=== PATIENT | male | born 1995 | race African-American/Black ===

== ENCOUNTER 2025-08-10 05:33 | Emergency (ER) | payer SELFPAY ==
[2025-08-10 05:37] VITALS: BP 122/68; PULSE 68; RESP 20; TEMP 36.7; O2SAT 100
--- OUTSIDE RECORDS SUMMARY | 2025-08-10 05:37 | XMS_ITS | Encounter Summary ---
Author Organization [facility] Address [address] [place] [address] Phone Care Team Providers Care Client Services Account Manager Name Role Phone Kwan Hennessy MD Primary Care Provider [phone] Bessie Butt MD Unavailable [phone] Reason for Visit * Reason Onset Date Comments Med Refill 08/09/2025 Encounter Details Date Type Department Care Team (Late st Contact Info) Description 08/09/2025 Telephone [facility] Medicine Hematology [address] [place] [id number] Miley Ward Med Refill Social History Tobacco Use Types Packs/Day Years Used Date Smoking Tobacco: Never Passive Smoke Exposure: Never Smokeless Tobacco: Never Alcohol Use Standard Drinks/Week Comments Never 0 (1 standard drink = 0.6 oz pur e alcohol) [facility] Utilities Answer Date Recorded In the past 12 months has [employer], gas, oil, or water company threatened to shut off services in your home? No 02/04/2025 Social Connection and Isolation Panel Answer Date Recorded In a typical week, how many times do you talk on the phone with family, friends, or neighbors? Three times a week 02/04/2025 How often do you get togethe r with friends or relatives? More than three times a week 02/04/2025 How often do you attend chur ch or restoration services? Never 02/04/2025 Do you belong to any clubs o r organizations such as evangelical groups, unions, fraternal or athletic groups, or school groups? No 02/04/2025 How often do you attend meet ings of the clubs or organizations you belong to? Never 02/04/2025 Are you , , di vorced, , never , or living with a partner? Living with partner 02/04/2025 AUDIT-C Answer Date Recorded Q1: How often do you have a drink containing alcohol? Never 02/02/2025 Q2: How many drinks containi ng alcohol do you have on a typical day when you are drinking? Patient does not drink Q3: How often do you have si x or more drinks on one occasion? Never 02/02/2025 Overall Financial Resource Strain (CARDIA) Answe r Date Recorded How hard is it for you to pa y for the very basics like food, housing, medical care, and heating? Not very hard 02/04/2025 PHQ-2 Answer Date Recorded PHQ-2 Total Score (If total score is 3 or more points, staff should administer the PHQ-9) 1 12/24/2024 PRAPARE - Transportation Answer Date Re corded In the past 12 months, has l ack of transportation kept you from medical appointments or from getting medications? No 04/2025 In the past 12 months, has l ack of transportation kept you from meetings, work, or from getting things needed for daily living? No 02/04/2025 Housing Stability Vital Sign Answer Darrin e Recorded In the last 12 months, was t here a time when you were not able to pay the mortgage or rent on time? No 05/23/2023 In the last 12 months, how many places have you lived? 1 05/23/2023 In the last 12 months, was t here a time when you did not have a steady place to sleep or slept in a correction (including now)? No 05/23/2023 Housing Stability Vital Sign Answer Darrin e Recorded In the last 12 months, was t here a time when you were not able to pay the mortgage or rent on time? No 02/04/2025 In the past 12 months, how m any times have you moved where you were living? 0 02/04/2025 At any time in the past 12 m [facility], were you homeless or living in a correction (including now)? No 02/04/2025 Hunger Vital Sign Answer Date Recorded Within the past 12 months, y ou worried that your food would run out before you got the money to buy more. Never true 08/06/20 25 Within the past 12 months, t he food you bought just didn't last and you didn't have money to get more. Never true 08/06/2025 Personal Safety Answer Date Recorded Have you ever been in or are you currently in a harmful physical or emotional relationship or is someone making you feel afraid or unsafe? Denies 08/06/2025 Sex and Gender Information Value Date Recorded Sex Assigned at Not on file Legal Sex Male 7:27 AM [employer] Gender Identity Not on file Sexual Orientation Not on file Occupation Industry Job Start Date Job End Date Unemployed Not on file Not on file Not on file documented as of this encounter Miscellaneous Notes * Telephone Encounter - Miley Ward - 08/09/2025 2:37 PM CDT Pt left vm for Ernie requesting a medication refill for Ibuprofen. Pt would like rx sent to [facility] pharmacy located at [address] in [place], [place]. Call back number is [phone] documented in this encounter Plan of Treatment Not on file documented as of this encounter Visit Diagnoses Not on filedocumented in this encounter Care Teams Client Services Account Manager Relationship Specialty Start Date End Date Kwan Hennessy MD [address] [address] PCP - General 04/14/20 Bessie Butt MD [address] [place] [address] Medical Oncologist/Distribution System Operator Hematology 07/15/21 documented as of this encounter
--- OUTSIDE RECORDS SUMMARY | 2025-08-10 05:37 | XMS_ITS | Data Portability ---
Author Organization [facility] PATCristóbalchris Motley Address [address] [place] [address] Care Team Providers Care Moisture Meter Reader Name Role Phone BRIELLE OCASIO Primary Care Provider ONEIL MEADOWS Neurological Surgeon Assessment No assessment recorded. Plan of Treatment Reminders Order Date Submit Date Provider Last Modified By Organization Details Last Modified Time Details Appointments None recorded. Lab RPR (rapid plasma reagin), serum 2023 024 [facility], [address] [place], [place] [address], [address], [place], [address], 4 21:07:51 HIV 1 + 2, meaningful use set 2023 024 [facility], [address], [place], [address], 4 21:07:51 chlamydia trachomatis + neisseria gonorrhoeae + trichomonas vaginalis DNA panel, ENRICO+probe, unspecified specimen 2023 024 [facility] [address], [address], [place], [address], 4 21:07:50 HSV 2 IgG Ab, QN, IA, serum 2023 024 [facility] [address], [place], [address], 21:07:49 Referral None recorded. Procedures None recorded. Surgeries None recorded. Imaging None recorded. Medication Orders promethazin e 6.25 mg/5 mL oral syrup 2024 025 [facility][id number], [address] [place], [address], 5 12:53:46 promethazin e 6.25 mg/5 mL oral syrup 2023 024 [facility][id number], [address] [place], [address], 4 11:11:35 promethazin e 6.25 mg/5 mL oral syrup 2023 024 [id number] [address] [place], [address], 4 14:40:12 escitalopra m 5 mg tablet 2023 024 [id number], [address] [place], [address], 4 17:19:38 Patient TargetsNo targets recorded. Patient Instructions Encounter Date Encounter Id Patient Instructions Last Modified By Organization Details Last Modified Time 04/17/2024 [id number] sickle cell disease: care instructions [email or web address] Not available 04/17/2024 14:40:10 learning about mood disorders [email or web address] Not available 04/17/2024 17:19:36 05/22/2024 [id number] You have an active order for physical therapy at [facility], call [phone] to schedule [email or web address] Not available 05/22/2024 11:21:09 11/22/2024 [id number] sickle cell disease: care instructions [email or web address] Not available 11/22/2024 12:51:33 Reason for Referral None Reported. Results Created Date Observation Date Name Description Value Unit Range Abnormal Flag Note LastModifiedBy Organization Detail LastModifiedTime 04/17/20 24 04/18/2024 HSV-2 AB, IGG hsv 2 IgG, type spec <0.91 index 0.00-0 .90 Negat isabell <0.91 Equiv ocal 0.91 - 1.09 Posit isabell >1.09 HSV-2 Antib cammie Inter preta tion: Curre nt guide lines and recom menda tions do not recom mend routi ne scree baldemar for HSV-2 in asymp tomat ic indiv idual s, inclu ding those that are pregn ant. A negat isabell antib cammie resul t indic ates no detec table antib odies to HSV-2 were found . If recen t expos ure is suspe cted, retes t in 4 to 6 weeks . Equiv ocal sampl es shoul d be retes antonette in 4 to 6 weeks . A posit isabell resul t indic ates the prese nce of detec table IgG antib cammie to HSV-2 . FALSE POSIT ISABELL RESUL TS MAY OCCUR . Repea t testi ng, or testi ng by a rachid mccann, may be indic ated in some setti ngs (e.g. patie nts with low likel ihood of HSV infec tion) . If clini tiffany appro priat e, retes t 4 to 6 weeks later . HSV-2 IgG antib cammie testi ng resul ts shoul d be clini tiffany wanda song . Not Available [facility] ([facility]) [address] [place], [address], 04/18/2024 21:07:49 04/17/20 24 04/18/2024 CT, NG, TRICH VAG BY ENRICO chlamydia by ENRICO NEGATI VE negati ve Not Available [facility] ([facility]) [address] [place], [address], 04/18/2024 21:07:50 04/17/20 24 04/18/2024 CT, NG, TRICH VAG BY ENRICO gonococcus by ENRICO NEGATI VE negati ve Not Available [facility] ([facility]) [address] [place], [address], 04/18/2024 21:07:50 04/17/20 24 04/18/2024 CT, NG, TRICH VAG BY ENRICO trich vag by ENRICO NEGATI VE negati ve Not Available [facility] ([facility]) [address] [facility], [place], [address], 04/18/2024 21:07:50 04/17/20 24 04/18/2024 RPR, RFX QN RPR/C ONFIR M TP RPR NON REACTI VE nonrea ctive Not Available [facility] ([facility]) [address] [facility], [place], [address], 04/18/2024 21:07:51 04/17/20 24 04/18/2024 HIV AB/P2 4 AG WITH REFLE X HIV Ab/P24 Ag screen NON REACTI VE nonrea ctive HIV Negat isabell HIV-1 /HIV- 2 antib odies and HIV-1 p24 antig en were NOT detec antonette. There is no labor atory evide nce of HIV infec tion. Not Available [facility] ([facility]) [address] [facility], [place], [address], 04/18/2024 21:07:51 05/16/20 24 05/16/2024 Basic metab olic 2000 panel - Serum or Plasm a glucose [mass/volume ] in serum or plasma 91 mg/dL low: 70mg/d Lhigh: 105mg/ dL Not Available Not Available 05/07/2025 09:07:33 05/16/20 24 05/16/2024 Basic metab olic 1999 panel - Serum or Plasm a sodium [moles/volum e] in serum or plasma 139 mmol/ L low: 136mmo l/Lhig h: 145mmo l/L Not Available Not Available 05/07/2025 09:07:33 05/16/20 24 05/16/2024 Basic metab olic 1999 panel - Serum or Plasm a potassium [moles/volum e] in serum or plasma 4.3 mmol/ L low: 3.5mmo l/Lhig h: 5.1mmo l/L Not Available Not Available 05/07/2025 09:07:33 05/16/20 24 05/16/2024 Basic metab olic 1999 panel - Serum or Plasm a chloride [moles/volum e] in serum or plasma 105 mmol/ L low: 98mmol /Lhigh : 107mmo l/L Not Available Not Available 05/07/2025 09:07:33 05/16/20 24 05/16/2024 Basic metab olic 1999 panel - Serum or Plasm a carbon dioxide, total [moles/volum e] in serum or plasma 24 mmol/ L low: 22mmol /Lhigh : 29mmol /L Not Available Not Available 05/07/2025 09:07:33 05/16/20 24 05/16/2024 Basic [employer] ic 1999 panel - Serum or Plasm a calcium [mass/volume ] in serum or plasma 10.2 mg/dL low: 8.4mg/ dLhigh : 10.4mg /dL Not Available Not Available 05/07/2025 09:07:33 05/16/20 24 05/16/2024 [facility] - [facility] or Plasm a anion gap in blood by calculation 10 mmol/ L low: 6mmol/ Lhigh: 16mmol /L Not Available Not Available 05/07/2025 09:07:33 05/16/20 24 05/16/2024 [facility] - Serum or Plasm a urea nitrogen [mass/volume ] in serum or plasma 5 mg/dL low: 5.3mg/ dLhigh : 18.7mg /dL low Not Available Not Available 05/07/2025 09:07:33 05/16/20 24 05/16/2024 [facility] - Serum or Plasm a creatinine [mass/volume ] in serum or plasma 0.71 mg/dL low: 0.72mg /dLhig h: 1.25mg /dL low Not Available Not Available 05/07/2025 09:07:33 05/16/20 24 05/16/2024 Basic [facility] olic 2000 panel - Serum or Plasm a glomerular filtration rate [volume rate/area] in serum, plasma or blood by creatinine-b ased formula (CKD-epi)/1. 73 sq M text: >=90 mL/min /1.73 m2 Not Available Not Available 05/07/2025 09:07:33 05/16/20 24 05/16/2024 Basic metab olic 2000 panel - Serum or Plasm a interpretati on and review of laboratory results Abnorm al Not Available Not Available 09:07:33 05/16/20 24 05/16/2024 CBC W Auto Diffe renti al panel - Blood leukocytes [#/volume] in blood by automated count 7.2 text: 4.0 - 10.7 x10e9/ L Not Available Not Available 05/07/2025 09:07:33 05/16/20 24 05/16/2024 CBC W Auto Diffe renti al panel - Blood erythrocytes [#/volume] in blood by automated count 2.43 text: 4.30 - 5.80 x10e12 /L low Not Available Not Available 05/07/2025 09:07:33 05/16/20 24 05/16/2024 CBC W Auto Diffe renti al panel - Blood hemoglobin [mass/volume ] in blood 9.5 g/dL low: 13.3g/ dLhigh : 17.5g/ dL low Not Available Not Available 05/07/2025 09:07:33 05/16/20 24 05/16/2024 CBC W Auto Diffe renti al panel - Blood hematocrit [volume fraction] of blood by automated count 26.2 % low: 38.7%h igh: 51.1% low Not Available Not Available 05/07/2025 09:07:33 05/16/20 24 05/16/2024 CBC W Auto Diffe renti al panel - Blood MCV [entitic mean volume] in red blood cells by automated count 107.8 fL low: 80fLhi gh: 98fL high Not Available Not Available 05/07/2025 09:07:33 05/16/20 24 05/16/2024 CBC W Auto Diffe renti al panel - Blood MCH [entitic mass] by automated count 39.1 pg low: 26.7pg high: 33.6pg high Not Available Not Available 05/07/2025 09:07:33 05/16/20 24 05/16/2024 CBC W Auto Diffe renti al panel - Blood MCHC [entitic mass/volume] in red blood cells by automated count 36.3 g/dL low: 31.7g/ dLhigh : 36.3g/ dL Not Available Not Available 05/07/2025 09:07:33 05/16/20 24 05/16/2024 CBC W Auto Diffe renti al panel - Blood erythrocyte [distwidth] in red blood cells by automated count 18.8 % low: 11.3%h igh: 14.8% high Not Available Not Available 05/07/2025 09:07:33 05/16/20 24 05/16/2024 CBC W Auto Diffe renti al panel - Blood platelets [#/volume] in blood by automated count 284 text: 150 - 420 x10e9/ L Not Available Not Available 05/07/2025 09:07:33 05/16/20 24 05/16/2024 CBC W Auto Diffe renti al panel - Blood platelet [entitic mean volume] in blood by automated count 9.6 fL low: 7.8fLh igh: 11.4fL Not Available Not Available 05/07/2025 09:07:33 05/16/20 24 05/16/2024 CBC W Auto Diffe renti al panel - Blood neutrophils/ leukocytes in blood by automated count 53.6 % low: 41%hig h: 74% Not Available Not Available 05/07/2025 09:07:33 05/16/20 24 05/16/2024 CBC W Auto Diffe renti al panel - Blood lymphocytes/ leukocytes in blood by automated count 39.6 % low: 17%hig h: 47% Not Available Not Available 05/07/2025 09:07:33 05/16/20 24 05/16/2024 CBC W Auto Diffe renti al panel - Blood monocytes/le ukocytes in blood by automated count 4.8 % low: 3%high : 11% Not Available Not Available 05/07/2025 09:07:33 05/16/20 24 05/16/2024 CBC W Auto Diffe renti al panel - Blood eosinophils/ leukocytes in blood by automated count 1.1 % low: 0%high : 7% Not Available Not Available 05/07/2025 09:07:33 05/16/20 24 05/16/2024 CBC W Auto Diffe renti al panel - Blood basophils/le ukocytes in blood by automated count 0.6 % low: 0%high : 1.6% Not Available Not Available 05/07/2025 09:07:33 05/16/20 24 05/16/2024 CBC W Auto Diffe renti al panel - Blood immature granulocytes /leukocytes in blood by automated count 0.3 % low: 0%high : 1% Not Available Not Available 05/07/2025 09:07:33 05/16/20 24 05/16/2024 CBC W Auto Diffe renti al panel - Blood neutrophils [#/volume] in blood by automated count 3.84 text: 1.60 - 7.50 x10e9/ L Not Available Not Available 05/07/2025 09:07:33 05/16/20 24 05/16/2024 CBC W Auto Diffe renti al panel - Blood lymphocytes [#/volume] in blood by automated count 2.83 text: 1.00 - 4.40 x10e9/ L Not Available Not Available 05/07/2025 09:07:33 05/16/20 24 05/16/2024 CBC W Auto Diffe renti al panel - Blood monocytes [#/volume] in blood by automated count 0.34 text: 0.15 - 1.00 x10e9/ L Not Available Not Available 05/07/2025 09:07:33 05/16/20 24 05/16/2024 CBC W Auto Diffe renti al panel - Blood eosinophils [#/volume] in blood 0.08 text: 0.00 - 0.60 x10e9/ L Not Available Not Available 05/07/2025 09:07:33 05/16/20 24 05/16/2024 CBC W Auto Diffe renti al panel - Blood basophils [#/volume] in blood by automated count 0.04 text: 0.00 - 0.13 x10e9/ L Not Available Not Available 05/07/2025 09:07:33 05/16/20 24 05/16/2024 CBC W Auto Diffe renti al panel - Blood nucleated erythrocytes /leukocytes [ratio] in blood by automated count 0.7 text: <=0.0 /100 WBC high Not Available Not Available 05/07/2025 09:07:33 05/16/20 24 05/16/2024 CBC W Auto Diffe renti al panel - Blood interpretati on and review of laboratory results Abnorm al Not Available Not Available 09:07:33 05/17/20 24 05/17/2024 Hapto globi n [Mass /volu me] in Serum or Plasm a by Nephe lomet ry haptoglobin [mass/volume ] in serum or plasma by nephelometry low: 14mg/d Lhigh: 258mg/ dL low Not Available Not Available 05/07/2025 09:07:33 05/17/20 24 05/17/2024 Hapto globi n [Mass /volu me] in Serum or Plasm a by Nephe lomet ry interpretati on and review of laboratory results Abnorm al Not Available Not Available 09:07:33 05/17/20 24 05/17/2024 Lacta te dehyd rogen ase [Enzy matic activ ity/v olume ] in Serum or Plasm a by Lacta te to pyruv ate react ion lactate dehydrogenas e [enzymatic activity/vol ume] in serum or plasma by lactate to pyruvate reaction 389 U/L low: 125U/L high: 220U/L high Not Available Not Available 05/07/2025 09:07:33 05/17/20 24 05/17/2024 Lacta te dehyd rogen ase [Enzy matic activ ity/v olume ] in Serum or Plasm a by Lacta te to pyruv ate react ion interpretati on and review of laboratory results Abnorm al Not Available Not Available 09:07:33 05/17/20 24 05/17/2024 Basic metab olic 1999 panel - Serum or Plasm a glucose [mass/volume ] in serum or plasma 95 mg/dL low: 70mg/d Lhigh: 105mg/ dL Not Available Not Available 05/07/2025 09:07:33 05/17/20 24 05/17/2024 Basic metab olic 1999 panel - Serum or Plasm a sodium [moles/volum e] in serum or plasma 138 mmol/ L low: 136mmo l/Lhig h: 145mmo l/L Not Available Not Available 05/07/2025 09:07:33 05/17/20 24 05/17/2024 Basic metab olic 1999 panel - Serum or Plasm a potassium [moles/volum e] in serum or plasma 4.1 mmol/ L low: 3.5mmo l/Lhig h: 5.1mmo l/L Not Available Not Available 05/07/2025 09:07:33 05/17/20 24 05/17/2024 [facility] olic 1999 panel - Serum or Plasm a chloride [moles/volum e] in serum or plasma 108 mmol/ L low: 98mmol /Lhigh : 107mmo l/L high Not Available Not Available 05/07/2025 09:07:33 05/17/20 24 05/17/2024 Basic [facility] olic 1999 panel - Serum or Plasm a carbon dioxide, total [moles/volum e] in serum or plasma 23 mmol/ L low: 22mmol /Lhigh : 29mmol /L Not Available Not Available 05/07/2025 09:07:33 05/17/20 24 05[facility] or Plasm a calcium [mass/volume ] in serum or plasma 9.4 mg/dL low: 8.4mg/ dLhigh : 10.4mg /dL Not Available Not Available 05/07/2025 09:07:33 05/17/20 24 05/17/2024 [facility] - Serum or Plasm a anion gap in blood by calculation 7 mmol/ L low: 6mmol/ Lhigh: 16mmol /L Not Available Not Available 05/07/2025 09:07:33 05/17/20 24 05/17/2024 [facility] - Serum or Plasm a urea nitrogen [mass/volume ] in serum or plasma 8 mg/dL low: 5.3mg/ dLhigh : 18.7mg /dL Not Available Not Available 05/07/2025 09:07:33 05/17/20 24 05/17/2024 Basic [facility] olic 1999 panel - Serum or Plasm a creatinine [mass/volume ] in serum or plasma 0.66 mg/dL low: 0.72mg /dLhig h: 1.25mg /dL low Not Available Not Available 05/07/2025 09:07:33 05/17/20 24 05/17/2024 [facility] - Serum or Plasm a glomerular filtration rate [volume rate/area] in serum, plasma or blood by creatinine-b ased formula (CKD-epi)/1. 73 sq M text: >=90 mL/min /1.73 m2 Not Available Not Available 05/07/2025 09:07:33 05/17/20 24 05/17/2024 Basic metab olic 2000 panel - Serum or Plasm a interpretati on and review of laboratory results Abnorm al Not Available Not Available 09:07:33 05/17/20 24 05/17/2024 CBC W Auto Diffe renti al panel - Blood leukocytes [#/volume] in blood by automated count 6.8 text: 4.0 - 10.7 x10e9/ L Not Available Not Available 05/07/2025 09:07:33 05/17/20 24 05/17/2024 CBC W Auto Diffe renti al panel - Blood erythrocytes [#/volume] in blood by automated count 2.19 text: 4.30 - 5.80 x10e12 /L low Not Available Not Available 05/07/2025 09:07:33 05/17/20 24 05/17/2024 CBC W Auto Diffe renti al panel - Blood hemoglobin [mass/volume ] in blood 8.4 g/dL low: 13.3g/ dLhigh : 17.5g/ dL low Not Available Not Available 05/07/2025 09:07:33 05/17/20 24 05/17/2024 CBC W Auto Diffe renti al panel - Blood hematocrit [volume fraction] of blood by automated count 23.5 % low: 38.7%h igh: 51.1% low Not Available Not Available 05/07/2025 09:07:33 05/17/20 24 05/17/2024 CBC W Auto Diffe renti al panel - Blood MCV [entitic mean volume] in red blood cells by automated count 107.3 fL low: 80fLhi gh: 98fL high Not Available Not Available 05/07/2025 09:07:33 05/17/20 24 05/17/2024 CBC W Auto Diffe renti al panel - Blood MCH [entitic mass] by automated count 38.4 pg low: 26.7pg high: 33.6pg high Not Available Not Available 05/07/2025 09:07:33 05/17/20 24 05/17/2024 CBC W Auto Diffe renti al panel - Blood MCHC [entitic mass/volume] in red blood cells by automated count 35.7 g/dL low: 31.7g/ dLhigh : 36.3g/ dL Not Available Not Available 05/07/2025 09:07:33 05/17/20 24 05/17/2024 CBC W Auto Diffe renti al panel - Blood erythrocyte [distwidth] in red blood cells by automated count 18.1 % low: 11.3%h igh: 14.8% high Not Available Not Available 05/07/2025 09:07:33 05/17/20 24 05/17/2024 CBC W Auto Diffe renti al panel - Blood platelets [#/volume] in blood by automated count 243 text: 150 - 420 x10e9/ L Not Available Not Available 05/07/2025 09:07:33 05/17/20 24 05/17/2024 CBC W Auto Diffe renti al panel - Blood platelet [entitic mean volume] in blood by automated count 9.5 fL low: 7.8fLh igh: 11.4fL Not Available Not Available 05/07/2025 09:07:33 05/17/20 24 05/17/2024 CBC W Auto Diffe renti al panel - Blood neutrophils/ leukocytes in blood by automated count 39.8 % low: 41%hig h: 74% low Not Available Not Available 05/07/2025 09:07:33 05/17/20 24 05/17/2024 CBC W Auto Diffe renti al panel - Blood lymphocytes/ leukocytes in blood by automated count 50.4 % low: 17%hig h: 47% high Not Available Not Available 05/07/2025 09:07:33 05/17/20 24 05/17/2024 CBC W Auto Diffe renti al panel - Blood monocytes/le ukocytes in blood by automated count 7.6 % low: 3%high : 11% Not Available Not Available 05/07/2025 09:07:33 05/17/20 24 05/17/2024 CBC W Auto Diffe renti al panel - Blood eosinophils/ leukocytes in blood by automated count 1.5 % low: 0%high : 7% Not Available Not Available 05/07/2025 09:07:33 05/17/20 24 05/17/2024 CBC W Auto Diffe renti al panel - Blood basophils/le ukocytes in blood by automated count 0.6 % low: 0%high : 1.6% Not Available Not Available 05/07/2025 09:07:33 05/17/20 24 05/17/2024 CBC W Auto Diffe renti al panel - Blood immature granulocytes /leukocytes in blood by automated count 0.1 % low: 0%high : 1% Not Available Not Available 05/07/2025 09:07:33 05/17/20 24 05/17/2024 CBC W Auto Diffe renti al panel - Blood neutrophils [#/volume] in blood by automated count 2.7 text: 1.60 - 7.50 x10e9/ L Not Available Not Available 05/07/2025 09:07:33 05/17/20 24 05/17/2024 CBC W Auto Diffe renti al panel - Blood lymphocytes [#/volume] in blood by automated count 3.43 text: 1.00 - 4.40 x10e9/ L Not Available Not Available 05/07/2025 09:07:33 05/17/20 24 05/17/2024 CBC W Auto Diffe renti al panel - Blood monocytes [#/volume] in blood by automated count 0.52 text: 0.15 - 1.00 x10e9/ L Not Available Not Available 05/07/2025 09:07:33 05/17/20 24 05/17/2024 CBC W Auto Diffe renti al panel - Blood eosinophils [#/volume] in blood 0.1 text: 0.00 - 0.60 x10e9/ L Not Available Not Available 05/07/2025 09:07:33 05/17/20 24 05/17/2024 CBC W Auto Diffe renti al panel - Blood basophils [#/volume] in blood by automated count 0.04 text: 0.00 - 0.13 x10e9/ L Not Available Not Available 05/07/2025 09:07:33 05/17/20 24 05/17/2024 CBC W Auto Diffe renti al panel - Blood nucleated erythrocytes /leukocytes [ratio] in blood by automated count 3.7 text: <=0.0 /100 WBC high Not Available Not Available 05/07/2025 09:07:33 05/17/20 24 05/17/2024 CBC W Auto Diffe renti al panel - Blood interpretati on and review of laboratory results Abnorm al Not Available Not Available 09:07:33 05/17/20 24 05/17/2024 Retic ulocy jesse [#/vo lume] in Blood reticulocyte s/erythrocyt es in blood by automated count 9.74 % low: 0.5%hi gh: 2.4% high Not Available Not Available 05/07/2025 09:07:01 05/17/20 24 05/17/2024 Retic ulocy jesse [#/vo lume] in Blood reticulocyte s [#/volume] in blood by automated count 0.2133 text: 0.0200 - 0.1100 x10e6/ uL high Not Available Not Available 05/07/2025 09:07:01 05/17/20 24 05/17/2024 Retic ulocy jesse [#/vo lume] in Blood hemoglobin [entitic mass] in reticulocyte s by automated count 36.6 pg low: 29pghi gh: 37.9pg Not Available Not Available 05/07/2025 09:07:01 05/17/20 24 05/17/2024 Retic ulocy jesse [#/vo lume] in Blood immature reticulocyte s/reticulocy jesse.total in blood 24.4 % low: 1.8%hi gh: 15.2% high Not Available Not Available 05/07/2025 09:07:01 05/17/20 24 05/17/2024 Retic ulocy jesse [#/vo lume] in Blood interpretati on and review of laboratory results Abnorm al Not Available Not Available 09:07:01 05/18/20 24 05/18/2024 Lacta te dehyd rogen ase [Enzy matic activ ity/v olume ] in Serum or Plasm a by Lacta te to pyruv ate react ion lactate dehydrogenas e [enzymatic activity/vol ume] in serum or plasma by lactate to pyruvate reaction 377 U/L low: 125U/L high: 220U/L high Not Available Not Available 05/07/2025 09:07:33 05/18/20 24 05/18/2024 Lacta te dehyd rogen ase [Enzy matic activ ity/v olume ] in Serum or Plasm a by Lacta te to pyruv ate react ion interpretati on and review of laboratory results Abnorm al Not Available Not Available 09:07:33 05/18/20 24 05/18/2024 Basic metab olic 1999 panel - Serum or Plasm a glucose [mass/volume ] in serum or plasma 93 mg/dL low: 70mg/d Lhigh: 105mg/ dL Not Available Not Available 05/07/2025 09:07:33 05/18/20 24 05/18/2024 Basic metab olic 1999 panel - Serum or Plasm a sodium [moles/volum e] in serum or plasma 139 mmol/ L low: 136mmo l/Lhig h: 145mmo l/L Not Available Not Available 05/07/2025 09:07:33 05/18/20 24 05/18/2024 Basic metab olic 1999 panel - Serum or Plasm a potassium [moles/volum e] in serum or plasma 4.1 mmol/ L low: 3.5mmo l/Lhig h: 5.1mmo l/L Not Available Not Available 05/07/2025 09:07:33 05/18/20 24 05/18/2024 Basic metab olic 1999 panel - Serum or Plasm a chloride [moles/volum e] in serum or plasma 108 mmol/ L low: 98mmol /Lhigh : 107mmo l/L high Not Available Not Available 05/07/2025 09:07:33 05/18/20 24 05/18/2024 Basic metab olic 1999 panel - Serum or Plasm a carbon dioxide, total [moles/volum e] in serum or plasma 23 mmol/ L low: 22mmol /Lhigh : 29mmol /L Not Available Not Available 05/07/2025 09:07:33 05/18/20 24 05/18/2024 Basic metab olic 1999 panel - Serum or Plasm a calcium [mass/volume ] in serum or plasma 9.5 mg/dL low: 8.4mg/ dLhigh : 10.4mg /dL Not Available Not Available 05/07/2025 09:07:33 05/18/20 24 05/18/2024 [facility] olic 2000 panel - Serum or Plasm a anion gap in blood by calculation 8 mmol/ L low: 6mmol/ Lhigh: 16mmol /L Not Available Not Available 05/07/2025 09:07:33 05/18/20 24 05/18/2024 Basic metab olic 2000 panel - Serum or Plasm a urea nitrogen [mass/volume ] in serum or plasma 9 mg/dL low: 5.3mg/ dLhigh : 18.7mg /dL Not Available Not Available 05/07/2025 09:07:33 05/18/20 24 05/18/2024 Basic metab olic 2000 panel - Serum or Plasm a creatinine [mass/volume ] in serum or plasma 0.64 mg/dL low: 0.72mg /dLhig h: 1.25mg /dL low Not Available Not Available 05/07/2025 09:07:33 05/18/20 24 05/18/2024 Basic metab olic 2000 panel - Serum or Plasm a glomerular filtration rate [volume rate/area] in serum, plasma or blood by creatinine-b ased formula (CKD-epi)/1. 73 sq M text: >=90 mL/min /1.73 m2 Not Available Not Available 05/07/2025 09:07:33 05/18/20 24 05/18/2024 Basic metab olic 2000 panel - Serum or Plasm a interpretati on and review of laboratory results Abnorm al Not Available Not Available 09:07:33 05/18/20 24 05/18/2024 CBC W Auto Diffe renti al panel - Blood leukocytes [#/volume] in blood by automated count 7.3 text: 4.0 - 10.7 x10e9/ L Not Available Not Available 05/07/2025 09:07:01 05/18/20 24 05/18/2024 CBC W Auto Diffe renti al panel - Blood erythrocytes [#/volume] in blood by automated count 2.25 text: 4.30 - 5.80 x10e12 /L low Not Available Not Available 05/07/2025 09:07:01 05/18/20 24 05/18/2024 CBC W Auto Diffe renti al panel - Blood hemoglobin [mass/volume ] in blood 8.7 g/dL low: 13.3g/ dLhigh : 17.5g/ dL low Not Available Not Available 05/07/2025 09:07:01 05/18/20 24 05/18/2024 CBC W Auto Diffe renti al panel - Blood hematocrit [volume fraction] of blood by automated count 24.3 % low: 38.7%h igh: 51.1% low Not Available Not Available 05/07/2025 09:07:01 05/18/20 24 05/18/2024 CBC W Auto Diffe renti al panel - Blood MCV [entitic mean volume] in red blood cells by automated count 108 fL low: 80fLhi gh: 98fL high Not Available Not Available 05/07/2025 09:07:01 05/18/20 24 05/18/2024 CBC W Auto Diffe renti al panel - Blood MCH [entitic mass] by automated count 38.7 pg low: 26.7pg high: 33.6pg high Not Available Not Available 05/07/2025 09:07:01 05/18/20 24 05/18/2024 CBC W Auto Diffe renti al panel - Blood MCHC [entitic mass/volume] in red blood cells by automated count 35.8 g/dL low: 31.7g/ dLhigh : 36.3g/ dL Not Available Not Available 05/07/2025 09:07:01 05/18/20 24 05/18/2024 CBC W Auto Diffe renti al panel - Blood erythrocyte [distwidth] in red blood cells by automated count 17.5 % low: 11.3%h igh: 14.8% high Not Available Not Available 05/07/2025 09:07:01 05/18/20 24 05/18/2024 CBC W Auto Diffe renti al panel - Blood platelets [#/volume] in blood by automated count 219 text: 150 - 420 x10e9/ L Not Available Not Available 05/07/2025 09:07:01 05/18/20 24 05/18/2024 CBC W Auto Diffe renti al panel - Blood platelet [entitic mean volume] in blood by automated count 9.8 fL low: 7.8fLh igh: 11.4fL Not Available Not Available 05/07/2025 09:07:01 05/18/20 24 05/18/2024 CBC W Auto Diffe renti al panel - Blood neutrophils/ leukocytes in blood by automated count 37.7 % low: 41%hig h: 74% low Not Available Not Available 05/07/2025 09:07:01 05/18/20 24 05/18/2024 CBC W Auto Diffe renti al panel - Blood lymphocytes/ leukocytes in blood by automated count 52.3 % low: 17%hig h: 47% high Not Available Not Available 05/07/2025 09:07:01 05/18/20 24 05/18/2024 CBC W Auto Diffe renti al panel - Blood monocytes/le ukocytes in blood by automated count 6.2 % low: 3%high : 11% Not Available Not Available 05/07/2025 09:07:01 05/18/20 24 05/18/2024 CBC W Auto Diffe renti al panel - Blood eosinophils/ leukocytes in blood by automated count 3 % low: 0%high : 7% Not Available Not Available 05/07/2025 09:07:01 05/18/20 24 05/18/2024 CBC W Auto Diffe renti al panel - Blood basophils/le ukocytes in blood by automated count 0.7 % low: 0%high : 1.6% Not Available Not Available 05/07/2025 09:07:01 05/18/20 24 05/18/2024 CBC W Auto Diffe renti al panel - Blood immature granulocytes /leukocytes in blood by automated count 0.1 % low: 0%high : 1% Not Available Not Available 05/07/2025 09:07:01 05/18/20 24 05/18/2024 CBC W Auto Diffe renti al panel - Blood neutrophils [#/volume] in blood by automated count 2.75 text: 1.60 - 7.50 x10e9/ L Not Available Not Available 05/07/2025 09:07:01 05/18/20 24 05/18/2024 CBC W Auto Diffe renti al panel - Blood lymphocytes [#/volume] in blood by automated count 3.82 text: 1.00 - 4.40 x10e9/ L Not Available Not Available 05/07/2025 09:07:01 05/18/20 24 05/18/2024 CBC W Auto Diffe renti al panel - Blood monocytes [#/volume] in blood by automated count 0.45 text: 0.15 - 1.00 x10e9/ L Not Available Not Available 05/07/2025 09:07:01 05/18/20 24 05/18/2024 CBC W Auto Diffe renti al panel - Blood eosinophils [#/volume] in blood 0.22 text: 0.00 - 0.60 x10e9/ L Not Available Not Available 05/07/2025 09:07:01 05/18/20 24 05/18/2024 CBC W Auto Diffe renti al panel - Blood basophils [#/volume] in blood by automated count 0.05 text: 0.00 - 0.13 x10e9/ L Not Available Not Available 05/07/2025 09:07:01 05/18/20 24 05/18/2024 CBC W Auto Diffe renti al panel - Blood nucleated erythrocytes /leukocytes [ratio] in blood by automated count 2.1 text: <=0.0 /100 WBC high Not Available Not Available 05/07/2025 09:07:01 05/18/20 24 05/18/2024 CBC W Auto Diffe renti al panel - Blood interpretati on and review of laboratory results Abnorm al Not Available Not Available 09:07:01 06/15/20 24 06/18/2024 Bacte marshall ident ified in Speci men by Respi rator y cultu re specimen source identified SPUTUM , EXPECT ORATED Not Available Not Available 11:20:31 06/15/20 24 06/18/2024 Bacte marshall ident ified in Speci men by Respi rator y cultu re service comment NO SPECIA L REQUES T Not Available Not Available 11:20:31 06/15/20 24 06/18/2024 Bacte marshall ident ified in Speci men by Respi rator y cultu re microscopic observation [identifier] in specimen by gram stain FEW WHITE BLOOD CELLS SEEN Not Available Not Available 11:20:31 06/15/20 24 06/18/2024 Bacte marshall ident ified in Speci men by Respi rator y cultu re microscopic observation [identifier] in specimen by gram stain FEW EPITHE LIAL CELLS SEEN Not Available Not Available 11:20:31 06/15/20 24 06/18/2024 Bacte marshall ident ified in Speci men by Respi rator y cultu re microscopic observation [identifier] in specimen by gram stain MODERA TE MIXED BACTER IAL SELENA Not Available Not Available 11:20:31 06/15/20 24 06/18/2024 Bacte marshall ident ified in Speci men by Respi rator y cultu re bacteria identified in specimen by culture SPARSE GROWTH OF ENTERO BACTER CLOACA E COMPLE X abnormal Not Available Not Available 11:20:31 06/15/20 24 06/18/2024 Bacte marshall ident ified in Speci men by Respi rator y cultu re bacteria identified in specimen by culture HEAVY GROWTH OF NORMAL SELENA PRESEN T Not Available Not Available 11:20:31 06/15/20 24 06/18/2024 Bacte marshall ident ified in Speci men by Respi rator y cultu re interpretati on and review of laboratory results Abnorm al Not Available Not Available 11:20:31 08/29/20 24 08/29/2024 Retic ulocy jesse [#/vo lume] in Blood by Autom ated count reticulocyte s/erythrocyt es in blood 13.1 % low: 0.8%hi gh: 2.1% high Not Available Not Available 05/07/2025 12:24:42 08/29/20 24 08/29/2024 Retic ulocy jesse [#/vo lume] in Blood by Autom ated count reticulocyte s [#/volume] in blood by automated count 0.31 text: 0.03 - 0.11 x10'6/ uL high Not Available Not Available 05/07/2025 12:24:42 08/29/20 24 08/29/2024 Retic ulocy jesse [#/vo lume] in Blood by Autom ated count immature reticulocyte s/erythrocyt es in cord blood by automated count 35.3 % low: 2.3%hi gh: 13.4% high Not Available Not Available 05/07/2025 12:24:42 08/29/20 24 08/29/2024 Retic ulocy jesse [#/vo lume] in Blood by Autom ated count retic HGB 34.5 pg low: 28pghi gh: 35pg Not Available Not Available 05/07/2025 12:24:42 08/29/20 24 08/29/2024 Retic ulocy jesse [#/vo lume] in Blood by Autom ated count interpretati on and review of laboratory results Abnorm al Not Available Not Available 12:24:42 08/29/2008/29/2024 Compr ehens [facility]abell metab olic 2000 panel - Serum or Plasm a glucose [mass/volume ] in serum or plasma 95 text: 70 - 99 mg/dL Not Available Not Available 05/07/2025 12:24:42 08/29/20 24 08/29/2024 Compr ehens [facility] metab olic 2000 panel - Serum or Plasm a urea nitrogen [mass/volume ] in serum or plasma 7 text: 7 - 18 mg/dL Not Available Not Available 05/07/2025 12:24:42 08/29/2008/29/2024 Compr ehens [facility]ell metab olic 2000 panel - Serum or Plasm a creatinine [mass/volume ] in serum or plasma 0.74 text: 0.7 - 1.3 mg/dL Not Available Not Available 05/07/2025 12:24:42 08/29/20 24 08/29/2024 Compr ehens isabell metab olic 2000 panel - Serum or Plasm a sodium [moles/volum e] in serum or plasma 142 text: 136 - 145 mmol/L Not Available Not Available 05/07/2025 12:24:42 08/29/20 24 08/29/2024 Compr ehens is[facility]ell metab olic 2000 panel - Serum or Plasm a potassium [moles/volum e] in serum or plasma 4 text: 3.5 - 5.1 mmol/L Not Available Not Available 05/07/2025 12:24:42 08/29/20 24 08/29/2024 Compr ehens [facility]ell metab olic 2000 panel - Serum or Plasm a chloride [moles/volum e] in serum or plasma 112 text: 97 - 115 mmol/L Not Available Not Available 05/07/2025 12:24:42 08/29/20 24 08/29/2024 Compr ehens [facility] metab olic 1999 panel - Serum or Plasm a carbon dioxide, total [moles/volum e] in serum or plasma 23.5 text: 21 - 32 mmol/L Not Available Not Available 05/07/2025 12:24:42 08/29/20 24 08/29/2024 Compr ehens [facility]ell metab olic 1999 panel - Serum or Plasm a calcium [mass/volume ] in serum or plasma 8.8 text: 8.5 - 10.1 mg/dL Not Available Not Available 05/07/2025 12:24:42 08/29/20 24 08/29/2024 Compr ehens is[facility]ell metab olic 1999 panel - Serum or Plasm a bilirubin.to justyn [mass/volume ] in serum or plasma 1.9 text: 0.2 - 1.2 mg/dL high THIS ASSAY IS NOT RECOM RADHA D FOR PATIE NTS UNDER GOING TREAT MENT WITH ELTRO MBOPA G DUE TO THE POTEN TIAL FOR FALSE LY ELEVA ANTONETTE RESUL TS. Not Available Not Available 05/07/2025 12:24:42 08/29/20 24 08/29/2024 Compr ehens isabell metab olic 1999 panel - Serum or Plasm a protein [mass/volume ] in serum or plasma 7.6 text: 6.4 - 8.2 g/dL Not Available Not Available 05/07/2025 12:24:42 08/29/20 24 08/29/2024 Compr ehens [facility]abell metab olic 1999 panel - Serum or Plasm a albumin [mass/volume ] in serum or plasma 4.1 text: 3.4 - 5.0 g/dL Not Available Not Available 05/07/2025 12:24:42 08/29/20 24 08/29/2024 Compr ehens [facility]ell metab olic 1999 panel - Serum or Plasm a aspartate aminotransfe rase [enzymatic activity/vol ume] in serum or plasma 34 U/L low: 15U/Lh igh: 37U/L Not Available Not Available 05/07/2025 12:24:42 08/29/20 24 08/29/2024 Compr ehens isabell metab olic 2000 panel - Serum or Plasm a alanine aminotransfe rase [enzymatic activity/vol ume] in serum or plasma 18 U/L low: 16U/Lh igh: 60U/L Not Available Not Available 05/07/2025 12:24:42 08/29/2008/29/2024 [email or web address] [employer] [facility] 1999 panel - Serum or Plasm a alkaline phosphatase [enzymatic activity/vol ume] in serum or plasma 78 U/L low: 50U/Lh igh: 136U/L Not Available Not Available 05/07/2025 12:24:42 08/29/2008/29/2024 [email or web address] [employer] [facility] 1999 panel - Serum or Plasm a anion gap in serum or plasma by calculation 6.5 text: 2 - 10 mmol/L Not Available Not Available 05/07/2025 12:24:42 08/29/2008/29/2024 [email or web address] Z2 1999 panel - Serum or Plasm a urea nitrogen/cre atinine [mass ratio] in serum or plasma 9.4 low: 6high: 26 Not Available Not Available 05/07/2025 12:24:42 08/29/20 24 08/29/2024 [facility] [employer] Z2 1999 panel - Serum or Plasm a albumin/glob ulin [mass ratio] in serum or plasma 1.2 text: 1.0 - 2.0 ratio Not Available Not Available 05/07/2025 12:24:42 08/29/20 24 08/29/2024 [facility] [employer] Z2 1999 panel - Serum or Plasm a glomerular filtration rate [volume rate/area] in serum, plasma or blood by creatinine-b ased formula (CKD-epi 2020)/1.73 sq M text: >90 mL/min /1.73 M2 NOTE: eGFR is not calcu lated for patie nts <18 years of age or gende r unkno wn. This is an estim ated GFR calcu latio n using the new CKD EPI creat inine equat ion witho ut race and so does not requi re a corre ction facto r for race. This estim ated GFR shoul d not be used for calcu latin g drug doses . Not Available Not Available 05/07/2025 12:24:42 08/29/20 24 08/29/2024 Compr ehens isabell metab olic 2000 panel - Serum or Plasm a interpretati on and review of laboratory results Abnorm al Not Available Not Available 12:24:42 08/29/20 24 08/29/2024 CBC W Auto Diffe renti al panel - Blood leukocytes [#/volume] in blood by automated count 11.24 text: 4.5 - 11.0 x10'3/ uL high Not Available Not Available 05/07/2025 12:24:42 08/29/20 24 08/29/2024 CBC W Auto Diffe renti al panel - Blood erythrocytes [#/volume] in blood by automated count 2.4 text: 4.70 - 6.10 x10'6/ uL low Not Available Not Available 05/07/2025 12:24:42 08/29/20 24 08/29/2024 CBC W Auto Diffe renti al panel - Blood hemoglobin [mass/volume ] in blood 9.1 text: 14.0 - 18.0 g/dL low Not Available Not Available 05/07/2025 12:24:42 08/29/20 24 08/29/2024 CBC W Auto Diffe renti al panel - Blood hematocrit [volume fraction] of blood by calculation 25.6 % low: 43%hig h: 54% low Not Available Not Available 05/07/2025 12:24:42 08/29/20 24 08/29/2024 CBC W Auto Diffe renti al panel - Blood MCV [entitic mean volume] in red blood cells 106.7 text: 80.0 - 94.0 fL high Not Available Not Available 05/07/2025 12:24:42 08/29/20 24 08/29/2024 CBC W Auto Diffe renti al panel - Blood MCH [entitic mass] 37.9 pg low: 27pghi gh: 31pg high Not Available Not Available 05/07/2025 12:24:42 08/29/20 24 08/29/2024 CBC W Auto Diffe renti al panel - Blood MCHC [entitic mass/volume] in red blood cells 35.5 text: 32.0 - 36.0 g/dL Not Available Not Available 05/07/2025 12:24:42 08/29/20 24 08/29/2024 CBC W Auto Diffe renti al panel - Blood RDW 16.4 % low: 11.5%h igh: 14.5% high Not Available Not Available 05/07/2025 12:24:42 08/29/20 24 08/29/2024 CBC W Auto Diffe renti al panel - Blood platelets [#/volume] in blood 404 text: 130 - 400 x10'3/ uL high Not Available Not Available 05/07/2025 12:24:42 08/29/20 24 08/29/2024 CBC W Auto Diffe renti al panel - Blood platelet [entitic mean volume] in blood 9.8 text: 9.3 - 12.2 fL Not Available Not Available 05/07/2025 12:24:42 08/29/20 24 08/29/2024 CBC W Auto Diffe renti al panel - Blood differential cell count method - blood MANUAL DIFFER ENTIAL Not Available Not Available 12:24:42 08/29/20 24 08/29/2024 CBC W Auto Diffe renti al panel - Blood segmented neutrophils/ leukocytes in blood by manual count 30 % Not Available Not Available 05/07/2025 12:24:42 08/29/20 24 08/29/2024 CBC W Auto Diffe renti al panel - Blood lymphocytes/ leukocytes in blood by manual count 62 % Not Available Not Available 05/07/2025 12:24:42 08/29/20 24 08/29/2024 CBC W Auto Diffe renti al panel - Blood variant lymphocytes/ leukocytes in blood by manual count 1 % Not Available Not Available 05/07/2025 12:24:42 08/29/20 24 08/29/2024 CBC W Auto Diffe renti al panel - Blood monocytes/le ukocytes in blood by manual count 3 % Not Available Not Available 05/07/2025 12:24:42 08/29/20 24 08/29/2024 CBC W Auto Diffe renti al panel - Blood eosinophils/ leukocytes in blood by manual count 4 % Not Available Not Available 05/07/2025 12:24:42 08/29/20 24 08/29/2024 CBC W Auto Diffe renti al panel - Blood nucleated erythrocytes /leukocytes [ratio] in blood 1 text: 0 /100 WBC high Not Available Not Available 05/07/2025 12:24:42 08/29/20 24 08/29/2024 CBC W Auto Diffe renti al panel - Blood neutrophils [#/volume] in blood 3.37 text: 1.80 - 7.70 x10'3/ uL Not Available Not Available 05/07/2025 12:24:42 08/29/20 24 08/29/2024 CBC W Auto Diffe renti al panel - Blood lymphocytes [#/volume] in blood 7.08 text: 1.00 - 4.80 x10'3/ uL high Not Available Not Available 05/07/2025 12:24:42 08/29/20 24 08/29/2024 CBC W Auto Diffe renti al panel - Blood monocytes [#/volume] in blood 0.34 text: 0.30 - 0.82 x10'3/ uL Not Available Not Available 05/07/2025 12:24:42 08/29/20 24 08/29/2024 CBC W Auto Diffe renti al panel - Blood eosinophils [#/volume] in blood 0.45 text: 0.04 - 0.54 x10'3/ uL Not Available Not Available 05/07/2025 12:24:42 08/29/20 24 08/29/2024 CBC W Auto Diffe renti al panel - Blood nucleated erythrocytes [#/volume] in blood 0.11 text: 0.00 - 0.01 x10'3/ uL high Not Available Not Available 05/07/2025 12:24:42 08/29/20 24 08/29/2024 CBC W Auto Diffe renti al panel - Blood erythrocytes [morphology] in blood by automated count SLIDE REVIEW ED Not Available Not Available 12:24:42 08/29/2008/29/2024 CBC W Auto Diffe renti al panel - Blood target cells [presence] in blood by light microscopy 1+ Not Available Not Available 0 05/07/2025 12:24:42 08/29/20 24 08/29/2024 CBC W Auto Diffe renti al panel - Blood sickle cells [presence] in blood by light microscopy 2+ Not Available Not Available 0 05/07/2025 12:24:42 08/29/20 24 08/29/2024 CBC W Auto Diffe renti al panel - Blood mushtaq 1+ Not Available Not Availa ble 05/07/2025 12:24:42 08/29/2008/29/2024 CBC W Auto Diffe luis angel al panel - Blood platelets [#/volume] in blood by automated count INCREA SED Not Available Not Available 12:24:42 08/29/20 24 08/29/2024 CBC W Auto Diffe renshannon al panel - Blood interpretati on and review of laboratory results Abnorm al Not Available Not Available 12:24:42 08/30/2008/30/2024 Basic metab olic 2000 panel - Serum or Plasm a glucose [mass/volume ] in serum or plasma 91 text: 70 - 99 mg/dL Not Available Not Available 05/07/2025 12:24:42 08/30/2008/30/2024 Basic metab olic 1999 panel - Serum or Plasm a urea nitrogen [mass/volume ] in serum or plasma 6 text: 7 - 18 mg/dL low Not Available Not Available 05/07/2025 12:24:42 08/30/2008/30/2024 Basic metab olic 1999 panel - Serum or Plasm a creatinine [mass/volume ] in serum or plasma 0.62 text: 0.7 - 1.3 mg/dL low Not Available Not Available 05/07/2025 12:24:42 08/30/2008/30/2024 Basic metab olic 1999 panel - Serum or Plasm a sodium [moles/volum e] in serum or plasma 142 text: 136 - 145 mmol/L Not Available Not Available 05/07/2025 12:24:42 08/30/2008/30/2024 Basic metab olic 1999 panel - Serum or Plasm a potassium [moles/volum e] in serum or plasma 3.7 text: 3.5 - 5.1 mmol/L Not Available Not Available 05/07/2025 12:24:42 08/30/2008/30/2024 Basic metab olic 2000 panel - Serum or Plasm a chloride [moles/volum e] in serum or plasma 114 text: 97 - 115 mmol/L Not Available Not Available 05/07/2025 12:24:42 08/30/20 24 08/30/2024 Basic metab olic 1999 panel - Serum or Plasm a carbon dioxide, total [moles/volum e] in serum or plasma 23.4 text: 21 - 32 mmol/L Not Available Not Available 05/07/2025 12:24:42 08/30/2008/30/2024 Basic metab olic 1999 panel - Serum or Plasm a calcium [mass/volume ] in serum or plasma 8.4 text: 8.5 - 10.1 mg/dL low Not Available Not Available 05/07/2025 12:24:42 08/30/2008/30/2024 [facility] - Serum or Plasm a anion gap in serum or plasma by calculation 4.6 text: 2 - 10 mmol/L Not Available Not Available 05/07/2025 12:24:42 08/30/2008/30/2024 [facility] panel - Serum or Plasm a urea nitrogen/cre atinine [mass ratio] in serum or plasma 9.6 low: 6high: 26 Not Available Not Available 05/07/2025 12:24:42 08[facility]30/2008[facility]30/[facility] - Serum or Plasm a glomerular filtration rate [volume rate/area] in serum, plasma or blood by creatinine-b ased formula (CKD-epi 2020)/1.73 sq M text: >90 mL/min /1.73 M2 NOTE: eGFR is not calcu lated for patie nts <18 years of age or gende r unkno wn. This is an estim ated GFR calcu latio n using the new CKD EPI creat inine equat ion witho ut race and so does not requi re a corre ction facto r for race. This estim ated GFR shoul d not be used for calcu latin g drug doses . Not Available Not Available 05/07/2025 12:24:42 08/30/2008/30/2024 [facility] - Serum or Plasm a interpretati on and review of laboratory results Abnorm al Not Available Not Available 12:24:42 08/30/20 24 08/30/2024 CBC W Auto Diffe renti al panel - Blood leukocytes [#/volume] in blood by automated count 8.77 text: 4.5 - 11.0 x10'3/ uL Not Available Not Available 05/07/2025 12:24:42 08/30/20 24 08/30/2024 CBC W Auto Diffe renti al panel - Blood erythrocytes [#/volume] in blood by automated count 2.16 text: 4.70 - 6.10 x10'6/ uL low Not Available Not Available 05/07/2025 12:24:42 08/30/20 24 08/30/2024 CBC W Auto Diffe renti al panel - Blood hemoglobin [mass/volume ] in blood 7.9 text: 14.0 - 18.0 g/dL low Not Available Not Available 05/07/2025 12:24:42 08/30/20 24 08/30/2024 CBC W Auto Diffe renti al panel - Blood hematocrit [volume fraction] of blood by calculation 22.9 % low: 43%hig h: 54% low Not Available Not Available 05/07/2025 12:24:42 08/30/2008/30/2024 CBC W Auto Diffe renti al panel - Blood MCV [entitic mean volume] in red blood cells 106 text: 80.0 - 94.0 fL high Not Available Not Available 05/07/2025 12:24:42 08/30/20 24 08/30/2024 CBC W Auto Diffe renti al panel - Blood MCH [entitic mass] 36.6 pg low: 27pghi gh: 31pg high Not Available Not Available 05/07/2025 12:24:42 08/30/20 24 08/30/2024 CBC W Auto Diffe renti al panel - Blood MCHC [entitic mass/volume] in red blood cells 34.5 text: 32.0 - 36.0 g/dL Not Available Not Available 05/07/2025 12:24:42 08/30/20 24 08/30/2024 CBC W Auto Diffe renti al panel - Blood RDW 16.1 % low: 11.5%h igh: 14.5% high Not Available Not Available 05/07/2025 12:24:42 08/30/20 24 08/30/2024 CBC W Auto Diffe renti al panel - Blood platelets [#/volume] in blood 367 text: 130 - 400 x10'3/ uL Not Available Not Available 05/07/2025 12:24:42 08/30/20 24 08/30/2024 CBC W Auto Diffe renti al panel - Blood platelet [entitic mean volume] in blood 9.9 text: 9.3 - 12.2 fL Not Available Not Available 05/07/2025 12:24:42 08/30/20 24 08/30/2024 CBC W Auto Diffe renti al panel - Blood differential cell count method - blood MANUAL DIFFER ENTIAL Not Available Not Available 12:24:42 08/30/2008/30/2024 CBC W Auto Diffe renti al panel - Blood segmented neutrophils/ leukocytes in blood by manual count 31 % Not Available Not Available 05/07/2025 12:24:42 08/30/20 24 08/30/2024 CBC W Auto Diffe renti al panel - Blood lymphocytes/ leukocytes in blood by manual count 57 % Not Available Not Available 05/07/2025 12:24:42 08/30/20 24 08/30/2024 CBC W Auto Diffe renti al panel - Blood monocytes/le ukocytes in blood by manual count 6 % Not Available Not Available 05/07/2025 12:24:42 08/30/20 24 08/30/2024 CBC W Auto Diffe renti al panel - Blood eosinophils/ leukocytes in blood by manual count 5 % Not Available Not Available 05/07/2025 12:24:42 08/30/20 24 08/30/2024 CBC W Auto Diffe renti al panel - Blood metamyelocyt es [#/volume] in blood 1 % Not Available Not Available 05/2025 12:24:42 08/30/20 24 08/30/2024 CBC W Auto Diffe renti al panel - Blood nucleated erythrocytes /leukocytes [ratio] in blood 6 text: 0 /100 WBC high Not Available Not Available 05/07/2025 12:24:42 08/30/20 24 08/30/2024 CBC W Auto Diffe renti al panel - Blood neutrophils [#/volume] in blood 2.72 text: 1.80 - 7.70 x10'3/ uL Not Available Not Available 05/07/2025 12:24:42 08/30/20 24 08/30/2024 CBC W Auto Diffe renti al panel - Blood lymphocytes [#/volume] in blood 5 text: 1.00 - 4.80 x10'3/ uL high Not Available Not Available 05/07/2025 12:24:42 08/30/20 24 08/30/2024 CBC W Auto Diffe renti al panel - Blood monocytes [#/volume] in blood 0.53 text: 0.30 - 0.82 x10'3/ uL Not Available Not Available 05/07/2025 12:24:42 08/30/2008/30/2024 CBC W Auto Diffe renti al panel - Blood eosinophils [#/volume] in blood 0.44 text: 0.04 - 0.54 x10'3/ uL Not Available Not Available 05/07/2025 12:24:42 08/30/20 24 08/30/2024 CBC W Auto Diffe renti al panel - Blood metamyelocyt es [#/volume] in blood by manual count 0.09 text: 0.00 x10'3/ uL high Not Available Not Available 05/07/2025 12:24:42 08/30/20 24 08/30/2024 CBC W Auto Diffe renti al panel - Blood nucleated erythrocytes [#/volume] in blood 0.53 text: 0.00 - 0.01 x10'3/ uL high Not Available Not Available 05/07/2025 12:24:42 08/30/20 24 08/30/2024 CBC W Auto Diffe renti al panel - Blood erythrocytes [morphology] in blood by automated count SLIDE REVIEW ED Not Available Not Available 12:24:42 08/30/2008/30/2024 CBC W Auto Diffe renti al panel - Blood macrocytes [presence] in blood 1+ Not Available Not Available 05/2025 12:24:42 08/30/2008/30/2024 CBC W Auto Diffe renti al panel - Blood polychromasi a [presence] in blood by light microscopy 1+ Not Available Not Available 0 05/07/2025 12:24:42 08/30/20 24 08/30/2024 CBC W Auto Diffe renti al panel - Blood target cells [presence] in blood by light microscopy 1+ Not Available Not Available 0 05/07/2025 12:24:42 08/30/2008/30/2024 CBC W Auto Diffe renti al panel - Blood sickle cells [presence] in blood by light microscopy 1+ Not Available Not Available 0 05/07/2025 12:24:42 08/30/20 24 08/30/2024 CBC W Auto Diffe renti al panel - Blood walker jolly bodies 1+ Not Available Not Available 05/2025 12:24:42 08/30/20 24 08/30/2024 CBC W Auto Diffe renti al panel - Blood platelets [#/volume] in blood by automated count ADEQUA TE Not Available Not Available 12:24:42 08/30/2008/30/2024 CBC W Auto Diffe renti al panel - Blood interpretati on and review of laboratory results Abnorm al Not Available Not Available 12:24:42 08/31/2008/31/2024 Basic metab olic 1999 panel - Serum or Plasm a glucose [mass/volume ] in serum or plasma 84 text: 70 - 99 mg/dL Not Available Not Available 05/07/2025 12:24:42 08/31/20 24 08/31/2024 Basic metab olic 1999 panel - Serum or Plasm a urea nitrogen [mass/volume ] in serum or plasma 5 text: 7 - 18 mg/dL low Not Available Not Available 05/07/2025 12:24:42 08/31/20 24 08/31/2024 Basic metab olic 1999 panel - Serum or Plasm a creatinine [mass/volume ] in serum or plasma 0.6 text: 0.7 - 1.3 mg/dL low Not Available Not Available 05/07/2025 12:24:42 08/31/20 24 08/31/2024 Basic metab olic 1999 panel - Serum or Plasm a sodium [moles/volum e] in serum or plasma 140 text: 136 - 145 mmol/L Not Available Not Available 05/07/2025 12:24:42 08/31/20 24 08/31/2024 Basic metab olic 2000 panel - Serum or Plasm a potassium [moles/volum e] in serum or plasma 3.7 text: 3.5 - 5.1 mmol/L Not Available Not Available 05/07/2025 12:24:42 08/31/20 24 08/31/2024 Basic metab olic 1999 panel - Serum or Plasm a chloride [moles/volum e] in serum or plasma 112 text: 97 - 115 mmol/L Not Available Not Available 05/07/2025 12:24:42 08/31/20 24 08/31/2024 Basic metab olic 1999 panel - Serum or Plasm a carbon dioxide, total [moles/volum e] in serum or plasma 23.4 text: 21 - 32 mmol/L Not Available Not Available 05/07/2025 12:24:42 08/31/2008/31/2024 Basic metab olic 1999 panel - Serum or Plasm a calcium [mass/volume ] in serum or plasma 8.5 text: 8.5 - 10.1 mg/dL Not Available Not Available 05/07/2025 12:24:42 08/31/20 24 08/31/2024 Basic metab olic 1999 panel - Serum or Plasm a anion gap in serum or plasma by calculation 4.6 text: 2 - 10 mmol/L Not Available Not Available 05/07/2025 12:24:42 08/31/20 24 08/31/2024 Basic metab olic 1999 panel - Serum or Plasm a urea nitrogen/cre atinine [mass ratio] in serum or plasma 8.3 low: 6high: 26 Not Available Not Available 05/07/2025 12:24:42 08/31/20 24 08/31/2024 Basic metab olic 1999 panel - Serum or Plasm a glomerular filtration rate [volume rate/area] in serum, plasma or blood by creatinine-b ased formula (CKD-epi 2020)/1.73 sq M text: >90 mL/min /1.73 M2 NOTE: eGFR is not calcu lated for patie nts <18 years of age or gende r unkno wn. This is an estim ated GFR calcu latio n using the new CKD EPI creat inine equat ion witho ut race and so does not requi re a corre ction facto r for race. This estim ated GFR shoul d not be used for calcu latin g drug doses . Not Available Not Available 05/07/2025 12:24:42 08/31/2008/31/2024 Basic metab olic 2000 panel - Serum or Plasm a interpretati on and review of laboratory results Abnorm al Not Available Not Available 12:24:42 08/31/20 24 08/31/2024 CBC W Auto Diffe renti al panel - Blood leukocytes [#/volume] in blood by automated count 12.16 text: 4.5 - 11.0 x10'3/ uL high Not Available Not Available 05/07/2025 12:24:42 08/31/20 24 08/31/2024 CBC W Auto Diffe renti al panel - Blood erythrocytes [#/volume] in blood by automated count 2.36 text: 4.70 - 6.10 x10'6/ uL low Not Available Not Available 05/07/2025 12:24:42 08/31/20 24 08/31/2024 CBC W Auto Diffe renti al panel - Blood hemoglobin [mass/volume ] in blood 8.8 text: 14.0 - 18.0 g/dL low Not Available Not Available 05/07/2025 12:24:42 08/31/20 24 08/31/2024 CBC W Auto Diffe renti al panel - Blood hematocrit [volume fraction] of blood by calculation 25 % low: 43%hig h: 54% low Not Available Not Available 05/07/2025 12:24:42 08/31/20 24 08/31/2024 CBC W Auto Diffe renti al panel - Blood MCV [entitic mean volume] in red blood cells 105.9 text: 80.0 - 94.0 fL high Not Available Not Available 05/07/2025 12:24:42 08/31/20 24 08/31/2024 CBC W Auto Diffe renti al panel - Blood MCH [entitic mass] 37.3 pg low: 27pghi gh: 31pg high Not Available Not Available 05/07/2025 12:24:42 08/31/20 24 08/31/2024 CBC W Auto Diffe renti al panel - Blood MCHC [entitic mass/volume] in red blood cells 35.2 text: 32.0 - 36.0 g/dL Not Available Not Available 05/07/2025 12:24:42 08/31/20 24 08/31/2024 CBC W Auto Diffe renti al panel - Blood RDW 16.4 % low: 11.5%h igh: 14.5% high Not Available Not Available 05/07/2025 12:24:42 08/31/20 24 08/31/2024 CBC W Auto Diffe renti al panel - Blood platelets [#/volume] in blood 368 text: 130 - 400 x10'3/ uL Not Available Not Available 05/07/2025 12:24:42 08/31/20 24 08/31/2024 CBC W Auto Diffe renti al panel - Blood platelet [entitic mean volume] in blood 10.3 text: 9.3 - 12.2 fL Not Available Not Available 05/07/2025 12:24:42 08/31/20 24 08/31/2024 CBC W Auto Diffe renti al panel - Blood differential cell count method - blood MANUAL DIFFER ENTIAL Not Available Not Available 12:24:42 08/31/20 24 08/31/2024 CBC W Auto Diffe renti al panel - Blood segmented neutrophils/ leukocytes in blood by manual count 69 % Not Available Not Available 05/07/2025 12:24:42 08/31/20 24 08/31/2024 CBC W Auto Diffe renti al panel - Blood lymphocytes/ leukocytes in blood by manual count 20 % Not Available Not Available 05/07/2025 12:24:42 08/31/20 24 08/31/2024 CBC W Auto Diffe renti al panel - Blood monocytes/le ukocytes in blood by manual count 7 % Not Available Not Available 05/07/2025 12:24:42 08/31/20 24 08/31/2024 CBC W Auto Diffe renti al panel - Blood eosinophils/ leukocytes in blood by manual count 3 % Not Available Not Available 05/07/2025 12:24:42 08/31/20 24 08/31/2024 CBC W Auto Diffe renti al panel - Blood band form neutrophils/ leukocytes in blood by manual count 1 % Not Available Not Available 05/07/2025 12:24:42 08/31/20 24 08/31/2024 CBC W Auto Diffe renti al panel - Blood nucleated erythrocytes /leukocytes [ratio] in blood 3 text: 0 /100 WBC high Not Available Not Available 05/07/2025 12:24:42 08/31/20 24 08/31/2024 CBC W Auto Diffe renti al panel - Blood neutrophils [#/volume] in blood 8.51 text: 1.80 - 7.70 x10'3/ uL high Not Available Not Available 05/07/2025 12:24:42 08/31/20 24 08/31/2024 CBC W Auto Diffe renti al panel - Blood lymphocytes [#/volume] in blood 2.43 text: 1.00 - 4.80 x10'3/ uL Not Available Not Available 05/07/2025 12:24:42 08/31/20 24 08/31/2024 CBC W Auto Diffe renti al panel - Blood monocytes [#/volume] in blood 0.85 text: 0.30 - 0.82 x10'3/ uL high Not Available Not Available 05/07/2025 12:24:42 08/31/20 24 08/31/2024 CBC W Auto Diffe renti al panel - Blood eosinophils [#/volume] in blood 0.36 text: 0.04 - 0.54 x10'3/ uL Not Available Not Available 05/07/2025 12:24:42 08/31/20 24 08/31/2024 CBC W Auto Diffe renti al panel - Blood nucleated erythrocytes [#/volume] in blood 0.36 text: 0.00 - 0.01 x10'3/ uL high Not Available Not Available 05/07/2025 12:24:42 08/31/20 24 08/31/2024 CBC W Auto Diffe renti al panel - Blood erythrocytes [morphology] in blood by automated count SLIDE REVIEW ED Not Available Not Available 12:24:42 08/31/20 24 08/31/2024 CBC W Auto Diffe renti al panel - Blood hypochromia [presence] in blood 1+ Not Available Not Available 05/2025 12:24:42 08/31/20 24 08/31/2024 CBC W Auto Diffe renti al panel - Blood polychromasi a [presence] in blood by light microscopy 1+ Not Available Not Available 0 05/07/2025 12:24:42 08/31/20 24 08/31/2024 CBC W Auto Diffe renti al panel - Blood target cells [presence] in blood by light microscopy 1+ Not Available Not Available 0 05/07/2025 12:24:42 08/31/20 24 08/31/2024 CBC W Auto Diffe renti al panel - Blood sickle cells [presence] in blood by light microscopy 1+ Not Available Not Available 0 05/07/2025 12:24:42 08/31/20 24 08/31/2024 CBC W Auto Diffe renti al panel - Blood platelets [#/volume] in blood by automated count ADEQUA TE Not Available Not Available 12:24:42 08/31/20 24 08/31/2024 CBC W Auto Diffe renti al panel - Blood interpretati on and review of laboratory results Abnorm al Not Available Not Available 12:24:42 11/05/19 25 11/05/2024 Retic ulocy jesse [#/vo lume] in Blood by Autom ated count reticulocyte s/erythrocyt es in blood 17.9 % low: 0.8%hi gh: 2.1% high Not Available Not Available 05/07/2025 12:24:47 11/05/19 25 11/05/2024 Retic ulocy jesse [#/vo lume] in Blood by Autom ated count reticulocyte s [#/volume] in blood by automated count 0.4 text: 0.03 - 0.11 x10'6/ uL high Not Available Not Available 05/07/2025 12:24:47 11/05/19 25 11/05/2024 Retic ulocy jesse [#/vo lume] in Blood by Autom ated count immature reticulocyte s/erythrocyt es in cord blood by automated count 17 % low: 2.3%hi gh: 13.4% high Not Available Not Available 05/07/2025 12:24:47 11/05/19 25 11/05/2024 Retic ulocy jesse [#/vo lume] in Blood by Autom ated count retic HGB 34 pg low: 28pghi gh: 35pg Not Available Not Available 05/07/2025 12:24:47 11/05/19 25 11/05/2024 Retic ulocy jesse [#/vo lume] in Blood by Autom ated count interpretati on and review of laboratory results Abnorm al Not Available Not Available 12:24:47 11/05/19 25 11/05/2024 Compr [employer] isabell [employer] olic 1999 panel - Serum or Plasm a glucose [mass/volume ] in serum or plasma 88 text: 70 - 99 mg/dL Not Available Not Available 05/07/2025 12:24:47 11/05/19 25 11/05/2024 Compr [employer] is[facility]ell [employer] olic 1999 panel - Serum or Plasm a urea nitrogen [mass/volume ] in serum or plasma 6 text: 7 - 18 mg/dL low Not Available Not Available 05/07/2025 12:24:47 11/05/19 25 11/05/2024 [email or web address]ell [employer] olic 1999 panel - Serum or Plasm a creatinine [mass/volume ] in serum or plasma 0.6 text: 0.7 - 1.3 mg/dL low Not Available Not Available 05/07/2025 12:24:47 11/05/19 25 11/05/2024 [email or web address] [employer] olic 1999 panel - Serum or Plasm a sodium [moles/volum e] in serum or plasma 140 text: 136 - 145 mmol/L Not Available Not Available 05/07/2025 12:24:47 11/05/19 25 11/05/2024 [email or web address] [employer] olic 1999 panel - Serum or Plasm a potassium [moles/volum e] in serum or plasma 3.7 text: 3.5 - 5.1 mmol/L Not Available Not Available 05/07/2025 12:24:47 11/05/19 25 11/05/2024 [email or web address] [employer] olic 1999 panel - Serum or Plasm a chloride [moles/volum e] in serum or plasma 110 text: 97 - 115 mmol/L Not Available Not Available 05/07/2025 12:24:47 11/05/19 25 11/05/2024 [email or web address] [employer] olic 1999 panel - Serum or Plasm a carbon dioxide, total [moles/volum e] in serum or plasma 26.2 text: 21 - 32 mmol/L Not Available Not Available 05/07/2025 12:24:47 11/05/19 25 11/05/2024 [facility] [employer] [facility] 1999 [facility] - Serum or Plasm a calcium [mass/volume ] in serum or plasma 8.6 text: 8.5 - 10.1 mg/dL Not Available Not Available 05/07/2025 12:24:47 11/05/19 25 11/05/2024 [facility] 1999 panel - Serum or Plasm a bilirubin.to justyn [mass/volume ] in serum or plasma 2.2 text: 0.2 - 1.2 mg/dL high THIS ASSAY IS NOT RECOM RADHA D FOR PATIE NTS UNDER GOING TREAT MENT WITH ELTRO MBOPA G DUE TO THE POTEN TIAL FOR FALSE LY ELEVA ANTONETTE RESUL TS. Not Available Not Available 05/07/2025 12:24:47 11/05/19 25 11/05/2024 [facility] 1999 panel - Serum or Plasm a protein [mass/volume ] in serum or plasma 7.5 text: 6.4 - 8.2 g/dL Not Available Not Available 05/07/2025 12:24:47 11/05/19 25 11/05/2024 [facility] 2000 panel - Serum or Plasm a albumin [mass/volume ] in serum or plasma 4 text: 3.4 - 5.0 g/dL Not Available Not Available 05/07/2025 12:24:47 11/05/19 25 11/05/2024 [facility] 2000 panel - Serum or Plasm a aspartate aminotransfe rase [enzymatic activity/vol ume] in serum or plasma 46 U/L low: 15U/Lh igh: 37U/L high Not Available Not Available 05/07/2025 12:24:47 11/05/19 25 11/05/2024 [facility] metab olic 2000 panel - Serum or Plasm a alanine aminotransfe rase [enzymatic activity/vol ume] in serum or plasma 34 U/L low: 16U/Lh igh: 60U/L Not Available Not Available 05/07/2025 12:24:47 11/05/19 25 11/05/2024 [facility] metab [facility]lic 2000 panel - Serum or Plasm a alkaline phosphatase [enzymatic activity/vol ume] in serum or plasma 80 U/L low: 50U/Lh igh: 136U/L Not Available Not Available 05/07/2025 12:24:47 11/05/19 25 11/05/2024 Compr ehens isabell metab olic 1999 panel - Serum or Plasm a anion gap in serum or plasma by calculation 3.8 text: 2 - 10 mmol/L Not Available Not Available 05/07/2025 12:24:47 11/05/19 25 11/05/2024 Compr ehens isabell metab olic 1999 panel - Serum or Plasm a urea nitrogen/cre atinine [mass ratio] in serum or plasma 10 low: 6high: 26 Not Available Not Available 05/07/2025 12:24:47 11/05/19 25 11/05/2024 Compr ehens isabell metab olic 2000 panel - Serum or Plasm a albumin/glob ulin [mass ratio] in serum or plasma 1.1 text: 1.0 - 2.0 ratio Not Available Not Available 05/07/2025 12:24:47 11/05/19 25 11/05/2024 Compr ehens isabell metab olic 1999 panel - Serum or Plasm a glomerular filtration rate [volume rate/area] in serum, plasma or blood by creatinine-b ased formula (CKD-epi 2020)/1.73 sq M >90 text: >90 mL/min /1.73 M2 NOTE: eGFR is not calcu lated for patie nts <18 years of age or gende r unkno wn. This is an estim ated GFR calcu latio n using the new CKD EPI creat inine equat ion witho ut race and so does not requi re a corre ction facto r for race. This estim ated GFR shoul d not be used for calcu latin g drug doses . Not Available Not Available 05/07/2025 12:24:47 11/05/19 25 11/05/2024 Compr ehens isabell metab olic 1999 panel - Serum or Plasm a interpretati on and review of laboratory results Abnorm al Not Available Not Available 12:24:47 11/05/19 25 11/05/2024 CBC W Auto Diffe renti al panel - Blood leukocytes [#/volume] in blood by automated count 10.33 text: 4.5 - 11.0 x10'3/ uL Not Available Not Available 05/07/2025 12:24:46 11/05/19 25 11/05/2024 CBC W Auto Diffe renti al panel - Blood erythrocytes [#/volume] in blood by automated count 2.21 text: 4.70 - 6.10 x10'6/ uL low Not Available Not Available 05/07/2025 12:24:46 11/05/19 25 11/05/2024 CBC W Auto Diffe renti al panel - Blood hemoglobin [mass/volume ] in blood 8.3 text: 14.0 - 18.0 g/dL low Not Available Not Available 05/07/2025 12:24:46 11/05/19 25 11/05/2024 CBC W Auto Diffe renti al panel - Blood hematocrit [volume fraction] of blood by calculation 23 % low: 43%hig h: 54% low Not Available Not Available 05/07/2025 12:24:46 11/05/19 25 11/05/2024 CBC W Auto Diffe renti al panel - Blood MCV [entitic mean volume] in red blood cells 104.1 text: 80.0 - 94.0 fL high Not Available Not Available 05/07/2025 12:24:46 11/05/19 25 11/05/2024 CBC W Auto Diffe renti al panel - Blood MCH [entitic mass] 37.6 pg low: 27pghi gh: 31pg high Not Available Not Available 05/07/2025 12:24:46 11/05/19 25 11/05/2024 CBC W Auto Diffe renti al panel - Blood MCHC [entitic mass/volume] in red blood cells 36.1 text: 32.0 - 36.0 g/dL high Not Available Not Available 05/07/2025 12:24:46 11/05/19 25 11/05/2024 CBC W Auto Diffe renti al panel - Blood RDW 19.5 % low: 11.5%h igh: 14.5% high Not Available Not Available 05/07/2025 12:24:46 11/05/19 25 11/05/2024 CBC W Auto Diffe renti al panel - Blood platelets [#/volume] in blood 325 text: 130 - 400 x10'3/ uL Not Available Not Available 05/07/2025 12:24:46 01/06/20 25 11/05/2024 CBC W Auto Diffe renti al panel - Blood platelet [entitic mean volume] in blood 9.9 text: 9.3 - 12.2 fL Not Available Not Available 05/07/2025 12:24:46 11/05/19 25 11/05/2024 CBC W Auto Diffe renti al panel - Blood differential cell count method - blood MANUAL DIFFER ENTIAL Not Available Not Available 12:24:46 11/05/19 25 11/05/2024 CBC W Auto Diffe renti al panel - Blood segmented neutrophils/ leukocytes in blood by manual count 53 % Not Available Not Available 05/07/2025 12:24:46 11/05/19 25 11/05/2024 CBC W Auto Diffe renti al panel - Blood lymphocytes/ leukocytes in blood by manual count 35 % Not Available Not Available 05/07/2025 12:24:46 11/05/19 25 11/05/2024 CBC W Auto Diffe renti al panel - Blood monocytes/le ukocytes in blood by manual count 8 % Not Available Not Available 05/07/2025 12:24:46 11/05/19 25 11/05/2024 CBC W Auto Diffe renti al panel - Blood eosinophils/ leukocytes in blood by manual count 3 % Not Available Not Available 05/07/2025 12:24:46 11/05/19 25 11/05/2024 CBC W Auto Diffe renti al panel - Blood myelocytes [#/volume] in blood by manual count 1 % Not Available Not Available 05/07/2025 12:24:46 11/05/19 25 11/05/2024 CBC W Auto Diffe renti al panel - Blood nucleated erythrocytes /leukocytes [ratio] in blood 17 text: 0 /100 WBC high Not Available Not Available 05/07/2025 12:24:46 11/05/19 25 11/05/2024 CBC W Auto Diffe renti al panel - Blood neutrophils [#/volume] in blood 5.47 text: 1.80 - 7.70 x10'3/ uL Not Available Not Available 05/07/2025 12:24:46 11/05/19 25 11/05/2024 CBC W Auto Diffe renti al panel - Blood lymphocytes [#/volume] in blood 3.62 text: 1.00 - 4.80 x10'3/ uL Not Available Not Available 05/07/2025 12:24:46 11/05/19 25 11/05/2024 CBC W Auto Diffe renti al panel - Blood monocytes [#/volume] in blood 0.83 text: 0.30 - 0.82 x10'3/ uL high Not Available Not Available 05/07/2025 12:24:46 11/05/19 25 11/05/2024 CBC W Auto Diffe renti al panel - Blood eosinophils [#/volume] in blood 0.31 text: 0.04 - 0.54 x10'3/ uL Not Available Not Available 05/07/2025 12:24:46 11/05/19 25 11/05/2024 CBC W Auto Diffe renti al panel - Blood myelocytes [#/volume] in blood by manual count 0.1 text: 0.00 x10'3/ uL high Not Available Not Available 05/07/2025 12:24:46 11/05/19 25 11/05/2024 CBC W Auto Diffe renti al panel - Blood nucleated erythrocytes [#/volume] in blood 1.76 text: 0.00 - 0.01 x10'3/ uL high Not Available Not Available 05/07/2025 12:24:46 11/05/19 25 11/05/2024 CBC W Auto Diffe renti al panel - Blood erythrocytes [morphology] in blood by automated count SLIDE REVIEW ED Not Available Not Available 12:24:46 11/05/19 25 11/05/2024 CBC W Auto Diffe renti al panel - Blood anisocytosis [presence] in blood 1+ Not Available Not Available 05/2025 12:24:46 11/05/19 25 11/05/2024 CBC W Auto Diffe renti al panel - Blood hypochromia [presence] in blood 2+ Not Available Not Available 05/2025 12:24:46 11/05/19 25 11/05/2024 CBC W Auto Diffe renti al panel - Blood polychromasi a [presence] in blood by light microscopy 1+ Not Available Not Available 0 05/07/2025 12:24:46 11/05/19 25 11/05/2024 CBC W Auto Diffe renti al panel - Blood target cells [presence] in blood by light microscopy 2+ Not Available Not Available 0 05/07/2025 12:24:46 11/05/19 25 11/05/2024 CBC W Auto Diffe renti al panel - Blood sickle cells [presence] in blood by light microscopy 1+ Not Available Not Available 0 05/07/2025 12:24:46 11/05/19 25 11/05/2024 CBC W Auto Diffe renti al panel - Blood walker jolly bodies 1+ Not Available Not Available 05/2025 12:24:46 11/05/19 25 11/05/2024 CBC W Auto Diffe renti al panel - Blood platelets [#/volume] in blood by automated count ADEQUA TE Not Available Not Available 12:24:46 11/05/19 25 11/05/2024 CBC W Auto Diffe renti al panel - Blood interpretati on and review of laboratory results Abnorm al Not Available Not Available 12:24:46 11/06/19 25 11/06/2024 Influ wilber virus A+B Ag [Pres ence] in Speci men specimen source identified Negati ve for Group A Strept ococci Not Available Not Available 12:24:47 11/06/19 25 11/06/2024 Influ wilber virus A+B Ag [Pres ence] in Speci men influenza virus A Ag [presence] in specimen NEGATI VE text: negati ve Not Available Not Available 05/07/2025 12:24:47 11/06/19 25 11/06/2024 Influ wilber virus A+B Ag [Pres ence] in Speci men haemophilus influenzae B Ag [presence] in specimen NEGATI VE text: negati ve Inter preta tion: Negat isabell for Influ wilber A and B. A negat isabell resul t does not exclu de influ wilber virus infec tion. If influ wilber is circu latin g in your commu nity, a diagn osis of influ wilber shoul d be consi dered based on a patie nt's clini agapito prese ntati on and empir ic antiv iral treat ment shoul d be consi dered , if indic ated. If more concl usive testi ng is neede d for hospi taliz ed inpat ients , follo w-up confi rmato ry testi ng with RT-PC R requi res a separ ate order . Not Available Not Available 05/07/2025 12:24:47 11/06/19 25 11/06/2024 Proca lcito gabriel [Mass /volu me] in Serum or Plasm a procalcitoni n [mass/volume ] in serum or plasma 0.19 text: 0.00 - 0.49 NG/mL Not Available Not Available 05/07/2025 12:24:47 11/06/19 25 11/06/2024 Compr [employer] isabell metab olic 1999 panel - Serum or Plasm a glucose [mass/volume ] in serum or plasma 91 text: 70 - 99 mg/dL Not Available Not Available 05/07/2025 12:24:47 11/06/19 25 11/06/2024 Compr [employer] isabell metab olic 1999 panel - Serum or Plasm a urea nitrogen [mass/volume ] in serum or plasma 4 text: 7 - 18 mg/dL low Not Available Not Available 05/07/2025 12:24:47 11/06/19 25 11/06/2024 Compr [employer] isabell metab olic 1999 panel - Serum or Plasm a creatinine [mass/volume ] in serum or plasma 0.54 text: 0.7 - 1.3 mg/dL low Not Available Not Available 05/07/2025 12:24:47 11/06/19 25 11/06/2024 Compr [employer] isabell metab olic 1999 panel - Serum or Plasm a sodium [moles/volum e] in serum or plasma 138 text: 136 - 145 mmol/L Not Available Not Available 05/07/2025 12:24:47 11/06/19 25 11/06/2024 Compr ehens isabell metab olic 1999 panel - Serum or Plasm a potassium [moles/volum e] in serum or plasma 3.7 text: 3.5 - 5.1 mmol/L Not Available Not Available 05/07/2025 12:24:47 11/06/19 25 11/06/2024 Compr ehens isabell metab olic 1999 panel - Serum or Plasm a chloride [moles/volum e] in serum or plasma 109 text: 97 - 115 mmol/L Not Available Not Available 05/07/2025 12:24:47 11/06/19 25 11/06/2024 Compr ehens isabell metab olic 2000 panel - Serum or Plasm a carbon dioxide, total [moles/volum e] in serum or plasma 26 text: 21 - 32 mmol/L Not Available Not Available 05/07/2025 12:24:47 11/06/19 25 11/06/2024 [facility] ehens isabell metab olic 1999 panel - Serum or Plasm a calcium [mass/volume ] in serum or plasma 8.7 text: 8.5 - 10.1 mg/dL Not Available Not Available 05/07/2025 12:24:47 11/06/19 25 11/06/2024 [facility] 2000 panel - Serum or Plasm a bilirubin.to justyn [mass/volume ] in serum or plasma 3.1 text: 0.2 - 1.2 mg/dL high THIS ASSAY IS NOT RECOM RADHA D FOR PATIE NTS UNDER GOING TREAT MENT WITH ELTRO MBOPA G DUE TO THE POTEN TIAL FOR FALSE LY ELEVA ANTONETTE RESUL TS. Not Available Not Available 05/07/2025 12:24:47 11/06/19 25 11/06/2024 [facility] 2000 panel - Serum or Plasm a protein [mass/volume ] in serum or plasma 7 text: 6.4 - 8.2 g/dL Not Available Not Available 05/07/2025 12:24:47 11/06/19 25 11/06/2024 [facility] 2000 panel - Serum or Plasm a albumin [mass/volume ] in serum or plasma 3.6 text: 3.4 - 5.0 g/dL Not Available Not Available 05/07/2025 12:24:47 11/06/19 25 11/06/2024 [facility] ehens isabell metab olic 2000 panel - Serum or Plasm a aspartate aminotransfe rase [enzymatic activity/vol ume] in serum or plasma 42 U/L low: 15U/Lh igh: 37U/L high Not Available Not Available 05/07/2025 12:24:47 11/06/19 25 11/06/2024 Compr ehens isabell metab olic 1999 panel - Serum or Plasm a alanine aminotransfe rase [enzymatic activity/vol ume] in serum or plasma 32 U/L low: 16U/Lh igh: 60U/L Not Available Not Available 05/07/2025 12:24:47 11/06/19 25 11/06/2024 Compr ehens isabell metab olic 1999 panel - Serum or Plasm a alkaline phosphatase [enzymatic activity/vol ume] in serum or plasma 74 U/L low: 50U/Lh igh: 136U/L Not Available Not Available 05/07/2025 12:24:47 11/06/19 25 11/06/2024 Compr ehens isabell metab olic 1999 panel - Serum or Plasm a anion gap in serum or plasma by calculation 3 text: 2 - 10 mmol/L Not Available Not Available 05/07/2025 12:24:47 11/06/19 25 11/06/2024 Compr ehens isabell metab olic 1999 panel - Serum or Plasm a urea nitrogen/cre atinine [mass ratio] in serum or plasma 7.4 low: 6high: 26 Not Available Not Available 05/07/2025 12:24:47 11/06/19 25 11/06/2024 Compr ehens isabell metab olic 1999 panel - Serum or Plasm a albumin/glob ulin [mass ratio] in serum or plasma 1.1 text: 1.0 - 2.0 ratio Not Available Not Available 05/07/2025 12:24:47 11/06/19 25 11/06/2024 Compr ens isabell metab olic 1999 panel - Serum or Plasm a glomerular filtration rate [volume rate/area] in serum, plasma or blood by creatinine-b ased formula (CKD-epi 2020)/1.73 sq M >90 text: >90 mL/min /1.73 M2 NOTE: eGFR is not calcu lated for patie nts <18 years of age or gende r unkno wn. This is an estim ated GFR calcu latio n using the new CKD EPI creat inine equat ion witho ut race and so does not requi re a corre ction facto r for race. This estim ated GFR shoul d not be used for calcu latin g drug doses . Not Available Not Available 05/07/2025 12:24:47 11/06/19 25 11/06/2024 Compr ehens isabell metab olic 2000 panel - Serum or Plasm a interpretati on and review of laboratory results Abnorm al Not Available Not Available 12:24:47 11/06/19 25 11/06/2024 CBC W Auto Diffe renti al panel - Blood leukocytes [#/volume] in blood by automated count 11.85 text: 4.5 - 11.0 x10'3/ uL high Not Available Not Available 05/07/2025 12:24:47 11/06/19 25 11/06/2024 CBC W Auto Diffe renti al panel - Blood erythrocytes [#/volume] in blood by automated count 2.12 text: 4.70 - 6.10 x10'6/ uL low Not Available Not Available 05/07/2025 12:24:47 11/06/19 25 11/06/2024 CBC W Auto Diffe renti al panel - Blood hemoglobin [mass/volume ] in blood 7.8 text: 14.0 - 18.0 g/dL low Not Available Not Available 05/07/2025 12:24:47 11/06/19 25 11/06/2024 CBC W Auto Diffe renti al panel - Blood hematocrit [volume fraction] of blood by calculation 21.9 % low: 43%hig h: 54% low Not Available Not Available 05/07/2025 12:24:47 11/06/19 25 11/06/2024 CBC W Auto Diffe renti al panel - Blood MCV [entitic mean volume] in red blood cells 103.3 text: 80.0 - 94.0 fL high Not Available Not Available 05/07/2025 12:24:47 11/06/19 25 11/06/2024 CBC W Auto Diffe renti al panel - Blood MCH [entitic mass] 36.8 pg low: 27pghi gh: 31pg high Not Available Not Available 05/07/2025 12:24:47 11/06/19 25 11/06/2024 CBC W Auto Diffe renti al panel - Blood MCHC [entitic mass/volume] in red blood cells 35.6 text: 32.0 - 36.0 g/dL Not Available Not Available 05/07/2025 12:24:47 11/06/19 25 11/06/2024 CBC W Auto Diffe renti al panel - Blood RDW 19 % low: 11.5%h igh: 14.5% high Not Available Not Available 05/07/2025 12:24:47 11/06/19 25 11/06/2024 CBC W Auto Diffe renti al panel - Blood platelets [#/volume] in blood 300 text: 130 - 400 x10'3/ uL Not Available Not Available 05/07/2025 12:24:47 11/06/19 25 11/06/2024 CBC W Auto Diffe renti al panel - Blood platelet [entitic mean volume] in blood 10.2 text: 9.3 - 12.2 fL Not Available Not Available 05/07/2025 12:24:47 11/06/19 25 11/06/2024 CBC W Auto Diffe renti al panel - Blood differential cell count method - blood AUTOMA ANTONETTE DIFFER ENTIAL Not Available Not Available 12:24:47 11/06/19 25 11/06/2024 CBC W Auto Diffe renti al panel - Blood neutrophils/ leukocytes in blood by automated count 58.7 % Not Available Not Available 05/2025 12:24:47 11/06/19 25 11/06/2024 CBC W Auto Diffe renti al panel - Blood lymphocytes/ leukocytes in blood by automated count 28.7 % Not Available Not Available 05/2025 12:24:47 11/06/19 25 11/06/2024 CBC W Auto Diffe renti al panel - Blood monocytes/le ukocytes in blood by automated count 8.9 % Not Available Not Available 05/2025 12:24:47 11/06/19 25 11/06/2024 CBC W Auto Diffe renti al panel - Blood eosinophils/ leukocytes in blood by automated count 3.1 % Not Available Not Available 05/2025 12:24:47 11/06/19 25 11/06/2024 CBC W Auto Diffe renti al panel - Blood basophils/le ukocytes in blood by automated count 0.3 % Not Available Not Available 05/2025 12:24:47 11/06/19 25 11/06/2024 CBC W Auto Diffe renti al panel - Blood immature granulocytes /leukocytes in blood by automated count 0.3 % Not Available Not Available 05/2025 12:24:47 11/06/19 25 11/06/2024 CBC W Auto Diffe renti al panel - Blood neutrophils [#/volume] in blood 6.95 text: 1.80 - 7.70 x10'3/ uL Not Available Not Available 05/07/2025 12:24:47 11/06/19 25 11/06/2024 CBC W Auto Diffe renti al panel - Blood lymphocytes [#/volume] in blood 3.4 text: 1.00 - 4.80 x10'3/ uL Not Available Not Available 05/07/2025 12:24:47 11/06/19 25 11/06/2024 CBC W Auto Diffe renti al panel - Blood monocytes [#/volume] in blood 1.05 text: 0.30 - 0.82 x10'3/ uL high Not Available Not Available 05/07/2025 12:24:47 11/06/19 25 11/06/2024 CBC W Auto Diffe renti al panel - Blood eosinophils [#/volume] in blood 0.37 text: 0.04 - 0.54 x10'3/ uL Not Available Not Available 05/07/2025 12:24:47 11/06/19 25 11/06/2024 CBC W Auto Diffe renti al panel - Blood basophils [#/volume] in blood 0.04 text: 0.01 - 0.08 x10'3/ uL Not Available Not Available 05/07/2025 12:24:47 11/06/1911/06/2024 CBC W Auto Diffe renti al panel - Blood immature granulocytes [#/volume] in blood 0.04 text: 0.00 - 0.49 x10'3/ uL Not Available Not Available 05/07/2025 12:24:47 11/06/19 25 11/06/2024 CBC W Auto Diffe renti al panel - Blood interpretati on and review of laboratory results Abnorm al Not Available Not Available 12:24:47 11/07/19 25 11/07/2024 CBC W Auto Diffe renti al panel - Blood leukocytes [#/volume] in blood by automated count 10.6 text: 4.5 - 11.0 x10'3/ uL Not Available Not Available 05/07/2025 12:24:47 11/07/19 25 11/07/2024 CBC W Auto Diffe renti al panel - Blood erythrocytes [#/volume] in blood by automated count 2.08 text: 4.70 - 6.10 x10'6/ uL low Not Available Not Available 05/07/2025 12:24:47 11/07/19 25 11/07/2024 CBC W Auto Diffe renti al panel - Blood hemoglobin [mass/volume ] in blood 7.6 text: 14.0 - 18.0 g/dL low Not Available Not Available 05/07/2025 12:24:47 11/07/19 25 11/07/2024 CBC W Auto Diffe renti al panel - Blood hematocrit [volume fraction] of blood by calculation 21.3 % low: 43%hig h: 54% low Not Available Not Available 05/07/2025 12:24:47 11/07/19 25 11/07/2024 CBC W Auto Diffe renti al panel - Blood MCV [entitic mean volume] in red blood cells 102.4 text: 80.0 - 94.0 fL high Not Available Not Available 05/07/2025 12:24:47 11/07/19 25 11/07/2024 CBC W Auto Diffe renti al panel - Blood MCH [entitic mass] 36.5 pg low: 27pghi gh: 31pg high Not Available Not Available 05/07/2025 12:24:47 11/07/19 25 11/07/2024 CBC W Auto Diffe renti al panel - Blood MCHC [entitic mass/volume] in red blood cells 35.7 text: 32.0 - 36.0 g/dL Not Available Not Available 05/07/2025 12:24:47 11/07/19 25 11/07/2024 CBC W Auto Diffe renti al panel - Blood RDW 17.9 % low: 11.5%h igh: 14.5% high Not Available Not Available 05/07/2025 12:24:47 11/07/19 25 11/07/2024 CBC W Auto Diffe renti al panel - Blood platelets [#/volume] in blood 298 text: 130 - 400 x10'3/ uL Not Available Not Available 05/07/2025 12:24:47 11/07/19 25 11/07/2024 CBC W Auto Diffe renti al panel - Blood platelet [entitic mean volume] in blood 10 text: 9.3 - 12.2 fL Not Available Not Available 05/07/2025 12:24:47 11/07/19 25 11/07/2024 CBC W Auto Diffe renti al panel - Blood differential cell count method - blood AUTOMA ANTONETTE DIFFER ENTIAL Not Available Not Available 12:24:47 11/07/19 25 11/07/2024 CBC W Auto Diffe renti al panel - Blood neutrophils/ leukocytes in blood by automated count 49 % Not Available Not Available 05/2025 12:24:47 11/07/19 25 11/07/2024 CBC W Auto Diffe renti al panel - Blood lymphocytes/ leukocytes in blood by automated count 37.7 % Not Available Not Available 05/2025 12:24:47 11/07/19 25 11/07/2024 CBC W Auto Diffe renti al panel - Blood monocytes/le ukocytes in blood by automated count 10.1 % Not Available Not Available 05/2025 12:24:47 11/07/19 25 11/07/2024 CBC W Auto Diffe renti al panel - Blood eosinophils/ leukocytes in blood by automated count 2.5 % Not Available Not Available 05/2025 12:24:47 11/07/19 25 11/07/2024 CBC W Auto Diffe renti al panel - Blood basophils/le ukocytes in blood by automated count 0.3 % Not Available Not Available 05/2025 12:24:47 11/07/19 25 11/07/2024 CBC W Auto Diffe renti al panel - Blood immature granulocytes /leukocytes in blood by automated count 0.4 % Not Available Not Available 05/2025 12:24:47 11/07/19 25 11/07/2024 CBC W Auto Diffe renti al panel - Blood neutrophils [#/volume] in blood 5.2 text: 1.80 - 7.70 x10'3/ uL Not Available Not Available 05/07/2025 12:24:47 11/07/19 25 11/07/2024 CBC W Auto Diffe renti al panel - Blood lymphocytes [#/volume] in blood 4 text: 1.00 - 4.80 x10'3/ uL Not Available Not Available 05/07/2025 12:24:47 11/07/19 25 11/07/2024 CBC W Auto Diffe renti al panel - Blood monocytes [#/volume] in blood 1.07 text: 0.30 - 0.82 x10'3/ uL high Not Available Not Available 05/07/2025 12:24:47 11/07/19 25 11/07/2024 CBC W Auto Diffe renti al panel - Blood eosinophils [#/volume] in blood 0.26 text: 0.04 - 0.54 x10'3/ uL Not Available Not Available 05/07/2025 12:24:47 11/07/19 25 11/07/2024 CBC W Auto Diffe renti al panel - Blood basophils [#/volume] in blood 0.03 text: 0.01 - 0.08 x10'3/ uL Not Available Not Available 05/07/2025 12:24:47 11/07/19 25 11/07/2024 CBC W Auto Diffe renti al panel - Blood immature granulocytes [#/volume] in blood 0.04 text: 0.00 - 0.49 x10'3/ uL Not Available Not Available 05/07/2025 12:24:47 11/07/1911/07/2024 CBC W Auto Diffe renti al panel - Blood interpretati on and review of laboratory results Abnorm al Not Available Not Available 12:24:47 11/08/19 25 11/08/2024 CBC W Auto Diffe renti al panel - Blood leukocytes [#/volume] in blood by automated count 10.72 text: 4.5 - 11.0 x10'3/ uL Not Available Not Available 05/07/2025 12:24:47 11/08/19 25 11/08/2024 CBC W Auto Diffe renti al panel - Blood erythrocytes [#/volume] in blood by automated count 2.12 text: 4.70 - 6.10 x10'6/ uL low Not Available Not Available 05/07/2025 12:24:47 11/08/19 25 11/08/2024 CBC W Auto Diffe renti al panel - Blood hemoglobin [mass/volume ] in blood 7.7 text: 14.0 - 18.0 g/dL low Not Available Not Available 05/07/2025 12:24:47 11/08/19 25 11/08/2024 CBC W Auto Diffe renti al panel - Blood hematocrit [volume fraction] of blood by calculation 21.4 % low: 43%hig h: 54% low Not Available Not Available 05/07/2025 12:24:47 11/08/19 25 11/08/2024 CBC W Auto Diffe renti al panel - Blood MCV [entitic mean volume] in red blood cells 100.9 text: 80.0 - 94.0 fL high Not Available Not Available 05/07/2025 12:24:47 11/08/19 25 11/08/2024 CBC W Auto Diffe renti al panel - Blood MCH [entitic mass] 36.3 pg low: 27pghi gh: 31pg high Not Available Not Available 05/07/2025 12:24:47 11/08/19 25 11/08/2024 CBC W Auto Diffe renti al panel - Blood MCHC [entitic mass/volume] in red blood cells 36 text: 32.0 - 36.0 g/dL Not Available Not Available 05/07/2025 12:24:47 11/08/19 25 11/08/2024 CBC W Auto Diffe renti al panel - Blood RDW 18.1 % low: 11.5%h igh: 14.5% high Not Available Not Available 05/07/2025 12:24:47 11/08/19 25 11/08/2024 CBC W Auto Diffe renti al panel - Blood platelets [#/volume] in blood 333 text: 130 - 400 x10'3/ uL Not Available Not Available 05/07/2025 12:24:47 11/08/19 25 11/08/2024 CBC W Auto Diffe renti al panel - Blood platelet [entitic mean volume] in blood 9.7 text: 9.3 - 12.2 fL Not Available Not Available 05/07/2025 12:24:47 11/08/19 25 11/08/2024 CBC W Auto Diffe renti al panel - Blood differential cell count method - blood MANUAL DIFFER ENTIAL Not Available Not Available 12:24:47 11/08/19 25 11/08/2024 CBC W Auto Diffe renti al panel - Blood segmented neutrophils/ leukocytes in blood by manual count 43 % Not Available Not Available 05/07/2025 12:24:47 11/08/19 25 11/08/2024 CBC W Auto Diffe renti al panel - Blood lymphocytes/ leukocytes in blood by manual count 43 % Not Available Not Available 05/07/2025 12:24:47 11/08/19 25 11/08/2024 CBC W Auto Diffe renti al panel - Blood monocytes/le ukocytes in blood by manual count 10 % Not Available Not Available 05/07/2025 12:24:47 11/08/19 25 11/08/2024 CBC W Auto Diffe renti al panel - Blood eosinophils/ leukocytes in blood by manual count 4 % Not Available Not Available 05/07/2025 12:24:47 11/08/19 25 11/08/2024 CBC W Auto Diffe renti al panel - Blood nucleated erythrocytes /leukocytes [ratio] in blood 4 text: 0 /100 WBC high Not Available Not Available 05/07/2025 12:24:47 11/08/19 25 11/08/2024 CBC W Auto Diffe renti al panel - Blood neutrophils [#/volume] in blood 4.61 text: 1.80 - 7.70 x10'3/ uL Not Available Not Available 05/07/2025 12:24:47 11/08/19 25 11/08/2024 CBC W Auto Diffe renti al panel - Blood lymphocytes [#/volume] in blood 4.61 text: 1.00 - 4.80 x10'3/ uL Not Available Not Available 05/07/2025 12:24:47 11/08/19 25 11/08/2024 CBC W Auto Diffe renti al panel - Blood monocytes [#/volume] in blood 1.07 text: 0.30 - 0.82 x10'3/ uL high Not Available Not Available 05/07/2025 12:24:47 11/08/19 25 11/08/2024 CBC W Auto Diffe renti al panel - Blood eosinophils [#/volume] in blood 0.43 text: 0.04 - 0.54 x10'3/ uL Not Available Not Available 05/07/2025 12:24:47 11/08/19 25 11/08/2024 CBC W Auto Diffe renti al panel - Blood nucleated erythrocytes [#/volume] in blood 0.43 text: 0.00 - 0.01 x10'3/ uL high Not Available Not Available 05/07/2025 12:24:47 11/08/19 25 11/08/2024 CBC W Auto Diffe renti al panel - Blood erythrocytes [morphology] in blood by automated count SLIDE REVIEW ED Not Available Not Available 12:24:47 11/08/19 25 11/08/2024 CBC W Auto Diffe renti al panel - Blood poikilocytos is [presence] in blood by automated count 1+ Not Available Not Available 05/2025 12:24:47 11/08/19 25 11/08/2024 CBC W Auto Diffe renti al panel - Blood polychromasi a [presence] in blood by light microscopy 2+ Not Available Not Available 0 05/07/2025 12:24:47 11/08/19 25 11/08/2024 CBC W Auto Diffe renti al panel - Blood target cells [presence] in blood by light microscopy 1+ Not Available Not Available 0 05/07/2025 12:24:47 11/08/19 25 11/08/2024 CBC W Auto Diffe renti al panel - Blood sickle cells [presence] in blood by light microscopy 1+ Not Available Not Available 0 05/07/2025 12:24:47 11/08/19 25 11/08/2024 CBC W Auto Diffe renti al panel - Blood walker jolly bodies 1+ Not Available Not Available 05/2025 12:24:47 11/08/19 25 11/08/2024 CBC W Auto Diffe renti al panel - Blood platelets [#/volume] in blood by automated count ADEQUA TE Not Available Not Available 12:24:47 11/08/19 25 11/08/2024 CBC W Auto Diffe renti al panel - Blood interpretati on and review of laboratory results Abnorm al Not Available Not Available 12:24:47 11/08/19 25 11/08/2024 Compr [employer] isabell metab olic 1999 panel - Serum or Plasm a glucose [mass/volume ] in serum or plasma 95 text: 70 - 99 mg/dL Not Available Not Available 05/07/2025 12:24:47 11/08/19 25 11/08/2024 Compr [employer] isabell metab olic 1999 panel - Serum or Plasm a urea nitrogen [mass/volume ] in serum or plasma 6 text: 7 - 18 mg/dL low Not Available Not Available 05/07/2025 12:24:47 11/08/19 25 11/08/2024 Compr [employer] isabell metab olic 1999 panel - Serum or Plasm a creatinine [mass/volume ] in serum or plasma 0.62 text: 0.7 - 1.3 mg/dL low Not Available Not Available 05/07/2025 12:24:47 11/08/19 25 11/08/2024 Compr [employer] isabell [employer] olic 1999 panel - Serum or Plasm a sodium [moles/volum e] in serum or plasma 136 text: 136 - 145 mmol/L Not Available Not Available 05/07/2025 12:24:47 11/08/19 25 11/08/2024 Compr [employer] isabell metab olic 1999 panel - Serum or Plasm a potassium [moles/volum e] in serum or plasma 3.9 text: 3.5 - 5.1 mmol/L Not Available Not Available 05/07/2025 12:24:47 11/08/19 25 11/08/2024 Compr [employer] isabell metab olic 1999 panel - Serum or Plasm a chloride [moles/volum e] in serum or plasma 106 text: 97 - 115 mmol/L Not Available Not Available 05/07/2025 12:24:47 11/08/19 25 11/08/2024 Compr ehens isabell metab olic 2000 panel - Serum or Plasm a carbon dioxide, total [moles/volum e] in serum or plasma 28.9 text: 21 - 32 mmol/L Not Available Not Available 05/07/2025 12:24:47 11/08/19 25 11/08/2024 Compr ehens isabell metab olic 1999 panel - Serum or Plasm a calcium [mass/volume ] in serum or plasma 8.5 text: 8.5 - 10.1 mg/dL Not Available Not Available 05/07/2025 12:24:47 11/08/19 25 11/08/2024 Compr ehens isabell metab olic 1999 panel - Serum or Plasm a bilirubin.to justyn [mass/volume ] in serum or plasma 3.8 text: 0.2 - 1.2 mg/dL high THIS ASSAY IS NOT RECOM RADHA D FOR PATIE NTS UNDER GOING TREAT MENT WITH ELTRO MBOPA G DUE TO THE POTEN TIAL FOR FALSE LY ELEVA ANTONETTE RESUL TS. Not Available Not Available 05/07/2025 12:24:47 11/08/19 25 11/08/2024 Compr ehens isabell metab olic 1999 panel - Serum or Plasm a protein [mass/volume ] in serum or plasma 7.1 text: 6.4 - 8.2 g/dL Not Available Not Available 05/07/2025 12:24:47 11/08/19 25 11/08/2024 Compr ehens isabell metab olic 2000 panel - Serum or Plasm a albumin [mass/volume ] in serum or plasma 3.6 text: 3.4 - 5.0 g/dL Not Available Not Available 05/07/2025 12:24:47 11/08/19 25 11/08/2024 Compr ehens isabell metab olic 2000 panel - Serum or Plasm a aspartate aminotransfe rase [enzymatic activity/vol ume] in serum or plasma 41 U/L low: 15U/Lh igh: 37U/L high Not Available Not Available 05/07/2025 12:24:47 11/08/19 25 11/08/2024 Compr ehens isabell metab olic 2000 panel - Serum or Plasm a alanine aminotransfe rase [enzymatic activity/vol ume] in serum or plasma 33 U/L low: 16U/Lh igh: 60U/L Not Available Not Available 05/07/2025 12:24:47 11/08/19 25 11/08/2024 Compr ehens isabell metab olic 2000 panel - Serum or Plasm a alkaline phosphatase [enzymatic activity/vol ume] in serum or plasma 77 U/L low: 50U/Lh igh: 136U/L Not Available Not Available 05/07/2025 12:24:47 11/08/1911/08/2024 [employer] isabell [employer] olic 1999 panel - Serum or Plasm a anion gap in serum or plasma by calculation 1.1 text: 2 - 10 mmol/L low Not Available Not Available 05/07/2025 12:24:47 11/08/19 25 11/08/2024 Compr [email or web address] isabell metab olic 1999 panel - Serum or Plasm a urea nitrogen/cre atinine [mass ratio] in serum or plasma 9.6 low: 6high: 26 Not Available Not Available 05/07/2025 12:24:47 11/08/19 25 11/08/2024 Compr [employer] isabell metab olic 2000 panel - Serum or Plasm a albumin/glob ulin [mass ratio] in serum or plasma 1 text: 1.0 - 2.0 ratio Not Available Not Available 05/07/2025 12:24:47 11/08/19 25 11/08/2024 Compr [employer] isabell [employer] olic 1999 panel - Serum or Plasm a glomerular filtration rate [volume rate/area] in serum, plasma or blood by creatinine-b ased formula (CKD-epi 2020)/1.73 sq M >90 text: >90 mL/min /1.73 M2 NOTE: eGFR is not calcu lated for patie nts <18 years of age or gende r unkno wn. This is an estim ated GFR calcu latio n using the new CKD EPI creat inine equat ion witho ut race and so does not requi re a corre ction facto r for race. This estim ated GFR shoul d not be used for calcu latin g drug doses . Not Available Not Available 05/07/2025 12:24:47 11/08/1911/08/2024 Compr [email or web address] isabell [employer] olic 1999 panel - Serum or Plasm a interpretati on and review of laboratory results Abnorm al Not Available Not Available 12:24:47 12/19/19 25 12/19/2024 Influ wilber virus A and B and SARS- CoV-2 (COVI D-19) and SARS- relat ed CoV RNA panel - Respi rator y syste m speci men by ENRICO with probe detec tion adenovirus DNA [presence] in nasopharynx by ENRICO with probe detection NOT DETECT ED text: not detect ed ADENO VIRUS PCR (RESP ) NOT DETEC ANTONETTE NOT DETEC ANTONETTE 12/19 6:12 AM HEMATOLOGIST ONCOLOGIST [facility] Not Available Not Available 12/19/2024 08:56:53 12/19/19 25 12/19/2024 Influ wilber virus A and B and SARS- CoV-2 (COVI D-19) and SARS- relat ed CoV RNA panel - Respi rator y syste m speci men by ENRICO with probe detec tion human coronavirus 229E RNA [presence] in specimen by ENRICO with probe detection NOT DETECT ED text: not detect ed CORON AVIRU S 229E PCR (RESP ) NOT DETEC ANTONETTE NOT DETEC ANTONETTE 12/19 6:12 AM HEMATOLOGIST ONCOLOGIST [facility] Not Available Not Available 12/19/2024 08:56:53 12/19/19 25 12/19/2024 Influ wilber virus A and B and SARS- CoV-2 (COVI D-19) and SARS- relat ed CoV RNA panel - Respi rator y syste m speci men by ENRICO with probe detec tion human coronavirus hku1 RNA [presence] in specimen by ENRICO with probe detection NOT DETECT ED text: not detect ed CORON AVIRU S HKU1 PCR (RESP ) NOT DETEC ANTONETTE NOT DETEC ANTONETTE 12/19 6:12 AM HEMATOLOGIST ONCOLOGIST [facility] Not Available Not Available 12/19/2024 08:56:53 12/19/19 25 12/19/2024 Influ wilber virus A and B and SARS- CoV-2 (COVI D-19) and SARS- relat ed CoV RNA panel - Respi rator y syste m speci men by ENRICO with probe detec tion human coronavirus nl63 RNA [presence] in specimen by ENRICO with probe detection NOT DETECT ED text: not detect ed CORON AVIRU S NL63 PCR (RESP ) NOT DETEC ANTONETTE NOT DETEC ANTONETTE 12/19 6:12 AM HEMATOLOGIST ONCOLOGIST [facility] Not Available Not Available 12/19/2024 08:56:53 12/19/19 25 12/19/2024 Influ wilber virus A and B and SARS- CoV-2 (COVI D-19) and SARS- relat ed CoV RNA panel - Respi rator y syste m speci men by ENRICO with probe detec tion human coronavirus oc43 RNA [presence] in specimen by ENRICO with probe detection DETECT ED text: not detect ed abnormal CORON AVIRU S OC43 PCR (RESP ) DETEC ANTONETTE (A) NOT DETEC ANTONETTE 12/19 6:12 AM HEMATOLOGIST ONCOLOGIST [facility] Not Available Not Available 12/19/2024 08:56:53 12/19/19 25 12/19/2024 Influ wilber virus A and B and SARS- CoV-2 (COVI D-19) and SARS- relat ed CoV RNA panel - Respi rator y syste m speci men by ENRICO with probe detec tion human metapneumovi jesus manuel RNA [presence] in nasopharynx by ENRICO with probe detection NOT DETECT ED text: not detect ed METAP NEUMO VIRUS PCR (RESP ) NOT DETEC ANTONETTE NOT DETEC ANTONETTE 12/19 6:12 AM HEMATOLOGIST ONCOLOGIST [facility] Not Available Not Available 12/19/2024 08:56:53 12/19/19 25 12/19/2024 Influ wilber virus A and B and SARS- CoV-2 (COVI D-19) and SARS- relat ed CoV RNA panel - Respi rator y syste m speci men by ENRICO with probe detec tion rhinovirus+e nterovirus RNA [presence] in specimen by ENRICO with probe detection NOT DETECT ED text: not detect ed RHINO VIRUS /ENTE ROVIR US PCR (RESP ) NOT DETEC ANTONETTE NOT DETEC ANTONETTE 12/19 6:12 AM HEMATOLOGIST ONCOLOGIST [facility] Not Available Not Available 12/19/2024 08:56:53 12/19/19 25 12/19/2024 Influ wilber virus A and B and SARS- CoV-2 (COVI D-19) and SARS- relat ed CoV RNA panel - Respi rator y syste m speci men by ENRICO with probe detec tion influenza virus A RNA [presence] in nasopharynx by ENRICO with probe detection NOT DETECT ED text: not detect ed INFLU WILBER A PCR (RESP ) NOT DETEC ANTONETTE NOT DETEC ANTONETTE 12/19 6:12 AM HEMATOLOGIST ONCOLOGIST [facility] Not Available Not Available 12/19/2024 08:56:53 12/19/19 25 12/19/2024 Influ wilber virus A and B and SARS- CoV-2 (COVI D-19) and SARS- relat ed CoV RNA panel - Respi rator y syste m speci men by ENRICO with probe detec tion influenza virus B RNA [presence] in nasopharynx by ENRICO with probe detection NOT DETECT ED text: not detect ed INFLU WILBER B PCR (RESP ) NOT DETEC ANTONETTE NOT DETEC ANTONETTE 12/19 6:12 AM HEMATOLOGIST ONCOLOGIST [facility] Not Available Not Available 12/19/2024 08:56:53 12/19/19 25 12/19/2024 Influ wilber virus A and B and SARS- CoV-2 (COVI D-19) and SARS- relat ed CoV RNA panel - Respi rator y syste m speci men by ENRICO with probe detec tion parainfluenz a virus 1 RNA [presence] in nasopharynx by ENRICO with probe detection NOT DETECT ED text: not detect ed PARAI NFLUE NZA 1 PCR (RESP ) NOT DETEC ANTONETTE NOT DETEC ANTONETTE 12/19 6:12 AM HEMATOLOGIST ONCOLOGIST [facility] Not Available Not Available 12/19/2024 08:56:53 12/19/19 25 12/19/2024 Influ wilber virus A and B and SARS- CoV-2 (COVI D-19) and SARS- relat ed CoV RNA panel - Respi rator y syste m speci men by ENRICO with probe detec tion parainfluenz a virus 2 RNA [presence] in nasopharynx by ENRICO with probe detection NOT DETECT ED text: not detect ed PARAI NFLUE NZA 2 PCR (RESP ) NOT DETEC ANTONETTE NOT DETEC ANTONETTE 12/19 6:12 AM HEMATOLOGIST ONCOLOGIST [facility] Not Available Not Available 12/19/2024 08:56:53 12/19/19 25 12/19/2024 Influ wilber virus A and B and SARS- CoV-2 (COVI D-19) and SARS- relat ed CoV RNA panel - Respi rator y syste m speci men by ENRICO with probe detec tion parainfluenz a virus 3 RNA [presence] in nasopharynx by ENRICO with probe detection NOT DETECT ED text: not detect ed PARAI NFLUE NZA 3 PCR (RESP ) NOT DETEC ANTONETTE NOT DETEC ANTONETTE 12/19 6:12 AM HEMATOLOGIST ONCOLOGIST [facility] Not Available Not Available 12/19/2024 08:56:53 12/19/19 25 12/19/2024 Influ wilber virus A and B and SARS- CoV-2 (COVI D-19) and SARS- relat ed CoV RNA panel - Respi rator y syste m speci men by ENRICO with probe detec tion parainfluenz a virus 4 RNA [presence] in nasopharynx by ENRICO with probe detection NOT DETECT ED text: not detect ed PARAI NFLUE NZA 4 PCR (RESP ) NOT DETEC ANTONETTE NOT DETEC ANTONETTE 12/19 6:12 AM HEMATOLOGIST ONCOLOGIST [facility] Not Available Not Available 12/19/2024 08:56:53 12/19/1912/19/2024 Influ wilber virus A and B and SARS- CoV-2 (COVI D-19) and SARS- relat ed CoV RNA panel - Respi rator y syste m speci men by ENRICO with probe detec tion respiratory syncytial virus RNA [presence] in nasopharynx by ENRICO with probe detection NOT DETECT ED text: not detect ed RSV PCR (RESP ) NOT DETEC ANTONETTE NOT DETEC ANTONETTE 12/19 6:12 AM HEMATOLOGIST ONCOLOGIST [facility] Not Available Not Available 12/19/2024 08:56:53 02/19/12/19/2024 Influ wilber virus A and B and SARS- CoV-2 (COVI D-19) and SARS- relat ed CoV RNA panel - Respi rator y syste m speci men by ENRICO with probe detec tion bordetella parapertussi s DNA [presence] in nasopharynx by ENRICO with probe detection NOT DETECT ED text: not detect ed B PARAP ERTUS IS PCR (RESP ) NOT DETEC ANTONETTE NOT DETEC ANTONETTE 12/19 6:12 AM HEMATOLOGIST ONCOLOGIST [facility] Not Available Not Available 12/19/2024 08:56:53 12/19/19 25 12/19/2024 Influ wilber virus A and B and SARS- CoV-2 (COVI D-19) and SARS- relat ed CoV RNA panel - Respi rator y syste m speci men by ENRICO with probe detec tion bordetella pertussis DNA [presence] in nasopharynx by ENRICO with probe detection NOT DETECT ED text: not detect ed BORDE TELLA PERTU SSIS PCR (RESP ) NOT DETEC ANTONETTE NOT DETEC ANTONETTE 12/19 6:12 AM HEMATOLOGIST ONCOLOGIST [facility] Not Available Not Available 12/19/2024 08:56:53 12/19/19 25 12/19/2024 Influ wilber virus A and B and SARS- CoV-2 (COVI D-19) and SARS- relat ed CoV RNA panel - Respi rator y syste m speci men by ENRICO with probe detec tion chlamydophil a pneumoniae DNA [presence] in specimen by ENRICO with probe detection NOT DETECT ED text: not detect ed CHLAM YDOPH EITAN PNEUM ONIAE PCR (RESP ) NOT DETEC ANTONETTE NOT DETEC ANTONETTE 12/19 6:12 AM HEMATOLOGIST ONCOLOGIST [facility] Not Available Not Available 12/19/2024 08:56:53 12/19/19 25 12/19/2024 Influ wilber virus A and B and SARS- CoV-2 (COVI D-19) and SARS- relat ed CoV RNA panel - Respi rator y syste m speci men by ENRICO with probe detec tion mycoplasma pneumoniae DNA [presence] in specimen by ENRICO with probe detection NOT DETECT ED text: not detect ed MYCOP LASMA PNEUM ONIAE PCR (RESP ) NOT DETEC ANTONETTE NOT DETEC ANTONETTE 12/19 6:12 AM HEMATOLOGIST ONCOLOGIST [facility] Not Available Not Available 12/19/2024 08:56:53 12/19/1912/19/2024 Influ wilber virus A and B and SARS- CoV-2 (COVI D-19) and SARS- relat ed CoV RNA panel - Respi rator y syste m speci men by ENRICO with probe detec tion sars-cov-2 (covid-19) RNA [presence] in specimen by ENRICO with probe detection NOT DETECT ED text: not detect ed CORON AVIRU S SARS COV 2 PCR (RESP ) NOT DETEC ANTONETTE NOT DETEC ANTONETTE 12/19 6:12 AM HEMATOLOGIST ONCOLOGIST [facility] Not Available Not Available 12/19/2024 08:56:53 12/19/1912/19/2024 Influ wilber virus A and B and SARS- CoV-2 (COVI D-19) and SARS- relat ed CoV RNA panel - Respi rator y syste m speci men by ENRICO with probe detec tion interpretati on and review of laboratory results Abnorm al Not Available Not Available 08:56:53 12/19/1912/19/2024 Retic ulocy jesse [#/vo lume] in Blood by Autom ated count reticulocyte s/100 erythrocytes in blood 13.1 % low: 0.8%hi gh: 2.1% high RETIC ULOCY TE COUNT 13.1 (H) 0.8 - 2.1 % 12/19 4:49 AM HEMATOLOGIST ONCOLOGIST [facility] Not Available Not Available 12/19/2024 08:56:53 12/19/19 25 12/19/2024 Retic ulocy jesse [#/vo lume] in Blood by Autom ated count reticulocyte s [#/volume] in blood by automated count 0.29 text: 0.03 - 0.11 x10'6/ uL high ABSOL BRANDON RETIC ULOCY TE 0.29 (H) 0.03 - 0.11 x10'6 /uL 12/19 4:49 AM [facility] Not Available Not Available 12/19/2024 08:56:53 12/19/1912/19/2024 Retic ulocy jesse [#/vo lume] in Blood by Autom ated count immature reticulocyte s/100 erythrocytes in cord blood by automated count 18.3 % low: 2.3%hi gh: 13.4% high IMMAT URE RETIC FRACT ION 18.3 (H) 2.3 - 13.4 % 12/19 4:49 AM [facility] Not Available Not Available 12/19/2024 08:56:53 12/19/1912/19/2024 Retic ulocy jesse [#/vo lume] in Blood by Autom ated count retic HGB 32.2 pg low: 28pghi gh: 35pg RETIC HGB 32.2 28.0 - 35.0 PG 12/19 4:49 AM [facility] Not Available Not Available 12/19/2024 08:56:53 12/19/1912/19/2024 Retic ulocy jesse [#/vo lume] in Blood by Autom ated count interpretati on and review of laboratory results Abnorm al Not Available Not Available 08:56:53 12/19/19 25 12/19/2024 Compr ehens isabell metab olic 2000 panel - Serum or Plasm a glucose [mass/volume ] in serum or plasma 96 text: 70 - 99 mg/dL GLUCO SE 96 70 - 99 MG/DL 12/19 4:47 AM [facility] Not Available Not Available 12/19/2024 08:56:53 12/19/19 25 12/19/2024 Compr ehens isabell metab olic 2000 panel - Serum or Plasm a urea nitrogen [mass/volume ] in serum or plasma 8 text: 7 - 18 mg/dL BUN 8 7 - 18 MG/DL 12/19 4:47 AM [facility] Not Available Not Available 12/19/2024 08:56:53 12/19/19 25 12/19/2024 Compr ehens isabell metab olic 2000 panel - Serum or Plasm a creatinine [mass/volume ] in serum or plasma 0.8 text: 0.7 - 1.3 mg/dL CREAT ININE S/P/B 0.80 0.7 - 1.3 MG/DL 12/19 4:47 AM [facility] Not Available Not Available 12/19/2024 08:56:53 12/19/19 25 12/19/2024 Compr ehens isabell metab olic 1999 panel - Serum or Plasm a sodium [moles/volum e] in serum or plasma 136 text: 136 - 145 mmol/L SODIU M S/P/B 136 136 - 145 MMOL/ L 12/19 4:47 AM [facility] Not Available Not Available 12/19/2024 08:56:53 12/19/19 25 12/19/2024 Compr ehens isabell metab olic 2000 panel - Serum or Plasm a potassium [moles/volum e] in serum or plasma 4 text: 3.5 - 5.1 mmol/L POTAS SIUM S/P/B 4.0 3.5 - 5.1 MMOL/ L 12/19 4:47 AM [facility] Not Available Not Available 12/19/2024 08:56:53 12/19/19 25 12/19/2024 Compr ehens isabell metab olic 2000 panel - Serum or Plasm a chloride [moles/volum e] in serum or plasma 107 text: 97 - 115 mmol/L CHLOR MEDINA S/P/B 107 97 - 115 MMOL/ L 12/19 4:47 AM [facility] Not Available Not Available 12/19/2024 08:56:53 12/19/19 25 12/19/2024 Compr ehens isabell metab olic 2000 panel - Serum or Plasm a carbon dioxide, total [moles/volum e] in serum or plasma 25.1 text: 21 - 32 mmol/L CO2 25.1 21 - 32 MMOL/ L 12/19 4:47 AM [facility] Not Available Not Available 12/19/2024 08:56:53 12/19/19 25 12/19/2024 Compr ehens isabell metab olic 2000 panel - Serum or Plasm a calcium [mass/volume ] in serum or plasma 8.6 text: 8.5 - 10.1 mg/dL CALCI UM S/P/B 8.6 8.5 - 10.1 MG/DL 12/19 4:47 AM [facility] Not Available Not Available 12/19/2024 08:56:53 12/19/19 25 12/19/2024 Compr ehens isabell metab olic 2000 panel - Serum or Plasm a bilirubin.to justyn [mass/volume ] in serum or plasma 4.1 text: 0.2 - 1.2 mg/dL high BILIR UBIN TOTAL S/P/B 4.1 (H) 0.2 - 1.2 MG/DL 12/19 4:47 AM [facility] Not Available Not Available 12/19/2024 08:56:53 12/19/19 25 12/19/2024 Compr TapFitens isabell metab olic 2000 panel - Serum or Plasm a protein [mass/volume ] in serum or plasma 7.5 text: 6.4 - 8.2 g/dL TOTAL PROTE IN S/P/B 7.5 6.4 - 8.2 G/DL 12/19 4:47 AM [facility] Not Available Not Available 12/19/2024 08:56:53 12/19/19 25 12/19/2024 Compr ehens isabell metab olic 2000 panel - Serum or Plasm a albumin [mass/volume ] in serum or plasma 3.8 text: 3.4 - 5.0 g/dL ALBUM IN S/P/B 3.8 3.4 - 5.0 G/DL 12/19 4:47 AM [facility] Not Available Not Available 12/19/2024 08:56:53 12/19/19 25 12/19/2024 Compr ehens isabell metab olic 1999 panel - Serum or Plasm a aspartate aminotransfe rase [enzymatic activity/vol ume] in serum or plasma 68 U/L low: 15U/Lh igh: 37U/L high AST 68 (H) 15 - 37 U/L 12/19 4:47 AM [facility] Not Available Not Available 12/19/2024 08:56:53 12/19/19 25 12/19/2024 Compr ehens isabell metab olic 1999 panel - Serum or Plasm a alanine aminotransfe rase [enzymatic activity/vol ume] in serum or plasma 38 U/L low: 16U/Lh igh: 60U/L ALT 38 16 - 60 U/L 12/19 4:47 AM [facility] Not Available Not Available 12/19/2024 08:56:53 12/19/19 25 12/19/2024 Compr ehens isabell metab olic 1999 panel - Serum or Plasm a alkaline phosphatase [enzymatic activity/vol ume] in serum or plasma 70 U/L low: 50U/Lh igh: 136U/L ALKAL INE PHOSP HATAS E S/P/B 70 50 - 136 U/L 12/19 4:47 AM [facility] Not Available Not Available 12/19/2024 08:56:53 12/19/19 25 12/19/2024 Compr ehens isabell metab olic 1999 panel - Serum or Plasm a anion gap in serum or plasma 3.9 text: 2 - 10 mmol/L ANION GAP 3.9 2 - 10 MMOL/ L 12/19 4:47 AM [facility] Not Available Not Available 12/19/2024 08:56:53 12/19/19 25 12/19/2024 Compr ehens isabell metab olic 2000 panel - Serum or Plasm a urea nitrogen/cre atinine [mass ratio] in serum or plasma 10 low: 6high: 26 BUN CREAT ININE RATIO 10.0 6 - 26 12/19 4:47 AM [facility] Not Available Not Available 12/19/2024 08:56:53 12/19/19 25 12/19/2024 Compr ehens isabell metab olic 1999 panel - Serum or Plasm a albumin/glob ulin [mass ratio] in serum or plasma 1 text: 1.0 - 2.0 ratio A/G RATIO 1.0 1.0 - 2.0 RATIO 12/19 4:47 AM [facility] Not Available Not Available 12/19/2024 08:56:53 12/19/1912/19/2024 Compr ehens isabell metab olic 1999 panel - Serum or Plasm a glomerular filtration rate/1.73 sq M.predicted [volume rate/area] in serum, plasma or blood by creatinine-b ased formula (CKD-epi 2020) text: >90 mL/min /1.73 M2 GFR ESTIM ATE >90 >90 ML/PA N/1.7 3 M2 12/19 4:47 AM [facility] Not Available Not Available 12/19/2024 08:56:53 12/19/1912/19/2024 Compr ehens isabell metab olic 2000 panel - Serum or Plasm a interpretati on and review of laboratory results Abnorm al Not Available Not Available 08:56:53 12/19/1912/19/2024 CBC W Auto Diffe renti al panel - Blood leukocytes [#/volume] in blood by automated count 10.56 text: 4.5 - 11.0 x10'3/ uL WBC 10.56 4.5 - 11.0 x10'3 /uL 12/19 4:25 AM [facility] Not Available Not Available 12/19/2024 08:56:53 12/19/19 25 12/19/2024 CBC W Auto Diffe renti al panel - Blood erythrocytes [#/volume] in blood by automated count 2.22 text: 4.70 - 6.10 x10'6/ uL low RBC 2.22 (L) 4.70 - 6.10 x10'6 /uL 12/19 4:25 AM [facility] Not Available Not Available 12/19/2024 08:56:53 12/19/19 25 12/19/2024 CBC W Auto Diffe renti al panel - Blood hemoglobin [mass/volume ] in blood 8.1 text: 14.0 - 18.0 g/dL low HGB 8.1 (L) 14.0 - 18.0 G/DL 12/19 4:25 AM [facility] Not Available Not Available 12/19/2024 08:56:53 12/19/1912/19/2024 CBC W Auto Diffe renti al panel - Blood hematocrit [volume fraction] of blood 23.2 % low: 43%hig h: 54% low HCT 23.2 (L) 43.0 - 54.0 % 12/19 4:25 AM [facility] Not Available Not Available 12/19/2024 08:56:53 12/19/19 25 12/19/2024 CBC W Auto Diffe renti al panel - Blood MCV [entitic volume] 104.5 text: 80.0 - 94.0 fL high MCV 104.5 (H) 80.0 - 94.0 FL 12/19 4:25 AM [facility] Not Available Not Available 12/19/2024 08:56:53 12/19/19 25 12/19/2024 CBC W Auto Diffe renti al panel - Blood MCH [entitic mass] 36.5 pg low: 27pghi gh: 31pg high MCH 36.5 (H) 27.0 - 31.0 PG 12/19 4:25 AM [facility] Not Available Not Available 12/19/2024 08:56:53 12/19/19 25 12/19/2024 CBC W Auto Diffe renti al panel - Blood MCHC [mass/volume ] 34.9 text: 32.0 - 36.0 g/dL MCHC 34.9 32.0 - 36.0 G/DL 12/19 4:25 AM [facility] Not Available Not Available 12/19/2024 08:56:53 12/19/19 25 12/19/2024 CBC W Auto Diffe renti al panel - Blood erythrocyte distribution width [entitic volume] by automated count 19 % low: 11.5%h igh: 14.5% high RDW 19.0 (H) 11.5 - 14.5 % 12/19 4:25 AM [facility] Not Available Not Available 12/19/2024 08:56:53 12/19/1912/19/2024 CBC W Auto Diffe renti al panel - Blood platelets [#/volume] in blood 335 text: 130 - 400 x10'3/ uL PLT 335 130 - 400 x10'3 /uL 12/19 4:25 AM [facility] Not Available Not Available 12/19/2024 08:56:53 12/19/1912/19/2024 CBC W Auto Diffe renti al panel - Blood platelet mean volume [entitic volume] in blood 10.4 text: 9.3 - 12.2 fL MPV 10.4 9.3 - 12.2 FL 12/19 4:25 AM [facility] Not Available Not Available 12/19/2024 08:56:53 12/19/19 25 12/19/2024 CBC W Auto Diffe renti al panel - Blood differential cell count method - blood AUTOMA ANTONETTE DIFFER ENTIAL DIFFE RENTI AL TYPE AUTOM ATED DIFFE RENTI AL 12/19 4:49 AM [facility] Not Available Not Available 12/19/2024 08:56:53 12/19/19 25 12/19/2024 CBC W Auto Diffe renti al panel - Blood neutrophils/ 100 leukocytes in blood by automated count 59.4 % NEUTR OPHIL S % 59.4 % 12/19 4:49 AM [facility] Not Available Not Available 12/19/2024 08:56:53 12/19/19 25 12/19/2024 CBC W Auto Diffe renti al panel - Blood lymphocytes/ 100 leukocytes in blood by automated count 35.4 % LYMPH OCYTE S % 35.4 % 12/19 4:49 AM [facility] Not Available Not Available 12/19/2024 08:56:53 12/19/19 25 12/19/2024 CBC W Auto Diffe renti al panel - Blood monocytes/10 0 leukocytes in blood by automated count 3.5 % MONOC YTES % 3.5 % 12/19 4:49 AM [facility] Not Available Not Available 12/19/2024 08:56:53 12/19/19 25 12/19/2024 CBC W Auto Diffe renti al panel - Blood eosinophils/ 100 leukocytes in blood by automated count 0.9 % EOSIN OPHIL S 0.9 % 12/19 4:49 AM [facility] Not Available Not Available 12/19/2024 08:56:53 12/19/19 25 12/19/2024 CBC W Auto Diffe renti al panel - Blood basophils/10 0 leukocytes in blood by automated count 0.4 % BASOP HILS 0.4 % 12/19 4:49 AM [facility] Not Available Not Available 12/19/2024 08:56:53 12/19/19 25 12/19/2024 CBC W Auto Diffe renti al panel - Blood immature granulocytes /100 leukocytes in blood by automated count 0.4 % IMMAT URE GRANS % 0.4 % 12/19 4:49 AM [facility] Not Available Not Available 12/19/2024 08:56:53 12/19/19 25 12/19/2024 CBC W Auto Diffe renti al panel - Blood neutrophils [#/volume] in blood 6.28 text: 1.80 - 7.70 x10'3/ uL ABS. NEUTR OPHIL S 6.28 1.80 - 7.70 x10'3 /uL 12/19 4:49 AM [facility] Not Available Not Available 12/19/2024 08:56:53 12/19/19 25 12/19/2024 CBC W Auto Diffe renti al panel - Blood lymphocytes [#/volume] in blood 3.74 text: 1.00 - 4.80 x10'3/ uL ABS. LYMPH OCYTE S 3.74 1.00 - 4.80 x10'3 /uL 12/19 4:49 AM [facility] Not Available Not Available 12/19/2024 08:56:53 12/19/19 25 12/19/2024 CBC W Auto Diffe renti al panel - Blood monocytes [#/volume] in blood 0.37 text: 0.30 - 0.82 x10'3/ uL ABS. MONOC YTES 0.37 0.30 - 0.82 x10'3 /uL 12/19 4:49 AM [facility] Not Available Not Available 12/19/2024 08:56:53 12/19/19 25 12/19/2024 CBC W Auto Diffe renti al panel - Blood eosinophils [#/volume] in blood 0.09 text: 0.04 - 0.54 x10'3/ uL ABS. EOSIN OPHIL S 0.09 0.04 - 0.54 x10'3 /uL 12/19 4:49 AM [facility] Not Available Not Available 12/19/2024 08:56:53 12/19/19 25 12/19/2024 CBC W Auto Diffe renti al panel - Blood basophils [#/volume] in blood 0.04 text: 0.01 - 0.08 x10'3/ uL ABS. BASOP HILS 0.04 0.01 - 0.08 x10'3 /uL 12/19 4:49 AM [facility] Not Available Not Available 12/19/2024 08:56:53 12/19/1912/19/2024 CBC W Auto Diffe renti al panel - Blood immature granulocytes [#/volume] in blood 0.04 text: 0.00 - 0.49 x10'3/ uL ABS. IMMAT URE GRANU LOCYT ES 0.04 0.00 - 0.49 x10'3 /uL 12/19 4:49 AM HEMATOLOGIST ONCOLOGIST [facility] Not Available Not Available 12/19/2024 08:56:53 12/19/1912/19/2024 CBC W Auto Diffe renti al panel - Blood interpretati on and review of laboratory results Abnorm al Not Available Not Available 08:56:53 03/25/2003/25/2025 Retic ulocy jesse [#/vo lume] in Blood by Autom ated count reticulocyte s/erythrocyt es in blood 6.5 % low: 0.8%hi gh: 2.1% high RETIC ULOCY TE COUNT 6.5 (H) 0.8 - 2.1 % 03/25 1:43 AM CDT [facility] Not Available Not Available 03/25/2025 03:48:01 03/25/2003/25/2025 Retic ulocy jesse [#/vo lume] in Blood by Autom ated count reticulocyte s [#/volume] in blood by automated count 0.15 text: 0.03 - 0.11 x10'6/ uL high ABSOL BRANDON RETIC ULOCY TE 0.15 (H) 0.03 - 0.11 x10'6 /uL 03/25 1:43 AM CDT [facility] Not Available Not Available 03/25/2025 03:48:01 03/25/20 25 03/25/2025 Retic ulocy jesse [#/vo lume] in Blood by Autom ated count immature reticulocyte s/erythrocyt es in cord blood by automated count 29.3 % low: 2.3%hi gh: 13.4% high IMMAT URE RETIC FRACT ION 29.3 (H) 2.3 - 13.4 % 03/25 1:43 AM [facility] Not Available Not Available 03/25/2025 03:48:01 03/25/20 25 03/25/2025 Retic ulocy jesse [#/vo lume] in Blood by Autom ated count retic HGB 36.9 pg low: 28pghi gh: 35pg high RETIC HGB 36.9 (H) 28.0 - 35.0 PG 03/25 1:43 AM CDT [facility] Not Available Not Available 03/25/2025 03:48:01 03/25/2003/25/2025 Retic ulocy jesse [#/vo lume] in Blood by Autom ated count interpretati on and review of laboratory results Abnorm al Not Available Not Available 03:48:01 03/25/2003/25/2025 Compr ehens isabell metab olic 1999 panel - Serum or Plasm a glucose [mass/volume ] in serum or plasma 117 text: 70 - 99 mg/dL high GLUCO SE 117 (H) 70 - 99 MG/DL 03/25 1:57 AM [facility] Not Available Not Available 03/25/2025 03:48:01 03/25/20 25 03/25/2025 Compr ehens isabell metab olic 1999 panel - Serum or Plasm a urea nitrogen [mass/volume ] in serum or plasma 6 text: 7 - 18 mg/dL low BUN 6 (L) 7 - 18 MG/DL 03/25 1:57 AM CDT [facility] Not Available Not Available 03/25/2025 03:48:01 03/25/20 25 03/25/2025 Compr ehens isabell metab olic 1999 panel - Serum or Plasm a creatinine [mass/volume ] in serum or plasma 0.66 text: 0.7 - 1.3 mg/dL low CREAT ININE S/P/B 0.66 (L) 0.7 - 1.3 MG/DL 03/25 1:57 AM CDT [facility] Not Available Not Available 03/25/2025 03:48:01 03/25/20 25 03/25/2025 Compr ehens isabell metab olic 2000 panel - Serum or Plasm a sodium [moles/volum e] in serum or plasma 142 text: 136 - 145 mmol/L SODIU M S/P/B 142 136 - 145 MMOL/ L 03/25 1:57 AM CDT [facility] Not Available Not Available 03/25/2025 03:48:01 03/25/20 25 03/25/2025 Compr ehens isabell metab olic 2000 panel - Serum or Plasm a potassium [moles/volum e] in serum or plasma 3.2 text: 3.5 - 5.1 mmol/L low POTAS SIUM S/P/B 3.2 (L) 3.5 - 5.1 MMOL/ L 03/25 1:57 AM CDT [facility] Not Available Not Available 03/25/2025 03:48:01 03/25/20 25 03/25/2025 Compr ehens isabell metab olic 2000 panel - Serum or Plasm a chloride [moles/volum e] in serum or plasma 113 text: 97 - 115 mmol/L CHLOR MEDINA S/P/B 113 97 - 115 MMOL/ L 03/25 1:57 AM CDT [facility] Not Available Not Available 03/25/2025 03:48:01 03/25/20 25 03/25/2025 Compr ehens isabell metab olic 2000 panel - Serum or Plasm a carbon dioxide, total [moles/volum e] in serum or plasma 22.7 text: 21 - 32 mmol/L CO2 22.7 21 - 32 MMOL/ L 03/25 1:57 AM CDT [facility] Not Available Not Available 03/25/2025 03:48:01 03/25/20 25 03/25/2025 Compr ehens isabell metab olic 2000 panel - Serum or Plasm a calcium [mass/volume ] in serum or plasma 8.9 text: 8.5 - 10.1 mg/dL CALCI UM S/P/B 8.9 8.5 - 10.1 MG/DL 03/25 1:[address] [facility] Not Available Not Available 03/25/2025 03:48:01 03/25/20 25 03/25/2025 Compr ehens isabell metab olic 1999 panel - Serum or Plasm a bilirubin.to justyn [mass/volume ] in serum or plasma 1.9 text: 0.2 - 1.2 mg/dL high BILIR UBIN TOTAL S/P/B 1.9 (H) 0.2 - 1.2 MG/DL 03/25 1:[address] [facility] Not Available Not Available 03/25/2025 03:48:01 03/25/20 25 03/25/2025 Compr ehens isabell metab olic 2000 panel - Serum or Plasm a protein [mass/volume ] in serum or plasma 7.7 text: 6.4 - 8.2 g/dL TOTAL PROTE IN S/P/B 7.7 6.4 - 8.2 G/DL 03/25 1:[address] [facility] Not Available Not Available 03/25/2025 03:48:01 03/25/20 25 03/25/2025 Compr ehens isabell metab olic 2000 panel - Serum or Plasm a albumin [mass/volume ] in serum or plasma 4.1 text: 3.4 - 5.0 g/dL ALBUM IN S/P/B 4.1 3.4 - 5.0 G/DL 03/25 1:[address] [facility] Not Available Not Available 03/25/2025 03:48:01 03/25/20 25 03/25/2025 Compr ehens isabell metab olic 2000 panel - Serum or Plasm a aspartate aminotransfe rase [enzymatic activity/vol ume] in serum or plasma 20 U/L low: 15U/Lh igh: 37U/L AST 20 15 - 37 U/L 03/25 1:57 AM CDT [facility] Not Available Not Available 03/25/2025 03:48:01 03/25/2003/25/2025 Compr ehens isabell metab olic 1999 panel - Serum or Plasm a alanine aminotransfe rase [enzymatic activity/vol ume] in serum or plasma 14 U/L low: 16U/Lh igh: 60U/L low ALT 14 (L) 16 - 60 U/L 03/25 1:57 AM CDT [facility] Not Available Not Available 03/25/2025 03:48:01 03/25/2003/25/2025 Compr ehens isabell metab olic 1999 panel - Serum or Plasm a alkaline phosphatase [enzymatic activity/vol ume] in serum or plasma 75 U/L low: 50U/Lh igh: 136U/L ALKAL INE PHOSP HATAS E S/P/B 75 50 - 136 U/L 03/25 1:57 AM CDT [facility] Not Available Not Available 03/25/2025 03:48:01 03/25/2003/25/2025 Compr ehens isabell metab olic 1999 panel - Serum or Plasm a anion gap in serum or plasma by calculation 6.3 text: 2 - 10 mmol/L ANION GAP 6.3 2 - 10 MMOL/ L 03/25 1:57 AM CDT [facility] Not Available Not Available 03/25/2025 03:48:01 03/25/20 25 03/25/2025 Compr ehens isabell metab olic 1999 panel - Serum or Plasm a urea nitrogen/cre atinine [mass ratio] in serum or plasma 9 low: 6high: 26 BUN CREAT ININE RATIO 9.0 03/25 1:57 AM CDT [facility] Not Available Not Available 03/25/2025 03:48:01 03/25/20 25 03/25/2025 Compr ehens isabell metab olic 2000 panel - Serum or Plasm a albumin/glob ulin [mass ratio] in serum or plasma 1.1 text: 1.0 - 2.0 ratio A/G RATIO 1.1 1.0 - 2.0 RATIO 03/25 1:57 AM CDT [facility] Not Available Not Available 03/25/2025 03:48:01 03/25/2003/25/2025 Compr ehens isabell metab olic 2000 panel - Serum or Plasm a glomerular filtration rate [volume rate/area] in serum, plasma or blood by creatinine-b ased formula (CKD-epi 2020)/1.73 sq M >90 text: >90 mL/min /1.73 M2 GFR ESTIM ATE >90 >90 ML/PA N/1.7 3 M2 03/25 1:57 AM CDT [facility] Not Available Not Available 03/25/2025 03:48:01 03/25/2003/25/2025 Compr ehens isabell metab olic 2000 panel - Serum or Plasm a interpretati on and review of laboratory results Abnorm al Not Available Not Available 03:48:01 03/25/2003/25/2025 CBC W Auto Diffe renti al panel - Blood leukocytes [#/volume] in blood by automated count 9.21 text: 4.5 - 11.0 x10'3/ uL WBC 9.21 4.5 - 11.0 x10'3 /uL 03/25 1:43 AM CDT [facility] Not Available Not Available 03/25/2025 03:48:01 03/25/2003/25/2025 CBC W Auto Diffe renti al panel - Blood erythrocytes [#/volume] in blood by automated count 2.26 text: 4.70 - 6.10 x10'6/ uL low RBC 2.26 (L) 4.70 - 6.10 x10'6 /uL 03/25 1:43 AM CDT [facility] Not Available Not Available 03/25/2025 03:48:01 03/25/20 03/25/2025 CBC W Auto Diffe renti al panel - Blood hemoglobin [mass/volume ] in blood 8.8 text: 14.0 - 18.0 g/dL low HGB 8.8 (L) 14.0 - 18.0 G/DL 03/25 1:43 AM CDT [facility] Not Available Not Available 03/25/2025 03:48:01 03/25/2003/25/2025 CBC W Auto Diffe renti al panel - Blood hematocrit [volume fraction] of blood by calculation 23.9 % low: 43%hig h: 54% low HCT 23.9 (L) 43.0 - 54.0 % 03/25 1:43 AM CDT [facility] Not Available Not Available 03/25/2025 03:48:01 03/25/2003/25/2025 CBC W Auto Diffe renti al panel - Blood MCV [entitic mean volume] in red blood cells 105.8 text: 80.0 - 94.0 fL high MCV 105.8 (H) 80.0 - 94.0 FL 03/25 1:43 AM CDT [facility] Not Available Not Available 03/25/2025 03:48:01 03/25/20 25 03/25/2025 CBC W Auto Diffe renti al panel - Blood MCH [entitic mass] 38.9 pg low: 27pghi gh: 31pg high MCH 38.9 (H) 27.0 - 31.0 PG 03/25 1:43 AM CDT [facility] Not Available Not Available 03/25/2025 03:48:01 03/25/20 25 03/25/2025 CBC W Auto Diffe renti al panel - Blood MCHC [entitic mass/volume] in red blood cells 36.8 text: 32.0 - 36.0 g/dL high MCHC 36.8 (H) 32.0 - 36.0 G/DL 03/25 1:43 AM CDT [facility] Not Available Not Available 03/25/2025 03:48:01 03/25/20 25 03/25/2025 CBC W Auto Diffe renti al panel - Blood RDW 17.7 % low: 11.5%h igh: 14.5% high RDW 17.7 (H) 11.5 - 14.5 % 03/25 1:43 AM CDT [facility] Not Available Not Available 03/25/2025 03:48:01 03/25/20 25 03/25/2025 CBC W Auto Diffe renti al panel - Blood platelets [#/volume] in blood 304 text: 130 - 400 x10'3/ uL PLT 304 130 - 400 x10'3 /uL 03/25 1:43 AM CDT [facility] Not Available Not Available 03/25/2025 03:48:01 03/25/2003/25/2025 CBC W Auto Diffe renti al panel - Blood platelet [entitic mean volume] in blood 9.7 text: 9.3 - 12.2 fL MPV 9.7 9.3 - 12.2 FL 03/25 1:43 AM CDT [facility] Not Available Not Available 03/25/2025 03:48:01 03/25/20 25 03/25/2025 CBC W Auto Diffe renti al panel - Blood differential cell count method - blood MANUAL DIFFER ENTIAL DIFFE RENTI AL TYPE MANUA L DIFFE RENTI AL 03/25 2:13 AM CDT [facility] Not Available Not Available 03/25/2025 03:48:01 03/25/2003/25/2025 CBC W Auto Diffe renti al panel - Blood segmented neutrophils/ leukocytes in blood by manual count 58 % SEG NEUTR OPHIL S 58 % 03/25 2:13 AM CDT [facility] Not Available Not Available 03/25/2025 03:48:01 03/25/20 25 03/25/2025 CBC W Auto Diffe renti al panel - Blood lymphocytes/ leukocytes in blood by manual count 38 % LYMPH OCYTE S 38 % 03/25 2:13 AM CDT [facility] Not Available Not Available 03/25/2025 03:48:01 03/25/20 25 03/25/2025 CBC W Auto Diffe renti al panel - Blood monocytes/le ukocytes in blood by manual count 4 % MONOC YTES 4 % 03/25 2:13 AM CDT [facility] Not Available Not Available 03/25/2025 03:48:01 03/25/20 25 03/25/2025 CBC W Auto Diffe renti al panel - Blood nucleated erythrocytes /leukocytes [ratio] in blood 5 text: 0 /100 WBC high NRBC 5 (H) 0 /100 WBC 03/25 2:13 AM CDT [facility] Not Available Not Available 03/25/2025 03:48:01 03/25/20 25 03/25/2025 CBC W Auto Diffe renti al panel - Blood neutrophils [#/volume] in blood 5.34 text: 1.80 - 7.70 x10'3/ uL ABS. NEUTR OPHIL S 5.34 1.80 - 7.70 x10'3 /uL 03/25 2:13 AM CDT [facility] Not Available Not Available 03/25/2025 03:48:01 03/25/20 25 03/25/2025 CBC W Auto Diffe renti al panel - Blood lymphocytes [#/volume] in blood 3.5 text: 1.00 - 4.80 x10'3/ uL ABS. LYMPH OCYTE S 3.50 1.00 - 4.80 x10'3 /uL 03/25 2:13 AM CDT [facility] Not Available Not Available 03/25/2025 03:48:01 03/25/20 25 03/25/2025 CBC W Auto Diffe renti al panel - Blood monocytes [#/volume] in blood 0.37 text: 0.30 - 0.82 x10'3/ uL ABS. MONOC YTES 0.37 0.30 - 0.82 x10'3 /uL 03/25 2:13 AM CDT [facility] Not Available Not Available 03/25/2025 03:48:01 03/25/2003/25/2025 CBC W Auto Diffe renti al panel - Blood nucleated erythrocytes [#/volume] in blood 0.46 text: 0.00 - 0.01 x10'3/ uL high ABS. NUCLE ATED RBC'S 0.46 (H) 0.00 - 0.01 x10'3 /uL 03/25 2:13 AM CDT [facility] Not Available Not Available 03/25/2025 03:48:01 03/25/2003/25/2025 CBC W Auto Diffe renti al panel - Blood erythrocytes [morphology] in blood by automated count RBC MORPHO LOGY APPEAR S NORMAL . SLIDE REVIEW ED. RBC MORPH OLOGY RBC MORPH OLOGY APPEA RS STEPHAN L. SLIDE REVIE WED. 03/25 2:13 AM CDT [facility] Not Available Not Available 03/25/2025 03:48:01 03/25/2003/25/2025 CBC W Auto Diffe renti al panel - Blood platelets [#/volume] in blood by automated count ADEQUA TE PLT EST. ADEQU ATE 03/25 2:13 AM CDT [facility] Not Available Not Available 03/25/2025 03:48:01 03/25/2003/25/2025 CBC W Auto Diffe renti al panel - Blood interpretati on and review of laboratory results Abnorm al Not Available Not Available 03:48:01 03/25/2003/25/2025 Influ wilber virus A+B Ag [Pres ence] in Speci men specimen source identified SWAB SPECI MEN TYPE SWAB 03/25 1:25 AM CDT [facility] Not Available Not Available 03/25/2025 03:48:01 03/25/20 25 03/25/2025 Influ wilber virus A+B Ag [Pres ence] in Speci men influenza virus A Ag [presence] in specimen NEGATI VE text: negati ve INFLU WILBER A NEGAT ISABELL NEGAT ISABELL 03/25 1:48 AM CDT [facility] Not Available Not Available 03/25/2025 03:48:01 03/25/20 25 03/25/2025 Influ wilber virus A+B Ag [Pres ence] in Speci men haemophilus influenzae B Ag [presence] in specimen NEGATI VE text: negati ve INFLU WILBER B NEGAT ISABELL NEGAT ISABELL 03/25 1:48 AM CDT [facility] Not Available Not Available 03/25/2025 03:48:01 04/20/20 25 04/22/2025 Chlam ydia trach omati s and Neiss eria gonor rhoea e DNA panel - Speci men specimen site narrative URINE Not Available Not Available 12:24:38 04/20/20 25 04/22/2025 Chlam ydia trach omati s and Neiss eria gonor rhoea e DNA panel - Speci men chlamydia trachomatis rrna [presence] in specimen by probe POSITI VE text: negati ve abnormal PERFO RMED BY NUCLE IC ACID AMPLI FICAT ION Not Available Not Available 05/07/2025 12:24:38 04/20/20 25 04/22/2025 Chlam ydia trach omati s and Neiss eria gonor rhoea e DNA panel - Speci men neisseria gonorrhoeae rrna [presence] in specimen by probe NEGATI VE text: negati ve PERFO RMED BY NUCLE IC ACID AMPLI FICAT ION Not Available Not Available 05/07/2025 12:24:38 04/20/20 25 04/22/2025 Chlam ydia trach omati s and Neiss eria gonor rhoea e DNA panel - Speci men trichomonas vaginalis DNA [presence] in vaginal fluid by probe with signal amplificatio n NEGATI VE text: negati ve PERFO RMED BY NUCLE IC ACID AMPLI FICAT ION Not Available Not Available 05/07/2025 12:24:38 04/20/20 25 04/22/2025 Chlam ydia trach omati s and Neiss eria gonor rhoea e DNA panel - Speci men interpretati on and review of laboratory results Abnorm al Not Available Not Available 12:24:38 04/20/20 25 04/20/2025 Urina lysis dipst ick W Refle x Micro scopi c panel - Urine collection method - specimen URINE CLEAN CATCH Not Available Not Available 09:04:11 04/20/20 25 04/20/2025 Urina lysis dipst ick W Refle x Micro scopi c panel - Urine color of urine LIGHT YELLOW Not Available Not Available 09:04:11 04/20/20 25 04/20/2025 Urina lysis dipst ick W Refle x Micro scopi c panel - Urine clarity of urine CLEAR Not Available Not Available 04/01 09:04:11 04/20/20 25 04/20/2025 Urina lysis dipst ick W Refle x Micro scopi c panel - Urine specific gravity of urine 1.009 low: 1.001h igh: 1.03 Not Available Not Available 04/20/2025 09:04:11 04/20/20 25 04/20/2025 Urina lysis dipst ick W Refle x Micro scopi c panel - Urine pH of urine 6.5 low: 5high: 9 Not Available Not Available 04/20/2025 09:04:11 04/20/20 25 04/20/2025 Urina lysis dipst ick W Refle x Micro scopi c panel - Urine leukocytes [#/volume] in urine by test strip 500 text: negati ve abnormal Not Available Not Available 04/20/2025 09:04:11 04/20/20 25 04/20/2025 Urina lysis dipst ick W Refle x Micro scopi c panel - Urine nitrite [presence] in urine NEGATI VE text: negati ve Not Available Not Available 04/20/2025 09:04:11 04/20/20 25 04/20/2025 Urina lysis dipst ick W Refle x Micro scopi c panel - Urine protein [mass/volume ] in urine by test strip NEGATI VE text: <30 mg/dL Not Available Not Available 04/20/2025 09:04:11 04/20/20 25 04/20/2025 Urina lysis dipst ick W Refle x Micro scopi c panel - Urine glucose [mass/volume ] in urine NORMAL text: normal mg/dL Not Available Not Available 04/20/2025 09:04:11 04/20/20 25 04/20/2025 Urina lysis dipst ick W Refle x Micro scopi c panel - Urine ketones [mass/volume ] in urine by test strip NEGATI VE text: negati ve mg/dL Not Available Not Available 04/20/2025 09:04:11 04/20/20 25 04/20/2025 Urina lysis dipst ick W Refle x Micro scopi c panel - Urine urobilinogen [units/volum e] in urine by test strip NORMAL text: normal mg/dL Not Available Not Available 04/20/2025 09:04:11 04/20/20 25 04/20/2025 Urina lysis dipst ick W Refle x Micro scopi c panel - Urine bilirubin.to justyn [mass/volume ] in urine NEGATI VE text: negati ve mg/dL Not Available Not Available 04/20/2025 09:04:11 04/20/20 25 04/20/2025 Urina lysis dipst ick W Refle x Micro scopi c panel - Urine erythrocytes [#/volume] in urine by automated test strip NEGATI VE text: negati ve Not Available Not Available 04/20/2025 09:04:11 04/20/20 25 04/20/2025 Urina lysis dipst ick W Refle x Micro scopi c panel - Urine mucus [#/area] in urine sediment by microscopy low power field RARE text: /lpf Not Available Not Available 04/20/2025 09:04:11 04/20/20 25 04/20/2025 Urina lysis dipst ick W Refle x Micro scopi c panel - Urine leukocytes [#/area] in urine sediment by microscopy high power field 56 text: <6 /hpf high Not Available Not Available 04/20/2025 09:04:11 04/20/20 25 04/20/2025 Urina lysis dipst ick W Refle x Micro scopi c panel - Urine erythrocytes [#/area] in urine sediment by microscopy high power field 2 text: <6 /hpf Not Available Not Available 04/20/2025 09:04:11 04/20/20 25 04/20/2025 Urina lysis dipst ick W Refle x Micro scopi c panel - Urine yeast.buddin g [#/area] in urine sediment by microscopy high power field FEW text: none /hpf abnormal Not Available Not Available 04/20/2025 09:04:11 04/20/20 25 04/20/2025 Urina lysis dipst ick W Refle x Micro scopi c panel - Urine epithelial cells.[place] us [#/area] in urine sediment by microscopy high power field RARE text: /hpf Not Available Not Available 04/20/2025 09:04:11 04/20/20 25 04/20/2025 Urina lysis dipst ick W Refle x Micro scopi c panel - Urine interpretati on and review of laboratory results Abnorm al Not Available Not Available 09:04:11 04/20/20 25 04/20/2025 Retic ulocy jesse [#/vo lume] in Blood by Autom ated count reticulocyte s/erythrocyt es in blood 11.5 % low: 0.8%hi gh: 2.1% high Not Available Not Available 04/20/2025 09:04:11 04/20/20 25 04/20/2025 Retic ulocy jesse [#/vo lume] in Blood by Autom ated count reticulocyte s [#/volume] in blood by automated count 0.24 text: 0.03 - 0.11 x10'6/ uL high Not Available Not Available 04/20/2025 09:04:11 04/20/20 25 04/20/2025 Retic ulocy jesse [#/vo lume] in Blood by Autom ated count immature reticulocyte s/erythrocyt es in cord blood by automated count 30.5 % low: 2.3%hi gh: 13.4% high Not Available Not Available 04/20/2025 09:04:11 04/20/20 25 04/20/2025 Retic ulocy jesse [#/vo lume] in Blood by Autom ated count retic HGB 31.8 pg low: 28pghi gh: 35pg Not Available Not Available 04/20/2025 09:04:11 04/20/20 25 04/20/2025 Retic ulocy jesse [#/vo lume] in Blood by Autom ated count interpretati on and review of laboratory results Abnorm al Not Available Not Available 09:04:11 04/20/20 25 04/20/2025 Compr [employer] isabell metab olic 1999 panel - Serum or Plasm a glucose [mass/volume ] in serum or plasma 110 text: 70 - 99 mg/dL high Not Available Not Available 04/20/2025 09:04:10 04/20/20 25 04/20/2025 Compr [employer] [place]ell metab olic 1999 panel - Serum or Plasm a urea nitrogen [mass/volume ] in serum or plasma 6 text: 7 - 18 mg/dL low Not Available Not Available 04/20/2025 09:04:10 04/20/20 25 04/20/2025 Compr [employer] [facility]ell [employer] olic 1999 panel - Serum or Plasm a creatinine [mass/volume ] in serum or plasma 0.74 text: 0.7 - 1.3 mg/dL Not Available Not Available 04/20/2025 09:04:10 04/20/20 25 04/20/2025 Compr [employer] [facility] [employer] olic 1999 panel - Serum or Plasm a sodium [moles/volum e] in serum or plasma 141 text: 136 - 145 mmol/L Not Available Not Available 04/20/2025 09:04:10 04/20/20 25 04/20/2025 Compr [employer] [facility] metab olic 1999 panel - Serum or Plasm a potassium [moles/volum e] in serum or plasma 3.9 text: 3.5 - 5.1 mmol/L Not Available Not Available 04/20/2025 09:04:10 04/20/20 25 04/20/2025 Compr [employer] [facility]ell metab olic 2000 panel - Serum or Plasm a chloride [moles/volum e] in serum or plasma 113 text: 97 - 115 mmol/L Not Available Not Available 04/20/2025 09:04:10 04/20/20 25 04/20/2025 Compr [facility]hens is[facility]ell metab olic 2000 panel - Serum or Plasm a carbon dioxide, total [moles/volum e] in serum or plasma 21.4 text: 21 - 32 mmol/L Not Available Not Available 04/20/2025 09:04:10 04/20/20 25 04/20/2025 [facility] is[facility]ell metab olic 1999 panel - Serum or Plasm a calcium [mass/volume ] in serum or plasma 9 text: 8.5 - 10.1 mg/dL Not Available Not Available 04/20/2025 09:04:10 04/20/20 25 04/20/2025 [facility] panel - Serum or Plasm a bilirubin.to justyn [mass/volume ] in serum or plasma 1.5 text: 0.2 - 1.2 mg/dL high THIS ASSAY IS NOT RECOM RADHA D FOR PATIE NTS UNDER GOING TREAT MENT WITH ELTRO MBOPA G DUE TO THE POTEN TIAL FOR FALSE LY ELEVA ANTONETTE RESUL TS. Not Available Not Available 04/20/2025 09:04:10 04/20/20 25 04/20/2025 [facility] 1999 panel - Serum or Plasm a protein [mass/volume ] in serum or plasma 7.4 text: 6.4 - 8.2 g/dL Not Available Not Available 04/20/2025 09:04:10 04/20/20 25 04/20/2025 [facility] 2000 panel - Serum or Plasm a albumin [mass/volume ] in serum or plasma 4 text: 3.4 - 5.0 g/dL Not Available Not Available 04/20/2025 09:04:10 04/20/20 25 04/20/2025 [facility] 2000 panel - Serum or Plasm a aspartate aminotransfe rase [enzymatic activity/vol ume] in serum or plasma 37 U/L low: 15U/Lh igh: 37U/L Not Available Not Available 04/20/2025 09:04:10 04/20/20 25 04/20/2025 [facility]hens is[facility]ell metab olic 2000 panel - Serum or Plasm a alanine aminotransfe rase [enzymatic activity/vol ume] in serum or plasma 24 U/L low: 16U/Lh igh: 60U/L Not Available Not Available 04/20/2025 09:04:10 04/20/20 25 04/20/2025 Compr [facility]hens [facility]ell metab olic 1999 panel - Serum or Plasm a alkaline phosphatase [enzymatic activity/vol ume] in serum or plasma 79 U/L low: 50U/Lh igh: 136U/L Not Available Not Available 04/20/2025 09:04:10 04/20/20 25 04/20/2025 Compr [facility]hens [facility]ell metab olic 1999 panel - Serum or Plasm a anion gap in serum or plasma by calculation 6.6 text: 2 - 10 mmol/L Not Available Not Available 04/20/2025 09:04:10 04/20/20 25 04/20/2025 Compr ehens [facility] metab olic 1999 panel - Serum or Plasm a urea nitrogen/cre atinine [mass ratio] in serum or plasma 8.2 low: 6high: 26 Not Available Not Available 04/20/2025 09:04:10 04/20/20 25 04/20/2025 Compr ehens [facility]ell metab olic 2000 panel - Serum or Plasm a albumin/glob ulin [mass ratio] in serum or plasma 1.2 text: 1.0 - 2.0 ratio Not Available Not Available 04/20/2025 09:04:10 04/20/20 25 04/20/2025 Compr ehens is[facility]ell metab olic 2000 panel - Serum or Plasm a glomerular filtration rate [volume rate/area] in serum, plasma or blood by creatinine-b ased formula (CKD-epi 2020)/1.73 sq M >90 text: >90 mL/min /1.73 M2 NOTE: eGFR is not calcu lated for patie nts <18 years of age or gende r unkno wn. This is an estim ated GFR calcu latio n using the new CKD EPI creat inine equat ion witho ut race and so does not requi re a corre ction facto r for race. This estim ated GFR shoul d not be used for calcu latin g drug doses . Not Available Not Available 04/20/2025 09:04:10 04/20/20 25 04/20/2025 Compr ehens isabell metab olic 2000 panel - Serum or Plasm a interpretati on and review of laboratory results Abnorm al Not Available Not Available 09:04:10 04/20/20 25 04/20/2025 CBC W Auto Diffe renti al panel - Blood leukocytes [#/volume] in blood by automated count 9.72 text: 4.5 - 11.0 x10'3/ uL Not Available Not Available 04/20/2025 09:04:10 04/20/20 25 04/20/2025 CBC W Auto Diffe renti al panel - Blood erythrocytes [#/volume] in blood by automated count 2.07 text: 4.70 - 6.10 x10'6/ uL low Not Available Not Available 04/20/2025 09:04:10 04/20/20 25 04/20/2025 CBC W Auto Diffe renti al panel - Blood hemoglobin [mass/volume ] in blood 7.6 text: 14.0 - 18.0 g/dL low Not Available Not Available 04/20/2025 09:04:10 04/20/20 25 04/20/2025 CBC W Auto Diffe renti al panel - Blood hematocrit [volume fraction] of blood by calculation 21.1 % low: 43%hig h: 54% low Not Available Not Available 04/20/2025 09:04:10 04/20/20 25 04/20/2025 CBC W Auto Diffe renti al panel - Blood MCV [entitic mean volume] in red blood cells 101.9 text: 80.0 - 94.0 fL high Not Available Not Available 04/20/2025 09:04:10 04/20/20 25 04/20/2025 CBC W Auto Diffe renti al panel - Blood MCH [entitic mass] 36.7 pg low: 27pghi gh: 31pg high Not Available Not Available 04/20/2025 09:04:10 04/20/20 25 04/20/2025 CBC W Auto Diffe renti al panel - Blood MCHC [entitic mass/volume] in red blood cells 36 text: 32.0 - 36.0 g/dL Not Available Not Available 04/20/2025 09:04:10 04/20/20 25 04/20/2025 CBC W Auto Diffe renti al panel - Blood RDW 16.5 % low: 11.5%h igh: 14.5% high Not Available Not Available 04/20/2025 09:04:10 04/20/20 25 04/20/2025 CBC W Auto Diffe renti al panel - Blood platelets [#/volume] in blood 298 text: 130 - 400 x10'3/ uL Not Available Not Available 04/20/2025 09:04:10 04/20/20 25 04/20/2025 CBC W Auto Diffe renti al panel - Blood platelet [entitic mean volume] in blood 10.1 text: 9.3 - 12.2 fL Not Available Not Available 04/20/2025 09:04:10 04/20/20 25 04/20/2025 CBC W Auto Diffe renti al panel - Blood differential cell count method - blood MANUAL DIFFER ENTIAL Not Available Not Available 09:04:10 04/20/20 25 04/20/2025 CBC W Auto Diffe renti al panel - Blood segmented neutrophils/ leukocytes in blood by manual count 46 % Not Available Not Available 04/20/2025 09:04:10 04/20/20 25 04/20/2025 CBC W Auto Diffe renti al panel - Blood lymphocytes/ leukocytes in blood by manual count 41 % Not Available Not Available 04/20/2025 09:04:10 04/20/20 25 04/20/2025 CBC W Auto Diffe renti al panel - Blood monocytes/le ukocytes in blood by manual count 10 % Not Available Not Available 04/20/2025 09:04:10 04/20/20 25 04/20/2025 CBC W Auto Diffe renti al panel - Blood eosinophils/ leukocytes in blood by manual count 1 % Not Available Not Available 04/20/2025 09:04:10 04/20/20 25 04/20/2025 CBC W Auto Diffe renti al panel - Blood basophils/le ukocytes in blood 2 % Not Available Not Available 04/01 09:04:10 04/20/20 25 04/20/2025 CBC W Auto Diffe renti al panel - Blood nucleated erythrocytes /leukocytes [ratio] in blood 3 text: 0 /100 WBC high Not Available Not Available 04/20/2025 09:04:10 04/20/20 25 04/20/2025 CBC W Auto Diffe renti al panel - Blood neutrophils [#/volume] in blood 4.47 text: 1.80 - 7.70 x10'3/ uL Not Available Not Available 04/20/2025 09:04:10 04/20/20 25 04/20/2025 CBC W Auto Diffe renti al panel - Blood lymphocytes [#/volume] in blood 3.99 text: 1.00 - 4.80 x10'3/ uL Not Available Not Available 04/20/2025 09:04:10 04/20/20 25 04/20/2025 CBC W Auto Diffe renti al panel - Blood monocytes [#/volume] in blood 0.97 text: 0.30 - 0.82 x10'3/ uL high Not Available Not Available 04/20/2025 09:04:10 04/20/20 25 04/20/2025 CBC W Auto Diffe renti al panel - Blood eosinophils [#/volume] in blood 0.1 text: 0.04 - 0.54 x10'3/ uL Not Available Not Available 04/20/2025 09:04:10 04/20/20 25 04/20/2025 CBC W Auto Diffe renti al panel - Blood basophils [#/volume] in blood 0.19 text: 0.01 - 0.08 x10'3/ uL high Not Available Not Available 04/20/2025 09:04:10 04/20/20 25 04/20/2025 CBC W Auto Diffe renti al panel - Blood nucleated erythrocytes [#/volume] in blood 0.29 text: 0.00 - 0.01 x10'3/ uL high Not Available Not Available 04/20/2025 09:04:10 04/20/20 25 04/20/2025 CBC W Auto Diffe renti al panel - Blood erythrocytes [morphology] in blood by automated count SLIDE REVIEW ED Not Available Not Available 09:04:10 04/20/20 25 04/20/2025 CBC W Auto Diffe renti al panel - Blood poikilocytos is [presence] in blood by automated count 2+ Not Available Not Available 04/01 09:04:10 04/20/20 25 04/20/2025 CBC W Auto Diffe renti al panel - Blood polychromasi a [presence] in blood by light microscopy 3+ Not Available Not Available 0 04/20/2025 09:04:10 04/20/20 25 04/20/2025 CBC W Auto Diffe renti al panel - Blood target cells [presence] in blood by light microscopy 1+ Not Available Not Available 0 04/20/2025 09:04:10 04/20/20 25 04/20/2025 CBC W Auto Diffe renti al panel - Blood platelets [#/volume] in blood by automated count ADEQUA TE Not Available Not Available 09:04:10 04/20/20 25 04/20/2025 CBC W Auto Diffe renti al panel - Blood interpretati on and review of laboratory results Abnorm al Not Available Not Available 09:04:10 04/29/20 25 04/29/2025 Retic ulocy jsese [#/vo lume] in Blood by Autom ated count reticulocyte s/erythrocyt es in blood 13.7 % low: 0.8%hi gh: 2.1% high Not Available Not Available 04/29/2025 10:56:21 04/29/20 25 04/29/2025 Retic ulocy jesse [#/vo lume] in Blood by Autom ated count reticulocyte s [#/volume] in blood by automated count 0.32 text: 0.03 - 0.11 x10'6/ uL high Not Available Not Available 04/29/2025 10:56:21 04/29/20 25 04/29/2025 Retic ulocy jesse [#/vo lume] in Blood by Autom ated count immature reticulocyte s/erythrocyt es in cord blood by automated count 29.5 % low: 2.3%hi gh: 13.4% high Not Available Not Available 04/29/2025 10:56:21 04/29/20 25 04/29/2025 Retic ulocy jesse [#/vo lume] in Blood by Autom ated count retic HGB 38.2 pg low: 28pghi gh: 35pg high Not Available Not Available 04/29/2025 10:56:21 04/29/20 25 04/29/2025 Retic ulocy jesse [#/vo lume] in Blood by Autom ated count interpretati on and review of laboratory results Abnorm al Not Available Not Available 10:56:21 04/29/20 25 04/29/2025 [email or web address] [employer] olic 1999 panel - Serum or Plasm a glucose [mass/volume ] in serum or plasma 103 text: 70 - 99 mg/dL high Not Available Not Available 04/29/2025 10:56:21 04/29/20 25 04/29/2025 [email or web address] [employer] olic 1999 panel - Serum or Plasm a urea nitrogen [mass/volume ] in serum or plasma 6 text: 7 - 18 mg/dL low Not Available Not Available 04/29/2025 10:56:21 04/29/20 25 04/29/2025 Compr [facility] [employer] 1999 panel - Serum or Plasm a creatinine [mass/volume ] in serum or plasma 0.68 text: 0.7 - 1.3 mg/dL low Not Available Not Available 04/29/2025 10:56:21 04/29/20 25 04/29/2025 [email or web address] [employer] olic 1999 panel - Serum or Plasm a sodium [moles/volum e] in serum or plasma 141 text: 136 - 145 mmol/L Not Available Not Available 04/29/2025 10:56:21 04/29/20 25 04/29/2025 [email or web address] [employer] olic 1999 panel - Serum or Plasm a potassium [moles/volum e] in serum or plasma 3.5 text: 3.5 - 5.1 mmol/L Not Available Not Available 04/29/2025 10:56:21 04/29/20 25 04/29/2025 [email or web address] [employer] olic 1999 panel - Serum or Plasm a chloride [moles/volum e] in serum or plasma 112 text: 97 - 115 mmol/L Not Available Not Available 04/29/2025 10:56:21 04/29/20 25 04/29/2025 [email or web address] [employer] olic 1999 panel - Serum or Plasm a carbon dioxide, total [moles/volum e] in serum or plasma 24.6 text: 21 - 32 mmol/L Not Available Not Available 04/29/2025 10:56:21 04/29/20 25 04/29/2025 [email or web address] [employer] olic 1999 panel - Serum or Plasm a calcium [mass/volume ] in serum or plasma 8.9 text: 8.5 - 10.1 mg/dL Not Available Not Available 04/29/2025 10:56:21 04/29/20 25 04/29/2025 [email or web address] [facility] 1999 panel - Serum or Plasm a bilirubin.to justyn [mass/volume ] in serum or plasma 3.6 text: 0.2 - 1.2 mg/dL high THIS ASSAY IS NOT RECOM RADHA D FOR PATIE NTS UNDER GOING TREAT MENT WITH ELTRO MBOPA G DUE TO THE POTEN TIAL FOR FALSE LY ELEVA ANTONETTE RESUL TS. Not Available Not Available 04/29/2025 10:56:21 04/29/20 25 04/29/2025 [email or web address] 1999 panel - Serum or Plasm a protein [mass/volume ] in serum or plasma 7.5 text: 6.4 - 8.2 g/dL Not Available Not Available 04/29/2025 10:56:21 04/29/20 25 04/29/2025 [email or web address] [facility] 1999 panel - Serum or Plasm a albumin [mass/volume ] in serum or plasma 4.2 text: 3.4 - 5.0 g/dL Not Available Not Available 04/29/2025 10:56:21 04/29/20 25 04/29/2025 [facility] [email or web address] [facility] 1999 panel - Serum or Plasm a aspartate aminotransfe rase [enzymatic activity/vol ume] in serum or plasma 37 U/L low: 15U/Lh igh: 37U/L Not Available Not Available 04/29/2025 10:56:21 04/29/20 25 04/29/2025 [email or web address] [facility] 1999 panel - Serum or Plasm a alanine aminotransfe rase [enzymatic activity/vol ume] in serum or plasma 23 U/L low: 16U/Lh igh: 60U/L Not Available Not Available 04/29/2025 10:56:21 04/29/20 25 04/29/2025 [email or web address] 1999 panel - Serum or Plasm a alkaline phosphatase [enzymatic activity/vol ume] in serum or plasma 76 U/L low: 50U/Lh igh: 136U/L Not Available Not Available 04/29/2025 10:56:21 04/29/20 25 04/29/2025 Compr ehens [facility] 1999 panel - Serum or Plasm a anion gap in serum or plasma by calculation 4.4 text: 2 - 10 mmol/L Not Available Not Available 04/29/2025 10:56:21 04/29/20 25 04/29/2025 Compr ehens [facility] 1999 panel - Serum or Plasm a urea nitrogen/cre atinine [mass ratio] in serum or plasma 8.8 low: 6high: 26 Not Available Not Available 04/29/2025 10:56:21 04/29/20 25 04/29/2025 Compr ehens [facility] 1999 panel - Serum or Plasm a albumin/glob ulin [mass ratio] in serum or plasma 1.3 text: 1.0 - 2.0 ratio Not Available Not Available 04/29/2025 10:56:21 04/29/20 25 04/29/2025 Compr ehens [facility] 2000 panel - Serum or Plasm a glomerular filtration rate [volume rate/area] in serum, plasma or blood by creatinine-b ased formula (CKD-epi 2020)/1.73 sq M >90 text: >90 mL/min /1.73 M2 NOTE: eGFR is not calcu lated for patie nts <18 years of age or gende r unkno wn. This is an estim ated GFR calcu latio n using the new CKD EPI creat inine equat ion witho ut race and so does not requi re a corre ction facto r for race. This estim ated GFR shoul d not be used for calcu latin g drug doses . Not Available Not Available 04/29/2025 10:56:21 04/29/20 25 04/29/2025 Compr ehens [facility] 1999 panel - Serum or Plasm a interpretati on and review of laboratory results Abnorm al Not Available Not Available 10:56:21 04/29/20 25 04/29/2025 [facility] angel al panel - Blood leukocytes [#/volume] in blood by automated count 9.7 text: 4.5 - 11.0 x10'3/ uL Not Available Not Available 04/29/2025 10:56:21 04/29/20 25 04/29/2025 CBC W Auto Diffe renti al panel - Blood erythrocytes [#/volume] in blood by automated count 2.32 text: 4.70 - 6.10 x10'6/ uL low Not Available Not Available 04/29/2025 10:56:21 04/29/20 25 04/29/2025 CBC W Auto Diffe renti al panel - Blood hemoglobin [mass/volume ] in blood 9 text: 14.0 - 18.0 g/dL low Not Available Not Available 04/29/2025 10:56:21 04/29/20 25 04/29/2025 CBC W Auto [facility]iffe [facility]i al panel - Blood hematocrit [volume fraction] of blood by calculation 24.4 % low: 43%hig h: 54% low Not Available Not Available 04/29/2025 10:56:21 04/29/20 25 04/29/2025 CBC W Auto Diffe renti al panel - Blood MCV [entitic mean volume] in red blood cells 105.2 text: 80.0 - 94.0 fL high Not Available Not Available 04/29/2025 10:56:21 04/29/20 25 04/29/2025 CBC W Auto Diffe renti al panel - Blood MCH [entitic mass] 38.8 pg low: 27pghi gh: 31pg high Not Available Not Available 04/29/2025 10:56:21 04/29/20 25 04/29/2025 CBC W Auto Diffe renti al panel - Blood MCHC [entitic mass/volume] in red blood cells 36.9 text: 32.0 - 36.0 g/dL high Not Available Not Available 04/29/2025 10:56:21 04/29/20 25 04/29/2025 CBC W Auto Diffe renti al panel - Blood RDW 19.3 % low: 11.5%h igh: 14.5% high Not Available Not Available 04/29/2025 10:56:21 04/29/20 25 04/29/2025 CBC W Auto Diffe renti al panel - Blood platelets [#/volume] in blood 349 text: 130 - 400 x10'3/ uL Not Available Not Available 04/29/2025 10:56:21 04/29/20 25 04/29/2025 CBC W Auto Diffe renti al panel - Blood platelet [entitic mean volume] in blood 9.9 text: 9.3 - 12.2 fL Not Available Not Available 04/29/2025 10:56:21 04/29/20 25 04/29/2025 CBC W Auto Diffe renti al panel - Blood differential cell count method - blood MANUAL DIFFER ENTIAL Not Available Not Available 10:56:21 04/29/20 25 04/29/2025 CBC W Auto [facility]i al panel - Blood segmented neutrophils/ leukocytes in blood by manual count 45 % Not Available Not Available 04/29/2025 10:56:21 04/29/20 25 04/29/2025 CBC W Auto Diffe renti al panel - Blood lymphocytes/ leukocytes in blood by manual count 44 % Not Available Not Available 04/29/2025 10:56:21 04/29/20 25 04/29/2025 CBC W Auto Diffe renti al panel - Blood monocytes/le ukocytes in blood by manual count 9 % Not Available Not Available 04/29/2025 10:56:21 04/29/20 25 04/29/2025 CBC W Auto Diffe renti al panel - Blood eosinophils/ leukocytes in blood by manual count 2 % Not Available Not Available 04/29/2025 10:56:21 04/29/20 25 04/29/2025 CBC W Auto Diffe renti al panel - Blood nucleated erythrocytes /leukocytes [ratio] in blood 4 text: 0 /100 WBC high Not Available Not Available 04/29/2025 10:56:21 04/29/20 25 04/29/2025 CBC W Auto Diffe renti al panel - Blood neutrophils [#/volume] in blood 4.36 text: 1.80 - 7.70 x10'3/ uL Not Available Not Available 04/29/2025 10:56:21 04/29/20 25 04/29/2025 CBC W Auto [facility]iffe [facility]i al panel - Blood lymphocytes [#/volume] in blood 4.27 text: 1.00 - 4.80 x10'3/ uL Not Available Not Available 04/29/2025 10:56:21 04/29/20 25 04/29/2025 CBC W Auto [facility]i al panel - Blood monocytes [#/volume] in blood 0.87 text: 0.30 - 0.82 x10'3/ uL high Not Available Not Available 04/29/2025 10:56:21 04/29/20 25 04/29/2025 CBC W Auto Diffe renti al panel - Blood eosinophils [#/volume] in blood 0.19 text: 0.04 - 0.54 x10'3/ uL Not Available Not Available 04/29/2025 10:56:21 04/29/20 25 04/29/2025 CBC W Auto Diffe renti al panel - Blood nucleated erythrocytes [#/volume] in blood 0.39 text: 0.00 - 0.01 x10'3/ uL high Not Available Not Available 04/29/2025 10:56:21 04/29/20 25 04/29/2025 CBC W Auto Diffe renti al panel - Blood erythrocytes [morphology] in blood by automated count SLIDE REVIEW ED Not Available Not Available 10:56:21 04/29/20 25 04/29/2025 CBC W Auto [facility]iffe renti al panel - Blood hypochromia [presence] in blood 1+ Not Available Not Available 10:56:21 04/29/20 25 04/29/2025 CBC W Auto Diffe renti al panel - Blood polychromasi a [presence] in blood by light microscopy 1+ Not Available Not Available 0 04/29/2025 10:56:21 04/29/20 25 04/29/2025 CBC W Auto Diffe renti al panel - Blood target cells [presence] in blood by light microscopy 1+ Not Available Not Available 0 04/29/2025 10:56:21 04/29/20 25 04/29/2025 CBC W Auto Diffe renti al panel - Blood sickle cells [presence] in blood by light microscopy 2+ Not Available Not Available 0 04/29/2025 10:56:21 04/29/20 25 04/29/2025 CBC W Auto Diffe renti al panel - Blood platelets [#/volume] in blood by automated count ADEQUA TE Not Available Not Available 10:56:21 04/29/20 25 04/29/2025 CBC W Auto Diffe renti al panel - Blood interpretati on and review of laboratory results Abnorm al Not Available Not Available 10:56:21 06/22/20 25 06/22/2025 Retic ulocy jesse [#/vo lume] in Blood by Autom ated count reticulocyte s/erythrocyt es in blood 12.9 % low: 0.8%hi gh: 2.1% high Not Available Not Available 06/22/2025 10:49:36 06/22/20 25 06/22/2025 Retic ulocy jesse [#/vo lume] in Blood by Autom ated count reticulocyte s [#/volume] in blood by automated count 0.25 text: 0.03 - 0.11 x10'6/ uL high Not Available Not Available 06/22/2025 10:49:36 06/22/20 25 06/22/2025 Retic ulocy jesse [#/vo lume] in Blood by Autom ated count immature reticulocyte s/erythrocyt es in cord blood by automated count 25 % low: 2.3%hi gh: 13.4% high Not Available Not Available 06/22/2025 10:49:36 06/22/20 25 06/22/2025 Retic ulocy jesse [#/vo lume] in Blood by Autom ated count retic HGB 33 pg low: 28pghi gh: 35pg Not Available Not Available 06/22/2025 10:49:36 06/22/20 25 06/22/2025 Retic ulocy jesse [#/vo lume] in Blood by Autom ated count interpretati on and review of laboratory results Abnorm al Not Available Not Available 10:49:36 06/22/20 25 06/22/2025 Compr ehens [facility] 2000 panel - Serum or Plasm a glucose [mass/volume ] in serum or plasma 83 text: 70 - 99 mg/dL Not Available Not Available 06/22/2025 10:49:36 06/22/20 25 06/22/2025 Compr ehens [facility] 2000 panel - Serum or Plasm a urea nitrogen [mass/volume ] in serum or plasma 6 text: 7 - 18 mg/dL low Not Available Not Available 06/22/2025 10:49:36 06/22/20 25 06/22/2025 Compr ehens [facility] 1999 panel - Serum or Plasm a creatinine [mass/volume ] in serum or plasma 0.64 text: 0.7 - 1.3 mg/dL low Not Available Not Available 06/22/2025 10:49:36 06/22/20 25 06/22/2025 Compr ehens [facility] 2000 panel - Serum or Plasm a sodium [moles/volum e] in serum or plasma 139 text: 136 - 145 mmol/L Not Available Not Available 06/22/2025 10:49:36 06/22/20 25 06/22/2025 Compr ehens [facility] 1999 panel - Serum or Plasm a potassium [moles/volum e] in serum or plasma 3.6 text: 3.5 - 5.1 mmol/L Not Available Not Available 06/22/2025 10:49:36 06/22/20 25 06/22/2025 Compr ehens [facility] 2000 panel - Serum or Plasm a chloride [moles/volum e] in serum or plasma 108 text: 97 - 115 mmol/L Not Available Not Available 06/22/2025 10:49:36 06/22/20 25 06/22/2025 Compr [facility] 2000 panel - Serum or Plasm a carbon dioxide, total [moles/volum e] in serum or plasma 27.3 text: 21 - 32 mmol/L Not Available Not Available 06/22/2025 10:49:36 06/22/20 25 06/22/2025 Compr [facility] 2000 panel - Serum or Plasm a calcium [mass/volume ] in serum or plasma 8.7 text: 8.5 - 10.1 mg/dL Not Available Not Available 06/22/2025 10:49:36 06/22/20 25 06/22/2025 Compr [employer] [facility] [facility] 2000 panel - Serum or Plasm a bilirubin.to justyn [mass/volume ] in serum or plasma 1.8 text: 0.2 - 1.2 mg/dL high THIS ASSAY IS NOT RECOM RADHA D FOR PATIE NTS UNDER GOING TREAT MENT WITH ELTRO MBOPA G DUE TO THE POTEN TIAL FOR FALSE LY ELEVA ANTONETTE RESUL TS. Not Available Not Available 06/22/2025 10:49:36 06/22/20 25 06/22/2025 [facility] [employer] [facility] 1999 panel - Serum or Plasm a protein [mass/volume ] in serum or plasma 7.4 text: 6.4 - 8.2 g/dL Not Available Not Available 06/22/2025 10:49:36 06/22/20 25 06/22/2025 [facility] panel - Serum or Plasm a albumin [mass/volume ] in serum or plasma 3.8 text: 3.4 - 5.0 g/dL Not Available Not Available 06/22/2025 10:49:36 06/22/20 25 06/22/2025 [facility] 1999 panel - Serum or Plasm a aspartate aminotransfe rase [enzymatic activity/vol ume] in serum or plasma 36 U/L low: 15U/Lh igh: 37U/L Not Available Not Available 06/22/2025 10:49:36 06/22/20 25 06/22/2025 [facility] panel - Serum or Plasm a alanine aminotransfe rase [enzymatic activity/vol ume] in serum or plasma 19 U/L low: 16U/Lh igh: 60U/L Not Available Not Available 06/22/2025 10:49:36 06/22/20 25 06/22/2025 [facility] 1999 panel - Serum or Plasm a alkaline phosphatase [enzymatic activity/vol ume] in serum or plasma 77 U/L low: 50U/Lh igh: 136U/L Not Available Not Available 06/22/2025 10:49:36 06/22/20 25 06/22/2025 [facility] 1999 panel - Serum or Plasm a anion gap in serum or plasma by calculation 3.7 text: 2 - 10 mmol/L Not Available Not Available 06/22/2025 10:49:36 06/22/20 25 06/22/2025 [facility] 1999 panel - Serum or Plasm a urea nitrogen/cre atinine [mass ratio] in serum or plasma 9.3 low: 6high: 26 Not Available Not Available 06/22/2025 10:49:36 06/22/20 25 06/22/2025 Compr ehens [facility] 1999 panel - Serum or Plasm a albumin/glob ulin [mass ratio] in serum or plasma 1.1 text: 1.0 - 2.0 ratio Not Available Not Available 06/22/2025 10:49:36 06/22/20 25 06/22/2025 Compr ehens [facility] 1999 panel - Serum or Plasm a glomerular filtration rate [volume rate/area] in serum, plasma or blood by creatinine-b ased formula (CKD-epi 2020)/1.73 sq M >90 text: >90 mL/min /1.73 M2 NOTE: eGFR is not calcu lated for patie nts <18 years of age or gende r unkno wn. This is an estim ated GFR calcu latio n using the new CKD EPI creat inine equat ion witho ut race and so does not requi re a corre ction facto r for race. This estim ated GFR shoul d not be used for calcu latin g drug doses . Not Available Not Available 06/22/2025 10:49:36 06/22/20 25 06/22/2025 [facility] panel - Serum or Plasm a interpretati on and review of laboratory results Abnorm al Not Available Not Available 10:49:36 06/22/20 25 06/22/2025 aPTT in Plate let poor plasm a by Coagu latio n assay APTT in platelet poor plasma by coagulation assay 34.9 text: 25.1 - 36.5 sec Not Available Not Available 06/22/2025 10:49:36 06/22/20 25 06/22/2025 Proth rombi n time (PT) prothrombin time (PT) 12.3 text: 10.2 - 12.9 sec Not Available Not Available 06/22/2025 10:49:36 06/22/20 25 06/22/2025 Proth rombi n time (PT) INR in platelet poor plasma by coagulation assay 1.1 Recom radha d INR Thera peuti c Goals : 2.0-3 .0 Routi ne Thera py 2.5-3 .5 Mecha nical Prost hetic Valve s (High Risk) Not Available Not Available 06/22/2025 10:49:36 06/22/20 25 06/22/2025 CBC W Auto Diffe renti al panel - Blood leukocytes [#/volume] in blood by automated count 11.7 text: 4.5 - 11.0 x10'3/ uL high Not Available Not Available 06/22/2025 10:49:35 06/22/20 25 06/22/2025 CBC W Auto Diffe renti al panel - Blood erythrocytes [#/volume] in blood by automated count 1.94 text: 4.70 - 6.10 x10'6/ uL low Not Available Not Available 06/22/2025 10:49:35 06/22/20 25 06/22/2025 CBC W Auto Diffe renti al panel - Blood hemoglobin [mass/volume ] in blood 7.6 text: 14.0 - 18.0 g/dL low Not Available Not Available 06/22/2025 10:49:35 06/22/20 25 06/22/2025 CBC W Auto Diffe renti al panel - Blood hematocrit [volume fraction] of blood by calculation 20.8 % low: 43%hig h: 54% low Not Available Not Available 06/22/2025 10:49:35 06/22/20 25 06/22/2025 CBC W Auto Diffe renti al panel - Blood MCV [entitic mean volume] in red blood cells 107.2 text: 80.0 - 94.0 fL high Not Available Not Available 06/22/2025 10:49:35 06/22/20 25 06/22/2025 CBC W Auto Diffe renti al panel - Blood MCH [entitic mass] 39.2 pg low: 27pghi gh: 31pg high Not Available Not Available 06/22/2025 10:49:35 06/22/20 25 06/22/2025 CBC W Auto Diffe renti al panel - Blood MCHC [entitic mass/volume] in red blood cells 36.5 text: 32.0 - 36.0 g/dL high Not Available Not Available 06/22/2025 10:49:35 06/22/20 25 06/22/2025 CBC W Auto Diffe renti al panel - Blood RDW 16.1 % low: 11.5%h igh: 14.5% high Not Available Not Available 06/22/2025 10:49:35 06/22/20 25 06/22/2025 CBC W Auto Diffe renti al panel - Blood platelets [#/volume] in blood 266 text: 130 - 400 x10'3/ uL Not Available Not Available 06/22/2025 10:49:35 06/22/20 25 06/22/2025 CBC W Auto Diffe renti al panel - Blood platelet [entitic mean volume] in blood 10.2 text: 9.3 - 12.2 fL Not Available Not Available 06/22/2025 10:49:35 06/22/20 25 06/22/2025 CBC W Auto Diffe renti al panel - Blood differential cell count method - blood MANUAL DIFFER ENTIAL Not Available Not Available 10:49:35 06/22/20 25 06/22/2025 CBC W Auto Diffe renti al panel - Blood segmented neutrophils/ leukocytes in blood by manual count 50 % Not Available Not Available 06/22/2025 10:49:35 06/22/20 25 06/22/2025 CBC W Auto Diffe renti al panel - Blood lymphocytes/ leukocytes in blood by manual count 44 % Not Available Not Available 06/22/2025 10:49:35 06/22/20 25 06/22/2025 CBC W Auto Diffe renti al panel - Blood variant lymphocytes/ leukocytes in blood by manual count 1 % Not Available Not Available 06/22/2025 10:49:35 06/22/20 25 06/22/2025 CBC W Auto Diffe renti al panel - Blood monocytes/le ukocytes in blood by manual count 4 % Not Available Not Available 06/22/2025 10:49:35 06/22/20 25 06/22/2025 CBC W Auto Diffe renti al panel - Blood basophils/le ukocytes in blood 1 % Not Available Not Available 06/01 10:49:35 06/22/20 25 06/22/2025 CBC W Auto Diffe renti al panel - Blood neutrophils [#/volume] in blood 5.85 text: 1.80 - 7.70 x10'3/ uL Not Available Not Available 06/22/2025 10:49:35 06/22/20 25 06/22/2025 CBC W Auto Diffe renti al panel - Blood lymphocytes [#/volume] in blood 5.27 text: 1.00 - 4.80 x10'3/ uL high Not Available Not Available 06/22/2025 10:49:35 06/22/20 25 06/22/2025 CBC W Auto Diffe renti al panel - Blood monocytes [#/volume] in blood 0.47 text: 0.30 - 0.82 x10'3/ uL Not Available Not Available 06/22/2025 10:49:35 06/22/20 25 06/22/2025 CBC W Auto Diffe renti al panel - Blood basophils [#/volume] in blood 0.12 text: 0.01 - 0.08 x10'3/ uL high Not Available Not Available 06/22/2025 10:49:35 06/22/20 25 06/22/2025 CBC W Auto Diffe renti al panel - Blood erythrocytes [morphology] in blood by automated count SLIDE REVIEW ED Not Available Not Available 10:49:35 06/22/20 25 06/22/2025 CBC W Auto Diffe renti al panel - Blood macrocytes [presence] in blood 1+ Not Available Not Available 10:49:35 06/22/20 25 06/22/2025 CBC W Auto Diffe renti al panel - Blood target cells [presence] in blood by light microscopy 1+ Not Available Not Available 0 06/22/2025 10:49:35 06/22/20 25 06/22/2025 CBC W Auto Diffe renti al panel - Blood sickle cells [presence] in blood by light microscopy 1+ Not Available Not Available 0 06/22/2025 10:49:35 06/22/20 25 06/22/2025 CBC W Auto Diffe renti al panel - Blood walker jolly bodies 1+ Not Available Not Available 06/01 10:49:35 06/22/20 25 06/22/2025 CBC W Auto Diffe renti al panel - Blood platelets [#/volume] in blood by automated count ADEQUA TE Not Available Not Available 10:49:35 06/22/20 25 06/22/2025 CBC W Auto Diffe renti al panel - Blood interpretati on and review of laboratory results Abnorm al Not Available Not Available 10:49:35 06/27/20 25 06/27/2025 Urina lysis compl ete panel - Urine collection method - specimen URINE CLEAN CATCH Not Available Not Available 06:04:02 06/27/20 25 06/27/2025 Urina lysis compl ete panel - Urine color of urine LIGHT YELLOW Not Available Not Available 06:04:02 06/27/20 25 06/27/2025 Urina lysis compl ete panel - Urine clarity of urine CLEAR Not Available Not Available 06/01 06:04:02 06/27/2006/27/2025 Urina lysis compl ete panel - Urine specific gravity of urine 1.009 low: 1.001h igh: 1.03 Not Available Not Available 06/27/2025 06:04:02 06/27/20 25 06/27/2025 Urina lysis compl ete panel - Urine pH of urine 7 low: 5high: 9 Not Available Not Available 06/27/2025 06:04:02 06/27/2006/27/2025 Urina lysis compl ete panel - Urine leukocytes [#/volume] in urine by test strip NEGATI VE text: negati ve Not Available Not Available 06/27/2025 06:04:02 06/27/20 25 06/27/2025 Urina lysis compl ete panel - Urine nitrite [presence] in urine NEGATI VE text: negati ve Not Available Not Available 06/27/2025 06:04:02 06/27/20 25 06/27/2025 Urina lysis compl ete panel - Urine protein [mass/volume ] in urine by test strip NEGATI VE text: <30 mg/dL Not Available Not Available 06/27/2025 06:04:02 06/27/20 25 06/27/2025 Urina lysis compl ete panel - Urine glucose [mass/volume ] in urine NORMAL text: normal mg/dL Not Available Not Available 06/27/2025 06:04:02 06/27/20 25 06/27/2025 Urina lysis compl ete panel - Urine ketones [mass/volume ] in urine by test strip NEGATI VE text: negati ve mg/dL Not Available Not Available 06/27/2025 06:04:02 06/27/2006/27/2025 Urina lysis compl ete panel - Urine urobilinogen [units/volum e] in urine by test strip NORMAL text: normal mg/dL Not Available Not Available 06/27/2025 06:04:02 06/27/2006/27/2025 Urina lysis compl ete panel - Urine bilirubin.to justyn [mass/volume ] in urine NEGATI VE text: negati ve mg/dL Not Available Not Available 06/27/2025 06:04:02 06/27/2006/27/2025 Urina lysis compl ete panel - Urine erythrocytes [#/volume] in urine by automated test strip NEGATI VE text: negati ve Not Available Not Available 06/27/2025 06:04:02 06/27/2006/27/2025 Urina lysis compl ete panel - Urine leukocytes [#/area] in urine sediment by microscopy high power field 4 text: <6 /hpf Not Available Not Available 06/27/2025 06:04:02 06/27/2006/27/2025 Urina lysis compl ete panel - Urine erythrocytes [#/area] in urine sediment by microscopy high power field 1 text: <6 /hpf Not Available Not Available 06/27/2025 06:04:02 06/27/2006/27/2025 Retic ulocy jesse [#/vo lume] in Blood by Autom ated count reticulocyte s/erythrocyt es in blood 9.3 % low: 0.8%hi gh: 2.1% high Not Available Not Available 06/27/2025 06:04:02 06/27/2006/27/2025 Retic ulocy jesse [#/vo lume] in Blood by Autom ated count reticulocyte s [#/volume] in blood by automated count 0.18 text: 0.03 - 0.11 x10'6/ uL high Not Available Not Available 06/27/2025 06:04:02 06/27/20 25 06/27/2025 Retic ulocy jesse [#/vo lume] in Blood by Autom ated count immature reticulocyte s/erythrocyt es in cord blood by automated count 25.2 % low: 2.3%hi gh: 13.4% high Not Available Not Available 06/27/2025 06:04:02 06/27/20 25 06/27/2025 Retic ulocy jesse [#/vo lume] in Blood by Autom ated count retic HGB 33.9 pg low: 28pghi gh: 35pg Not Available Not Available 06/27/2025 06:04:02 06/27/20 25 06/27/2025 Retic ulocy jesse [#/vo lume] in Blood by Autom ated count interpretati on and review of laboratory results Abnorm al Not Available Not Available 06:04:02 06/27/20 25 06/27/2025 Compr ehens [facility] metab olic 2000 panel - Serum or Plasm a glucose [mass/volume ] in serum or plasma 98 text: 70 - 99 mg/dL Not Available Not Available 06/27/2025 06:04:02 06/27/20 25 06/27/2025 Compr ehens [facility] 1999 panel - Serum or Plasm a urea nitrogen [mass/volume ] in serum or plasma 6 text: 7 - 18 mg/dL low Not Available Not Available 06/27/2025 06:04:02 06/27/20 25 06/27/2025 Compr ehens [facility] 2000 panel - Serum or Plasm a creatinine [mass/volume ] in serum or plasma 0.59 text: 0.7 - 1.3 mg/dL low Not Available Not Available 06/27/2025 06:04:02 06/27/20 25 06/27/2025 Compr ehens [facility] 2000 panel - Serum or Plasm a sodium [moles/volum e] in serum or plasma 138 text: 136 - 145 mmol/L Not Available Not Available 06/27/2025 06:04:02 06/27/20 25 06/27/2025 Compr ehens [facility] 2000 panel - Serum or Plasm a potassium [moles/volum e] in serum or plasma 3.9 text: 3.5 - 5.1 mmol/L Not Available Not Available 06/27/2025 06:04:02 06/27/20 25 06/27/2025 Compr ehens [facility] 2000 panel - Serum or Plasm a chloride [moles/volum e] in serum or plasma 109 text: 97 - 115 mmol/L Not Available Not Available 06/27/2025 06:04:02 06/27/20 25 06/27/2025 Compr ehens [facility] 1999 panel - Serum or Plasm a carbon dioxide, total [moles/volum e] in serum or plasma 24.9 text: 21 - 32 mmol/L Not Available Not Available 06/27/2025 06:04:02 06/27/20 25 06/27/2025 Compr [facility] metab olic 1999 panel - Serum or Plasm a calcium [mass/volume ] in serum or plasma 9.1 text: 8.5 - 10.1 mg/dL Not Available Not Available 06/27/2025 06:04:02 06/27/2006/27/2025 Compr ehens [facility] metab olic 1999 panel - Serum or Plasm a bilirubin.to justyn [mass/volume ] in serum or plasma 1.9 text: 0.2 - 1.2 mg/dL high THIS ASSAY IS NOT RECOM RADHA D FOR PATIE NTS UNDER GOING TREAT MENT WITH ELTRO MBOPA G DUE TO THE POTEN TIAL FOR FALSE LY ELEVA ANTONETTE RESUL TS. Not Available Not Available 06/27/2025 06:04:02 06/27/20 25 06/27/2025 Compr ehens [facility] metab olic 1999 panel - Serum or Plasm a protein [mass/volume ] in serum or plasma 8.1 text: 6.4 - 8.2 g/dL Not Available Not Available 06/27/2025 06:04:02 06/27/20 25 06/27/2025 Compr ehens [facility] metab olic 1999 panel - Serum or Plasm a albumin [mass/volume ] in serum or plasma 4.1 text: 3.4 - 5.0 g/dL Not Available Not Available 06/27/2025 06:04:02 06/27/20 25 06/27/2025 Compr ehens [facility] metab olic 1999 panel - Serum or Plasm a aspartate aminotransfe rase [enzymatic activity/vol ume] in serum or plasma 39 U/L low: 15U/Lh igh: 37U/L high Not Available Not Available 06/27/2025 06:04:02 06/27/20 25 06/27/2025 Compr ehens [facility] metab olic 2000 panel - Serum or Plasm a alanine aminotransfe rase [enzymatic activity/vol ume] in serum or plasma 18 U/L low: 16U/Lh igh: 60U/L Not Available Not Available 06/27/2025 06:04:02 06/27/20 25 06/27/[facility] - Serum or Plasm a alkaline phosphatase [enzymatic activity/vol ume] in serum or plasma 79 U/L low: 50U/Lh igh: 136U/L Not Available Not Available 06/27/2025 06:04:02 06/27/20 25 06/27/2025 [facility] [employer] [facility] - Serum or Plasm a anion gap in serum or plasma by calculation 4.1 text: 2 - 10 mmol/L Not Available Not Available 06/27/2025 06:04:02 06/27/20 25 06/27/2025 [facility] - Serum or Plasm a urea nitrogen/cre atinine [mass ratio] in serum or plasma 10.2 low: 6high: 26 Not Available Not Available 06/27/2025 06:04:02 06/27/20 25 06/27/2025 [facility] [employer] [facility] panel - Serum or Plasm a albumin/glob ulin [mass ratio] in serum or plasma 1 text: 1.0 - 2.0 ratio Not Available Not Available 06/27/2025 06:04:02 06/27/20 25 06/27/2025 [facility] [employer] [facility] 1999 panel - Serum or Plasm a glomerular filtration rate [volume rate/area] in serum, plasma or blood by creatinine-b ased formula (CKD-epi 2020)/1.73 sq M >90 text: >90 mL/min /1.73 M2 NOTE: eGFR is not calcu lated for patie nts <18 years of age or gende r unkno wn. This is an estim ated GFR calcu latio n using the new CKD EPI creat inine equat ion witho ut race and so does not requi re a corre ction facto r for race. This estim ated GFR shoul d not be used for calcu latin g drug doses . Not Available Not Available 06/27/2025 06:04:02 06/27/2006/27/2025 Compr ehens [facility] metab olic 2000 panel - Serum or Plasm a interpretati on and review of laboratory results Abnorm al Not Available Not Available 06:04:02 06/27/20 25 06/27/2025 CBC W Auto Diffe renti al panel - Blood leukocytes [#/volume] in blood by automated count 8.34 text: 4.5 - 11.0 x10'3/ uL Not Available Not Available 06/27/2025 06:04:02 06/27/2006/27/2025 CBC W Auto Diffe renti al panel - Blood erythrocytes [#/volume] in blood by automated count 1.93 text: 4.70 - 6.10 x10'6/ uL low Not Available Not Available 06/27/2025 06:04:02 06/27/20 25 06/27/2025 CBC W Auto Diffe renti al panel - Blood hemoglobin [mass/volume ] in blood 7.4 text: 14.0 - 18.0 g/dL low Not Available Not Available 06/27/2025 06:04:02 06/27/20 25 06/27/2025 CBC W Auto Diffe renti al panel - Blood hematocrit [volume fraction] of blood by calculation 20.3 % low: 43%hig h: 54% low Not Available Not Available 06/27/2025 06:04:02 06/27/2006/27/2025 CBC W Auto Diffe renti al panel - Blood MCV [entitic mean volume] in red blood cells 105.2 text: 80.0 - 94.0 fL high Not Available Not Available 06/27/2025 06:04:02 06/27/2006/27/2025 CBC W Auto Diffe renti al panel - Blood MCH [entitic mass] 38.3 pg low: 27pghi gh: 31pg high Not Available Not Available 06/27/2025 06:04:02 06/27/20 25 06/27/2025 CBC W Auto Diffe renti al panel - Blood MCHC [entitic mass/volume] in red blood cells 36.5 text: 32.0 - 36.0 g/dL high Not Available Not Available 06/27/2025 06:04:02 06/27/20 25 06/27/2025 CBC W Auto Diffe renti al panel - Blood RDW 15.4 % low: 11.5%h igh: 14.5% high Not Available Not Available 06/27/2025 06:04:02 06/27/20 25 06/27/2025 CBC W Auto Diffe renti al panel - Blood platelets [#/volume] in blood 308 text: 130 - 400 x10'3/ uL Not Available Not Available 06/27/2025 06:04:02 06/27/20 25 06/27/2025 CBC W Auto Diffe renti al panel - Blood platelet [entitic mean volume] in blood 9.7 text: 9.3 - 12.2 fL Not Available Not Available 06/27/2025 06:04:02 06/27/2006/27/2025 CBC W Auto Diffe renti al panel - Blood differential cell count method - blood AUTOMA ANTONETTE DIFFER ENTIAL Not Available Not Available 06:04:02 06/27/20 25 06/27/2025 CBC W Auto Diffe renti al panel - Blood neutrophils/ leukocytes in blood by automated count 46.3 % Not Available Not Available 06/01 06:04:02 06/27/20 25 06/27/2025 CBC W Auto Diffe renti al panel - Blood lymphocytes/ leukocytes in blood by automated count 44 % Not Available Not Available 06/01 06:04:02 06/27/20 25 06/27/2025 CBC W Auto Diffe renti al panel - Blood monocytes/le ukocytes in blood by automated count 8.2 % Not Available Not Available 06/01 06:04:02 06/27/20 25 06/27/2025 CBC W Auto Diffe renti al panel - Blood eosinophils/ leukocytes in blood by automated count 0.7 % Not Available Not Available 06/01 06:04:02 06/27/20 25 06/27/2025 CBC W Auto Diffe renti al panel - Blood basophils/le ukocytes in blood by automated count 0.4 % Not Available Not Available 06/01 06:04:02 06/27/20 25 06/27/2025 CBC W Auto Diffe renti al panel - Blood immature granulocytes /leukocytes in blood by automated count 0.4 % Not Available Not Available 06/01 06:04:02 06/27/2006/27/2025 CBC W Auto Diffe renti al panel - Blood neutrophils [#/volume] in blood 3.87 text: 1.80 - 7.70 x10'3/ uL Not Available Not Available 06/27/2025 06:04:02 06/27/2006/27/2025 CBC W Auto Diffe renti al panel - Blood lymphocytes [#/volume] in blood 3.67 text: 1.00 - 4.80 x10'3/ uL Not Available Not Available 06/27/2025 06:04:02 06/27/2006/27/2025 CBC W Auto Diffe renti al panel - Blood monocytes [#/volume] in blood 0.68 text: 0.30 - 0.82 x10'3/ uL Not Available Not Available 06/27/2025 06:04:02 06/27/2006/27/2025 CBC W Auto Diffe renti al panel - Blood eosinophils [#/volume] in blood 0.06 text: 0.04 - 0.54 x10'3/ uL Not Available Not Available 06/27/2025 06:04:02 06/27/2006/27/2025 CBC W Auto Diffe renti al panel - Blood basophils [#/volume] in blood 0.03 text: 0.01 - 0.08 x10'3/ uL Not Available Not Available 06/27/2025 06:04:02 06/27/2006/27/2025 CBC W Auto Diffe renti al panel - Blood immature granulocytes [#/volume] in blood 0.03 text: 0.00 - 0.49 x10'3/ uL Not Available Not Available 06/27/2025 06:04:02 06/27/2006/27/2025 CBC W Auto Diffe renti al panel - Blood erythrocytes [morphology] in blood by automated count SLIDE REVIEW ED Not Available Not Available 06:04:02 06/27/20 25 06/27/2025 CBC W Auto Diffe renti al panel - Blood poikilocytos is [presence] in blood by automated count 1+ Not Available Not Available 06/01 06:04:02 06/27/20 25 06/27/2025 CBC W Auto Diffe renti al panel - Blood macrocytes [presence] in blood 1+ Not Available Not Available 06:04:02 06/27/20 25 06/27/2025 CBC W Auto Diffe renti al panel - Blood sickle cells [presence] in blood by light microscopy 1+ Not Available Not Available 0 06/27/2025 06:04:02 06/27/20 25 06/27/2025 CBC W Auto Diffe renti al panel - Blood platelets [#/volume] in blood by automated count ADEQUA TE Not Available Not Available 06:04:02 06/27/20 25 06/27/2025 CBC W Auto Diffe renti al panel - Blood interpretati on and review of laboratory results Abnorm al Not Available Not Available 06:04:02 07/08/2007/08/2025 Potas sium [Mole s/vol ume] in Serum or Plasm a potassium [moles/volum e] in serum or plasma 4 text: 3.5 - 5.1 mmol/L Not Available Not Available 07/08/2025 09:02:46 07/08/2007/08/2025 Retic ulocy jesse [#/vo lume] in Blood by Autom ated count reticulocyte s/erythrocyt es in blood 10.4 % low: 0.8%hi gh: 2.1% high Not Available Not Available 07/08/2025 09:02:46 07/08/2007/08/2025 Retic ulocy jesse [#/vo lume] in Blood by Autom ated count reticulocyte s [#/volume] in blood by automated count 0.23 text: 0.03 - 0.11 x10'6/ uL high Not Available Not Available 07/08/2025 09:02:46 07/08/2007/08/2025 Retic ulocy jesse [#/vo lume] in Blood by Autom ated count immature reticulocyte s/erythrocyt es in cord blood by automated count 31.1 % low: 2.3%hi gh: 13.4% high Not Available Not Available 07/08/2025 09:02:46 07/08/2007/08/2025 Retic ulocy jesse [#/vo lume] in Blood by Autom ated count retic HGB 35.6 pg low: 28pghi gh: 35pg high Not Available Not Available 07/08/2025 09:02:46 07/08/2007/08/2025 Retic ulocy jesse [#/vo lume] in Blood by Autom ated count interpretati on and review of laboratory results Abnorm al Not Available Not Available 09:02:46 07/08/2007/08/2025 Compr ehens [facility] metab olic 2000 panel - Serum or Plasm a glucose [mass/volume ] in serum or plasma 95 text: 70 - 99 mg/dL Not Available Not Available 07/08/2025 09:02:46 07/08/2007/08/2025 Compr ehens [facility] metab olic 2000 panel - Serum or Plasm a urea nitrogen [mass/volume ] in serum or plasma 5 text: 7 - 18 mg/dL low Not Available Not Available 07/08/2025 09:02:46 07/08/2007/08/2025 Compr ehens [facility] metab olic 2000 panel - Serum or Plasm a creatinine [mass/volume ] in serum or plasma 0.54 text: 0.7 - 1.3 mg/dL low Not Available Not Available 07/08/2025 09:02:46 07/08/2007/08/2025 Compr ehens [facility] metab olic 2000 panel - Serum or Plasm a sodium [moles/volum e] in serum or plasma 139 text: 136 - 145 mmol/L Not Available Not Available 07/08/2025 09:02:46 07/08/2007/08/2025 Compr ehens [facility] metab olic 2000 panel - Serum or Plasm a potassium [moles/volum e] in serum or plasma 5.3 text: 3.5 - 5.1 mmol/L high SLIGH T HEMOL YSIS, RESUL T MAY BE AFFEC ANTONETTE. Not Available Not Available 07/08/2025 09:02:46 07/08/20 25 07/08/2025 Compr ehens [facility] metab olic 2000 panel - Serum or Plasm a chloride [moles/volum e] in serum or plasma 112 text: 97 - 115 mmol/L Not Available Not Available 07/08/2025 09:02:46 07/08/2007/08/2025 Compr ehens [facility] metab olic 2000 panel - Serum or Plasm a carbon dioxide, total [moles/volum e] in serum or plasma 25.6 text: 21 - 32 mmol/L Not Available Not Available 07/08/2025 09:02:46 07/08/2007/08/2025 Compr ehens [facility] metab olic 1999 panel - Serum or Plasm a calcium [mass/volume ] in serum or plasma 9 text: 8.5 - 10.1 mg/dL Not Available Not Available 07/08/2025 09:02:46 07/08/2007/08/2025 Compr ehens [facility] metab olic 2000 panel - Serum or Plasm a bilirubin.to justyn [mass/volume ] in serum or plasma 1.5 text: 0.2 - 1.2 mg/dL high THIS ASSAY IS NOT RECOM RADHA D FOR PATIE NTS UNDER GOING TREAT MENT WITH ELTRO MBOPA G DUE TO THE POTEN TIAL FOR FALSE LY ELEVA ANTONETTE RESUL TS. Not Available Not Available 07/08/2025 09:02:46 07/08/2007/08/2025 [facility] ehens is[facility]ell metab olic 2000 panel - Serum or Plasm a protein [mass/volume ] in serum or plasma 8.2 text: 6.4 - 8.2 g/dL Not Available Not Available 07/08/2025 09:02:46 07/08/2007/08/2025 Compr ehens [facility] metab olic 2000 panel - Serum or Plasm a albumin [mass/volume ] in serum or plasma 4.1 text: 3.4 - 5.0 g/dL Not Available Not Available 07/08/2025 09:02:46 07/08/2007/08/2025 Compr ehens [facility] metab olic 2000 panel - Serum or Plasm a aspartate aminotransfe rase [enzymatic activity/vol ume] in serum or plasma 63 U/L low: 15U/Lh igh: 37U/L high SLIGH T HEMOL YSIS, RESUL T MAY BE AFFEC ANTONETTE. Not Available Not Available 07/08/2025 09:02:46 07/08/20 25 07/08/2025 Compr ehens [facility] metab olic 1999 panel - Serum or Plasm a alanine aminotransfe rase [enzymatic activity/vol ume] in serum or plasma 22 U/L low: 16U/Lh igh: 60U/L Not Available Not Available 07/08/2025 09:02:46 07/08/2007/08/2025 Compr ehens [facility] metab olic 2000 panel - Serum or Plasm a alkaline phosphatase [enzymatic activity/vol ume] in serum or plasma 86 U/L low: 50U/Lh igh: 136U/L Not Available Not Available 07/08/2025 09:02:46 07/08/2007/08/2025 Compr ehens [facility] metab olic 2000 panel - Serum or Plasm a anion gap in serum or plasma by calculation 1.4 text: 2 - 10 mmol/L low Not Available Not Available 07/08/2025 09:02:46 07/08/2007/08/2025 Compr ehens [facility] metab olic 2000 panel - Serum or Plasm a urea nitrogen/cre atinine [mass ratio] in serum or plasma 9.3 low: 6high: 26 Not Available Not Available 07/08/2025 09:02:46 07/08/2007/08/2025 Compr ehens [facility] metab olic 2000 panel - Serum or Plasm a albumin/glob ulin [mass ratio] in serum or plasma 1 text: 1.0 - 2.0 ratio Not Available Not Available 07/08/2025 09:02:46 07/08/2007/08/2025 Compr ehens [facility] metab olic 2000 panel - Serum or Plasm a glomerular filtration rate [volume rate/area] in serum, plasma or blood by creatinine-b ased formula (CKD-epi 2020)/1.73 sq M >90 text: >90 mL/min /1.73 M2 NOTE: eGFR is not calcu lated for patie nts <18 years of age or gende r unkno wn. This is an estim ated GFR calcu latio n using the new CKD EPI creat inine equat ion witho ut race and so does not requi re a corre ction facto r for race. This estim ated GFR shoul d not be used for calcu latin g drug doses . Not Available Not Available 07/08/2025 09:02:46 07/08/2007/08/2025 Compr ehens [facility]ell metab olic 2000 panel - Serum or Plasm a interpretati on and review of laboratory results Abnorm al Not Available Not Available 09:02:46 07/08/2007/08/2025 CBC W Auto Diffe renti al panel - Blood leukocytes [#/volume] in blood by automated count 8.71 text: 4.5 - 11.0 x10'3/ uL Not Available Not Available 07/08/2025 09:02:46 07/08/2007/08/2025 CBC W Auto Diffe renti al panel - Blood erythrocytes [#/volume] in blood by automated count 2.22 text: 4.70 - 6.10 x10'6/ uL low Not Available Not Available 07/08/2025 09:02:46 07/08/2007/08/2025 CBC W Auto Diffe renti al panel - Blood hemoglobin [mass/volume ] in blood 8.8 text: 14.0 - 18.0 g/dL low Not Available Not Available 07/08/2025 09:02:46 07/08/2007/08/2025 CBC W Auto Diffe renti al panel - Blood hematocrit [volume fraction] of blood by calculation 24.1 % low: 43%hig h: 54% low Not Available Not Available 07/08/2025 09:02:46 07/08/2007/08/2025 CBC W Auto Diffe renti al panel - Blood MCV [entitic mean volume] in red blood cells 108.6 text: 80.0 - 94.0 fL high Not Available Not Available 07/08/2025 09:02:46 07/08/2007/08/2025 CBC W Auto Diffe renti al panel - Blood MCH [entitic mass] 39.6 pg low: 27pghi gh: 31pg high Not Available Not Available 07/08/2025 09:02:46 07/08/20 25 07/08/2025 CBC W Auto Diffe renti al panel - Blood MCHC [entitic mass/volume] in red blood cells 36.5 text: 32.0 - 36.0 g/dL high Not Available Not Available 07/08/2025 09:02:46 07/08/20 25 07/08/2025 CBC W Auto Diffe renti al panel - Blood RDW 16.8 % low: 11.5%h igh: 14.5% high Not Available Not Available 07/08/2025 09:02:46 07/08/20 25 07/08/2025 CBC W Auto Diffe renti al panel - Blood platelets [#/volume] in blood 420 text: 130 - 400 x10'3/ uL high Not Available Not Available 07/08/2025 09:02:46 07/08/20 25 07/08/2025 CBC W Auto Diffe renti al panel - Blood platelet [entitic mean volume] in blood 9.8 text: 9.3 - 12.2 fL Not Available Not Available 07/08/2025 09:02:46 07/08/20 25 07/08/2025 CBC W Auto Diffe renti al panel - Blood differential cell count method - blood MANUAL DIFFER ENTIAL Not Available Not Available 09:02:46 07/08/20 25 07/08/2025 CBC W Auto Diffe renti al panel - Blood segmented neutrophils/ leukocytes in blood by manual count 27 % Not Available Not Available 07/08/2025 09:02:46 07/08/20 25 07/08/2025 CBC W Auto Diffe renti al panel - Blood lymphocytes/ leukocytes in blood by manual count 60 % Not Available Not Available 07/08/2025 09:02:46 07/08/20 25 07/08/2025 CBC W Auto Diffe renti al panel - Blood variant lymphocytes/ leukocytes in blood by manual count 1 % Not Available Not Available 07/08/2025 09:02:46 07/08/20 25 07/08/2025 CBC W Auto Diffe renti al panel - Blood monocytes/le ukocytes in blood by manual count 10 % Not Available Not Available 07/08/2025 09:02:46 07/08/20 25 07/08/2025 CBC W Auto Diffe renti al panel - Blood eosinophils/ leukocytes in blood by manual count 1 % Not Available Not Available 07/08/2025 09:02:46 07/08/2007/08/2025 CBC W Auto Diffe renti al panel - Blood basophils/le ukocytes in blood 1 % Not Available Not Available 05/2025 09:02:46 07/08/2007/08/2025 CBC W Auto Diffe renti al panel - Blood nucleated erythrocytes /leukocytes [ratio] in blood 9 text: 0 /100 WBC high Not Available Not Available 07/08/2025 09:02:46 07/08/2007/08/2025 CBC W Auto Diffe renti al panel - Blood neutrophils [#/volume] in blood 2.35 text: 1.80 - 7.70 x10'3/ uL Not Available Not Available 07/08/2025 09:02:46 07/08/2007/08/2025 CBC W Auto Diffe renti al panel - Blood lymphocytes [#/volume] in blood 5.31 text: 1.00 - 4.80 x10'3/ uL high Not Available Not Available 07/08/2025 09:02:46 07/08/2007/08/2025 CBC W Auto Diffe renti al panel - Blood monocytes [#/volume] in blood 0.87 text: 0.30 - 0.82 x10'3/ uL high Not Available Not Available 07/08/2025 09:02:46 07/08/2007/08/2025 CBC W Auto Diffe renti al panel - Blood eosinophils [#/volume] in blood 0.09 text: 0.04 - 0.54 x10'3/ uL Not Available Not Available 07/08/2025 09:02:46 07/08/2007/08/2025 CBC W Auto Diffe renti al panel - Blood basophils [#/volume] in blood 0.09 text: 0.01 - 0.08 x10'3/ uL high Not Available Not Available 07/08/2025 09:02:46 07/08/2007/08/2025 CBC W Auto Diffe renti al panel - Blood nucleated erythrocytes [#/volume] in blood 0.78 text: 0.00 - 0.01 x10'3/ uL high Not Available Not Available 07/08/2025 09:02:46 07/08/2007/08/2025 CBC W Auto Diffe renti al panel - Blood erythrocytes [morphology] in blood by automated count SLIDE REVIEW ED Not Available Not Available 09:02:46 07/08/20 25 07/08/2025 CBC W Auto Diffe renti al panel - Blood poikilocytos is [presence] in blood by automated count 1+ Not Available Not Available 05/2025 09:02:46 07/08/20 25 07/08/2025 CBC W Auto Diffe renti al panel - Blood macrocytes [presence] in blood 1+ Not Available Not Available 05/2025 09:02:46 07/08/20 25 07/08/2025 CBC W Auto Diffe renti al panel - Blood target cells [presence] in blood by light microscopy 1+ Not Available Not Available 0 07/08/2025 09:02:46 07/08/20 25 07/08/2025 CBC W Auto Diffe renti al panel - Blood sickle cells [presence] in blood by light microscopy 1+ Not Available Not Available 0 07/08/2025 09:02:46 07/08/20 25 07/08/2025 CBC W Auto Diffe renti al panel - Blood walker jolly bodies 1+ Not Available Not Available 05/2025 09:02:46 07/08/20 25 07/08/2025 CBC W Auto Diffe renti al panel - Blood platelets [#/volume] in blood by automated count INCREA SED Not Available Not Available 09:02:46 07/08/2007/08/2025 CBC W Auto Diffe renti al panel - Blood interpretati on and review of laboratory results Abnorm al Not Available Not Available 09:02:46 07/11/20 25 07/11/2025 Retic ulocy jesse [#/vo lume] in Blood by Autom ated count reticulocyte s/erythrocyt es in blood 10.1 % low: 0.8%hi gh: 2.1% high Not Available Not Available 07/11/2025 06:19:55 07/11/20 25 07/11/2025 Retic ulocy jesse [#/vo lume] in Blood by Autom ated count reticulocyte s [#/volume] in blood by automated count 0.2 text: 0.03 - 0.11 x10'6/ uL high Not Available Not Available 07/11/2025 06:19:55 07/11/2007/11/2025 Retic ulocy jesse [#/vo lume] in Blood by Autom ated count immature reticulocyte s/erythrocyt es in cord blood by automated count 24.3 % low: 2.3%hi gh: 13.4% high Not Available Not Available 07/11/2025 06:19:55 07/11/2007/11/2025 Retic ulocy jesse [#/vo lume] in Blood by Autom ated count retic HGB 36.5 pg low: 28pghi gh: 35pg high Not Available Not Available 07/11/2025 06:19:55 07/11/2007/11/2025 Retic ulocy jesse [#/vo lume] in Blood by Autom ated count interpretati on and review of laboratory results Abnorm al Not Available Not Available 06:19:55 07/11/2007/11/2025 Compr ehens [facility] metab olic 2000 panel - Serum or Plasm a glucose [mass/volume ] in serum or plasma 109 text: 70 - 99 mg/dL high Not Available Not Available 07/11/2025 06:19:55 07/11/2007/11/2025 Compr ehens [facility] metab olic 2000 panel - Serum or Plasm a urea nitrogen [mass/volume ] in serum or plasma 6 text: 7 - 18 mg/dL low Not Available Not Available 07/11/2025 06:19:55 07/11/2007/11/2025 Compr ehens [facility] metab olic 2000 panel - Serum or Plasm a creatinine [mass/volume ] in serum or plasma 0.78 text: 0.7 - 1.3 mg/dL Not Available Not Available 07/11/2025 06:19:55 07/11/2007/11/2025 Compr ehens [facility] metab olic 2000 panel - Serum or Plasm a sodium [moles/volum e] in serum or plasma 142 text: 136 - 145 mmol/L Not Available Not Available 07/11/2025 06:19:55 07/11/2007/11/2025 Compr ehens [facility] metab olic 1999 panel - Serum or Plasm a potassium [moles/volum e] in serum or plasma 4 text: 3.5 - 5.1 mmol/L Not Available Not Available 07/11/2025 06:19:55 07/11/2007/11/2025 Compr ehens [facility] metab olic 1999 panel - Serum or Plasm a chloride [moles/volum e] in serum or plasma 112 text: 97 - 115 mmol/L Not Available Not Available 07/11/2025 06:19:55 07/11/2007/11/2025 Compr ehens [facility] metab olic 1999 panel - Serum or Plasm a carbon dioxide, total [moles/volum e] in serum or plasma 26.4 text: 21 - 32 mmol/L Not Available Not Available 07/11/2025 06:19:55 07/11/2007/11/2025 Compr ehens [facility] metab olic 2000 panel - Serum or Plasm a calcium [mass/volume ] in serum or plasma 8.9 text: 8.5 - 10.1 mg/dL Not Available Not Available 07/11/2025 06:19:55 07/11/2007/11/2025 Compr ehens [facility] metab olic 1999 panel - Serum or Plasm a bilirubin.to justyn [mass/volume ] in serum or plasma 1.5 text: 0.2 - 1.2 mg/dL high THIS ASSAY IS NOT RECOM RADHA D FOR PATIE NTS UNDER GOING TREAT MENT WITH ELTRO MBOPA G DUE TO THE POTEN TIAL FOR FALSE LY ELEVA ANTONETTE RESUL TS. Not Available Not Available 07/11/2025 06:19:55 07/11/2007/11/2025 Compr ehens [facility]ell metab olic 1999 panel - Serum or Plasm a protein [mass/volume ] in serum or plasma 7.3 text: 6.4 - 8.2 g/dL Not Available Not Available 07/11/2025 06:19:55 07/11/2007/11/2025 Compr ehens [facility]ell metab olic 2000 panel - Serum or Plasm a albumin [mass/volume ] in serum or plasma 3.9 text: 3.4 - 5.0 g/dL Not Available Not Available 07/11/2025 06:19:55 07/11/2007/11/2025 Compr ehens [facility]ell metab olic 1999 panel - Serum or Plasm a aspartate aminotransfe rase [enzymatic activity/vol ume] in serum or plasma 34 U/L low: 15U/Lh igh: 37U/L Not Available Not Available 07/11/2025 06:19:55 07/11/20 25 07/11/2025 Compr ehens is[facility]ell metab olic 1999 panel - Serum or Plasm a alanine aminotransfe rase [enzymatic activity/vol ume] in serum or plasma 19 U/L low: 16U/Lh igh: 60U/L Not Available Not Available 07/11/2025 06:19:55 07/11/2007/11/2025 Compr ehens is[facility]ell metab olic 1999 panel - Serum or Plasm a alkaline phosphatase [enzymatic activity/vol ume] in serum or plasma 80 U/L low: 50U/Lh igh: 136U/L Not Available Not Available 07/11/2025 06:19:55 07/11/2007/11/2025 [facility] [employer] [facility] [employer] ic 1999 panel - Serum or Plasm a anion gap in serum or plasma by calculation 3.6 text: 2 - 10 mmol/L Not Available Not Available 07/11/2025 06:19:55 07/11/2007/11/2025 [facility] [employer] [facility] metab ic 1999 panel - Serum or Plasm a urea nitrogen/cre atinine [mass ratio] in serum or plasma 7.6 low: 6high: 26 Not Available Not Available 07/11/2025 06:19:55 07/11/2007/11/2025 [facility] [employer] [employer] [facility] 1999 panel - Serum or Plasm a albumin/glob ulin [mass ratio] in serum or plasma 1.1 text: 1.0 - 2.0 ratio Not Available Not Available 07/11/2025 06:19:55 07/11/2007/11/2025 [facility] [employer] isabell [employer] ic 1999 panel - Serum or Plasm a glomerular filtration rate [volume rate/area] in serum, plasma or blood by creatinine-b ased formula (CKD-epi 2020)/1.73 sq M >90 text: >90 mL/min /1.73 M2 NOTE: eGFR is not calcu lated for patie nts <18 years of age or gende r unkno wn. This is an estim ated GFR calcu latio n using the new CKD EPI creat inine equat ion witho ut race and so does not requi re a corre ction facto r for race. This estim ated GFR shoul d not be used for calcu latin g drug doses . Not Available Not Available 07/11/2025 06:19:55 07/11/2007/11/2025 Compr ehens isabell metab olic 2000 panel - Serum or Plasm a interpretati on and review of laboratory results Abnorm al Not Available Not Available 06:19:55 07/11/2007/11/2025 CBC W Auto Diffe renti al panel - Blood leukocytes [#/volume] in blood by automated count 10.38 text: 4.5 - 11.0 x10'3/ uL Not Available Not Available 07/11/2025 06:19:55 07/11/2007/11/2025 CBC W Auto Diffe renti al panel - Blood erythrocytes [#/volume] in blood by automated count 2.03 text: 4.70 - 6.10 x10'6/ uL low Not Available Not Available 07/11/2025 06:19:55 07/11/2007/11/2025 CBC W Auto Diffe renti al panel - Blood hemoglobin [mass/volume ] in blood 7.8 text: 14.0 - 18.0 g/dL low Not Available Not Available 07/11/2025 06:19:55 07/11/2007/11/2025 CBC W Auto Diffe renti al panel - Blood hematocrit [volume fraction] of blood by calculation 22.1 % low: 43%hig h: 54% low Not Available Not Available 07/11/2025 06:19:55 07/11/2007/11/2025 CBC W Auto Diffe renti al panel - Blood MCV [entitic mean volume] in red blood cells 108.9 text: 80.0 - 94.0 fL high Not Available Not Available 07/11/2025 06:19:55 07/11/2007/11/2025 CBC W Auto Diffe renti al panel - Blood MCH [entitic mass] 38.4 pg low: 27pghi gh: 31pg high Not Available Not Available 07/11/2025 06:19:55 07/11/2007/11/2025 CBC W Auto Diffe renti al panel - Blood MCHC [entitic mass/volume] in red blood cells 35.3 text: 32.0 - 36.0 g/dL Not Available Not Available 07/11/2025 06:19:55 07/11/2007/11/2025 CBC W Auto Diffe renti al panel - Blood RDW 16.3 % low: 11.5%h igh: 14.5% high Not Available Not Available 07/11/2025 06:19:55 07/11/2007/11/2025 CBC W Auto Diffe renti al panel - Blood platelets [#/volume] in blood 416 text: 130 - 400 x10'3/ uL high Not Available Not Available 07/11/2025 06:19:55 07/11/2007/11/2025 CBC W Auto Diffe renti al panel - Blood platelet [entitic mean volume] in blood 10.2 text: 9.3 - 12.2 fL Not Available Not Available 07/11/2025 06:19:55 07/11/2007/11/2025 CBC W Auto Diffe renti al panel - Blood differential cell count method - blood MANUAL DIFFER ENTIAL Not Available Not Available 06:19:55 07/11/2007/11/2025 CBC W Auto Diffe renti al panel - Blood segmented neutrophils/ leukocytes in blood by manual count 40 % Not Available Not Available 07/11/2025 06:19:55 07/11/2007/11/2025 CBC W Auto Diffe renti al panel - Blood lymphocytes/ leukocytes in blood by manual count 52 % Not Available Not Available 07/11/2025 06:19:55 07/11/2007/11/2025 CBC W Auto Diffe renti al panel - Blood monocytes/le ukocytes in blood by manual count 6 % Not Available Not Available 07/11/2025 06:19:55 07/11/20 25 07/11/2025 CBC W Auto Diffe renti al panel - Blood eosinophils/ leukocytes in blood by manual count 1 % Not Available Not Available 07/11/2025 06:19:55 07/11/20 25 07/11/2025 CBC W Auto Diffe renti al panel - Blood basophils/le ukocytes in blood 1 % Not Available Not Available 07/01 06:19:55 07/11/20 25 07/11/2025 CBC W Auto Diffe renti al panel - Blood nucleated erythrocytes /leukocytes [ratio] in blood 4 text: 0 /100 WBC high Not Available Not Available 07/11/2025 06:19:55 07/11/20 25 07/11/2025 CBC W Auto Diffe renti al panel - Blood neutrophils [#/volume] in blood 4.15 text: 1.80 - 7.70 x10'3/ uL Not Available Not Available 07/11/2025 06:19:55 07/11/20 25 07/11/2025 CBC W Auto Diffe renti al panel - Blood lymphocytes [#/volume] in blood 5.4 text: 1.00 - 4.80 x10'3/ uL high Not Available Not Available 07/11/2025 06:19:55 07/11/2007/11/2025 CBC W Auto Diffe renti al panel - Blood monocytes [#/volume] in blood 0.62 text: 0.30 - 0.82 x10'3/ uL Not Available Not Available 07/11/2025 06:19:55 07/11/2007/11/2025 CBC W Auto Diffe renti al panel - Blood eosinophils [#/volume] in blood 0.1 text: 0.04 - 0.54 x10'3/ uL Not Available Not Available 07/11/2025 06:19:55 07/11/2007/11/2025 CBC W Auto Diffe renti al panel - Blood basophils [#/volume] in blood 0.1 text: 0.01 - 0.08 x10'3/ uL high Not Available Not Available 07/11/2025 06:19:55 07/11/20 25 07/11/2025 CBC W Auto Diffe renti al panel - Blood nucleated erythrocytes [#/volume] in blood 0.42 text: 0.00 - 0.01 x10'3/ uL high Not Available Not Available 07/11/2025 06:19:55 07/11/20 25 07/11/2025 CBC W Auto Diffe renti al panel - Blood erythrocytes [morphology] in blood by automated count SLIDE REVIEW ED Not Available Not Available 06:19:55 07/11/20 25 07/11/2025 CBC W Auto Diffe renti al panel - Blood macrocytes [presence] in blood 1+ Not Available Not Available 08/2025 06:19:55 07/11/20 25 07/11/2025 CBC W Auto Diffe renti al panel - Blood polychromasi a [presence] in blood by light microscopy 1+ Not Available Not Available 0 07/11/2025 06:19:55 07/11/20 25 07/11/2025 CBC W Auto Diffe renti al panel - Blood target cells [presence] in blood by light microscopy 1+ Not Available Not Available 0 07/11/2025 06:19:55 07/11/20 25 07/11/2025 CBC W Auto Diffe renti al panel - Blood sickle cells [presence] in blood by light microscopy 1+ Not Available Not Available 0 07/11/2025 06:19:55 07/11/20 25 07/11/2025 CBC W Auto Diffe renti al panel - Blood platelets [#/volume] in blood by automated count INCREA SED Not Available Not Available 06:19:55 07/11/20 25 07/11/2025 CBC W Auto Diffe renti al panel - Blood interpretati on and review of laboratory results Abnorm al Not Available Not Available 06:19:55 07/31/2007/31/2025 retic ulocy jesse, autom ated count , blood retic count, blood 12.6 % low: 0.8%hi gh: 2.1% high Not Available Not Available 07/31/2025 12:21:00 07/31/2007/31/2025 retic ulocy jesse, autom ated count , blood reticulocyte s, automated count, blood 0.27 text: 0.03 - 0.11 x10'6/ uL high Not Available Not Available 07/31/2025 12:21:00 07/31/2007/31/2025 retic ulocy jesse, autom ated count , blood immature reticulocyte s/100 erythrocytes , automated, cord blood (obs) 27.6 % low: 2.3%hi gh: 13.4% high Not Available Not Available 07/31/2025 12:21:00 07/31/2007/31/2025 retic ulocy jesse, autom ated count , blood retic HGB 35.2 pg low: 28pghi gh: 35pg high Not Available Not Available 07/31/2025 12:21:00 07/31/2007/31/2025 retic ulocy jesse, autom ated count , blood lab interpretati on Abnorm al Not Available Not Available 12:21:00 07/31/2007/31/2025 CMP, serum or plasm a glucose, qn [mass/volume ], serum or plasma 92 text: 70 - 99 mg/dL Not Available Not Available 07/31/2025 12:21:00 07/31/2007/31/2025 CMP, serum or plasm a BUN (blood urea nitrogen), serum or plasma 8 text: 7 - 18 mg/dL Not Available Not Available 07/31/2025 12:21:00 07/31/2007/31/2025 CMP, serum or plasm a creatinine, serum or plasma 0.69 text: 0.7 - 1.3 mg/dL low Not Available Not Available 07/31/2025 12:21:00 07/31/2007/31/2025 CMP, serum or plasm a sodium, serum or plasma 141 text: 136 - 145 mmol/L Not Available Not Available 07/31/2025 12:21:00 07/31/2007/31/2025 CMP, serum or plasm a potassium, serum or plasma 3.8 text: 3.5 - 5.1 mmol/L Not Available Not Available 07/31/2025 12:21:00 07/31/2007/31/2025 CMP, serum or plasm a chloride, serum or plasma 111 text: 97 - 115 mmol/L Not Available Not Available 07/31/2025 12:21:00 07/31/2007/31/2025 CMP, serum or plasm a CO2, (carbon dioxide), total, serum or plasma 25.9 text: 21 - 32 mmol/L Not Available Not Available 07/31/2025 12:21:00 07/31/2007/31/2025 CMP, serum or plasm a calcium, serum or plasma 8.8 text: 8.5 - 10.1 mg/dL Not Available Not Available 07/31/2025 12:21:00 07/31/2007/31/2025 CMP, serum or plasm a bilirubin, total, serum or plasma 1.6 text: 0.2 - 1.2 mg/dL high THIS ASSAY IS NOT RECOM RADHA D FOR PATIE NTS UNDER GOING TREAT MENT WITH ELTRO MBOPA G DUE TO THE POTEN TIAL FOR FALSE LY ELEVA ANTONETET RESUL TS. Not Available Not Available 07/31/2025 12:21:00 07/31/2007/31/2025 CMP, serum or plasm a protein, total, serum 7.9 text: 6.4 - 8.2 g/dL Not Available Not Available 07/31/2025 12:21:00 07/31/2007/31/2025 CMP, serum or plasm a albumin, serum or plasma 4.2 text: 3.4 - 5.0 g/dL Not Available Not Available 07/31/2025 12:21:00 07/31/2007/31/2025 CMP, serum or plasm a AST/SGOT (aspartate aminotransfe rase), serum or plasma 36 U/L low: 15U/Lh igh: 37U/L Not Available Not Available 07/31/2025 12:21:00 07/31/2007/31/2025 CMP, serum or plasm a ALT (alanine aminotransfe rase), serum or plasma 23 U/L low: 16U/Lh igh: 60U/L Not Available Not Available 07/31/2025 12:21:00 07/31/2007/31/2025 CMP, serum or plasm a alkaline phosphatase, serum or plasma 74 U/L low: 50U/Lh igh: 136U/L Not Available Not Available 07/31/2025 12:21:00 07/31/2007/31/2025 CMP, serum or plasm a anion gap, serum or plasma 4.1 text: 2 - 10 mmol/L Not Available Not Available 07/31/2025 12:21:00 07/31/2007/31/2025 CMP, serum or plasm a BUN/creatini ne, ratio, serum 11.7 low: 6high: 26 Not Available Not Available 07/31/2025 12:21:00 07/31/2007/31/2025 CMP, serum or plasm a albumin/glob ulin, ratio, serum 1.1 text: 1.0 - 2.0 ratio Not Available Not Available 07/31/2025 12:21:00 07/31/2007/31/2025 CMP, serum or plasm a glomerular filtration rate/1.73 sq M predicted, qn, creatinine based formula (CKD-epi 2020), serum or plasma or blood >90 text: >90 mL/min /1.73 M2 NOTE: eGFR is not calcu lated for patie nts <18 years of age or gende r unkno wn. This is an estim ated GFR calcu latio n using the new CKD EPI creat inine equat ion witho ut race and so does not requi re a corre ction facto r for race. This estim ated GFR shoul d not be used for calcu latin g drug doses . Not Available Not Available 07/31/2025 12:21:00 07/31/2007/31/2025 CMP, serum or plasm a lab interpretati on Abnorm al Not Available Not Available 12:21:00 07/31/2007/31/2025 CBC w/ auto diff WBC, auto, blood 9.43 text: 4.5 - 11.0 x10'3/ uL Not Available Not Available 07/31/2025 12:21:00 07/31/2007/31/2025 CBC w/ auto diff RBC count, blood 2.16 text: 4.70 - 6.10 x10'6/ uL low Not Available Not Available 07/31/2025 12:21:00 07/31/2007/31/2025 CBC w/ auto diff hemoglobin (Hb), blood 8.6 text: 14.0 - 18.0 g/dL low Not Available Not Available 07/31/2025 12:21:00 07/31/2007/31/2025 CBC w/ auto diff hematocrit, blood 23.4 % low: 43%hig h: 54% low Not Available Not Available 07/31/2025 12:21:00 07/31/2007/31/2025 CBC w/ auto diff MCV, qn (obs) 108.3 text: 80.0 - 94.0 fL high Not Available Not Available 07/31/2025 12:21:00 07/31/2007/31/2025 CBC w/ auto diff MCH, qn (obs) 39.8 pg low: 27pghi gh: 31pg high Not Available Not Available 07/31/2025 12:21:00 07/31/2007/31/2025 CBC w/ auto diff mean corpuscular hemoglobin concentratio n, qn, RBC 36.8 text: 32.0 - 36.0 g/dL high Not Available Not Available 07/31/2025 12:21:00 07/31/2007/31/2025 CBC w/ auto diff RDW 16.5 % low: 11.5%h igh: 14.5% high Not Available Not Available 07/31/2025 12:21:00 07/31/2007/31/2025 CBC w/ auto diff platelet count, blood 370 text: 130 - 400 x10'3/ uL Not Available Not Available 07/31/2025 12:21:00 07/31/2007/31/2025 CBC w/ auto diff platelet mean volume, qn, blood (obs) 9.5 text: 9.3 - 12.2 fL Not Available Not Available 07/31/2025 12:21:00 07/31/2007/31/2025 CBC w/ auto diff differential cell count method, blood (obs) MANUAL DIFFER ENTIAL Not Available Not Available 12:21:00 07/31/2007/31/2025 CBC w/ auto diff segmented neutrophils/ 100 leukocytes, manual, blood (obs) 24 % Not Available Not Available 07/31/2025 12:21:00 07/31/2007/31/2025 CBC w/ auto diff lymphocytes/ 100 leukocytes, manual, blood (obs) 70 % Not Available Not Available 07/31/2025 12:21:00 07/31/2007/31/2025 CBC w/ auto diff monocytes/10 0 leukocytes, manual, blood (obs) 4 % Not Available Not Available 07/31/2025 12:21:00 07/31/2007/31/2025 CBC w/ auto diff eosinophils/ 100 leukocytes, manual, blood (obs) 2 % Not Available Not Available 07/31/2025 12:21:00 07/31/2007/31/2025 CBC w/ auto diff nucleated erythrocytes /100 leukocytes, ratio, blood (obs) 5 text: 0 /100 WBC high Not Available Not Available 07/31/2025 12:21:00 07/31/2007/31/2025 CBC w/ auto diff neutrophils, count, blood (obs) 2.26 text: 1.80 - 7.70 x10'3/ uL Not Available Not Available 07/31/2025 12:21:00 07/31/2007/31/2025 CBC w/ auto diff lymphocytes, blood (obs) 6.6 text: 1.00 - 4.80 x10'3/ uL high Not Available Not Available 07/31/2025 12:21:00 07/31/2007/31/2025 CBC w/ auto diff monocytes, count, blood (obs) 0.38 text: 0.30 - 0.82 x10'3/ uL Not Available Not Available 07/31/2025 12:21:00 07/31/2007/31/2025 CBC w/ auto diff eosinophils, quant, blood 0.19 text: 0.04 - 0.54 x10'3/ uL Not Available Not Available 07/31/2025 12:21:00 07/31/2007/31/2025 CBC w/ auto diff nucleated erythrocytes , count, blood (obs) 0.47 text: 0.00 - 0.01 x10'3/ uL high Not Available Not Available 07/31/2025 12:21:00 07/31/2007/31/2025 CBC w/ auto diff erythrocytes , ql, automated, blood (obs) SLIDE REVIEW ED Not Available Not Available 12:21:00 07/31/2007/31/2025 CBC w/ auto diff macrocytes, ql, blood (obs) 1+ Not Available Not Available 10/2024 12:21:00 07/31/2007/31/2025 CBC w/ auto diff polychromasi a, ql, light microscopy, blood (obs) 1+ Not Available Not Available 07/31/2025 12:21:00 07/31/2007/31/2025 CBC w/ auto diff target cells, ql, light microscopy, blood (obs) 1+ Not Available Not Available 07/31/2025 12:21:00 07/31/2007/31/2025 CBC w/ auto diff sickle cell screen, qual, light microscopy, blood 1+ Not Available Not Available 10/2024 12:21:00 07/31/2007/31/2025 CBC w/ auto diff platelets, auto, blood ADEQUA TE Not Available Not Available 12:21:00 07/31/2007/31/2025 CBC w/ auto diff lab interpretati on Abnorm al Not Available Not Available 12:21:00 Result Notes None recorded. 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 Brielle Ocasio MD Attn: Cheyenne castro,[address] [place], [address] [facility] 5 11:23:35 Obstructive sleep apnea syndrome 22143291 Active 2009 Brielle Ocasio MD Attn: Cheyenne castro,[address] [place], [address] [facility] 4 11:49:52 Nocturnal enuresis 8424280 Active 2009 Brielle Ocasio MD Attn: Cheyenne castro,[address] [place], [address] [facility] 4 11:49:52 Attention deficit hyperactivi ty disorder 105402262 Active 2010 Brielle Ocasio MD Attn: Accountin g,[address] [facility], [place], [address] [facility] 4 11:49:52 Suicidal thoughts 1985263 Active 2010 Brielle Ocasio MD Attn: Accountin g,[address] [facility], [place], [address] [facility] 4 11:49:52 Amnesia 87946526 Active 2012 Brielle Ocasio MD Attn: Accountin g,[address] [facility], [place], [address] [facility] 4 11:49:52 Patient encounter status 205275917 Active 2014 Brielle Ocasio MD Attn: Accountin g,[address] [facility], [place], [address] [facility] 4 11:49:52 Problem 29047977 Active 2015 Brielle Ocasio MD Attn: Accountin g,[address] [facility], [place], [address] [facility] 4 17:20:25 Prolonged erection of penis 282896895 Active 2015 Brielle Ocasio MD Attn: Accountin g,[address] [facility], [place], [address] [facility] 4 11:49:52 Knee pain Active 2015 Brielle Ocasio MD Attn: Accountin g,[address] [facility], [place], [address] [facility] 4 17:20:25 Left cardiac ventricular dilatation 826967538 Active 2015 Brielle Ocasio MD Attn: Accountin g,[address] [facility], [place], [address] [facility] 4 11:49:52 Vitamin D deficiency 23183978 Active 2015 Brielle Ocasio MD Attn: Accountin g,[address] [facility], [place], [address], [place] [facility] 4 11:49:52 Dysuria 91657897 Active 2016 Brielle Ocasio MD Attn: Accountanne g,[address] [facility], [place], [address], [place] [facility] 4 11:49:52 Osteonecros is 770362428 Active 2017 Brielle Ocasio MD Attn: Accountin g,[address] [facility], [place], [address], [place] [facility] 5 11:19:00 Hemoglobin SS disease with crisis 360616395 Active 2018 Brielle Ocasio MD Attn: Accountin g,[address] [facility], [place], [address], [place] [facility] 5 11:20:57 Sickle cell-hemogl obin SS disease 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 807321214 Active 2018 Brielle Ocasio MD Attn: Cheyenne castro,[address] [facility], [place], [address], [place] [facility] 4 14:42:09 Acute chest syndrome 083902463 Active 2018 Brielle Ocasio MD Attn: Cheyenne castro,[address] [facility], [place], [address], [place] [facility] 4 17:25:16 Pulmonary embolism 79231877 Active 2018 Brielle Ocasio MD Attn: Cheyenne castro,[address] [facility], [place], [address], [place] [facility] 4 11:48:39 History of pulmonary embolus 841328532 Active 2018 Brielle Ocasio MD Attn: Cheyenne castro,[address] [facility], [place], [address], [place] [facility] 4 11:49:52 Liver function tests outside reference range 845102718 Active 2018 Brielle Ocasio MD Attn: Cheyenne castro,[address] [facility], [place], [address], [place] [facility] 4 11:49:52 Mitral valve regurgitati on 32568482 Active 2018 Brielle Ocasio MD Attn: Cheyenne castro,[address] [facility], [place], [address], [place] [facility] 5 11:20:57 Liver function test above reference range 642626704 Active 2018 Brielle Ocasio MD Attn: Accountanne castro,[address] [facility], [place], [address], [place] [facility] 4 11:53:44 Underweight 076650532 Active 2018 Brielle Ocasio MD Attn: Cheyenne castro,[address] [facility], [place], [address], [place] [facility] 4 11:49:52 Urinary tract infectious disease 41134014 Active 2018 Brielle Ocasio MD Attn: Accountanne g,[address] [facility], [place], [address], [place] [facility] 4 11:49:52 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 685830126 Active 2018 Brielle Ocasio MD Attn: Accountanne g,[address] [facility], [place], [address], [place] [facility] 4 11:49:52 Gallbladder pain 960502709 Active 2019 Brielle Ocasio MD Attn: Accountanne g,[address] [facility], [place], [address], [place] [facility] 4 11:49:52 Cervical lymphadenop athy 150627855 Active 2019 Brielle Ocasio MD Attn: Cheyenne g,[address] [facility], [place], [address], [place] [facility] 4 11:49:52 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 7020584994536 01 Active 2019 Brielle Ocasio MD Attn: Accountanne castro,[address] [facility], [place], [address], [place] [facility] 4 11:49:52 Backache 132936131 Active 2019 Brielle Ocasio MD Attn: Accountanne g,[address] [facility], [place], [address] [facility] 4 11:49:52 Gastroesoph ageal reflux disease 400785583 Active 2019 Brielle Ocasio MD Attn: Accountanne g,[address] [facility], [place], [address], [place] [facility] 4 11:49:52 Gallstone acute pancreatiti s 400653305 Active 2019 Brielle Ocasio MD Attn: Accountin g,[address] [facility], [place], [address], [place] [facility] 4 11:49:52 Anemia 683127402 Active 2019 Brielle Ocasio MD Attn: Cheyenne castro,[address] [facility], [place], [address], [place] [facility] 5 11:19:00 Common bile duct calculus 966005944 Active 2019 Brielle Ocasio MD Attn: Giovannianne castro,[address] [facility], [place], [address], [place] [facility] 4 11:49:52 Infective pneumonia 489791584 Active 2019 Brielle Ocasio MD Attn: Giovannianne castro,[address] [facility], [place], [address], [place] [facility] 4 11:49:52 Hypertensiv e disorder 54006948 Active 2019 Brielle Ocasio MD Attn: Cheyenne gloria,[address] [facility], [place], [address], [place] [facility] 4 11:49:52 Pain of hip region 40069449 Active 2019 Brielle Ocasio MD Attn: Cheyenne gloria,[address] [facility], [place], [address], [place] [facility] 4 11:49:52 Unconjugate d hyperbiliru binemia 2440955 Active 2019 Brielle Ocasio MD Attn: Cheyenne gloria,[address] [facility], [place], [address], [place] [facility] 4 11:49:52 Hyponatremi a 27162213 Active 2019 Brielle Ocasio MD Attn: Cheyenne gloria,[address] [facility], [place], [address] [facility] 4 11:49:52 Hemochromat osis 926097269 Active 2019 Brielle Ocasio MD Attn: Cheyenne castro,[address] [facility], [place], [address] [facility] 4 17:20:25 Osteoarthri tis 581255676 Active 2019 Brielle Ocasio MD Attn: Cheyenne castro,[address] [place] [address], [address] [facility] 5 11:19:00 Bone necrosis 789539435 Active 2019 Brielle Ocasio MD Attn: Cheyenne castro,[address] [place] [address], [address] [facility] 4 11:52:31 History of total replacement of right hip joint 3105139861544 00 Active 2019 Brielle Ocasio MD Attn: Cheyenne castro,[address] [place] [address], [address], [place] [facility] 4 11:49:52 History of total hip arthroplast y 385172505037 Active 2019 Brielle Ocasio MD Attn: Cheyenne castro,[address] [place] [address], [address], [place] [facility] 4 17:43:26 Leukocytosi s 843858983 Active 2019 Brielle Ocasio MD Attn: Cheyenne castro,[address] [place] [address], [address], [place] [facility] 4 11:49:52 Influenza caused by Influenza B virus 82348074 Active 2019 Brielle Ocasio MD Attn: Cheyenne castro,[address] [place] [address], [address] [facility] 4 11:49:52 Biliary calculus 055104199 Active 2019 Brielle Ocasio MD Attn: Cheyenne castro,[address] [place] [address], [address] [facility] 4 14:41:11 History of musculoskel etal disease 214861959 Active 2019 Brielle Ocasio MD Attn: Cheyenne castro,[address] [place] [address] [place], [address] [facility] 4 11:49:52 Hypoxia 646552762 Active 2019 Brielle Ocasio MD Attn: Cheyenne castro,[address] [facility], [place], [address] [facility] 4 11:49:52 Mood disorder 46397323 Active 2019 Brielle Ocasio MD Attn: Giovannianne castro,[address] [facility], [place], [address], [place] [facility] 4 11:49:52 Pain of joint 58956174 Active 2019 Brielle Ocasio MD Attn: Cheyenne gloria,[address] [facility], [place], [address], [place] [facility] 4 11:49:52 Chest pain 86478081 Active 2019 Brielle Ocasio MD Attn: Cheyenne gloria,[address] [facility], [place], [address] [facility] 4 15:46:27 Asthma 758106693 Active 2020 Brielle Ocasio MD Attn: Cheyenne gloria,[address] [facility], [place], [address] [facility] 4 11:49:52 Pain of knee region 6018728502 Active 2020 Brielle Ocasio MD Attn: Cheyenne castro,[address] [facility], [place], [address], [place] [facility] 5 11:20:57 Acute low back pain [id number] Active 2020 Brielle Ocasio MD Attn: Cheyenne gloria,[address] [place], [address], [place] [facility] 4 11:53:43 COVID-19 [id number] Active 2021 Brielle Ocasio MD Attn: Cheyenne castro,[address] [facility], [place], [address], [place] [facility] 4 11:49:52 Snoring 41916881 Active 2021 Brielle Ocasio MD Attn: Cheyenne castro,[address] [facility], [place], [address], [place] [facility] 4 11:49:52 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 503514338 Active 2021 Brielle Ocasio MD Attn: Cheyenne castro,[address] [facility], [place], [address], [place] [facility] 4 11:53:44 History of repair of hip joint 440201479 Active 2021 Brielle Ocasio MD Attn: Cheyenne castro,[address] [facility], [place], [address], [place] [facility] 4 11:53:44 Pain 74417862 Active 2021 Brielle Ocasio MD Attn: Cheyenne castro,[address] [facility], [place], [address], [place] [facility] 4 11:49:52 Chronic pain 13455475 Active 2021 Brielle Ocasio MD Attn: Cheyenne castro,[address] [facility], [place], [address], [place] [facility] 5 11:19:00 Community acquired pneumonia 895489563 Active 2021 Brielle Ocasio MD Attn: Cheyenne castro,[address] [facility], [place], [address], [place] [facility] 4 11:49:52 Hypomagnese haja 724321301 Active 2021 Brielle Ocasio MD Attn: Cheyenne castro,[address] [facility], [place], [address], [place] [facility] 4 11:49:52 Hypokalemia 27798550 Active 2021 Brielle Ocasio MD Attn: Cheyenne castro,[address] [facility], [place], [address], [place] [facility] 4 11:49:52 Diarrhea 35070453 Active 2021 Brielle Ocasio MD Attn: Cheyenne castro,[address] [facility], [place], [address], [place] [facility] 4 11:49:52 Anxiety 24378630 Active 2023 Brielle Ocasio MD Attn: Cheyenne castro,[address] [facility], [place], [address], [place] [facility] 4 11:49:52 Depressive disorder 10507381 Active 2023 Brielle Ocasio MD Attn: Cheyenne castro,[address] [facility], [place], [address], [place] [facility] 4 17:18:17 Parainfluen za 81504456 Active 2023 Brielle Ocasio MD Attn: Cheyenne castro,[address] [place], [address], [place] [facility] 5 11:19:00 Active or passive immunizatio n Active 2024 Brielle Ocasio MD Attn: Cheyenne castro,[address] [place], [address], [place] [facility] 5 12:51:31 Problem Notes None recorded. Procedures Surgical History Date Name Laterality Status Provider Name and Address Organization Details Recorded Time total replacement of hip completed Jamaal Pompa MA CT - [facility] 04/17/2024 11:23:17 Cholecystectomy completed Jamaal Pompa MA CT - [facility] 04/17/2024 11:23:32 Imaging Results None recorded. Procedure Notes None recorded. Medical Equipment None Reported. Allergies Allergen ID Allergen Name Allergen Category Reaction Reaction Severity Criticality Documentation Date Start Date Code Code System Note Provider Name and Address Organization Details Recorded Time 581834 trazodone medicatio n other Not available Not available 04/17/20242022 29601 RxNorm Brielle Ocasio MD Attn: Cheyenne castro,[address] [facility], [place], [address], [place] [facility] 5 11:19:23 088675 orange allergeni c extract food,medi cation Not available Not available [facility] 05/01/20242020 85866 5 RxNorm unrec ogniz ed react ion (text : Urtic aria, code: 07433 001) (from [facility]) Brielle Ocasio MD Attn: Cheyenne castro,[address] [facility], [place], [address], [place] [facility] 5 11:18:30 837257 orange juice food,medi cation itching Not available Not available 05/22/20242009 52260 66 RxNorm Brielle Ocasio MD Attn: Cheyenne castro,[address] [facility], [place], [address], [place] [facility] 4 11:11:51 Medications Name Sig Start Date Stop Date Status Note LastModified by Organization Details LastModified Time celecoxib 200 mg capsule TAKE 2 CAPS BY MOUTH WITH BREAKFAST DAY SURGERY, THEN 1 CAPSULE TWICE DAILY AFTER DISCHARGE E 04/17 completed Not Available Not Available Not Available cyclobenzap rine 10 mg tablet TAKE 1 TABLET BY MOUTH THREE TIMES A DAY NEEDED FOR MUSCLE SPASMS 04/17 completed Not Available Not Available Not Available amoxicillin 500 mg capsule TAKE 1 CAPSULE BY MOUTH 3 TIMES A DAY FOR 7 DAYS 04/17 completed Not Available Not Available Not Available hydroxyurea 500 mg capsule TAKE 3 CAPSULES (1,500 MG TOTAL) BY MOUTH DAILY active Not Available Not Available No t Available bicalutamid e 50 mg tablet TAKE 1 TABLET BY MOUTH EVERY DAY 04/17 completed Not Available Not Available Not Available azithromyci n 250 mg tablet 250 MG ORALLY DAILY FOR 4 DAYS START ON DAY 2 OF THERAPY 11/22 completed Not Available Not Available Not Available ibuprofen 800 mg tablet TAKE 1 TABLET BY MOUTH EVERY 8 HOURS NEEDED FOR PAIN active Not Available Not Available No t Available hydrocodone 5 mg-acetamin ophen 325 mg tablet TAKE 1 TABLET EVERY 4 HOURS NEEDED FOR PAIN 04/17 completed Not Available Not Available Not Available promethazin e 6.25 mg/5 mL oral syrup TAKE 15 ML BY MOUTH EVERY DAY NEEDED FOR NAUSEA active Not Available Not Available No t Available ondansetron HCl 8 mg tablet TAKE 1 TABLET BY MOUTH 2 TIMES A DAY NEEDED FOR NAUSEA. 04/17 completed Not Available Not Available Not Available methadone 10 mg tablet PLEASE SEE ATTACHED FOR DETAILED DIRECTION S active Not Available Not Available No t Available moxifloxaci n 400 mg tablet TAKE 1 TABLET BY MOUTH ONCE DAILY FOR 14 DAYS active Not Available Not Available No t Available Klor-Con 20 mEq oral packet TAKE CONTENTS OF 1 PACKET BY MOUTH ONCE DAILY active Not Available Not Available No t Available morphine ER 30 mg tablet,exte nded release TAKE 1 TABLET BY MOUTH EVERY 12 HOURS FOR 14 DAYS active Not Available Not Available No t Available omeprazole 40 mg capsule,del ayed release TAKE 1 CAPSULE BY MOUTH TWICE A DAY active Not Available Not Available No t Available acetaminoph en 500 mg tablet TAKE 2 TABLETS (1,000 MG TOTAL) BY MOUTH EVERY 8 (EIGHT) HOURS NEEDED FOR PAIN 04/17 completed Not Available Not Available Not Available oxycodone-a cetaminophe n 5 mg-325 mg tablet TAKE 1 TABLET EVERY 6 HOURS NEEDED FOR SEVERE PAIN(SCAL E SCORE 7-10) 04/17 completed Not Available Not Available Not Available alprazolam 0.5 mg tablet Take 1 tablet every day by oral route. 04/17 completed Not Available Not Available Not Available phenazopyri dine 100 mg tablet TAKE 1 TABLET BY MOUTH 3 TIMES DAILY NEEDED FOR PAIN WITH URINATION active Not Available Not Available No t Available morphine 30 mg immediate release tablet TAKE 1 TABLET (30 MG TOTAL) BY MOUTH EVERY 6 (SIX) HOURS NEEDED FOR PAIN FOR UP TO 7 DAYS active Not Available Not Available No t Available doxycycline monohydrate 100 mg capsule 04/17 completed Not Available Not Available Not Available cephalexin 500 mg capsule 04/17 completed Not Available Not Available Not Available oseltamivir 75 mg capsule 04/17 completed Not Available Not Available Not Available lisinopril 10 mg tablet 04/17 completed Not Available Not Available Not Available ibuprofen 400 mg tablet 04/17 completed Not Available Not Available Not Available omeprazole 20 mg capsule,del ayed release 04/17 completed Not Available Not Available Not Available diclofenac sodium 75 mg tablet,sadie yed release TAKE 1 TABLET BY MOUTH TWICE A DAY NEEDED 04/17 completed Not Available Not Available Not Available folic acid 1 mg tablet TK 1 T PO D 04/17 completed Not Available Not Available Not Available pseudoephed rine 30 mg tablet 04/17 completed Not Available Not Available Not Available hydroxyzine HCl 25 mg tablet Take 1 tablet 3 times a day by oral route as needed, for anxiety. 11/22 completed Not Available Not Available Not Available morphine ER 15 mg tablet,exte nded release 04/17 completed Not Available Not Available Not Available mupirocin 2 % topical ointment FAUSTO TOPICALLY TO NOSTRILS BID FOR 5 DAYS PRIOR TO SURGERY 04/17 completed Not Available Not Available Not Available ibuprofen 600 mg tablet TAKE 1 TABLET BY MOUTH EVERY 6 HOURS NEEDED FOR PAIN 11/22 completed Not Available Not Available Not Available ondansetron 4 mg disintegrat ing tablet 04/17 completed Not Available Not Available Not Available cefdinir 300 mg capsule TAKE 1 CAPSULE (300 MG TOTAL) BY MOUTH 2 (TWO) TIMES DAILY FOR 5 DAYS. 04/17 completed Not Available Not Available Not Available fluticasone propionate 50 mcg/actuati on nasal spray,suspe nsion 1 SPRAY INTRANASA LLY DAILY ADMINISTE R INTO EACH NOSTRIL 11/22 completed Not Available Not Available Not Available dicyclomine 10 mg capsule 04/17 completed Not Available Not Available Not Available naproxen 500 mg tablet TAKE 1 TABLET BY MOUTH TWICE A DAY 04/17 completed Not Available Not Available Not Available Sudogest 60 mg tablet 04/17 completed Not Available Not Available Not Available amoxicillin 875 mg-potassiu m clavulanate 125 mg tablet TAKE 1 TABLET BY MOUTH TWICE A DAY 11/22 completed Not Available Not Available Not Available oxycodone 5 mg tablet TAKE 1 2 TABLETS BY MOUTH EVERY 4 6 HOURS NEEDED FOR POSTOPERA TIVE PAIN. 04/17 completed Not Available Not Available Not Available hydroxyzine pamoate 25 mg capsule TAKE 1 CAPSULE (25 MG TOTAL) BY MOUTH EVERY 4 (FOUR) HOURS NEEDED (PAIN) 04/17 completed Not Available Not Available Not Available azithromyci n 500 mg tablet 04/17 completed Not Available Not Available Not Available escitalopra m 5 mg tablet TAKE 1 TABLET BY MOUTH EVERY DAY active Not Available Not Available No t Available ramelteon 8 mg tablet TAKE 1 TABLET BY MOUTH NIGHTLY active Not Available Not Available No t Available oxycodone 10 mg tablet TAKE 1 TABLET BY MOUTH EVERY 4 HOURS NEEDED FOR PAIN FOR UP TO 14 DAYS active Not Available Not Available No t Available Senexon-S 8.6 mg-50 mg tablet TAKE 2 TABS BY MOUTH 2 TIMES A DAY. MAY INCREASE TO 4 TABS TWICE DAILY IF NEEDED. HOLD IF DIARRHEA. 04/17 completed Not Available Not Available Not Available buprenorphi ne 8 mg-naloxone [address] 1 FILM UNDER THE TONGUE 2 TIMES A DAY FOR 7 DAYS. active Not Available Not Available No t Available buprenorphi ne 4 mg-naloxone 1 mg sublingual film TAKE ONE FILM IN THE AFTERNOON BY MOUTH DAILY. active Not Available Not Available No t Available Eliquis 2.5 mg tablet TAKE 1 TABLET BY MOUTH TWICE A DAY 04/17 completed Not Available Not Available Not Available naloxone 4 mg/actuatio n nasal spray PLEASE SEE ATTACHED FOR DETAILED DIRECTION S active Not Available Not Available No t Available Vitals Date Recorded Body height Body mass index (BMI) Body weight Respiratory rate Heart rate Oxygen saturation Oxygen saturation in Arterial blood by Pulse oximetry Body temperature Systolic And Diastolic Provider Name and Address Organization Details Last Updated DateTime 5 187.96 cm 19 kg/m2 44175.0 2 g 16 /min 91 /min 96 % 96 % 98 [degF] 106/72 mm[Hg] Laura Dooley MA [facility] 5 10:58:23 Date Recorded Body weight Body mass index (BMI) Body height Respiratory rate Body temperature Heart rate Oxygen saturation Oxygen saturation in Arterial blood by Pulse oximetry Systolic And Diastolic Provider Name and Address Organization Details Last Updated DateTime 4 83636.5 5 g 18.3 kg/m2 185.42 cm 16 /min 97.8 [degF] 96 /min 98 % 98 % 107/62 mm[Hg] Jamaal Pompa MA CT - [facility] 4 11:25:07 Date Recorded Body height Body mass index (BMI) Body weight Respiratory rate Body temperature Oxygen saturation Oxygen saturation in Arterial blood by Pulse oximetry Heart rate Systolic And Diastolic Provider Name and Address Organization Details Last Updated DateTime 185.42 cm 17.9 kg/m2 98977.1 6 g 16 /min 98.6 [degF] 97 % 97 % 91 /min 111/69 mm[Hg] Jamaal Pompa MA CT - [facility] 10:58:57 Social History Question Answer Notes LastModified by Giiv Details LastModified Time Tobacco Smoking Status Never Smoker Jamaal Pompa MA null, [place] - [facility] 04/17/2024 11:22:40 What Is Your Level Of Caffeine Consumption? Occasional Information not available 04/17/2024 What Was The Date Of Your Most Recent Tobacco Screening? 11/22/2024 [email or web address] Information not available 11/22/2024 Has Tobacco Cessation Counseling Been Provided? No Information not available 04/17/2024 Sex: Male Functional Status Question Answer Note LastModified by Giiv Details LastModified Time Do you use any illicit or recreational drugs? No Information not available 04/17/2024 Do you or have you ever used any other forms of tobacco or nicotine? No Information not available 04/17/2024 What is your level of alcohol consumption? None Information not available 04/17/2024 Mental Status None recorded. Family History Relationship Description Onset Age of this Age Resolved Age Notes LastModified by Organization Details LastModified Time Mother Sickle cell trait [email or web address] Not available 11:22:03 Mother Hypertensive disorder [email or web address] Not available 11:22:14 Brother Sickle cell trait [email or web address] Not available 11:22:03 Sister Sickle cell trait [email or web address] Not available 11:22:03 Sister Sickle cell trait [email or web address] Not available 11:22:04 Son Sickle cell trait [email or web address] Not available 11:22:03 Maternal Grandmother Hypertensive disorder [email or web address] Not available 11:22:14 Medical History No medical history recorded. Immunizations Vaccine Type Date Status Note Provider Nam e and Address Organization Details Recorded Time COVID-19, mRNA, LNP-S, PF, 30 mcg/0.3 mL dose 2 completed Brielle Ocasio MD Attn: Accounting,[address] [facility], [place], [place], [address] [place] [address], [place] [facility] 05/22/2024 11:12:14 COVID-19, mRNA, LNP-S, PF, 30 mcg/0.3 mL dose 2 completed Brielle Ocasio MD Attn: Accounting,[address] [facility], [place], [place], [address] [place] [address], [place] [facility] 05/22/2024 11:12:14 influenza, unspecified formulation 0 completed Brielle Ocasio MD Attn: Accounting,[address] [facility], [place], [address] [place] [address], [place] [facility] 04/17/2024 11:50:01 Influenza, split virus, quadrivalent, PF 8 completed Brielle Ocasio MD Attn: Accounting,[address] [facility], [place], [address] [place] [address], [place] [facility] 04/17/2024 11:50:01 Influenza, split virus, quadrivalent, PF 2 completed Brielle Ocasio MD Attn: Accounting,[address] [facility], [place], [address] [place] [address], [place] [facility] 04/17/2024 11:50:01 meningococcal ACWY, unspecified formulation 0 completed Brielle Ocasio MD Attn: Accounting,[address] [facility], [place], [address] [place] [address], [place] [facility] 04/17/2024 17:44:47 influenza, unspecified formulation 3 completed Brielle Ocasio MD Attn: Accounting,[address] [place], [place], [address] [place] [address], [place] [facility] 04/17/2024 17:44:47 influenza, unspecified formulation 5 completed Brielle Ocasio MD Attn: Accounting,[address] [facility], [place], [address] [place] [address], [place] [facility] 04/17/2024 17:44:47 OPV, trivalent 6 completed Brielle Ocasio MD Attn: Accounting,[address] [facility], [place], [address] [place] [address], [place] [facility] 04/17/2024 17:44:47 OPV, trivalent 6 completed Brielle Ocasio MD Attn: Accounting,[address] [facility], [place], [address] [place] [address], [place] [facility] 04/17/2024 17:44:47 OPV, trivalent 6 completed Brielle Ocasio MD Attn: Accounting,[address] [facility], [place], [address] [place] [address], [place] [facility] 04/17/2024 17:44:47 DTP-Hib 6 completed Brielle Ocasio MD Attn: Accounting,[address] [facility], [place], [address] [place] [address], [place] [facility] 04/17/2024 17:44:47 DTP-Hib 7 completed Brielle Ocasio MD Attn: Accounting,[address] [facility], [place], [address] [place] [address], [place] [facility] 04/17/2024 17:44:47 DTP-Hib 6 completed Brielle Ocasio MD Attn: Accounting,[address] [facility], [place], [address] [place] [address], [place] [facility] 04/17/2024 17:44:47 DTP-Hib 6 completed Brielle Ocasio MD Attn: Accounting,[address] [facility], [place], [address] [place] [address], [place] [facility] 04/17/2024 17:44:47 influenza, split (incl. purified surface antigen) 7 completed Brielle Ocasio MD Attn: Accounting,[address] [facility], [place], [address] [place] [address], [place] [facility] 04/17/2024 17:44:47 Novel [id number] 0 completed Brielle Ocasio MD Attn: Accounting,[address] [facility], [place], [address] [place] [address], [place] [facility] 04/17/2024 17:44:47 Influenza, split virus, quadrivalent, PF 4 completed Brielle Ocasio MD Attn: Accounting,[address] [facility], [place], [address] [place] [address], [place] [facility] 04/17/2024 17:44:47 Hep A, unspecified formulation 0 completed Brielle Ocasio MD Attn: Accounting,[address] [facility], [place], [address] [place] [address], [place] [facility] 04/17/2024 17:44:47 Influenza, split virus, trivalent, PF 4 completed Brielle Ocasio MD Attn: Accounting,[address] [facility], [place], [address] [place] [address], [place] [facility] 11/22/2024 11:14:14 Tdap 5 completed Laura Dooley [place] [facility], [place] [facility] 11/22/2024 13:23:41 DTaP 6 completed Not Available [facility] 10/16/2023 07:32:16 DTaP 6 completed Not Available [facility] 10/16/2023 07:32:16 DTaP 6 completed Not Available [facility] 10/16/2023 07:32:16 DTaP 7 completed Not Available [facility] 10/16/2023 07:32:16 Hib, unspecified formulation 6 completed Not Available [facility] 10/16/2023 07:32:15 Hib, unspecified formulation 6 completed Not Available [facility] 10/16/2023 07:32:15 Hib, unspecified formulation 6 completed Not Available [facility] 10/16/2023 07:32:15 Hib, unspecified formulation 7 completed Not Available [facility] 10/16/2023 07:32:15 Hep B, adolescent or pediatric 6 completed Not Available [facility] 10/16/2023 07:32:15 Hep B, adolescent or pediatric 6 completed Not Available [facility] 10/16/2023 07:32:15 Hep B, adolescent or pediatric 6 completed Not Available [facility] 10/16/2023 07:32:15 Hep B, adolescent or pediatric 6 completed Not Available [facility] 10/16/2023 07:32:16 MMR 7 completed Not Available [facility] 10/16/2023 07:32:15 meningococcal MCV4P 0 completed Not Available [facility] 10/16/2023 07:32:16 polio, unspecified formulation 6 completed Not Available [facility] 10/16/2023 07:32:15 polio, unspecified formulation 6 completed Not Available [facility] 10/16/2023 07:32:15 polio, unspecified formulation 6 completed Not Available [facility] 10/16/2023 07:32:15 Tdap 7 completed Not Available [facility] 10/16/2023 07:32:15 Tdap 0 completed Not Available [facility] 10/16/2023 07:32:15 varicella 0 completed Not Available [facility] 10/16/2023 07:32:15 Past Encounters Encounter ID Performer Location Encounter Start Date Encounter Closed Date Diagnosis/Indication Diagnosis SNOMED-CT Code Diagnosis ICD10 Code Diagnosis IMO Codes Diagnosis Note [id number] MD Cherelle Thomas Newfanelizbeth e ([facility]) [address] [place] [address] 04/17/2024 11:02:55 04/19/2024 12:02:57 Venereal disease screening 465880170 Z11.3 Sickle cell-hemoglobin SS disease 636719454 D57.1 Depressive disorder 3548 9007 F32.A Anxiety 38200413 F41.9 [id number] MD Cherelle Thomas Belllizbeth e ([facility]) [address] [place] [address] 05/22/2024 10:20:34 05/23/2024 11:47:08 Sickle cell-hemoglobin SS disease 969506497 D57.1 Tendinitis of left wrist region 0497424268 7841133 M67.366 [id number] Brielle Ocasio MD [facility] ([facility]) [address] [place] [address] 11/22/2024 10:43:24 11/26/2024 12:12:00 Active or passive immunization 389040752 Z23 Sickle cell-hemoglobin SS disease 899165806 D57.1 Adult heal th examination 307789384 Z00.00 Health Concerns Section Related Observation LastModified by Organization Detai ls LastModified Time None Recorded Concern Status LastModified by Organization Details LastModified Time None Recorded Advance Directives Directive None Recorded Payers Insurance Date Sequence Insurance Name Policy Number Policy Blakely Covered Member ID Blakely Member ID Guarantor Name 07/08/2025 2 [place] Rochelle Wynn [id number] Rochelle Wynn 07/26/2025 1 [place] Rochelle Wynn [id number] Rochelle Wynn 07/08/2025 1 [place] [facility] Mila Wynn [id number] Rochelle Wynn 07/08/2025 2 [facility] PRIOR TO 04/30/2021 (MEDICAID REPLACEMENT - HMO) Rochelle Wynn [id number] Rochelle Wynn 07/26/2025 2 [place] WHEN [place]ARE OR MEDIC[place] REPLACEMENT PRIMARY) Mila Wynn [id number] Rochelle Wynn 07/08/2025 2 [place] [facility] Mila Wynn [id number] Rochelle Wynn 07/26/2025 [place] [facility] Rochelle Wynn [id number] Rochelle Wynn 07/08/2025 1 [facility] PRIOR TO 04/30/2021 (MEDICAID REPLACEMENT - HMO) Rochelle Wynn [id number] Rochelle Wynn 07/08/2025 1 [employer] [facility] ON OR AFTER 09/30/2020 (MEDICAID REPLACEMENT - HMO) Mila Wynn [id number] Rochelle Wynn Notes Date Note Type Note Provider Name and Address Organization Details Recorded Time 04/17/2024 text/html Patient is here to establish care, history of sickle cell disease sees hematology in [facility]. Wants an std screen. Admits to longstanding depression and anxiety which has not been treated in a few years. Brielle Ocasio MD Attn: Accounting,[address] [facility], [place], [address], [facility] 04/17/2024 17:46:28 05/22/2024 text/html Patient is here for follow up hospital stay for sickling crisis. Requests med refills and referral to PT for left wrist pain. Brielle Ocasio MD Attn: Accounting,[address] [facility], [place], [address], [facility] 05/22/2024 11:21:18 11/22/2024 text/html Here for annual and med refills. Not Available [facility] 11/24/2024 04:23:49
--- OUTSIDE RECORDS SUMMARY | 2025-08-10 05:37 | XMS_ITS | Encounter Summary ---
Author Organization [facility] Address [address] [place] [address] Phone Care Team Providers Care Marketing Communications Manager Name Role Phone Unknown, Notinfbebeto Primary Care Provider Unavail able Kwan Hennessy MD Primary Care Provider [phone] La Nena Hansen MD Unavailable [phone] Kwan Hennessy MD Primary Care Provider [phone] Kwan Hennessy MD Primary Care Provider [phone] Anjelica Villegas RN Unavailable Carolyn Nunez EMERGENCY VETERINARY ASSISTANT Unavailable Aleah Cherry PROFESSOR OF SPORT MANAGEMENT Unavailable Bessie Butt MD Unavailable Brandy Neely IMPROVEMENT SPECIALIST Unavailable [phone] Encounter Details Date Type Department Care Team (Latest Contact Info) Description 03/20/2019 Orders Only [facility] Scanning, Provider Social History Tobacco Use Types Packs/Day Years Used Date Smoking Tobacco: Former Sex and Gender Information Value Date Recorded Sex Assigned at Not on file Legal Sex 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 Gender Identity Not on file Sexual Orientation Not on file documented as of this encounter Plan of Treatment Not on file documented as of this encounter Procedures Procedure Name Priority Date/Time Associated Diagnosis Comments SCAN - RADIOLOGY/IMAGING 03/20/2019 documented in this encounter Results * SCAN - RADIOLOGY/IMAGING (03/20/2019) Anatomical Region Laterality Modality Other us Provider Scanning Final Result documented in this encounter Visit Diagnoses Not on filedocumented in this encounter Additional Health Concerns Infection Onset Date Last Indicated Resolved Time Exposure, COVID-19 Comment:Per provider, accidental documentation of exposure. Per patient, no known exposures to COVID. Brandy Lyons 01/05/2021 01/04/2021 01/04/2021 01/05/2021 3 :58 AM DENTAL EQUIPMENT MECHANIC COVID: Suspected 01/04/2021 01/04/2021 01/05/2021 1:28 AM DENTAL EQUIPMENT MECHANIC COVID: Suspected 03/09/2021 03/09/2021 03/09/2021 11:10 AM CDT COVID: Suspected 11/02/2021 11/02/2021 11/02/2021 1:37 PM DENTAL EQUIPMENT MECHANIC COVID19 11/02/2021 11/02/2021 11/18/2021 3:05 AM DENTAL EQUIPMENT MECHANIC COVID: Recovered Comment:Added based on recent COVID infection. 11/18/2021 11/18/2021 03/18/2022 3:05 AM C DT COVID: Suspected 06/09/2022 06/09/2022 06/09/2022 6:05 PM CDT Rhino/Enterovirus 06/09/2022 06/09/2022 06/16/2022 3:05 AM CDT COVID: Suspected 10/10/2022 10/10/2022 10/10/2022 7:34 PM DENTAL EQUIPMENT MECHANIC COVID: Suspected 05/22/2023 05/22/2023 05/22/2023 7:55 AM CDT COVID: Suspected 06/16/2024 06/16/2024 06/16/2024 2:19 AM CDT Parainfluenza, droplet 06/16/2024 06/16/202406/23 3:05 AM CDT documented as of this encounter Care Teams Marketing Communications Manager Relationship Specialty Start Date End Date Unknown, Notinfile PCP - General 05/04/17 03/20/19 Kwan Hennessy MD [address] [address] PCP - General Emergency Medicine 03/21/19 01/03/20 La Nena Hansen MD [address] [phone] PCP - Hematology/Oncology Pediatric Hematology and Oncology 09/11/19 07/15/21 Kwan Hennessy MD [address] [address] PCP - General 01/17/20 04/13/20 Kwan Hennessy MD [address] [place] [id number] PCP - General 04/14/20 Anjelica Villegas, RN [address] [address] [facility] Outpatient Basket Person 01/08/21 02/05/21 Carolyn Nunez, MARQUIS [address] [phone] Nurse Practitioner Nurse Practitioner 01/08/21 07/14/21 Aleah Cherry RRT [address] [address] [facility] Outpatient Basket PersonGang Investigator Therapy 03/11/21 04/08/21 Bessie Butt MD [address] [address] Medical Oncologist/Classroom Technology Technician Hematology 07/15/21 Brandy Neely, [facility] [address] [facility] ([facility] Mailstop [phone] [place] [address] SHOP Outpatient Basket Person 06/20/24 07/17/24 documented as of this encounter
--- OUTSIDE RECORDS SUMMARY | 2025-08-10 05:37 | XMS_ITS | Clinical Summary ---
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 Medicine Hematology [address] Floor 6 [place] [address] StanNneka from Last 3 Months Immunizations Immunization Administration Dates Next Due DTP / HiB 05/14/1997, 6,1996,04/17 DTaP 05/14/1997, 6,1996,04/17 H1N1 Inj 11/26/2009 Hep A, Unspecified 06/11/2010 Hep B, Adolescent or Pediatric 6,1996,1996,02/10 HiB 05/14/1997, 6,1996,04/17 Influenza, Quadrivalent, Spl it, Preservative Free, Intramuscular 10/13/2022,11/04/2017 Influenza, Split 10/17/2007 Influenza, Trivalent, Preser vative Free, Intramuscular 08/29/2024 Influenza, Unspecified 07/31/2020,09/09/2005 MMR 05/14/1997 Meningococcal ACWY, Unspecified 06/11/2010 OPV 1996,1996,1996 24tidy SARS-CoV-2 Monovalent Vaccination (12+ Yrs) PURPLE 12/10/2021,11/19/2021 Tdap 11/22/2024, 4,06/11/2010,02/07 Varicella 06/11/2010 Surgical History Surgery Date Site/Laterality Comments CHOLECYSTECTOMY 04/30/2018 - 05/30/2018 TONSILLECTOMY APPENDECTOMY JOINT REPLACEMENT HIP SURGERY FLUORO GUIDED INJECTION SHOULDER LEFT 01/23/2025 Lef t Medical History Medical History Date Comments Bipolar disorder Bipolar disorde r - (Added by TW Conv) Other psychoactive substance abuse, in remission (HCC) Substance abuse in remission - (Added by TW Conv) ADHD (attention deficit hype ractivity disorder) Asthma Depression Heart valve disease Sickle cell anemia (HCC) Sleep apnea Priapism HTN (hypertension) GERD (gastroesophageal reflux disease) History of transfusion 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 Utilities Answer Date Recorded In the past 12 months has [employer], gas, oil, or water [employer] threatened to shut off services in your [...] week 02/04/2025 How often do you attend [facility] ch or latter day services? Never 02/04/2025 Do you belong to any clubs o r organizations such as restorationist groups, unions, fraternal or athletic groups, or [...] place to sleep or slept in a intermediate (including now)? No 05/23/2023 Housing Stability Vital Sign Answer Darrin e Recorded In the last 12 months, was t here a time when you were not able to pay the mortgage or rent on time? No 02/04/2025 In the past 12 months, how m any times have you moved where you were living? 0 02/04/2025 At any time in the past 12 m [facility], were you homeless or living in a intermediate (including now)? 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 Gender Identity Not on file Sexual Orientation Not on file Occupation Industry Job Start Date Job End Date Unemployed Not on file Not on file Not on file Obstetrics History Last Filed Vital Signs Vital Sign Reading Time Taken Comments Blood Pressure 132/77 08/06/2025 5:25 PM CDT Pulse 74 08/06/2025 5:25 PM CDT Temperature 36.3 C (97.4 F) 08/06/2025 2:40 PM CDT Respiratory Rate 18 08/06/2025 5:25 PM CDT Oxygen Saturation 97% 08/06/2025 5:25 PM CDT Inhaled Oxygen Concentration - - Weight 61.6 kg (135 lb 12.8 oz) 025 10:52 AM CDT Height 190.5 cm (6' 3) 05/21/2025 7:33 PM CDT Body Mass Index 16.97 05/21/2025 7:33 PM CDT Plan of Treatment Health Maintenance Due Date Last Done Comments Meningococcal B Vaccine (1 o f 4 - Increased Risk) 02/10/2006 Varicella Vaccines (2 of 2 - 13+ 2-dose series) 07/09/2010 06/11/2010 Regular Well Visit/Exam 18-64 02/10/2014 Pneumococcal vaccine <65 (1 of 2 - PCV) 02/10/2015 Zoster Vaccine (1 of 2) 02/10/2015 Covid-19 Vaccine (3 - Pfizer risk series) 01/07/2022 12/10/2021, 11/19/2021 HPV Vaccines (1 - Risk 3-dos e SCDM series) 02/10/2023 Influenza Vaccine (#1) 2025 , 10/13/2022, 07/31/2020, Additional history exists Depression Screening 12/21/2025 12/21/2024 DTaP/Tdap/Td Vaccine (9 - Td or Tdap) 11/22/2034 11/22/2024, 03/07/2024, 06/11/2010, Additional history exists Hepatitis B Screening Completed 05/20/2020 , 1996, 1996, Additional history exists Hepatitis C Screening Completed 05/20/2020 Medical Devices Implanted Type Area Investment Advisor Device Identifier Shelf Expiration Date Model / Serial / Lot [employer] [id number] [id number] 36mm Type 1 Modular Hip Acetabular +3mm Offset Head Femoral - Sna - [id number] Implanted:Qty: 1 on 12/29/2020 by Tiarra Lopes MD at [facility] Other - see comments Left: Hip [employer] 02/26/2030 [id number] / NA / [id number] [employer] [id number] 52mm Limit 3 Hole Hip E Hemisphere Offset Shell Acetabular - Sna - [id number] Implanted:Qty: 1 on 12/29/2020 by Tiarra Lopes MD at [facility] Other - see comments Left: Hip [employer] 05/20/2030 [id number] / NA / [id number] [employer] [id number] 36mm Lumen Hip E Liner Acetabular Longevity Sterile Latex Free - Sna - [id number] Implanted:Qty: 1 on 12/29/2020 by Tiarra Lopes MD at [facility] Other - see comments Left: Hip [employer] 01/28/[id number] / NA / [id number] [employer] [id number] Taperloc 142mm Type 1 Press Fit Full Profile Hip 133d 11 Standard - Sna - [id number] Implanted:Qty: 1 on 12/29/2020 by Tiarra Lopes MD at [facility] Other - see comments Left: Hip [employer] 01/23/2028 [id number] / NA / [id number] [employer] [id number] Trilogy 6.5mm 35mm Self Tap Screw Bone - Sna - [id number] Implanted:Qty: 1 on 12/29/2020 by Tiarra Lopes MD at [facility] Screw Left: Hip [employer] 05/22/2030 [id number] / NA / [id number] [employer] [id number] Trilogy 6.5mm 30mm Self Tap Acetabular Cortical Screw Bone - Sna - [id number] Implanted:Qty: 1 on 12/29/2020 by Tiarra Lopes MD at [facility] Screw Left: Hip [employer] 10/03/2030 [id number] / NA / [id number] [employer] [id number] 52mm Limit 3 Hole Hip E Hemisphere Offset Shell Acetabular - [id number] Implanted:Qty: 1 on 04/14/2020 by Tiarra Lopes MD at [facility] Right: Hip [employer] [id number] 10/11/2029 [id number] / / [id number] Liner Hip G7 Longevity 5mm 32mm C - [id number] Implanted:Qty: 1 on 04/14/2020 by Tiarra Lopes MD at [facility] Right: Hip [employer] [id number] 05/30/2024 [id number] / / [id number] [employer] [id number] Trilogy 6.5mm 30mm Self Tap Acetabular Cortical Screw Bone - [id number] Implanted:Qty: 1 on 04/14/2020 by Tiarra Lopes MD at [facility] Right: Hip [employer] [id number] 12/28/2029 [id number] / / [id number] [employer] [id number] Trilogy 6.5mm 40mm Self Tap Hip Acetabular Cortical Screw Bone - [id number] Implanted:Qty: 1 on 04/14/2020 by Tiarra Lopes MD at [facility] Right: Hip [employer] [id number] 08/30/2029 [id number] / / [id number] [employer] [id number] Taperloc 144mm Type 1 Press Fit Full Profile Hip 133d 12 Standard - [id number] Implanted:Qty: 1 on 04/14/2020 by Tiarra Lopes MD at [facility] Right: Hip [employer] [id number] 07/09/2028 [id number] / / [id number] [employer] [id number] 36mm Modular Hip Standard Head Femoral Biolox Delta - [id number] Implanted:Qty: 1 on 04/14/2020 by Tiarra Lopes MD at [facility] Right: Hip [employer] [id number] 02/09/2029 [id number] / / [id number] Procedures Procedure Name Priority Date/Time Associated Diagnosis Comments EGFR Routine 07/30/2025 10:44 AM CDT 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) DIFFERENTIAL AUTO Routine 07/30/2025 10: 44 AM CDT 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) CBC WITH AUTO DIFFERENTIAL Routine 07/30/2025 10:44 AM CDT 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) COMPREHENSIVE METABOLIC PANEL Routine 07/30/2025 10:44 AM CDT 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) B ABO / RH CONFIRMATION TESTING STAT 07/14/2025 6:51 AM CDT ANTIBODY IDENTIFICATION STAT 07/14/2025 5:48 AM CDT EGFR STAT 07/14/2025 5:48 AM CDT RETICULOCYTES STAT 07/14/2025 5:48 AM CDT BLOOD SMEAR REVIEW STAT 07/14/2025 5: 48 AM CDT DIFFERENTIAL AUTO STAT 07/14/2025 5:4 8 AM CDT ANTIBODY SCREEN STAT 07/14/2025 5:48 AM CDT ABO/RH STAT 07/14/2025 5:48 AM CDT PHOSPHORUS STAT 07/14/2025 5:48 AM CDT MAGNESIUM STAT 07/14/2025 5:48 AM CDT TYPE AND SCREEN STAT 07/14/2025 5:48 AM CDT SEPSIS LACTATE WITH REFLEX STAT 07/14/2025 5:48 AM CDT COMPREHENSIVE METABOLIC PANEL STAT 07/14/2025 5:48 AM CDT CBC WITH AUTO DIFFERENTIAL STAT 07/14/2025 5:48 AM CDT XR CHEST 1 VIEW ED 06/25/2025 12:44 PM CDT URINALYSIS, MICROSCOPIC ONLY STAT 06/25/2025 12:33 PM CDT URINALYSIS AND REFLEX TO MICROSCOPIC AND CULTURE STAT 06/25/2025 12:33 PM CDT MANUAL DIFFERENTIAL STAT 06/25/2025 1 2:27 PM CDT EGFR STAT 06/25/2025 12:27 PM CDT RETICULOCYTES STAT 06/25/2025 12:27 PM CDT COMPREHENSIVE METABOLIC PANEL STAT 06/25/2025 12:27 PM CDT CBC WITH AUTO DIFFERENTIAL STAT 06/25/2025 12:27 PM CDT ECG 12-LEAD STAT 06/25/2025 12:21 PM CDT EGFR Routine 06/11/2025 9:17 AM CDT 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) DIFFERENTIAL AUTO Routine 06/11/2025 9:1 7 AM CDT 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) CBC WITH AUTO DIFFERENTIAL Routine 06/11/2025 9:17 AM CDT 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) COMPREHENSIVE METABOLIC PANEL Routine 06/11/2025 9:17 AM CDT 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) BLOOD SMEAR REVIEW STAT 05/30/2025 7: 11 AM CDT EGFR STAT 05/30/2025 7:11 AM CDT DIFFERENTIAL AUTO STAT 05/30/2025 7:1 1 AM CDT RETICULOCYTES STAT 05/30/2025 7:11 AM CDT COMPREHENSIVE METABOLIC PANEL STAT 05/30/2025 7:11 AM CDT CBC WITH AUTO DIFFERENTIAL STAT 05/30/2025 7:11 AM CDT MRI MS BRAIN 3T PROTOCOL W WO CONTRAST Schedule Routine, Read Routine (OP Routine) 05/21/2025 8:09 PM CDT 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 73 m2 Comment: Interpretive Data Reference Interval Normal >/= 90 mL/min/1.73m2 Mildly decreased* 60 - 89 mL/min/1.73m2 Mildly to moderately decreased 45 - 59 mL/min/1.73m2 Moderately to severely decreased 30 - 44 mL/min/1.73m2 Severely decreased 15 - 29 mL/min/1.73m2 Kidney Failure < 15 mL/min/1.73m2 *Relative to young adult level Estimated glomerular filtration rate is determined by the 2020 CKD-EPI equation recommended by the National Kidney Foundation (A Unifying Approach to GFR Estimation: Recommendations of the NKF-ASK Task Force on Reassessing the Inclusion of Race in Diagnosing Kidney Disease, JASN 202). The CKD-EPI equation should not be used for patients with unstable renal function and has not been validated in children and those over 70. Current interpretive data was last reviewed 2021. Blood 07/30/2025 10:4 4 AM CDT 07/30/2025 10:51 AM CDT us Bessie Rizvi MD LAB BLOOD ORDERABLES Anne lorenzo Result [facility] Department [place] [address] * Differential, auto (07/30/2025 10:44 AM CDT) Neutrophil abs 5.20 1.50 - 6.50 K/cumm Comment:Testing performed by : [facility][Note 3] Heme Lab, [address] [place], [place] [phone] Lymphocyte abs 3.07 0.80 - 3.30 K/cumm CERNER BJ Comment:Testing performed by : [facility][Note 3] Heme Lab, [address] [place] [address] Monocyte abs 0.55 0.20 - 0.80 K/cumm CERNER BJ Comment:Testing performed by : [facility][Note 3] Heme Lab, [address] [place] [address] Eosinophil abs 0.16 0.00 - 0.50 K/cumm [facility] Comment:Testing performed by : [facility][Note 3] Heme Lab, [address] [place], [place] [phone] Basophil abs 0.07 0.00 - 0.10 K/cumm CERNER BJ Comment:Testing performed by : [facility][Note 3] Heme Lab, [address] [place] [address] Neutrophil pct 57.5 % CERNER BJ Comment: Interpretive Data Percent cell count reference ranges are not reported, since discordance with absolute values may lead to misinterpretation of CBC data. Current Interpretive Data was last revised on 2018. Testing performed by: [facility][Note 3] Heme Lab, [address] [place], [place] [phone] Lymphocyte pct 33.9 % CERNER BJ Comment: Interpretive Data Percent cell count reference ranges are not reported, since discordance with absolute values may lead to misinterpretation of CBC data. Current Interpretive Data was last revised on 2018. Testing performed by: [facility][Note 3] Heme Lab, [address] [place], [place] [phone] Monocyte pct 6.0 % [facility] Comment: Interpretive Data Percent cell count reference ranges are not reported, since discordance with absolute values may lead to misinterpretation of CBC data. Current Interpretive Data was last revised on 2018. Testing performed by: [facility][Note 3] Heme Lab, [address] [place] [address] Eosinophil pct 1.8 % [facility] Comment: Interpretive Data Percent cell count reference ranges are not reported, since discordance with absolute values may lead to misinterpretation of CBC data. Current Interpretive Data was last revised on 2018. Testing performed by: [facility][Note 3] Heme Lab, [address] [place] [phone] Basophil pct 0.8 % [facility]INO[facility] Comment: Interpretive Data Percent cell count reference ranges are not reported, since discordance with absolute values may lead to misinterpretation of CBC data. Current Interpretive Data was last revised on 2018. Testing performed by: [facility][Note 3] Heme Lab, [address] [place] [phone] Blood 07/30/2025 10:4 4 AM CDT 07/30/2025 10:51 AM CDT us Bessie Rizvi MD LAB BLOOD ORDERABLES Anne lorenzo Result [facility] Department [place] [address] * (ABNORMAL) CBC with auto differential (07/30/2025 10:44 AM CDT) WBC 9.03 3.80 - 9.90 K/cumm Comment:Testing performed by : [facility][Note 3] Heme Lab, [address] [place] [address] Hgb 9.8(L) 13.0 - 17.5 g/dL [facility] HINOJOSA Comment:Testing performed by : [facility][Note 3] Heme Lab, [address] [place] [address] Hct 28.4(L) 38.9 - 50.3 % [facility] HINOJOSA Comment:Testing performed by : [facility][Note 3] Heme Lab, [address] [place] [address] Plt 375 150 - 400 K/cumm [facility]ON HINOJOSA Comment:Testing performed by : [facility][Note 3] Heme Lab, [address] [place] [address] MPV 7.2 6.8 - 10.4 fL [facility] HINOJOSA Comment:Testing performed by : [facility][Note 3] Heme Lab, [address] [place], [place] [phone] RBC 2.48(L) 4.30 - 5.80 M/cumm [facility] HINOJOSA Comment:Testing performed by : [facility][Note 3] Heme Lab, [address] [place], [place] [phone] MCV 114.4(H) 81.3 - 96.4 fL [facility] HINOJOSA Comment:Testing performed by : [facility][Note 3] Heme Lab, [address] [place], [place] [phone] MCH 39.5(H) 27.1 - 33.3 pg [facility] HINOJOSA Comment:Testing performed by : [facility][Note 3] Heme Lab, [address] [place], [place] [phone] MCHC 34.5 32.3 - 35.7 g/dL [facility] HINOJOSA Comment:Testing performed by : [facility][Note 3] Heme Lab, [address] [place], [place] [phone] RDW CV 18.3(H) 11.1 - 14.9 % [facility] Comment:Testing performed by : [facility][Note 3] Heme Lab, [address] [place], [place] [phone] NRBC abs n/a 0.00 - 0.01 K/cumm [facility] Comment:Testing performed by : [facility][Note 3] Heme Lab, [address] [place], [place] [phone] Blood 07/30/2025 10:4 4 AM CDT 07/30/2025 10:51 AM CDT us Bessie Rizvi MD LAB BLOOD ORDERABLES Anne l Result [facility] Department [place] [address] * (ABNORMAL) Comprehensive metabolic panel (07/30/2025 10:44 AM CDT) Sodium 140 135 - 145 mmol/L Potassium, pl 4.2 3.3 - 4.9 mmol/L [facility] Chloride 107 97 - 110 mmol/L [facility] CO2 23 22 - 32 mmol/L [facility] Anion gap 10 2 - 15 mmol/L [facility] BUN 6 6 - 25 mg/dL [facility] Creatinine 0.62(L) 0.80 - 1.30 mg/dL [facility] Glucose 89 70 - 199 mg/dL [facility] Comment: Interpretive Data Fasting glucose >/= 126 mg/dl is diagnostic for diabetes. Fasting is defined as no caloric intake for at least 8 hours. Fasting glucose between 100 mg/dl to 125 mg/dl is diagnostic of prediabetes. In a patient with classic symptoms of hyperglycemia or hyperglycemic crisis, a random glucose >/= 200 mg/dl is diagnostic for diabetes. In the absence of unequivocal hyperglycemia, results should be confirmed by repeat testing. The classification and Diagnosis of Diabetes Diabetes Care 202; 46: S19-S40. Current interpretive data was last revised 2022. Calcium 9.3 8.5 - 10.3 mg/dL [facility] Bilirubin, total 1.6(H) 0.1 - 1.2 mg/dL [facility] Protein, pl 8.1 6.5 - 8.5 g/dL [facility] Albumin 4.6 3.5 - 5.0 g/dL [facility] Alk phos 77 40 - 130 Units/L [facility] ALT 14 7 - 55 Units/L [facility] AST 46 10 - 50 Units/L [facility] Blood 07/30/2025 10:4 4 AM CDT 07/30/2025 10:51 AM CDT Bessie Rizvi MD LAB BLOOD ORDERABLES Anne l Result [facility] Department [place] [address] * ABO / Rh Confirmation Testing (07/14/2025 6:51 AM CDT) ABO/Rh Confirmation A Positive [facility] Blood 07/14/2025 6:51 AM CDT 07/14/2025 6:57 AM CDT Red Underwood MD LAB BLOOD ORDERABLES Final Result Performing Organization Address [facility] Co de Phone Number [facility] [address] [place] [address] MH * Sepsis Lactate w/ Reflex (07/14/2025 5:48 AM CDT) [facility] Sepsis Lactate 1.0 0.7 - 2.0 mmol/L Blood 07/14/2025 5:48 AM CDT 07/14/2025 5:52 AM CDT Red Underwood MD LAB BLOOD ORDERABLES Final Result Performing Organization Address [facility] de Phone Number [address] [place] [address] * (ABNORMAL) Blood smear review (07/14/2025 5:48 AM CDT) [facility] RBC morphology Present(A) Poikilocytosis Slight(A) [facility] Sickle cells 3-7/HPF(A) [facility] Platelet estimate Automated Count Confirmed [facility] Blood 07/14/2025 5:48 AM CDT 07/14/2025 5:52 AM CDT Red Underwood MD LAB BLOOD ORDERABLES Final Result Performing Organization Address [facility] de Phone Number [address] [place] [address] * eGFR (07/14/2025 5:48 AM CDT) [facility] eGFR >90 >=60 mL/min/1. 73 m2 Comment: Interpretive Data Reference Interval Normal >/= 90 mL/min/1.73m2 Mildly decreased* 60 - 89 mL/min/1.73m2 Mildly to moderately decreased 45 - 59 mL/min/1.73m2 Moderately to severely decreased 30 - 44 mL/min/1.73m2 Severely decreased 15 - 29 mL/min/1.73m2 Kidney Failure < 15 mL/min/1.73m2 *Relative to young adult level Estimated glomerular filtration rate is determined by the 2020 CKD-EPI equation recommended by the National Kidney Foundation (A Unifying Approach to GFR Estimation: Recommendations of the NKF-ASK Task Force on Reassessing the Inclusion of Race in Diagnosing Kidney Disease, JASN 2020). The CKD-EPI equation should not be used for patients with unstable renal function and has not been validated in children and those over 70. Current interpretive data was last reviewed 2021. Blood 07/14/2025 5:48 AM CDT 07/14/2025 5:52 AM CDT us Red Underwood MD LAB BLOOD ORDERABLES Final Result [place] [id number] [facility] Department [place] [address] * (ABNORMAL) Differential, auto (07/14/2025 5:48 AM CDT) Pathologist [facility] Neutrophil abs 2.86 1.50 - 6.50 K/cumm Imm gran abs 0.01 0.00 - 0.10 K/cumm [facility] Lymphocyte abs 4.95(H) 0.80 - 3.30 K/cumm [facility] Monocyte abs 0.79 0.20 - 0.80 K/cumm [facility] Eosinophil abs 0.21 0.00 - 0.50 K/cumm [facility] Basophil abs 0.03 0.00 - 0.10 K/cumm [facility] Neutrophil pct 32.4 % [facility] Comment: Interpretive Data Percent cell count reference ranges are not reported, since discordance with absolute values may lead to misinterpretation of CBC data. Current Interpretive Data was last revised on 2018. Imm gran pct 0.1 % [facility] Comment: Interpretive Data Percent cell count reference ranges are not reported, since discordance with absolute values may lead to misinterpretation of CBC data. Current Interpretive Data was last revised on 2018. Lymphocyte pct 55.9 % [facility] Comment: Interpretive Data Percent cell count reference ranges are not reported, since discordance with absolute values may lead to misinterpretation of CBC data. Current Interpretive Data was last revised on 2018. Monocyte pct 8.9 % [facility] Comment: Interpretive Data Percent cell count reference ranges are not reported, since discordance with absolute values may lead to misinterpretation of CBC data. Current Interpretive Data was last revised on 2018. Eosinophil pct 2.4 % [facility] Comment: Interpretive Data Percent cell count reference ranges are not reported, since discordance with absolute values may lead to misinterpretation of CBC data. Current Interpretive Data was last revised on 2018. Basophil pct 0.3 % [facility] Comment: Interpretive Data Percent cell count reference ranges are not reported, since discordance with absolute values may lead to misinterpretation of CBC data. Current Interpretive Data was last revised on 2018. Blood 07/14/2025 5:48 AM CDT 07/14/2025 5:52 AM CDT Red Underwood MD LAB BLOOD ORDERABLES Final Result [facility] [address] [facility] Department [place] [address] * (ABNORMAL) CBC with auto differential (07/14/2025 5:48 AM CDT) WBC 8.85 3.80 - 9.90 K/cumm Hgb 8.5(L) 13.0 - 17.5 g/dL [facility] Hct 24.5(L) 38.9 - 50.3 % [facility] Plt 411(H) 150 - 400 K/cumm [facility] MPV 9.4 9.1 - 12.3 fL [facility] RBC 2.23(L) 4.30 - 5.80 M/cumm [facility] MCV 109.9(H) 81.3 - 96.4 fL [facility] MCH 38.1(H) 27.1 - 33.3 pg [facility] MCHC 34.7 32.3 - 35.7 g/dL [facility] RDW CV 16.4(H) 11.1 - 14.9 % [facility] RDW SD 63.8(H) 35.7 - 48.1 fL [facility] NRBC abs 0.41(H) 0.00 - 0.01 K/cumm [facility] Blood 07/14/2025 5:48 AM CDT 07/14/2025 5:52 AM CDT Red Underwood MD LAB BLOOD ORDERABLES Edite d Result - Final Performing Organization Address [facility] Co de Phone Number [address] [employer] [place] [address] * Antibody identification (07/14/2025 5:48 AM CDT) Antibody Identification Interpretation Anti-E Comment: 07/14/2025 06:39 [id number] Previously identified not currently reacting Antibody Identification Interpretation Anti-C [facility] Comment: 07/14/2025 06:38 [id number] Previously identified not currently reacting Blood 07/14/2025 5:48 AM CDT 07/14/2025 5:52 AM CDT Red Crockett DO LAB BLOOD BANK TEST ORDERAB LES Final Result Performing Organization Address [facility] de Phone Number [address] [place] [address] * ABO/Rh (07/14/2025 5:48 AM CDT) Pathologist [facility] ABO/Rh A Positive Blood 07/14/2025 5:48 AM CDT 07/14/2025 5:52 AM CDT [facility] 07/14/[facility]25 6:34 AM CDT Has the patient had Daratumumab or Isatuximab in the past 6 months?->Unknown Red Underwood MD LAB BLOOD BANK TEST ORDERA BLES Final Result Performing Organization Address [facility] Co de Phone Number [address] [place] [address] * (ABNORMAL) Reticulocyte Count (07/14/2025 5:48 AM CDT) [facility] Retics, absolute 284(H) 20 - 87 K/cumm Retics 12.7(H) 0.4 - 2.9 % [facility] Reticulocyte Hgb 40.6(H) 30.5 - 38.0 pg [facility] Blood 07/14/2025 5:48 AM CDT 07/14/2025 5:52 AM CDT Red Underwood MD LAB BLOOD ORDERABLES Final Result Performing Organization Address City/[facility]/ZIP Co de Phone Number [address] [place] [address] * Antibody screen (07/14/2025 5:48 AM CDT) [facility] Zachary, indirect, Gel Interpretation Negative ABSC Blood 07/14/2025 5:48 AM CDT 07/14/2025 5:52 AM CDT Narrative [facility] - 07/14/2025 6:34 AM CDT Has the patient had Daratumumab or Isatuximab in the past 6 months?->Unknown Red Underwood MD LAB BLOOD BANK TEST ORDERA BLES Final Result Performing Organization Address [facility] Co de Phone Number [address] [place] [address] * Phosphorus (07/14/2025 5:48 AM CDT) [facility] Phosphorus, pl 4.1 2.3 - 4.5 mg/dL Blood 07/14/2025 5:48 AM CDT 07/14/2025 5:52 AM CDT Red Underwood MD LAB BLOOD ORDERABLES Final Result Performing Organization Address [facility] Co de Phone Number [address] [place] [address] * Magnesium (07/14/2025 5:48 AM CDT) Pathologist [facility] Magnesium 2.1 1.4 - 2.5 mg/dL Blood 07/14/2025 5:48 AM CDT 07/14/2025 5:52 AM CDT Red Underwood MD LAB BLOOD ORDERABLES Final Result [facility] [address] [facility] Department [place] [address] * (ABNORMAL) Comprehensive metabolic panel (07/14/2025 5:48 AM CDT) Pathologist [facility] Sodium 143 135 - 145 mmol/L Potassium, pl 3.6 3.3 - 4.9 mmol/L [facility] Comment:Hemolyzed; Potassium value may be falsely elevated by as much as 1.0 mmol/L. Suggest redraw and reanalysis. Chloride 108 97 - 110 mmol/L [facility] CO2 24 22 - 32 mmol/L [facility] Anion gap 11 2 - 15 mmol/L [facility] BUN 5(L) 6 - 25 mg/dL [facility] Creatinine 0.73(L) 0.80 - 1.30 mg/dL [facility] Glucose 102 70 - 199 mg/dL [facility] Comment: Interpretive Data Fasting glucose >/= 126 mg/dl is diagnostic for diabetes. Fasting is defined as no caloric intake for at least 8 hours. Fasting glucose between 100 mg/dl to 125 mg/dl is diagnostic of prediabetes. In a patient with classic symptoms of hyperglycemia or hyperglycemic crisis, a random glucose >/= 200 mg/dl is diagnostic for diabetes. In the absence of unequivocal hyperglycemia, results should be confirmed by repeat testing. The classification and Diagnosis of Diabetes Diabetes Care 2021; 46: S19-S40. Current interpretive data was last revised 2022. Calcium 9.3 8.5 - 10.3 mg/dL [facility] Bilirubin, total 1.6(H) 0.1 - 1.2 mg/dL [facility] Protein, pl 7.7 6.5 - 8.5 g/dL [facility] Albumin 4.4 3.5 - 5.0 g/dL [facility] Alk phos 77 40 - 130 Units/L [facility] ALT 11 7 - 55 Units/L [facility] AST 36 10 - 50 Units/L [facility] Blood 07/14/2025 5:48 AM CDT 07/14/2025 5:52 AM CDT us Red Underwood MD LAB BLOOD ORDERABLES Final Result [facility] [address] [facility] Department [place] [address] * XR Chest 1 Vw Portable (If patient hemodynamically UNstable or UNable to ambulate) (06/25/2025 12:44 PM CDT) Anatomical Region Laterality Modality Body, Chest N/A Computed Radiogr aphy 06/25/2025 1:13 PM CDT Narrative 06/25/2025 1:15 PM CDT EXAM DESCRIPTION: XR CHEST 1 VIEW REASON FOR STUDY: chest pain sickle cell crisis TECHNIQUE: Frontal radiographic view(s) of the chest. COMPARISON: 02/02/2025. FINDINGS: LUNGS: There is a coarsened appearance of the pulmonary interstitium which appears chronic with no focal consolidation, pleural effusion or pneumothorax. HEART/MEDIASTINUM: Heart size is mildly enlarged but unchanged. Mediastinal hilar contours normal. LINES/TUBES: None. BONES: Unchanged appearance of osseous structures with partially imaged sclerosis right humeral head. There is a mild scoliotic curvature of the lumbar spine. IMPRESSION: 1. No evidence of an acute cardiopulmonary abnormality. 2. Chronic interstitial changes. THIS IS AN ELECTRONICALLY VERIFIED FINAL REPORT 06/25/2025 1:15 PM - Electronically signed by Pato Clarke M.D. CH: CORDELL Report ID: [id number] Reading Location: [id number] Procedure Note Pato Clarke MD - 06/25/2025 EXAM DESCRIPTION: XR CHEST 1 VIEW REASON FOR STUDY: chest pain sickle cell crisis TECHNIQUE: Frontal radiographic view(s) of the chest. COMPARISON: 02/02/2025. FINDINGS: LUNGS: There is a coarsened appearance of the pulmonary interstitium which appears chronic with no focal consolidation, pleural effusion or pneumothorax. HEART/MEDIASTINUM: Heart size is mildly enlarged but unchanged.Mediastinal hilar contours normal. LINES/TUBES: None. BONES: Unchanged appearance of osseous structures with partially imaged sclerosis right humeral head. There is a mild scoliotic curvature of the lumbar spine. IMPRESSION: 1. No evidence of an acute cardiopulmonary abnormality. 2. Chronic interstitial changes. THIS IS AN ELECTRONICALLY VERIFIED FINAL REPORT 06/25/2025 1:15 PM - Electronically signed by Pato Clarke M.D. CH: Report ID: [id number] Reading Location: [place] [address] Griselda Casey MD IMG XR PROCEDURES Final Result * (ABNORMAL) Urinalysis reflex to microscopic and culture Urine (06/25/2025 12:33 PM CDT) Color, ur Yellow Yellow Comment:Testing performed by : [address] [address] Clarity, ur Clear Clear [facility] Comment:Testing performed by : [address] [address] Specific gravity, ur 1.010 1.003 - 1.030 [facility] Comment:Testing performed by : [address] [address] pH, urine 7.0 [facility] Comment: Interpretive Data U rine pH is affected by diet, medications, systemic acid-base disturbances, and renal tubular function. pH may affect urinary stone formation. For example, urine pH below 6.0 may help reduce the tendency for calcium phosphate stones and pH greater than 6.0 may reduce the tendency for uric acid stone formation. Source: boo-box Current Interpretive Data was last revised on 2017 Testing performed by: [address] [address] Protein, ur ql Negative Negative [facility] Comment:Testing performed by : [address] [address] Glucose, ur ql Negative Negative [facility] Comment:Testing performed by : [address], [place]., [address] Ketones, ur Negative Negative [facility] PULIDO Comment:Testing performed by : [address], [place]., [address] Bilirubin, ur Negative Negative [facility] Comment:Testing performed by : [address], [place]., [address] Blood, ur Negative Negative [facility] Comment:Testing performed by : [address], [place]., [address] Urobilinogen, ur 2.0(A) <2.0 mg/dL [facility] PULIDO Comment:Testing performed by : [address], [place]., [address] Nitrite, ur Negative Negative [facility] Comment:Testing performed by : [address], [place]., [address] Leukocyte esterase, ur 1+(A) Negative [facility] Comment:Testing performed by : [address], [place]., [address] UA reflex comment Reflex to microscopic UA will be performed. [facility] Comment:Testing performed by : [address] [address] Urine 06/25/2025 12:3 3 PM CDT 06/25/2025 12:40 PM CDT us Griselda Casey MD LAB MICROBIOLOGY - GENERAL ORDER YAMILETH Final Result [facility] [address] [facility] Department [place] [address] * (ABNORMAL) Urinalysis, microscopic only (06/25/2025 12:33 PM CDT) WBC, ur 6-10(A) 0 - 5 /HPF Comment:Testing performed by : [address], [place]., [address] RBC, ur 0-2 0 - 2 /HPF [facility] PULIDO Comment:Testing performed by : [address], [place]., [address] Mucous, ur Present(A) [facility] Comment:Testing performed by : [facility], [address] [place] [address]., [address] Culture Reflex Comment Reflex conditions for urine culture (WBC >10) not met. [facility] Comment:Testing performed by : [facility], [address] [place] [address]., [id number] Urine 06/25/2025 12:3 3 PM CDT 06/25/2025 12:40 PM CDT us Griselda Casey MD LAB URINE ORDERABLES Final Resul t [facility] [address] [facility] Department [place] [address] * eGFR (06/25/2025 12:27 PM CDT) eGFR >90 >=60 mL/min/1. 73 m2 Comment: Interpretive Data Reference Interval Normal >/= 90 mL/min/1.73m2 Mildly decreased* 60 - 89 mL/min/1.73m2 Mildly to moderately decreased 45 - 59 mL/min/1.73m2 Moderately to severely decreased 30 - 44 mL/min/1.73m2 Severely decreased 15 - 29 mL/min/1.73m2 Kidney Failure < 15 mL/min/1.73m2 *Relative to young adult level Estimated glomerular filtration rate is determined by the 2020 CKD-EPI equation recommended by the National Kidney Foundation (A Unifying Approach to GFR Estimation: Recommendations of the NKF-ASK Task Force on Reassessing the Inclusion of Race in Diagnosing Kidney Disease, JASN 2020). The CKD-EPI equation should not be used for patients with unstable renal function and has not been validated in children and those over 70. Current interpretive data was last reviewed 2021. Testing performed by: [facility], [address] [place] [address]., [address] Blood 06/25/2025 12:2 7 PM CDT 06/25/2025 12:30 PM CDT us Griselda Casey MD LAB BLOOD ORDERABLES Final Resul t [facility] [address] [facility] Department [place] [address] * (ABNORMAL) CBC with auto differential (06/25/2025 12:27 PM CDT) WBC 9.43 3.80 - 9.90 K/cumm Comment:Testing performed by : [address] [address] Hgb 8.1(L) 13.0 - 17.5 g/dL [facility] Comment:Testing performed by : [address] [address] Hct 22.1(L) 38.9 - 50.3 % [facility] Comment:Testing performed by : [address] [address] Plt 310 150 - 400 K/cumm [facility] Comment:Testing performed by : [address] [address] MPV 9.5 9.1 - 12.3 fL [facility] Comment:Testing performed by : [address] [address] RBC 2.10(L) 4.30 - 5.80 M/cumm [facility] Comment:Testing performed by : [address] [address] MCV 105.2(H) 81.3 - 96.4 fL [facility] Comment:Testing performed by : [address] [address] MCH 38.6(H) 27.1 - 33.3 pg [facility] Comment:Testing performed by : [address] [address] MCHC 36.7(H) 32.3 - 35.7 g/dL [facility] Comment:Testing performed by : [address] [address] RDW CV 16.7(H) 11.1 - 14.9 % [facility] Comment:Testing performed by : [address] [address] RDW SD 62.5(H) 35.7 - 48.1 fL [facility] Comment:Testing performed by : [address] [address] NRBC abs 0.40(H) 0.00 - 0.01 K/cumm [facility] Comment:Testing performed by : [address] [address] Blood 06/25/2025 12:2 7 PM CDT 06/25/2025 12:30 PM CDT us Griselda Casey MD LAB BLOOD ORDERABLES Edited Resu lt - Final [facility] Department [place] [address] * (ABNORMAL) Manual Differential (06/25/2025 12:27 PM CDT) Differential Manual Comment:Testing performed by : [address] [address] Cells Counted 100 [facility] Comment:Testing performed by : [address] [address] Neutrophil abs 6.98(H) 1.50 - 6.50 K/cumm [facility] Comment:Testing performed by : [address] [address] Imm gran abs 0.47(H) 0.00 - 0.10 K/cumm [facility] Comment:Testing performed by : [address] [address] Lymphocyte abs 1.60 0.80 - 3.30 K/cumm [facility] Comment:Testing performed by : [address] [address] Monocyte abs 0.38 0.20 - 0.80 K/cumm [facility] Comment:Testing performed by : [address] [address] Neutrophil pct 74.0 % [facility] Comment: Interpretive Data Percent cell count reference ranges are not reported, since discordance with absolute values may lead to misinterpretation of CBC data. Current Interpretive Data was last revised on 2018. Testing performed by: [address] [address] Lymphocyte pct 17.0 % [facility] Comment: Interpretive Data Percent cell count reference ranges are not reported, since discordance with absolute values may lead to misinterpretation of CBC data. Current Interpretive Data was last revised on 2018. Testing performed by: [address], [place]., [address] Monocyte pct 4.0 % [facility] Comment: Interpretive Data Percent cell count reference ranges are not reported, since discordance with absolute values may lead to misinterpretation of CBC data. Current Interpretive Data was last revised on 2018. Testing performed by: [address], [place]., [address] Metamyelocyte pct 5.0(H) 0.0 - 0.0 % [facility] Comment:Testing performed by : [address], [place]., [address] RBC morphology Consistent with RBC Indicies [facility] Comment:Testing performed by : [address], [place]., [address] Hypochromasia 3-7/HPF(A) [facility] Comment:Testing performed by : [address], [place]., [address] Anisocytosis Slight(A) [facility] Comment:Testing performed by : [address] [address] Poikilocytosis Moderate(A) [facility] Comment:Testing performed by : [address], [place]., [address] Sickle cells 3-7/HPF(A) [facility] Comment:Testing performed by : [address], [place]., [address] Target cells 3-7/HPF(A) [facility] Comment:Testing performed by : [address], [place]., [address] Platelet estimate Automated Count Confirmed [facility] Comment:Testing performed by : [address], [place]., [address] Blood 06/25/2025 12:2 7 PM CDT 06/25/2025 12:30 PM CDT Griselda Casey MD LAB BLOOD ORDERABLES Final Resul t Performing Organization Address [facility] de Phone Number [address] [address] * (ABNORMAL) Reticulocyte Count (06/25/2025 12:27 PM CDT) Pathologist [facility] Retics, absolute 226(H) 20 - 87 K/cumm Comment:Testing performed by : [address] [address] Retics 10.8(H) 0.4 - 2.9 % [facility] Comment:Testing performed by : [address] [address] Reticulocyte Hgb 34.8 30.5 - 38.0 pg [facility] Comment:Testing performed by : [address] [address] Blood 06/25/2025 12:2 7 PM CDT 06/25/2025 12:30 PM CDT Griselda Casey MD LAB BLOOD ORDERABLES Final Resul t Performing Organization Address [facility] de Phone Number [address] [address] * (ABNORMAL) Comprehensive metabolic panel (06/25/2025 12:27 PM CDT) [facility] Sodium 137 135 - 145 mmol/L Comment:Testing performed by : [address] [address] Potassium, pl 4.0 3.3 - 4.9 mmol/L [facility] PULIDO Comment:Testing performed by : [address] [address] Chloride 101 97 - 110 mmol/L [facility] Comment:Testing performed by : [address] [address] CO2 23 22 - 32 mmol/L [facility] Comment:Testing performed by : [address] [address] Anion gap 13 2 - 15 mmol/L [facility] Comment:Testing performed by : [address] [address] BUN 5(L) 6 - 25 mg/dL [facility] Comment:Testing performed by : [address] [address] Creatinine 0.68(L) 0.80 - 1.30 mg/dL [facility] Comment:Testing performed by : [address] [address] Glucose 128 70 - 199 mg/dL [facility] Comment: Interpretive Data Fasting glucose >/= 126 mg/dl is diagnostic for diabetes. Fasting is defined as no caloric intake for at least 8 hours. Fasting glucose between 100 mg/dl to 125 mg/dl is diagnostic of prediabetes. In a patient with classic symptoms of hyperglycemia or hyperglycemic crisis, a random glucose >/= 200 mg/dl is diagnostic for diabetes. In the absence of unequivocal hyperglycemia, results should be confirmed by repeat testing. The classification and Diagnosis of Diabetes Diabetes Care 202; 46: S19-S40. Current interpretive data was last revised 2022. Testing performed by: [address] [address] Calcium 9.6 8.5 - 10.3 mg/dL [facility] Comment:Testing performed by : [address] [address] Bilirubin, total 2.3(H) 0.1 - 1.2 mg/dL [facility] Comment:Testing performed by : [address] [address] Protein, pl 8.3 6.5 - 8.5 g/dL [facility] Comment:Testing performed by : [address] [address] Albumin 4.7 3.5 - 5.0 g/dL [facility] Comment:Testing performed by : [address] [address] Alk phos 81 40 - 130 Units/L [facility] Comment:Testing performed by : [facility], [address] [place] [address]., [address] ALT 18 7 - 55 Units/L [facility] Comment:Testing performed by : [facility], [address] [place] [address]., [address] AST 50 10 - 50 Units/L [facility] Comment:Testing performed by : [address] [address] Blood 06/25/2025 12:2 7 PM CDT 06/25/2025 12:30 PM CDT us Griselda Casey MD LAB BLOOD ORDERABLES Final Resul t Performing Organization Address City/[facility]/ZIP Co de Phone Number [facility] [address] [facility] Department [place] [address] * ECG 12 lead (06/25/2025 12:21 PM CDT) Pathologist [facility] Ventricular Rate EKG/Min 98 BPM [facility] Atrial Rate 98 BPM [facility] IL-Interval (MSEC) 148 ms [facility] QRS-Interval (MSEC) 98 ms [facility] QT-Interval (MSEC) 362 ms [facility] QTc 462 ms [facility] [place] 73 degrees [facility] R [place] 8 degrees [facility] T [place] 172 degrees [facility] Diagnosis Normal sinus rhythm Possible Left atrial enlargement Left ventricular hypertrophy T wave abnormality, consider inferolateral ischemia Prolonged QT Abnormal ECG When compared with ECG of 26-NOV-2024 20:14, T wave inversion now evident in Inferior leads T wave inversion more evident in Lateral leads Confirmed by LLUVIA POOL M.D. ([id number]) on 06/25/2025 8:33:04 PM [facility] 06/25/2025 12:2 1 PM CDT 06/25/2025 8:33 PM CDT us Griselda Casey MD ECG ORDERABLES Final Result Performing Organization Address City/[facility]/ZIP Co de Phone Number [facility] * eGFR (06/11/2025 9:17 AM CDT) [facility] eGFR >90 >=60 mL/min/1. 73 m2 Comment: Interpretive Data Reference Interval Normal >/= 90 mL/min/1.73m2 Mildly decreased* 60 - 89 mL/min/1.73m2 Mildly to moderately decreased 45 - 59 mL/min/1.73m2 Moderately to severely decreased 30 - 44 mL/min/1.73m2 Severely decreased 15 - 29 mL/min/1.73m2 Kidney Failure < 15 mL/min/1.73m2 *Relative to young adult level Estimated glomerular filtration rate is determined by the 2020 CKD-EPI equation recommended by the National Kidney Foundation (A Unifying Approach to GFR Estimation: Recommendations of the NKF-ASK Task Force on Reassessing the Inclusion of Race in Diagnosing Kidney Disease, JASN 2020). The CKD-EPI equation should not be used for patients with unstable renal function and has not been validated in children and those over 70. Current interpretive data was last reviewed 2021. Blood 06/11/2025 9:17 AM CDT 06/11/2025 9:31 AM CDT us Bessie Rizvi MD LAB BLOOD ORDERABLES Anne lorenzo Result [facility] [place] [address] * Differential, auto (06/11/2025 9:17 AM CDT) [facility] Neutrophil abs 5.39 1.50 - 6.50 K/cumm Comment:Testing performed by : [facility][Note 3] Heme Lab, [address] [place] [phone] Lymphocyte abs 2.50 0.80 - 3.30 K/cumm MADYSON HINOJOSA Comment:Testing performed by : [facility][Note 3] Heme Lab, [address] [place] [phone] Monocyte abs 0.63 0.20 - 0.80 K/cumm MADYSON HINOJOSA Comment:Testing performed by : [facility][Note 3] Heme Lab, [address] [place] [phone] Eosinophil abs 0.03 0.00 - 0.50 K/cumm [facility] Comment:Testing performed by : [facility][Note 3] Heme Lab, [address] [place], [place] [phone] Basophil abs 0.06 0.00 - 0.10 K/cumm [facility] Comment:Testing performed by : [facility], [address] [place], [place] [id number] Neutrophil pct 62.6 % [facility] Comment: Interpretive Data Percent cell count reference ranges are not reported, since discordance with absolute values may lead to misinterpretation of CBC data. Current Interpretive Data was last revised on 2018. Testing performed by: [facility], [address] [place], [place] [id number] Lymphocyte pct 29.0 % [facility] Comment: Interpretive Data Percent cell count reference ranges are not reported, since discordance with absolute values may lead to misinterpretation of CBC data. Current Interpretive Data was last revised on 2018. Testing performed by: [facility][Note 3] Heme Lab, [address] [place], [place] [id number] Monocyte pct 7.3 % [facility] Comment: Interpretive Data Percent cell count reference ranges are not reported, since discordance with absolute values may lead to misinterpretation of CBC data. Current Interpretive Data was last revised on 2018. Testing performed by: [facility], [address] [place] [address] Eosinophil pct 0.4 % [facility] Comment: Interpretive Data Percent cell count reference ranges are not reported, since discordance with absolute values may lead to misinterpretation of CBC data. Current Interpretive Data was last revised on 2018. Testing performed by: [facility][Note 3] Heme Lab, [address] [place] [phone] Basophil pct 0.7 % [facility] Comment: Interpretive Data Percent cell count reference ranges are not reported, since discordance with absolute values may lead to misinterpretation of CBC data. Current Interpretive Data was last revised on 2018. Testing performed by: [facility][Note 3] Heme Lab, [address] [place] [address] Blood 06/11/2025 9:17 AM CDT 06/11/2025 9:31 AM CDT Bessie Rizvi MD LAB BLOOD ORDERABLES Anne lorenzo Result [facility] [place] [address] * (ABNORMAL) CBC with auto differential (06/11/2025 9:17 AM CDT) WBC 8.61 3.80 - 9.90 K/cumm Comment:Testing performed by : [facility][Note 3] Heme Lab, [address] [place] [address] Hgb 9.2(L) 13.0 - 17.5 g/dL [facility] Comment:Testing performed by : [facility][Note 3] Heme Lab, [address] [place] [address] Hct 25.9(L) 38.9 - 50.3 % [facility] Comment:Testing performed by : [facility][Note 3] Heme Lab, [address] [place] [address] Plt 298 150 - 400 K/cumm [facility] Comment:Testing performed by : [facility][Note 3] Heme Lab, [address] [place] [address] MPV 7.6 6.8 - 10.4 fL [facility] Comment:Testing performed by : [facility][Note 3] Heme Lab, [address] [place] [address] RBC 2.29(L) 4.30 - 5.80 M/cumm [facility] Comment:Testing performed by : [facility][Note 3] Heme Lab, [address] [place] [address] MCV 112.9(H) 81.3 - 96.4 fL [facility] Comment:Testing performed by : [facility][Note 3] Heme Lab, [address] [place] [address] MCH 40.1(H) 27.1 - 33.3 pg [facility] Comment:Testing performed by : [facility][Note 3] Heme Lab, [address] [place] [phone] MCHC 35.5 32.3 - 35.7 g/dL [facility] Comment:Testing performed by : [facility][Note 3] Heme Lab, [address] [place] [address] RDW CV 20.4(H) 11.1 - 14.9 % [facility] Comment:Testing performed by : [facility][Note 3] Heme Lab, [address] [place] [phone] NRBC abs 0.50(H) 0.00 - 0.01 K/cumm [facility] Comment:Testing performed by : [facility][Note 3] Heme Lab, [address] [place] [phone] Blood 06/11/2025 9:17 AM CDT 06/11/2025 9:31 AM CDT Bsesie Rizvi MD LAB BLOOD ORDERABLES Anne lorenzo Result [facility] Department [place] [address] * (ABNORMAL) Comprehensive metabolic panel (06/11/2025 9:17 AM CDT) Sodium 138 135 - 145 mmol/L Potassium, pl 4.0 3.3 - 4.9 mmol/L [facility] Chloride 104 97 - 110 mmol/L [facility] CO2 24 22 - 32 mmol/L [facility] Anion gap 10 2 - 15 mmol/L [facility] BUN 8 6 - 25 mg/dL [facility] Creatinine 0.77(L) 0.80 - 1.30 mg/dL [facility] Glucose 101 70 - 199 mg/dL [facility] Comment: Interpretive Data Fasting glucose >/= 126 mg/dl is diagnostic for diabetes. Fasting is defined as no caloric intake for at least 8 hours. Fasting glucose between 100 mg/dl to 125 mg/dl is diagnostic of prediabetes. In a patient with classic symptoms of hyperglycemia or hyperglycemic crisis, a random glucose >/= 200 mg/dl is diagnostic for diabetes. In the absence of unequivocal hyperglycemia, results should be confirmed by repeat testing. The classification and Diagnosis of Diabetes Diabetes Care 2021; 46: S19-S40. Current interpretive data was last revised 2022. Calcium 9.4 8.5 - 10.3 mg/dL [facility] Bilirubin, total 2.6(H) 0.1 - 1.2 mg/dL [facility] Protein, pl 8.3 6.5 - 8.5 g/dL [facility] Albumin 4.8 3.5 - 5.0 g/dL [facility] Alk phos 94 40 - 130 Units/L [facility] ALT 16 7 - 55 Units/L [facility] AST 51(H) 10 - 50 Units/L [facility] Blood 06/11/2025 9:17 AM CDT 06/11/2025 9:31 AM CDT Bessie Rizvi MD LAB BLOOD ORDERABLES Anne l Result [facility] Department [place] [address] * (ABNORMAL) Blood smear review (05/30/2025 7:11 AM CDT) RBC morphology Present(A) Comment:Testing performed by : [address] [address] Poikilocytosis Slight(A) [facility] Comment:Testing performed by : [address] [address] Macrocytes 3-7/HPF(A) [facility] Comment:Testing performed by : [address] [address] Sickle cells 1-2/HPF(A) [facility] Comment:Testing performed by : [address] [address] Elliptocytes 3-7/HPF(A) [facility] Comment:Testing performed by : [address] [address] Platelet estimate Adequate [facility] Comment:Testing performed by : [facility], [address] [place] [address]., [address] Blood 05/30/2025 7:11 AM CDT 05/30/2025 7:13 AM CDT Shravanab Fredrick [facility] LAB BLOOD ORDERABLES Final Resu lt Performing Organization Address City/[facility] Co de Phone Number M[facility]ON [facility] [place] [address] * eGFR (05/30/2025 7:11 AM CDT) eGFR >90 >=60 mL/min/1. 73 m2 Comment: Interpretive Data Reference Interval Normal >/= 90 mL/min/1.73m2 Mildly decreased* 60 - 89 mL/min/1.73m2 Mildly to moderately decreased 45 - 59 mL/min/1.73m2 Moderately to severely decreased 30 - 44 mL/min/1.73m2 Severely decreased 15 - 29 mL/min/1.73m2 Kidney Failure < 15 mL/min/1.73m2 *Relative to young adult level Estimated glomerular filtration rate is determined by the 2020 CKD-EPI equation recommended by the National Kidney Foundation (A Unifying Approach to GFR Estimation: Recommendations of the NKF-ASK Task Force on Reassessing the Inclusion of Race in Diagnosing Kidney Disease, JASN 2020). The CKD-EPI equation should not be used for patients with unstable renal function and has not been validated in children and those over 70. Current interpretive data was last reviewed 2021. Testing performed by: [facility], [address] [place] [address]., [address] Blood 05/30/2025 7:11 AM CDT 05/30/2025 7:13 AM CDT Mitch Alcala MD LAB BLOOD ORDERABLES Final Resu lt Performing Organization Address City/[facility]/ZIP Co de Phone Number M[facility]YSON [address] [facility] [place] [address] * Differential, auto (05/30/2025 7:11 AM CDT) Pathologist [facility] Neutrophil abs 6.22 1.50 - 6.50 K/cumm Comment:Testing performed by : [address] [address] Imm gran abs 0.03 0.00 - 0.10 K/cumm [facility] Comment:Testing performed by : [address] [address] Lymphocyte abs 2.26 0.80 - 3.30 K/cumm [facility] Comment:Testing performed by : [address] [address] Monocyte abs 0.73 0.20 - 0.80 K/cumm [facility] Comment:Testing performed by : [address] [address] Eosinophil abs 0.03 0.00 - 0.50 K/cumm [facility] Comment:Testing performed by : [address] [address] Basophil abs 0.04 0.00 - 0.10 K/cumm [facility] Comment:Testing performed by : [address] [address] Neutrophil pct 66.9 % [facility] Comment: Interpretive Data Percent cell count reference ranges are not reported, since discordance with absolute values may lead to misinterpretation of CBC data. Current Interpretive Data was last revised on 2018. Testing performed by: [address] [address] Imm gran pct 0.3 % [facility] Comment: Interpretive Data Percent cell count reference ranges are not reported, since discordance with absolute values may lead to misinterpretation of CBC data. Current Interpretive Data was last revised on 2018. Testing performed by: [address] [address] Lymphocyte pct 24.3 % [facility] Comment: Interpretive Data Percent cell count reference ranges are not reported, since discordance with absolute values may lead to misinterpretation of CBC data. Current Interpretive Data was last revised on 2018. Testing performed by: [address] [address] Monocyte pct 7.8 % [facility] Comment: Interpretive Data Percent cell count reference ranges are not reported, since discordance with absolute values may lead to misinterpretation of CBC data. Current Interpretive Data was last revised on 2018. Testing performed by: [address] [address] Eosinophil pct 0.3 % [facility] Comment: Interpretive Data Percent cell count reference ranges are not reported, since discordance with absolute values may lead to misinterpretation of CBC data. Current Interpretive Data was last revised on 2018. Testing performed by: [address] [address] Basophil pct 0.4 % [facility] Comment: Interpretive Data Percent cell count reference ranges are not reported, since discordance with absolute values may lead to misinterpretation of CBC data. Current Interpretive Data was last revised on 2018. Testing performed by: [address] [address] Blood 05/30/2025 7:11 AM CDT 05/30/2025 7:13 AM CDT us Rehab Fredrick [facility] LAB BLOOD ORDERABLES Final Resu lt MADYSON [address] [facility] Department [place] [address] * (ABNORMAL) CBC with auto differential (05/30/2025 7:11 AM CDT) Pathologist [facility] WBC 9.31 3.80 - 9.90 K/cumm Comment:Testing performed by : [address] [address] Hgb 9.1(L) 13.0 - 17.5 g/dL [facility] Comment:Testing performed by : [address] [address] Hct 24.8(L) 38.9 - 50.3 % [facility] Comment:Testing performed by : [address] [address] Plt 233 150 - 400 K/cumm [facility] Comment:Testing performed by : [facility], [address] [place] [address]., [address] MPV 9.4 9.1 - 12.3 fL [facility] Comment:Testing performed by : [address] [address] RBC 2.34(L) 4.30 - 5.80 M/cumm [facility] Comment:Testing performed by : [address] [address] MCV 106.0(H) 81.3 - 96.4 fL [facility] Comment:Testing performed by : [address] [address] MCH 38.9(H) 27.1 - 33.3 pg [facility] Comment:Testing performed by : [address] [address] MCHC 36.7(H) 32.3 - 35.7 g/dL [facility] Comment:Testing performed by : [address] [address] RDW CV 17.4(H) 11.1 - 14.9 % [facility] Comment:Testing performed by : [address] [address] RDW SD 67.0(H) 35.7 - 48.1 fL [facility] Comment:Testing performed by : [address] [address] NRBC abs 0.29(H) 0.00 - 0.01 K/cumm [facility] Comment:Testing performed by : [address], [address] Blood 05/30/2025 7:11 AM CDT 05/30/2025 7:13 AM CDT us Rehab Fredrcik [facility] LAB BLOOD ORDERABLES Edited Res ult - Final [facility]ON [address] [facility] Department [place] [address] * (ABNORMAL) Reticulocyte Count (05/30/2025 7:11 AM CDT) Pathologist [facility] Retics, absolute 256(H) 20 - 87 K/cumm Comment:Testing performed by : [address] [address] Retics 11.0(H) 0.4 - 2.9 % [facility] Comment:Testing performed by : [address] [address] Reticulocyte Hgb 35.1 30.5 - 38.0 pg [facility] Comment:Testing performed by : [address] [address] Blood 05/30/2025 7:11 AM CDT 05/30/2025 7:13 AM CDT us Rehab Fredrick [facility] LAB BLOOD ORDERABLES Final Resu lt [facility] Department [place] [address] * (ABNORMAL) Comprehensive metabolic panel (05/30/2025 7:11 AM CDT) [facility] Sodium 138 135 - 145 mmol/L Comment:Testing performed by : [address] [address] Potassium, pl 4.0 3.3 - 4.9 mmol/L [facility] Comment:Testing performed by : [address] [address] Chloride 103 97 - 110 mmol/L [facility] Comment:Testing performed by : [address] [address] CO2 22 22 - 32 mmol/L [facility] Comment:Testing performed by : [address] [address] Anion gap 13 2 - 15 mmol/L [facility] Comment:Testing performed by : [address] [address] BUN 8 6 - 25 mg/dL [facility] Comment:Testing performed by : [address] [address] Creatinine 0.70(L) 0.80 - 1.30 mg/dL [facility] Comment:Testing performed by : [address] [address] Glucose 100 70 - 199 mg/dL [facility] Comment: Interpretive Data Fasting glucose >/= 126 mg/dl is diagnostic for diabetes. Fasting is defined as no caloric intake for at least 8 hours. Fasting glucose between 100 mg/dl to 125 mg/dl is diagnostic of prediabetes. In a patient with classic symptoms of hyperglycemia or hyperglycemic crisis, a random glucose >/= 200 mg/dl is diagnostic for diabetes. In the absence of unequivocal hyperglycemia, results should be confirmed by repeat testing. The classification and Diagnosis of Diabetes Diabetes Care 202; 46: S19-S40. Current interpretive data was last revised 2022. Testing performed by: [address] [address] Calcium 9.7 8.5 - 10.3 mg/dL [facility] Comment:Testing performed by : [address] [address] Bilirubin, total 2.4(H) 0.1 - 1.2 mg/dL [facility] Comment:Testing performed by : [address] [address] Protein, pl 8.2 6.5 - 8.5 g/dL [facility] Comment:Testing performed by : [address] [address] Albumin 4.8 3.5 - 5.0 g/dL [facility] Comment:Testing performed by : [address] [address] Alk phos 89 40 - 130 Units/L [facility] Comment:Testing performed by : [address] [address] ALT 22 7 - 55 Units/L [facility] Comment:Testing performed by : [address] [address] AST 55(H) 10 - 50 Units/L [facility]:Testing performed by : [address] [address] Blood 05/30/2025 7:11 AM CDT 05/30/2025 7:13 AM CDT us Rehab Fredrick [facility] LAB BLOOD ORDERABLES Final Resu lt MADYSON [address] [facility] Department [place] [address] * MRI MS Brain 3T Protocol W WO Contrast (05/21/2025 8:09 PM CDT) Anatomical Region Laterality Modality Head and Neck N/A Magnetic Resonan ce 05/22/2025 9:52 AM CDT Impressions 05/22/2025 12:02 PM CDT No evidence of acute or chronic brain infarct. No evidence of demyelinating disease. Dictated by: Marcie Joshi M.D. The radiology attending physician has personally reviewed this study, and had reviewed and/or edited this written report and agrees with it. Electronically signed by: Jose Kendall M.D, PHD Narrative 05/22/2025 12:02 PM CDT EXAMINATION: Magnetic resonance imaging (MRI) of the brain and brainstem without and with contrast HISTORY: Sickle cell disease. Neuro deficit. TECHNIQUE: Multiplanar multi-weighted MRI of the brain, brainstem was performed without and with intravenous contrast using the multiple sclerosis protocol, which includes high resolution 3D T1-weighted, FLAIR, and T2*-weighted gradient echo images. Scanner: [facility] Field Strength: 3T Contrast information: 12 mL Gadoterate Meglumine IV The post-contrast scan was performed approximately 5 minutes after IV contrast administration. COMPARISON: MRI brain 02/18/2023 FINDINGS: BRAIN: On this baseline MRI examination, there are no FLAIR/T2 hyperintense lesions. The visualized portions of the optic nerves are normal. The scalp and calvarium are normal. The superior sagittal sinus demonstrates normal venous flow. The corpus callosum is normal in shape and signal intensity. The posterior fossa is unremarkable. The pituitary and sella are normal. The brainstem and craniocervical junction are unremarkable. Diffusion weighted images reveal no hyperintensities to suggest acute cerebral infarction. The susceptibility weighted sequences reveal no evidence of acute or chronic hemorrhage. The ventricles are normal in size and position without evidence of hydrocephalus. Mucosal thickening in paranasal sinuses. The visualized portions of the mastoids are unremarkable. The orbits appear normal. Normal flow voids are demonstrated in the carotid arteries and basilar artery. Hypertrophic adenoid, lingual tonsils. Procedure Note Jose Kendall MD PhD - 05/22/2025 EXAMINATION: Magnetic resonance imaging (MRI) of the brain and brainstem without and with contrast HISTORY: Sickle cell disease. Neuro deficit. TECHNIQUE: Multiplanar multi-weighted MRI of the brain, brainstem was performed without and with intravenous contrast using the multiple sclerosis protocol, which includes high resolution 3D T1-weighted, FLAIR, and T2*-weighted gradient echo images. Scanner: [facility] Field Strength: 3T Contrast information: 12 mL Gadoterate Meglumine IV The post-contrast scan was performed approximately 5 minutes after IV contrast administration. COMPARISON: MRI brain 02/18/2023 FINDINGS: BRAIN: On this baseline MRI examination, there are no FLAIR/T2 hyperintense lesions. The visualized portions of the optic nerves are normal. The scalp and calvarium are normal. The superior sagittal sinus demonstrates normal venous flow. The corpus callosum is normal in shape and signal intensity. The posterior fossa is unremarkable. The pituitary and sella are normal. The brainstem and craniocervical junction are unremarkable. Diffusion weighted images reveal no hyperintensities to suggest acute cerebral infarction. The susceptibility weighted sequences reveal no evidence of acute or chronic hemorrhage. The ventricles are normal in size and position without evidence of hydrocephalus. Mucosal thickening in paranasal sinuses. The visualized portions of the mastoids are unremarkable. The orbits appear normal. Normal flow voids are demonstrated in the carotid arteries and basilar artery. Hypertrophic adenoid, lingual tonsils. IMPRESSION: No evidence of acute or chronic brain infarct. No evidence of demyelinating disease. Dictated by: Marcie Joshi M.D. The radiology attending physician has personally reviewed this study, and had reviewed and/or edited this written report and agrees with it. Electronically signed by: Jose Kendall M.D, PHD Bessie Rizvi MD IM MRI PROCEDURES Final Result * Hepatitis panel, acute (05/20/2020 4:13 AM CDT) HepBsAg NONREACT NONREACTIVE [facility] Comment: Siemens CentaurXP using CLAUDINE (chemiluminescent immunoassay) technology. NONREACTIVE: IgM antibodies to Hepatitis B Surface antigen not detected. REACTIVE: IgM antibodies to Hepatitis B Surface antigen detected. Reactive results will be confirmed by neutralization testing. HBsAb qn 6.37 mIU/mL [facility] Comment: Siemens CentaurXP using CLAUDINE (chemiluminescent immunoassay) technology. 9.99 IU/L or less.....NONREACTIVE: IgM antibodies to Hepatitis B Surface antibody are not detected. 10.00 IU/L or greater..REACTIVE: IgM antibodies to Hepatitis B Surface antibody are detected. Hep B core IgM NONREACT NONREACTIVE [facility] Comment: Siemens CentaurXP using CLAUDINE (chemiluminescent immunoassay) technology. NONREACTIVE: IgM antibodies to Hepatitis B Core antigen not detected. EQUIVOCAL: IgM antibodies to Hepatitis B Core antigen may or may not be present. Obtain a new specimen and retest. REACTIVE: IgM antibodies to Hepatitis B Core antigen detected. Hep A IgM NONREACT NONREACTIVE [facility] Comment: Siemens CentaurXP using CLAUDINE (chemiluminescent immunoassay) technology. NONREACTIVE: IgM antibodies to Hepatitis A not detected. This does not exclude possibility of exposure to Hepatitis A or early acute infection. EQUIVOCAL:IgM antibodies to Hepatitis A may or may not be present. Suggest recollection and retest. REACTIVE: Antibodies to Hepatitis A detected. Hep C Ab NONREACT NONREACTIVE [facility] Comment: Siemens CentaurXP using CLAUDINE (chemiluminescent immunoassay) technology. NONREACTIVE: Antibodies to Hepatitis C not detected. This does not exclude early acute Hepatitis C infection, possibility of exposure to Hepatitis C, antibodies below detection limit, or to lack of antibody reactivity to the antigen used in this assay. EQUIVOCAL: Antibodies to Hepatitis C may or may not be present. Sample to be confirmed by real-time PCR method. REACTIVE: Antibodies to Hepatitis C detected.Sample to be confirmed by real-time PCR method. 05/20/2020 4:13 AM CDT 05/20/2020 4:43 AM CDT Narrative [facility] - 05/20/2020 9:50 AM CDT Comment add this test the blood drawn today Resulting Agency Comment IN Leonel Sexton MD LAB MICROBIOLOGY - NERAL ORDERABLES Final Result [facility] [address] [place], [place] [id number] [place] [address] from Last 3 Months or Most Recently Relevant to Health Maintenance Insurance [employer] [facility] MEDICARE MEDICARE [facility] Address: [address] [address] [place] [address] [facility] MEDICARE Advance Directives For more information, please contact: [phone] * Full Code (Latest Code Status on File) Date Activated Date Inactivated Comments 02/02/2025 10:19 AM 02/04/2025 4:42 PM * Full Code Date Activated Date Inactivated Comments 02/02/2025 10:19 AM 02/02/2025 10:19 AM * Full Code Date Activated Date Inactivated Comments 12/21/2024 8:05 PM 12/28/2024 8:03 PM * Full Code Date Activated Date Inactivated Comments 06/16/2024 1:06 PM 06/19/2024 7:42 PM * Full Code Date Activated Date Inactivated Comments 05/22/2023 11:50 AM 05/25/2023 2:50 PM Care Teams Senior Oracle Adf Developer Relationship Specialty Start Date End Date Kwan Hennessy MD [address] [address] PCP - General 04/14/20 Bessie Butt MD [address] [place] [address] Medical Oncologist/Limnologist Hematology 07/15/21
--- OUTSIDE RECORDS SUMMARY | 2025-08-10 05:37 | XMS_ITS | Encounter Summary ---
Author Organization [facility] Address [address] [place] [address] Phone Care Team Providers Care Shingles Roofer Helper Name Role Phone Kwan Hennessy MD Primary Care Provider [phone] Bessie Butt MD Unavailable [phone] Reason for Visit * Reason Onset Date Comments PA started for morphine ER 15mg tablets 08/09/20 Encounter Details Date Type Department Care Team (Late st Contact Info) Description 08/09/2025 Documentation [facility] Medicine Hematology [address] [facility] [address] [place] [address] Luis A Self RN PA started for morphine ER 15mg tablets Social History Tobacco Use Types Packs/Day Years Used Date Smoking Tobacco: Never Passive Smoke Exposure: Never Smokeless Tobacco: Never Alcohol Use Standard Drinks/Week Comments Never 0 (1 standard drink = 0.6 oz pur e alcohol) [facility] Utilities Answer Date Recorded In the past 12 months has [employer], [employer], oil, or water [facility] threatened to shut off services in your [...] 02/04/2025 How often do you attend chur or orthodox services? Never 02/04/2025 Do you belong to any clubs o r organizations such as christian groups, unions, fraternal or athletic groups, or [...] place to sleep or slept in a mcc (including now)? No 05/23/2023 Housing Stability Vital Sign Answer Darrin e Recorded In the last 12 months, was t here a time when you were not able to pay the mortgage or rent on time? No 02/04/2025 In the past 12 months, how m any times have you moved where you were living? 0 02/04/2025 At any time in the past 12 m [facility], were you homeless or living in a mcc (including now)? 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 Gender Identity Not on file Sexual Orientation Not on file Occupation Industry Job Start Date Job End Date Unemployed Not on file Not on file Not on file documented as of this encounter Nursing Notes * Luis A Self RN - 08/09/2025 10:25 AM CDT (Julian: [id number]) Pa started for morphine ER 15mg tablets in cover my meds documented in this encounter Plan of Treatment Not on file documented as of this encounter Visit Diagnoses Not on filedocumented in this encounter Care Teams Shingles Roofer Helper Relationship Specialty Start Date End Date Kwan Hennessy MD [address] [address] PCP - General 04/14/20 Bessie Butt MD [address] [place] [address] Medical Oncologist/Education Nurse Hematology 07/15/21 documented as of this encounter
--- OUTSIDE RECORDS SUMMARY | 2025-08-10 05:37 | XMS_ITS | Encounter Summary ---
Author Organization [facility] Address [address] [place] [address] Care Team Providers Care Straight Pin Making Machine Operator Name Role Phone La Nena Hansen MD Unavailable [phone] Kwan Hennessy MD Primary Care Provider [phone] Anjelica Villegas RN Unavailable [phone] Carolyn Nunez MANUFACTURING PROJECT ENGINEER Unavailable Aleah Cherry RRT Unavailable [phone] Bessie Butt MD Unavailable Brandy Neely BAG GRADER Unavailable Encounter Details Date Type Department Care Team (Late st Contact Info) Description 09/18/2020 Telephone [facility] Radiology 1 [place] [address] La Nena Hansen MD [address] [facility] [address] [place], [place] [id number] Social History Tobacco Use Types Packs/Day Years Used Date Smoking Tobacco: Never Smokeless Tobacco: Never Alcohol Use Standard Drinks/Week Comments Never 0 (1 standard drink = 0.6 oz pur e alcohol) AUDIT-C Answer Date Recorded Q1: How often do you have a drink containing alc ohol? 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 11/18/2021 11/18/2021 03/18/2022 3:05 AM C DT COVID: Suspected 06/09/2022 06/09/2022 06/09/2022 6:05 PM CDT Rhino/Enterovirus 06/09/2022 06/09/2022 06/16/2022 3:05 AM CDT COVID: Suspected 10/10/2022 10/10/2022 10/10/2022 7:34 PM TENTER FRAME OPERATOR COVID: Suspected 05/22/2023 05/22/2023 05/22/2023 7:55 AM CDT COVID: Suspected 06/16/2024 06/16/2024 06/16/2024 2:19 AM CDT Parainfluenza, droplet 06/16/2024 06/16/202406/23 3:05 AM CDT documented as of this encounter Care Teams Straight Pin Making Machine Operator Relationship Specialty Start Date End Date La Nena Hansen MD PCP - Hematology/Oncology Pediatric Hematology and Oncology 09/11/19 07/15/21 Kwan Hennessy MD [address] [facility] [address] [place] [address] PCP - General 04/14/20 Ajnelica Villegas, RN [address] [facility] [address] [place] [address] SHOP Outpatient Railroad Wheels And Axle Inspector 01/08/21 02/05/21 Carolyn Nunez, MARQUIS [address] [place] [address] Nurse Practitioner Nurse Practitioner 01/08/21 07/14/21 Aleah Cherry RRT [address] [facility] [address] [place] [address] SHOP Outpatient Railroad Wheels And Axle InspectorResidency Program Coordinator Therapy 03/11/21 04/08/21 Bessie Butt MD [address] [place] [address] Medical Oncologist/Skein Yarn Dyer Helper Hematology 07/15/21 Brandy Neely, KVNG [address] [facility] ([facility]) Mailstop [phone] [place] [address] SHOP Outpatient Railroad Wheels And Axle Inspector 06/20/24 07/17/24 documented as of this encounter
--- NOTE | 2025-08-10 06:30 | PC.NURSE ---
Patient ambulates to desk with steady unassisted gait to state I am just going to go home. I will come back if I need to. Patient was informed of risks of leaving before being seen by a provider and benefits of staying for evaluation. Patient verbalized understanding and ambulated out of the ED with a steady unassisted gait with belongings in hand. Patient marked as left without being seen, triaged.
--- OUTSIDE RECORDS SUMMARY | 2025-08-10 06:52 | XMS_ITS | Encounter Summary ---
Author Organization [facility] Address [address] [place] [address] Phone Care Team Providers Care Traverse Rod Assembler Name Role Phone Kwan Hennessy MD Primary Care Provider [phone] Bessie Butt MD Unavailable [phone] Reason for Visit * Reason Onset Date Comments PA started for morphine ER 15mg tablets 08/09/20 Encounter Details Date Type Department Care Team (Late st Contact Info) Description 08/09/2025 Documentation [facility] Medicine Hematology [address] [facility] Floor 6 [place] [address] Luis A Self RN PA started for morphine ER 15mg tablets Social History Tobacco Use Types Packs/Day Years Used Date Smoking Tobacco: Never Passive Smoke Exposure: Never Smokeless Tobacco: Never Alcohol Use Standard Drinks/Week Comments Never 0 (1 standard drink = 0.6 oz pur e alcohol) [facility] Utilities Answer Date Recorded In the past 12 months has [employer], [employer], oil, or water [employer] threatened to shut off services in your [...] How often do you attend chur or nondenominational services? Never 02/04/2025 Do you belong to any clubs o r organizations such as holiness groups, unions, fraternal or athletic groups, or [...] place to sleep or slept in a senior care (including now)? No 05/23/2023 Housing Stability Vital Sign Answer Darrin e Recorded In the last 12 months, was t here a time when you were not able to pay the mortgage or rent on time? No 02/04/2025 In the past 12 months, how m any times have you moved where you were living? 0 02/04/2025 At any time in the past 12 m [facility], were you homeless or living in a senior care (including now)? 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 Gender Identity Not on file Sexual Orientation Not on file Occupation Industry Job Start Date Job End Date Unemployed Not on file Not on file Not on file documented as of this encounter Nursing Notes * Luis A Self RN - 08/09/2025 10:25 AM CDT (Julian: [id number]) Pa started for morphine ER 15mg tablets in cover my meds documented in this encounter Plan of Treatment Not on file documented as of this encounter Visit Diagnoses Not on filedocumented in this encounter Care Teams Traverse Rod Assembler Relationship Specialty Start Date End Date Kwan Hennessy MD [address] [address] PCP - General 04/14/20 Bessie Butt MD [address] [place] [address] Medical Oncologist/Recycling Technician Hematology 07/15/21 documented as of this encounter
--- OUTSIDE RECORDS SUMMARY | 2025-08-10 06:52 | XMS_ITS | Encounter Summary ---
Author Organization [facility] Address [address] [place] [address] Phone Care Team Providers Care Interior Design Professor Name Role Phone Unknown, Notinfbebeto Primary Care Provider Unavail able Kwan Hennessy MD Primary Care Provider [phone] La Nena Hansen MD Unavailable [phone] Kwan Hennessy MD Primary Care Provider [phone] Kwan Hennessy MD Primary Care Provider [phone] Anjelica Villegas RN Unavailable Carolyn Nunez FINISH GRINDER Unavailable Aleah Cherry EDGE KITTER Unavailable [phone] Bessie Butt MD Unavailable Brandy Neely GAME PROGRAMER Unavailable [phone] Encounter Details Date Type Department Care Team (Latest Contact Info) Description 03/20/2019 Orders Only [facility] HEMATOLOGY Scanning, Provider Social History Tobacco Use Types Packs/Day Years Used Date Smoking Tobacco: Former Sex and Gender Information Value Date Recorded Sex Assigned at Not on file 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 11/18/2021 11/18/2021 03/18/2022 3:05 AM C DT COVID: Suspected 06/09/2022 06/09/2022 06/09/2022 6:05 PM CDT Rhino/Enterovirus 06/09/2022 06/09/2022 06/16/2022 3:05 AM CDT COVID: Suspected 10/10/2022 10/10/2022 10/10/2022 7:34 PM INFECTION CONTROL PREVENTIONIST COVID: Suspected 05/22/2023 05/22/2023 05/22/2023 7:55 AM CDT COVID: Suspected 06/16/2024 06/16/2024 06/16/2024 2:19 AM CDT Parainfluenza, droplet 06/16/2024 06/16/202406/23 3:05 AM CDT documented as of this encounter Care Teams Interior Design Professor Relationship Specialty Start Date End Date Unknown, Notinfile PCP - General 05/04/17 03/20/19 Kwan Hennessy MD [address] [address] PCP - General Emergency Medicine 03/21/19 01/03/20 La Nena Hansen MD [address] [id number] PCP - Hematology/Oncology Pediatric Hematology and Oncology 09/11/19 07/15/21 Kwan Hennessy MD [address] [address] PCP - General 01/17/20 04/13/20 Kwan Hennessy MD [address] [place] [id number] PCP - General 04/14/20 Anjelica Villegas, RN [address] [address] SHOP Outpatient Structural Steel Equipment Erector 01/08/21 02/05/21 Carolyn Nunez, MARQUIS [address] [phone] Nurse Practitioner Nurse Practitioner 01/08/21 07/14/21 Aleah Cherry RRT [address] [address] SHOP Outpatient Structural Steel Equipment ErectorArmament Aircraft Mechanic Therapy 03/11/21 04/08/21 Bessie Butt MD [address] [address] Medical Oncologist/Chocolate Production Machine Operator Hematology 07/15/21 Brandy Neely, [facility] [address] [facility] ([facility] Mailstop [phone] [place] [address] SHOP Outpatient Structural Steel Equipment Erector 06/20/24 07/17/24 documented as of this encounter
--- OUTSIDE RECORDS SUMMARY | 2025-08-10 06:52 | XMS_ITS | Encounter Summary ---
Author Organization [facility] Address [address] [place] [address] Phone Care Team Providers Care Customer Solutions Architect Name Role Phone Kwan Hennessy MD Primary Care Provider [phone] Bessie Butt MD Unavailable [phone] Reason for Visit * Reason Onset Date Comments Med Refill 08/09/2025 Encounter Details Date Type Department Care Team (Late st Contact Info) Description 08/09/2025 Telephone [facility] Medicine Hematology [address] [facility] [address] [place] [id number] M[facility] Med Refill Social History Tobacco Use Types Packs/Day Years Used Date Smoking Tobacco: Never Passive Smoke Exposure: Never Smokeless Tobacco: Never Alcohol Use Standard Drinks/Week Comments Never 0 (1 standard drink = 0.6 oz pur e alcohol) [facility] Utilities Answer Date Recorded In the past 12 months has [employer], gas, oil, or water company threatened to [...] often do you attend chur ch or zoroastrianism services? Never 02/04/2025 Do you belong to any clubs o r organizations such as zoroastrianism groups, unions, fraternal or athletic groups, or [...] place to sleep or slept in a alf (including now)? No 05/23/2023 Housing Stability Vital Sign Answer Darrin e Recorded In the last 12 months, was t here a time when you were not able to pay the mortgage or rent on time? No 02/04/2025 In the past 12 months, how m any times have you moved where you were living? 0 02/04/2025 At any time in the past [address] m [facility], were you homeless or living in a alf (including now)? 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 Pt would like rx sent to [facility] pharmacy located at [address] [facility] in [place], [place]. Call back number is [phone] documented in this encounter Plan of Treatment Not on file documented as of this encounter Visit Diagnoses Not on filedocumented in this encounter Care Teams Customer Solutions Architect Relationship Specialty Start Date End Date Kwan Hennessy MD [address] [address] PCP - General 04/14/20 Bessie Butt MD [address] [place] [address] Medical Oncologist/Medical Advisor Hematology 07/15/21 documented as of this encounter
--- OUTSIDE RECORDS SUMMARY | 2025-08-10 06:52 | XMS_ITS | Clinical Summary ---
Author Organization [facility] Address [address] [place] [address] Care Team Providers Care Application Assistant Name Role Phone Kwan Hennessy MD Primary Care Provider [phone] Saif Bessie Nance MD Unavailable [phone] Allergies Active Allergy Reactions Criticality Noted Date [...] 12/21/2024 Assessment & Plan (12/21/2024 9:08 PM TERRAPIN FISHER): Admitted for initiation of buprenorphine. Some typical lower extremity pain and chest pain. OSH ED CXR without reported infiltrates, not requiring oxygen. - Pain regimen: will start with BED AND BREAKFAST COOK to determine baseline requirements - Scheduled acetaminophen and ketorolac as needed for pain - Hydromorphone BED AND BREAKFAST COOK - 0.5mg demand dose - 10 minute lockout - 3mg maximum per hour - Adjust as needed - Holding home morphine ER - Holding home hydroxyurea for tonight - Continue home folate - Follow up CBC, CMP, Mag Chest pain 12/21/2024 Assessment & Plan (12/21/2024 8:55 PM TERRAPIN FISHER): Non-cardiac chest pain. 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 Diarrhea 10/13/2022 Hypokalemia 10/13/2022 Hypomagnesemia 10/13/2022 CAP (community acquired pneumonia) 10/10/2022 Other chronic pain 07/05/2022 Snores 03/03/2022 COVID-19 11/02/2021 Acute low back pain 05/10/2021 Anemia 03/09/2021 Asthma 12/26/2020 Assessment & Plan (12/21/2024 8:50 PM TERRAPIN FISHER): - Albuterol as needed available Generalized joint pain 10/24/2020 Calculus of common bile duct and gallbladder 01/2020 History of ganglion cyst 07/04/2020 Hyperleukocytosis 07/04/2020 Influenza due to influenza virus, type B 020 Persistent mood disorder 07/04/2020 Sleep-related hypoxia 07/04/2020 AVN (avascular necrosis of bone) ([facility]/HCC) 07/03 Overview (07/03/2020): Added automatically from request for surgery [id number] Assessment & Plan (03/10/2021 10:48 AM CDT): S/p hip arthroplasty bilaterally (in 2 separate procedures). No acute symptoms or complications noted. - Follows with ortho. Assessment & Plan (03/09/2021 11:58 AM CDT): S/p L IRLANDA (12/2020). Follows with Ortho. History of total right hip replacement 0 Osteonecrosis 03/25/2020 Overview (03/25/2020): Added automatically from request for surgery [id number] DJD (degenerative joint disease) 03/25/2020 Overview (03/25/2020): Added automatically from request for surgery [id number] OA (osteoarthritis) 03/25/2020 Overview (03/31/2020): Added automatically from request for surgery [id number] Acute back pain less than 4 weeks duration 12/31 Persistent pneumonia 01/01/2020 Acute gallstone pancreatitis 01/01/2020 Acute postoperative pain of hip 01/01/2020 Common bile duct calculus 01/01/2020 Gallbladder colic 01/01/2020 Gastroesophageal reflux disease with stricture 0 01/01/2020 Assessment & Plan (12/21/2024 8:51 PM TERRAPIN FISHER): - Continue home pantoprazole Iron overload due [...] staph aureamena -BC x2 on arrival to [facility], NGTD -follow up final BC x and [...] patient about Dr Card's office info Insurance- [place]elle, may need consultation to change insurance coverage [...] oxycodone for his back pain. F/U with [facility] on Dec 04 2012 Suicidal ideation 07/12/2011 Overview (01/01/2020): Overview: Rochelle admitted to having suicidal ideation that started a few days before the pain. 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 He admitted to vague thoughts of slitting his throat, and a previous plan of jumping off a building (3 yrs ago), though he never ended up climbing the building. He saw Dr. Shannan Metzger at [facility] ([facility]) for depression and took Celexa (pt reported 1 1/2 pill, which he thought was 15mg, though later verified by Psychiatry RN/KNUCKLER that it was 30mg), which he reports helps a little. Due to the SI, pt was admitted to heme/onc floor with one-on-one sitter in room at all times and Celexa (15mg d/t pt's report) was restarted. Psychiatry RN/KNUCKLER spoke with pt & mother, instructing that pt should f/u with his psychiatrist and therapist within a week after d/c (they reported an appt scheduled for day after d/c 07/14). Mother was to talk to therapist about working on coping strategies with [facility] & was given a card for the [place] [facility] interactive website for patient to [...] Type Department Care Team Description 08/09/2025 Telephone [facility] Medicine Hematology [address] [place] [address] 6 [place] [address] Miley Ward Med Refill 08/09/2025 Documentation [facility] Medicine Hematology [address] [place] [address] 6 [place] [address] Luis A Self, MICH PA started for morphine ER 15mg tablets 08/06/2025 2:45 PM CDT Infusion [facility] Sickle Cell Infusion [address] [place] [address] [place] [address] Hemoglobin SS disease with crisis (HCC) (Primary Dx) 07/30/2025 11:30 AM CDT Infusion [facility] - Infusion [address] [address] Abnormal liver function tests (Primary Dx); Hemoglobin SS disease with crisis (HCC) 07/30/2025 11:00 AM CDT Lab [facility] - Lab Collection [address] [place] [address] 6 [place] [address] 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) 07/30/2025 10:45 AM CDT [facility] [address] [place] [phone] Bessie Butt MD 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) 07/30/2025 10:00 AM CDT Lab [facility] On[facility] Lab [address] [place] [phone] 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) 07/30/2025 Orders Only [facility] Medicine Hematology [address] [place] [phone] Bessie Butt MD 07/30/2025 Orders Only [facility] Medicine Hematology [address] [place] [phone] Ernie Godwin RN 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) (Primary Dx); Hemoglobin SS disease with crisis (HCC) 07/29/2025 Telephone [facility] Medicine Hematology [address] [place] [phone] Lou Patel 07/14/2025 5:24 AM CDT - 07/14/2025 9:47 AM CDT Emergency [address] [address] Red Crockett DO Sickle cell anemia with pain (HCC) (Primary Dx); Priapism Discharge Disposition: Discharge to home or self care 07/10/2025 10:15 AM CDT Infusion [facility] Advanced Medicine Sickle Cell Infusion [address] [place] [address] Advanced [place] [address] Hemoglobin SS disease with crisis (HCC) (Primary Dx) 07/02/2025 8:00 AM CDT Infusion [facility] - Infusion 4500 [facility] Floor 6 [place] [address] Hemoglobin SS disease with crisis (HCC) (Primary Dx); Abnormal liver function tests 07/02/2025 Orders Only [facility] Medicine Hematology [address] [place] [address] 6 [place] [address] Ernie Godwin RN 06/25/2025 2:57 PM CDT - 06/25/2025 8:26 PM CDT Emergency [facility] Emergency Department [address] [place] [address] Griselda Casey MD Sickle cell pain crisis (HCC) (Primary Dx) Discharge Disposition: Discharge to home or self care 06/19/2025 [facility] Advanced Medicine ([facility]) - [facility] Medicine Urology [address] [place] [address] Advanced Medicine 11th [place] [address] [place] [address] Dorothy Lindquist CNA 06/18/2025 8:00 AM CDT Infusion [facility] - Infusion [address] [place] [address] Floor 6 [place] [address] Hemoglobin SS disease with crisis (HCC) (Primary Dx) 06/18/2025 Documentation [facility] Medicine Hematology [address] [place] [address] 6 [place] [address] Ernie Godwin RN 06/14/2025 3:58 PM CDT - 06/14/2025 8:00 PM CDT Hospital Encounter [facility] ([facility]) [address] [place] [address] Hemoglobin SS disease with crisis (HCC) (Primary Dx) Discharge Disposition: Discharge to home or self care 06/11/2025 9:45 AM CDT Office Visit [facility] Medicine Hematology [address] [place] [address] 6 [place] [address] Bessie Butt MD 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) (Primary Dx); Pain crisis; Priapism 06/11/2025 9:00 AM CDT Lab [facility] - Lab Collection 4500 [facility] Floor 6 [place] [address] 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) 06/11/2025 8:45 AM CDT Lab [facility] Medicine Oncology Lab 4500 [facility] 6 [place] [address] 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) 06/11/2025 Orders Only [facility] Medicine Hematology [address] [place] [phone] Bessie Butt MD Hemoglobin SS disease with crisis (HCC) (Primary Dx) 06/11/2025 Orders Only [facility] Medicine Hematology [address] [place] [phone] Ernie Godwin RN Hemoglobin SS disease with crisis (HCC) (Primary Dx) 06/10/2025 Orders Only [facility] Medicine Hematology [address] [place] [phone] Ernie Godwin, MICH 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) (Primary Dx) 06/10/2025 Telephone [facility] Hematology [address] [place] [phone] Miley Ward 06/07/2025 2:00 PM CDT Infusion [facility] Sickle Cell Infusion [address] [place] [address] [place] [address] Hemoglobin SS disease with crisis (HCC) (Primary Dx) 05/30/2025 6:59 AM CDT - 05/30/2025 9:28 AM CDT Emergency [facility] Emergency Department [address] [place] [address] Mitch Alcala MD Sickle cell pain crisis (HCC) (Primary Dx) Discharge Disposition: Discharge to home or self care 05/24/2025 2:00 PM CDT Infusion [facility] Sickle Cell Infusion [address] [place] [address] [place] [address] Hemoglobin SS disease with crisis (HCC) (Primary Dx) 05/21/2025 7:32 PM CDT - 05/21/2025 11:59 PM CDT Hospital Encounter [facility] - MRI [facility] [facility] Floor 8 [place] [address] 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) Discharge Disposition: Discharge to home or self care 05/13/2025 Telephone [facility] Medicine Hematology [address] Floor 6 [place] [address] StanNneka from Last 3 Months [...] 05/14/1997 Meningococcal ACWY, Unspecified 06/11/2010 OPV 1996,1996,1996 Auxogyn SARS-CoV-2 Monovalent Vaccination (12+ Yrs) PURPLE 12/10/2021,11/19/2021 [...] drink = 0.6 oz pur e alcohol) [facility] Utilities Answer Date Recorded In the past 12 months has [employer] electric, gas, oil, or water [employer] threatened to shut off services in your [...] week 02/04/2025 How often do you attend [facility] ch or synagogue services? Never 02/04/2025 Do you belong to any clubs o r organizations such as confucianist groups, unions, fraternal or athletic groups, or [...] place to sleep or slept in a long-term (including now)? No 05/23/2023 Housing Stability Vital Sign Answer Darrin e Recorded In the last 12 months, was t here a time when you were not able to pay the mortgage or rent on time? No 02/04/2025 In the past 12 months, how m any times have you moved where you were living? 0 02/04/2025 At any time in the past 12 m [facility], were you homeless or living in a long-term (including now)? No 02/04/2025 Hunger Vital Sign [...] on file Legal Sex Male 7:27 AM TERRAPIN FISHER Gender Identity Not on file Sexual Orientation [...] Completed 05/20/2020 Medical Devices Implanted Type Area Business [employer] Financial [employer] Device Identifier Shelf Expiration Date Model / Serial / Lot [employer] [id number] G7 36mm Type 1 Modular Hip Acetabular +3mm Offset Head Femoral - Sna - [id number] Implanted:Qty: 1 on 12/29/2020 by Tiarra Lopes MD at [facility] Other - see comments Left: Hip [employer] 02/26/2030 650-0600 / NA / [id number] [employer] [id number] 52mm Limit 3 Hole Hip E Hemisphere Offset Shell Acetabular - Sna - [id number] Implanted:Qty: 1 on 12/29/2020 by Tiarra Lopes MD at [facility] Other - see comments Left: Hip [employer] 05/20/2030 [id number] / NA / [id number] [employer] [id number] 36mm Lumen Hip E Liner Acetabular Longevity Sterile Latex Free - Sna - [id number] Implanted:Qty: 1 on 12/29/2020 by Tiarra Lopes MD at [facility] Other - see comments Left: Hip [employer] 01/28/[id number] / NA / [id number] [employer] [id number] Taperloc 142mm Type 1 Press Fit Full Profile Hip 133d 11 Standard - Sna - [id number] Implanted:Qty: 1 on 12/29/2020 by Tiarra Lopes MD at [facility] Other - see comments Left: Hip [employer] 01/23/2028 [id number] / NA / [id number] [employer] [id number] Trilogy 6.5mm 35mm Self Tap Screw Bone - Sna - [id number] Implanted:Qty: 1 on 12/29/2020 by Tiarra Lopes MD at [facility] Screw Left: Hip [employer] 05/22/2030 [id number] / NA / [id number] [employer] [id number] Trilogy 6.5mm 30mm Self Tap Acetabular Cortical Screw Bone - Sna - [id number] Implanted:Qty: 1 on 12/29/2020 by Tiarra Lopes MD at [facility] Screw Left: Hip [employer] 10/03/2030 [id number] / NA / [id number] [employer] [id number] G7 52mm Limit 3 Hole Hip E Hemisphere Offset Shell Acetabular - [id number] Implanted:Qty: 1 on 04/14/2020 by Tiarra Lopes MD at [facility] Right: Hip [employer] [id number] 10/11/2029 [id number] / / [id number] Liner Hip G7 Longevity 5mm 32mm C - [id number] Implanted:Qty: 1 on 04/14/2020 by Tiarra Lopes MD at [facility] Right: Hip [employer] [id number] 05/30/2024 [id number] / / [id number] [employer] [id number] Trilogy 6.5mm 30mm Self Tap Acetabular Cortical Screw Bone - [id number] Implanted:Qty: 1 on 04/14/2020 by Tiarra Lopes MD at [facility] Right: Hip [employer] [id number] 12/28/2029 [id number] / / [id number] [employer] [id number] Trilogy 6.5mm 40mm Self Tap Hip Acetabular Cortical Screw Bone - [id number] Implanted:Qty: 1 on 04/14/2020 by Tiarra Lopes MD at [facility] Right: Hip [employer] [id number] 08/30/2029 [id number] / / [id number] [employer] [id number] Taperloc 144mm Type 1 Press Fit Full Profile Hip 133d 12 Standard - [id number] Implanted:Qty: 1 on 04/14/2020 by Tiarra Lopes MD at [facility] Right: Hip [employer] [id number] 07/09/2028 [id number] / / [id number] [employer] [id number] 36mm Modular Hip Standard Head Femoral Biol[employer] Delta - [id number] Implanted:Qty: 1 on 04/14/2020 by Tiarra Lopes MD at [facility] Right: Hip [employer] [id number] 02/09/2029 [id number] / / [id number] Procedures Procedure Name Priority Date/Time Associated Diagnosis [...] LAB BLOOD ORDERABLES Anne lorenzo Result [facility] Department [place] [address] * Differential, auto (07/30/2025 10:44 AM CDT) Neutrophil abs 5.20 1.50 - 6.50 K/cumm Comment:Testing performed by : [facility], [address] [place], [place] [id number] Lymphocyte abs 3.07 0.80 - 3.30 K/cumm CERNER BJ Comment:Testing performed by : [facility], [address] [place] [address] Monocyte abs 0.55 0.20 - 0.80 K/cumm CERNER BJ Comment:Testing performed by : [facility], [address] [place] [address] Eosinophil abs 0.16 0.00 - 0.50 K/cumm CERNER BJH Comment:Testing performed by : [facility], [address] [place], [place] [id number] Basophil abs 0.07 0.00 - 0.10 K/cumm CERNER BJ Comment:Testing performed by : [facility], [address] [place] [address] Neutrophil pct 57.5 % CERNER BJ Comment: Interpretive Data Percent cell count reference ranges are not reported, since discordance with absolute values may lead to misinterpretation of CBC data. Current Interpretive Data was last revised on 2018. Testing performed by: [facility], [address] [place], [place] [id number] Lymphocyte pct 33.9 % CERNER BJ Comment: Interpretive Data Percent cell count reference ranges are not reported, since discordance with absolute values may lead to misinterpretation of CBC data. Current Interpretive Data was last revised on 2018. Testing performed by: [facility], [address] [place], [place] [id number] Monocyte pct 6.0 % CERNER [facility] Comment: Interpretive Data Percent cell count reference ranges are not reported, since discordance with absolute values may lead to misinterpretation of CBC data. Current Interpretive Data was last revised on 2018. Testing performed by: [facility], [address] [place] [address] Eosinophil pct 1.8 % CERNER [facility] Comment: Interpretive Data Percent cell count reference ranges are not reported, since discordance with absolute values may lead to misinterpretation of CBC data. Current Interpretive Data was last revised on 2018. Testing performed by: [facility], [address] [place] [phone] Basophil pct 0.8 % MADYSON HINOJOSA Comment: Interpretive Data Percent cell count reference ranges are not reported, since discordance with absolute values may lead to misinterpretation of CBC data. Current Interpretive Data was last revised on 2018. Testing performed by: [facility], [address] [place] [phone] Blood 07/30/2025 10:4 4 AM CDT 07/30/2025 10:51 AM CDT us Bessie Rizvi MD LAB BLOOD ORDERABLES Anne lorenzo Result [facility] Department [place] [address] * (ABNORMAL) CBC with auto differential (07/30/2025 10:44 AM CDT) WBC 9.03 3.80 - 9.90 K/cumm Comment:Testing performed by : [facility], [address] [place] [address] Hgb 9.8(L) 13.0 - 17.5 g/dL [facility]ON HINOJOSA Comment:Testing performed by : [facility], [address] [place] [address] Hct 28.4(L) 38.9 - 50.3 % MADYSON HINOJOSA Comment:Testing performed by : [facility], [address] [place] [address] Plt 375 150 - 400 K/cumm MADYSON HINOJOSA Comment:Testing performed by : [facility], [address] [place] [address] MPV 7.2 6.8 - 10.4 fL [facility]ON HINOJOSA Comment:Testing performed by : [facility], [address] [place], [place] [phone] RBC 2.48(L) 4.30 - 5.80 M/cumm MADYSON HINOJOSA Comment:Testing performed by : [facility], [address] [place], [place] [phone] MCV 114.4(H) 81.3 - 96.4 fL MADYSON HINOJOSA Comment:Testing performed by : [facility], [address] [place], [place] [phone] MCH 39.5(H) 27.1 - 33.3 pg [facility]ON HINOJOSA Comment:Testing performed by : [facility], [address] [place], [place] [phone] MCHC 34.5 32.3 - 35.7 g/dL [facility]ON HINOJOSA Comment:Testing performed by : [facility], [address] [place], [place] [phone] RDW CV 18.3(H) 11.1 - 14.9 % [facility] Comment:Testing performed by : [facility], [address] [place], [place] [phone] NRBC abs n/a 0.00 - 0.01 K/cumm [facility] Comment:Testing performed by : [facility], [address] [place], [place] [phone] Blood 07/30/2025 10:4 4 AM CDT 07/30/2025 10:51 AM CDT us Bessie Rizvi MD LAB BLOOD ORDERABLES Anne l Result [facility] Department [place] [address] * (ABNORMAL) Comprehensive metabolic panel (07/30/2025 10:44 AM CDT) Sodium 140 135 - 145 mmol/L Potassium, pl 4.2 3.3 - 4.9 mmol/L [facility] Chloride 107 97 - 110 mmol/L [facility] CO2 23 22 - 32 mmol/L [facility] Anion gap 10 2 - 15 mmol/L [facility] BUN 6 6 - 25 mg/dL [facility] Creatinine 0.62(L) 0.80 - 1.30 mg/dL [facility] Glucose 89 70 - 199 mg/dL [facility] Comment: Interpretive Data Fasting glucose >/= [...] 2022. Calcium 9.3 8.5 - 10.3 mg/dL [facility] Bilirubin, total 1.6(H) 0.1 - 1.2 mg/dL [facility] Protein, pl 8.1 6.5 - 8.5 g/dL [facility] Albumin 4.6 3.5 - 5.0 g/dL [facility] Alk phos 77 40 - 130 Units/L [facility] ALT 14 7 - 55 Units/L [facility] AST 46 10 - 50 Units/L [facility] Blood 07/30/2025 10:4 4 AM CDT 07/30/2025 10:51 AM CDT Bessie Rizvi MD LAB BLOOD ORDERABLES Anne l Result [facility] Department [place] [address] * ABO / Rh Confirmation Testing (07/14/2025 6:51 AM CDT) ABO/Rh Confirmation A Positive [facility] Blood 07/14/2025 6:51 AM CDT 07/14/2025 6:57 AM CDT Red Underwood MD LAB BLOOD ORDERABLES Final Result Performing Organization Address [facility] [[email or web address]] Co de Phone Number M[facility]ON [address] [place] [address] MH * Sepsis Lactate w/ Reflex (07/14/2025 5:48 AM CDT) [facility] Sepsis Lactate 1.0 0.7 - 2.0 mmol/L Blood 07/14/2025 5:48 AM CDT 07/14/2025 5:52 AM CDT Red Underwood MD LAB BLOOD ORDERABLES Final Result Performing Organization Address [facility] de Phone Number [address] [address] * (ABNORMAL) Blood smear review (07/14/2025 5:48 AM CDT) [facility] RBC morphology Present(A) Poikilocytosis Slight(A) [facility] Sickle cells 3-7/HPF(A) [facility] Platelet estimate Automated Count Confirmed [facility] Blood 07/14/2025 5:48 AM CDT 07/14/2025 5:52 AM CDT Red Underwood MD LAB BLOOD ORDERABLES Final Result Performing Organization Address [facility] de Phone Number [address] [address] * eGFR (07/14/2025 5:48 AM CDT) [facility] eGFR >90 >=60 mL/min/1. 73 m2 Comment: [...] Underwood MD LAB BLOOD ORDERABLES Final Result [place] [id number] [facility] Department [place] [address] * (ABNORMAL) Differential, auto (07/14/2025 5:48 AM CDT) Pathologist [facility] Neutrophil abs 2.86 1.50 - 6.50 K/cumm Imm gran abs 0.01 0.00 - 0.10 K/cumm [facility] Lymphocyte abs 4.95(H) 0.80 - 3.30 K/cumm [facility] Monocyte abs 0.79 0.20 - 0.80 K/cumm [facility] Eosinophil abs 0.21 0.00 - 0.50 K/cumm [facility] Basophil abs 0.03 0.00 - 0.10 K/cumm [facility] Neutrophil pct 32.4 % [facility] Comment: Interpretive Data Percent cell count reference ranges are not reported, since discordance with absolute values may lead to misinterpretation of CBC data. Current Interpretive Data was last revised on 2018. Imm gran pct 0.1 % [facility] Comment: Interpretive Data Percent cell count reference ranges are not reported, since discordance with absolute values may lead to misinterpretation of CBC data. Current Interpretive Data was last revised on 2018. Lymphocyte pct 55.9 % [facility] Comment: Interpretive Data Percent cell count reference ranges are not reported, since discordance with absolute values may lead to misinterpretation of CBC data. Current Interpretive Data was last revised on 2018. Monocyte pct 8.9 % [facility] Comment: Interpretive Data Percent cell count reference ranges are not reported, since discordance with absolute values may lead to misinterpretation of CBC data. Current Interpretive Data was last revised on 2018. Eosinophil pct 2.4 % [facility] Comment: Interpretive Data Percent cell count reference ranges are not reported, since discordance with absolute values may lead to misinterpretation of CBC data. Current Interpretive Data was last revised on 2018. Basophil pct 0.3 % [facility] Comment: Interpretive Data Percent cell count reference ranges are not reported, since discordance with absolute values may lead to misinterpretation of CBC data. Current Interpretive Data was last revised on 2018. Blood 07/14/2025 5:48 AM CDT 07/14/2025 5:52 AM CDT Red Underwood MD LAB BLOOD ORDERABLES Final Result [facility] [address] [facility] Department [place] [address] * (ABNORMAL) CBC with auto differential (07/14/2025 5:48 AM CDT) WBC 8.85 3.80 - 9.90 K/cumm Hgb 8.5(L) 13.0 - 17.5 g/dL [facility] Hct 24.5(L) 38.9 - 50.3 % [facility] Plt 411(H) 150 - 400 K/cumm [facility] MPV 9.4 9.1 - 12.3 fL [facility] RBC 2.23(L) 4.30 - 5.80 M/cumm [facility] MCV 109.9(H) 81.3 - 96.4 fL [facility] MCH 38.1(H) 27.1 - 33.3 pg [facility] MCHC 34.7 32.3 - 35.7 g/dL [facility] RDW CV 16.4(H) 11.1 - 14.9 % [facility] RDW SD 63.8(H) 35.7 - 48.1 fL [facility] NRBC abs 0.41(H) 0.00 - 0.01 K/cumm [facility] Blood 07/14/2025 5:48 AM CDT 07/14/2025 5:52 AM CDT Red Underwood MD LAB BLOOD ORDERABLES Edite d Result - Final Performing Organization Address [facility] [[email or web address]] Co de Phone Number [address] [place] [address] * Antibody identification (07/14/2025 5:48 AM CDT) Antibody Identification Interpretation Anti-E Comment: 07/14/2025 06:39 [id number] Previously identified not currently reacting Antibody Identification Interpretation Anti-C [facility] Comment: 07/14/2025 06:38 [id number] Previously identified not currently reacting Blood 07/14/2025 5:48 AM CDT 07/14/2025 5:52 AM CDT Red Crockett DO LAB BLOOD BANK TEST ORDERAB LES Final Result Performing Organization Address [facility] de Phone Number [address] [address] * ABO/Rh (07/14/2025 5:48 AM CDT) Pathologist [facility] ABO/Rh A Positive Blood 07/14/2025 5:48 AM CDT 07/14/2025 5:52 AM CDT Narrative [facility] - 07/14/2025 6:34 AM CDT Has the patient had Daratumumab or Isatuximab in the past 6 months?->Unknown Red Underwood MD LAB BLOOD BANK TEST ORDERA BLES Final Result Performing Organization Address [facility] [[email or web address]] Co de Phone Number [address] [place] [address] * (ABNORMAL) Reticulocyte Count (07/14/2025 5:48 AM CDT) [facility] Retics, absolute 284(H) 20 - 87 K/cumm Retics 12.7(H) 0.4 - 2.9 % [facility] Reticulocyte Hgb 40.6(H) 30.5 - 38.0 pg [facility] Blood 07/14/2025 5:48 AM CDT 07/14/2025 5:52 AM CDT Red Underwood MD LAB BLOOD ORDERABLES Final Result Performing Organization Address City/[facility]/ZIP Co de Phone Number [address] [place] [address] * Antibody screen (07/14/2025 5:48 AM CDT) [facility] Zachary, indirect, Gel Interpretation Negative ABSC Blood 07/14/2025 5:48 AM CDT 07/14/2025 5:52 AM CDT Narrative [facility] - 07/14/2025 6:34 AM CDT Has the patient had Daratumumab or Isatuximab in the past 6 months?->Unknown Red Underwood MD LAB BLOOD BANK TEST ORDERA BLES Final Result Performing Organization Address [facility] [[email or web address]] Co de Phone Number [address] [place] [address] * Phosphorus (07/14/2025 5:48 AM CDT) [facility] Phosphorus, pl 4.1 2.3 - 4.5 mg/dL Blood 07/14/2025 5:48 AM CDT 07/14/2025 5:52 AM CDT Red Underwood MD LAB BLOOD ORDERABLES Final Result Performing Organization Address [facility] [[email or web address]] Co de Phone Number [address] [address] * Magnesium (07/14/2025 5:48 AM CDT) Pathologist [facility] Magnesium 2.1 1.4 - 2.5 mg/dL Blood 07/14/2025 5:48 AM CDT 07/14/2025 5:52 AM CDT Red Underwood MD LAB BLOOD ORDERABLES Final Result [facility] [address] [facility] Department [place] [address] * (ABNORMAL) Comprehensive metabolic panel (07/14/2025 5:48 AM CDT) Pathologist [facility] Sodium 143 135 - 145 mmol/L Potassium, pl 3.6 3.3 - 4.9 mmol/L [facility] Comment:Hemolyzed; Potassium value may be falsely elevated by as much as 1.0 mmol/L. Suggest redraw and reanalysis. Chloride 108 97 - 110 mmol/L [facility] CO2 24 22 - 32 mmol/L [facility] Anion gap 11 2 - 15 mmol/L [facility] BUN 5(L) 6 - 25 mg/dL [facility] Creatinine 0.73(L) 0.80 - 1.30 mg/dL [facility] Glucose 102 70 - 199 mg/dL [facility] Comment: Interpretive Data Fasting glucose >/= 126 [...] 2022. Calcium 9.3 8.5 - 10.3 mg/dL [facility] Bilirubin, total 1.6(H) 0.1 - 1.2 mg/dL [facility] Protein, pl 7.7 6.5 - 8.5 g/dL [facility] Albumin 4.4 3.5 - 5.0 g/dL [facility] Alk phos 77 40 - 130 Units/L [facility] ALT 11 7 - 55 Units/L [facility] AST 36 10 - 50 Units/L [facility] Blood 07/14/2025 5:48 AM CDT 07/14/2025 5:52 AM CDT us Red Underwood MD LAB BLOOD ORDERABLES Final Result [facility] [address] [facility] Department [place] [address] * XR Chest 1 Vw Portable (If [...] Pato Clarke M.D. CH: CORDELL Report ID: [id number] Reading Location: [id number] Procedure Note Pato Clarke MD - 06/25/2025 [...] by Pato Clarke M.D. CH: Report ID: [id number] Reading Location: [place] [address] Griselda Casey MD IMG XR PROCEDURES Final Result * (ABNORMAL) Urinalysis reflex to microscopic and culture Urine (06/25/2025 12:33 PM CDT) Color, ur Yellow Yellow Comment:Testing performed by : [address] [address] Clarity, ur Clear Clear [facility] Comment:Testing performed by : [address] [address] Specific gravity, ur 1.010 1.003 - 1.030 [facility] Comment:Testing performed by : [address] [address] pH, urine 7.0 [facility] Comment: Interpretive Data U rine pH is affected by diet, medications, systemic acid-base disturbances, and renal tubular function. pH may affect urinary stone formation. For example, urine pH below 6.0 may help reduce the tendency for calcium phosphate stones and pH greater than 6.0 may reduce the tendency for uric acid stone formation. Source: [employer] Current Interpretive Data was last revised on 2017 Testing performed by: [address] [address] Protein, ur ql Negative Negative [facility] Comment:Testing performed by : [address] [address] Glucose, ur ql Negative Negative [facility] Comment:Testing performed by : [address], [place]., [address] Ketones, ur Negative Negative [facility] Comment:Testing performed by : [address], [place]., [address] Bilirubin, ur Negative Negative [facility] Comment:Testing performed by : [address], [place]., [address] Blood, ur Negative Negative [facility] Comment:Testing performed by : [address], [place]., [address] Urobilinogen, ur 2.0(A) <2.0 mg/dL [facility] Comment:Testing performed by : [address], [place]., [address] Nitrite, ur Negative Negative [facility] Comment:Testing performed by : [address], [place]., [address] Leukocyte esterase, ur 1+(A) Negative [facility] Comment:Testing performed by : [address], [place]., [address] UA reflex comment Reflex to microscopic UA will be performed. [facility] Comment:Testing performed by : [address] [address] Urine 06/25/2025 12:3 3 PM CDT 06/25/2025 12:40 PM CDT us Griselda Casey MD LAB MICROBIOLOGY - GENERAL ORDER YAMILETH Final Result [facility] [address] [facility] Department [place] [address] * (ABNORMAL) Urinalysis, microscopic only (06/25/2025 12:33 PM CDT) WBC, ur 6-10(A) 0 - 5 /HPF Comment:Testing performed by : [address], [place]., [address] RBC, ur 0-2 0 - 2 /HPF [facility] Comment:Testing performed by : [address], [place]., [address] Mucous, ur Present(A) [facility] Comment:Testing performed by : [facility], [address] [place] [address]., [address] Culture Reflex Comment Reflex conditions for urine culture (WBC >10) not met. [facility] Comment:Testing performed by : [facility], [address] [place] [address]., [address] Urine 06/25/2025 12:3 3 PM CDT 06/25/2025 12:40 PM CDT us Griselda Casey MD LAB URINE ORDERABLES Final Resul t [facility] [address] [facility] Department [place] [address] * eGFR (06/25/2025 12:27 PM [...] reviewed 2021. Testing performed by: [facility], [address] [place] [address]., [address] Blood 06/25/2025 12:2 7 PM CDT 06/25/2025 12:30 PM CDT us Griselda Casey MD LAB BLOOD ORDERABLES Final Resul t [facility] [address] [facility] Department [place] [address] * (ABNORMAL) CBC with auto differential (06/25/2025 12:27 PM CDT) WBC 9.43 3.80 - 9.90 K/cumm Comment:Testing performed by : [address] [address] Hgb 8.1(L) 13.0 - 17.5 g/dL [facility] Comment:Testing performed by : [address] [address] Hct 22.1(L) 38.9 - 50.3 % [facility] Comment:Testing performed by : [address] [address] Plt 310 150 - 400 K/cumm [facility] Comment:Testing performed by : [address] [address] MPV 9.5 9.1 - 12.3 fL [facility] Comment:Testing performed by : [address] [address] RBC 2.10(L) 4.30 - 5.80 M/cumm [facility] Comment:Testing performed by : [address] [address] MCV 105.2(H) 81.3 - 96.4 fL [facility] Comment:Testing performed by : [address] [address] MCH 38.6(H) 27.1 - 33.3 pg [facility] Comment:Testing performed by : [address] [address] MCHC 36.7(H) 32.3 - 35.7 g/dL [facility] Comment:Testing performed by : [address] [address] RDW CV 16.7(H) 11.1 - 14.9 % [facility] Comment:Testing performed by : [address] [address] RDW SD 62.5(H) 35.7 - 48.1 fL [facility] Comment:Testing performed by : [address] [address] NRBC abs 0.40(H) 0.00 - 0.01 K/cumm [facility] Comment:Testing performed by : [address] [address] Blood 06/25/2025 12:2 7 PM CDT 06/25/2025 12:30 PM CDT us Griselda Casey MD LAB BLOOD ORDERABLES Edited Resu lt - Final [facility] Department [place] [address] * (ABNORMAL) Manual Differential (06/25/2025 12:27 PM CDT) Differential Manual Comment:Testing performed by : [address] [address] Cells Counted 100 [facility] Comment:Testing performed by : [address] [address] Neutrophil abs 6.98(H) 1.50 - 6.50 K/cumm [facility] Comment:Testing performed by : [address] [address] Imm gran abs 0.47(H) 0.00 - 0.10 K/cumm [facility] Comment:Testing performed by : [address] [address] Lymphocyte abs 1.60 0.80 - 3.30 K/cumm [facility] Comment:Testing performed by : [address] [address] Monocyte abs 0.38 0.20 - 0.80 K/cumm [facility] Comment:Testing performed by : [address] [address] Neutrophil pct 74.0 % [facility] Comment: Interpretive Data Percent cell count reference ranges are not reported, since discordance with absolute values may lead to misinterpretation of CBC data. Current Interpretive Data was last revised on 2018. Testing performed by: [address] [address] Lymphocyte pct 17.0 % [facility] Comment: Interpretive Data Percent cell count reference ranges are not reported, since discordance with absolute values may lead to misinterpretation of CBC data. Current Interpretive Data was last revised on 2018. Testing performed by: [address], [place]., [address] Monocyte pct 4.0 % [facility] Comment: Interpretive Data Percent cell count reference ranges are not reported, since discordance with absolute values may lead to misinterpretation of CBC data. Current Interpretive Data was last revised on 2018. Testing performed by: [address], [place]., [address] Metamyelocyte pct 5.0(H) 0.0 - 0.0 % [facility] Comment:Testing performed by : [address], [place]., [address] RBC morphology Consistent with RBC Indicies [facility] Comment:Testing performed by : [address], [place]., [address] Hypochromasia 3-7/HPF(A) [facility] Comment:Testing performed by : [address], [place]., [address] Anisocytosis Slight(A) [facility] Comment:Testing performed by : [address] [address] Poikilocytosis Moderate(A) [facility] Comment:Testing performed by : [address], [place]., [address] Sickle cells 3-7/HPF(A) [facility] Comment:Testing performed by : [address], [place]., [address] Target cells 3-7/HPF(A) [facility] Comment:Testing performed by : [address], [place]., [address] Platelet estimate Automated Count Confirmed [facility] Comment:Testing performed by : [address], [place]., [address] Blood 06/25/2025 12:2 7 PM CDT 06/25/2025 12:30 PM CDT Griselda Casey MD LAB BLOOD ORDERABLES Final Resul t Performing Organization Address [facility] de Phone Number [address] [address] * (ABNORMAL) Reticulocyte Count (06/25/2025 12:27 PM CDT) Pathologist [facility] Retics, absolute 226(H) 20 - 87 K/cumm Comment:Testing performed by : [address] [address] Retics 10.8(H) 0.4 - 2.9 % [facility] Comment:Testing performed by : [address] [address] Reticulocyte Hgb 34.8 30.5 - 38.0 pg [facility] Comment:Testing performed by : [address] [address] Blood 06/25/2025 12:2 7 PM CDT 06/25/2025 12:30 PM CDT Griselda Casey MD LAB BLOOD ORDERABLES Final Resul t Performing Organization Address [facility] de Phone Number [address] [address] * (ABNORMAL) Comprehensive metabolic panel (06/25/2025 12:27 PM CDT) [facility] Sodium 137 135 - 145 mmol/L Comment:Testing performed by : [address] [address] Potassium, pl 4.0 3.3 - 4.9 mmol/L [facility] Comment:Testing performed by : [address] [address] Chloride 101 97 - 110 mmol/L [facility] Comment:Testing performed by : [address] [address] CO2 23 22 - 32 mmol/L [facility] Comment:Testing performed by : [address] [address] Anion gap 13 2 - 15 mmol/L [facility] Comment:Testing performed by : [address] [address] BUN 5(L) 6 - 25 mg/dL [facility] Comment:Testing performed by : [address] [address] Creatinine 0.68(L) 0.80 - 1.30 mg/dL [facility] Comment:Testing performed by : [address] [address] Glucose 128 70 - 199 mg/dL [facility] Comment: Interpretive Data Fasting glucose >/= 126 [...] was last revised 2022. Testing performed by: [address] [address] Calcium 9.6 8.5 - 10.3 mg/dL [facility] Comment:Testing performed by : [address] [address] Bilirubin, total 2.3(H) 0.1 - 1.2 mg/dL [facility] Comment:Testing performed by : [address] [address] Protein, pl 8.3 6.5 - 8.5 g/dL [facility] Comment:Testing performed by : [address] [address] Albumin 4.7 3.5 - 5.0 g/dL [facility] Comment:Testing performed by : [address] [address] Alk phos 81 40 - 130 Units/L [facility] Comment:Testing performed by : [facility], [address] [place] [address]., [address] ALT 18 7 - 55 Units/L [facility] Comment:Testing performed by : [facility], [address] [place] [address]., [address] AST 50 10 - 50 Units/L [facility] Comment:Testing performed by : [address] [address] Blood 06/25/2025 12:2 7 PM CDT 06/25/2025 12:30 PM CDT us Griselda Casey MD LAB BLOOD ORDERABLES Final Resul t Performing Organization Address City/[facility]/ZIP Co de Phone Number [facility] [address] [facility] Department [place] [address] * ECG 12 lead (06/25/2025 12:21 PM CDT) Pathologist [facility] Ventricular Rate EKG/Min 98 BPM [facility] Atrial Rate 98 BPM [facility] [place]-Interval (MSEC) 148 ms [facility] QRS-Interval (MSEC) 98 ms [facility] QT-Interval (MSEC) 362 ms [facility] QTc 462 ms [facility] P [place] 73 degrees [facility] R [place] 8 degrees [facility] T [place] 172 degrees [facility] Diagnosis Normal sinus rhythm Possible Left atrial enlargement Left ventricular hypertrophy T wave abnormality, consider inferolateral ischemia Prolonged QT Abnormal ECG When compared with ECG of 26-NOV-2024 20:14, T wave inversion now evident in Inferior leads T wave inversion more evident in Lateral leads Confirmed by LLUVIA POOL M.D. ([id number]) on 06/25/2025 8:33:04 PM [facility] 06/25/2025 12:2 1 PM CDT 06/25/2025 8:33 PM CDT us Griselda Casey MD ECG ORDERABLES Final Result Performing Organization Address City/[facility]/ZIP Co de Phone Number [facility] * eGFR (06/11/2025 9:17 AM CDT) [facility] eGFR >90 >=60 mL/min/1. 73 m2 Comment: [...] LAB BLOOD ORDERABLES Anne lorenzo Result [facility] Department [place] [address] * Differential, auto (06/11/2025 9:17 AM CDT) [facility] Neutrophil abs 5.39 1.50 - 6.50 K/cumm Comment:Testing performed by : [facility], [address] [place] [phone] Lymphocyte abs 2.50 0.80 - 3.30 K/cumm [facility] HINOJOSA Comment:Testing performed by : [facility], [address] [place] [phone] Monocyte abs 0.63 0.20 - 0.80 K/cumm [facility] HINOJOSA Comment:Testing performed by : [facility], [address] [place] [phone] Eosinophil abs 0.03 0.00 - 0.50 K/cumm [facility] Comment:Testing performed by : [facility], [address] [place], [place] [id number] Basophil abs 0.06 0.00 - 0.10 K/cumm [facility] Comment:Testing performed by : [facility], [address] [place], [place] [id number] Neutrophil pct 62.6 % [facility] Comment: Interpretive Data Percent cell count reference ranges are not reported, since discordance with absolute values may lead to misinterpretation of CBC data. Current Interpretive Data was last revised on 2018. Testing performed by: [facility], [address] [place], [place] [id number] Lymphocyte pct 29.0 % [facility] Comment: Interpretive Data Percent cell count reference ranges are not reported, since discordance with absolute values may lead to misinterpretation of CBC data. Current Interpretive Data was last revised on 2018. Testing performed by: [facility], [address] [place], [place] [id number] Monocyte pct 7.3 % [facility] Comment: Interpretive Data Percent cell count reference ranges are not reported, since discordance with absolute values may lead to misinterpretation of CBC data. Current Interpretive Data was last revised on 2018. Testing performed by: [facility], [address] [place] [address] Eosinophil pct 0.4 % [facility] Comment: Interpretive Data Percent cell count reference ranges are not reported, since discordance with absolute values may lead to misinterpretation of CBC data. Current Interpretive Data was last revised on 2018. Testing performed by: [facility], [address] [place] [phone] Basophil pct 0.7 % [facility] Comment: Interpretive Data Percent cell count reference ranges are not reported, since discordance with absolute values may lead to misinterpretation of CBC data. Current Interpretive Data was last revised on 2018. Testing performed by: [facility], [address] [place] [address] Blood 06/11/2025 9:17 AM CDT 06/11/2025 9:31 AM CDT Bessie Rizvi MD LAB BLOOD ORDERABLES Anne lorenzo Result [facility] Department [place] [address] * (ABNORMAL) CBC with auto differential (06/11/2025 9:17 AM CDT) WBC 8.61 3.80 - 9.90 K/cumm Comment:Testing performed by : [facility], [address] [place] [address] Hgb 9.2(L) 13.0 - 17.5 g/dL [facility] Comment:Testing performed by : [facility], [address] [place] [address] Hct 25.9(L) 38.9 - 50.3 % [facility] Comment:Testing performed by : [facility], [address] [place] [address] Plt 298 150 - 400 K/cumm [facility] Comment:Testing performed by : [facility], [address] [place] [address] MPV 7.6 6.8 - 10.4 fL [facility] Comment:Testing performed by : [facility], [address] [place] [address] RBC 2.29(L) 4.30 - 5.80 M/cumm [facility] Comment:Testing performed by : [facility], [address] [place] [address] MCV 112.9(H) 81.3 - 96.4 fL [facility] Comment:Testing performed by : [facility], [address] [place] [address] MCH 40.1(H) 27.1 - 33.3 pg [facility] Comment:Testing performed by : [facility], [address] [place] [phone] MCHC 35.5 32.3 - 35.7 g/dL [facility] Comment:Testing performed by : [facility], [address] [place] [address] RDW CV 20.4(H) 11.1 - 14.9 % [facility] Comment:Testing performed by : [facility], [address] [place] [phone] NRBC abs 0.50(H) 0.00 - 0.01 K/cumm [facility] Comment:Testing performed by : [facility], [address] [place] [phone] Blood 06/11/2025 9:17 AM CDT 06/11/2025 9:31 AM CDT Bessie Rizvi MD LAB BLOOD ORDERABLES Anne lorenzo Result [facility] Department [place] [address] * (ABNORMAL) Comprehensive metabolic panel (06/11/2025 9:17 AM CDT) Sodium 138 135 - 145 mmol/L Potassium, pl 4.0 3.3 - 4.9 mmol/L [facility] Chloride 104 97 - 110 mmol/L [facility] CO2 24 22 - 32 mmol/L [facility] Anion gap 10 2 - 15 mmol/L [facility] BUN 8 6 - 25 mg/dL [facility] Creatinine 0.77(L) 0.80 - 1.30 mg/dL [facility] Glucose 101 70 - 199 mg/dL [facility] Comment: Interpretive Data Fasting glucose >/= [...] 2022. Calcium 9.4 8.5 - 10.3 mg/dL [facility] Bilirubin, total 2.6(H) 0.1 - 1.2 mg/dL [facility] Protein, pl 8.3 6.5 - 8.5 g/dL [facility] Albumin 4.8 3.5 - 5.0 g/dL [facility] Alk phos 94 40 - 130 Units/L [facility] ALT 16 7 - 55 Units/L [facility] AST 51(H) 10 - 50 Units/L [facility] Blood 06/11/2025 9:17 AM CDT 06/11/2025 9:31 AM CDT Bessie Rizvi MD LAB BLOOD ORDERABLES Anne l Result [facility] Department [place] [address] * (ABNORMAL) Blood smear review (05/30/2025 7:11 AM CDT) RBC morphology Present(A) Comment:Testing performed by : [address] [address] Poikilocytosis Slight(A) [facility] Comment:Testing performed by : [address] [address] Macrocytes 3-7/HPF(A) [facility] Comment:Testing performed by : [address] [address] Sickle cells 1-2/HPF(A) [facility] Comment:Testing performed by : [address] [address] Elliptocytes 3-7/HPF(A) [facility] Comment:Testing performed by : [address] [address] Platelet estimate Adequate [facility] Comment:Testing performed by : [facility], [address] [place] [address]., [address] Blood 05/30/2025 7:11 AM CDT 05/30/2025 7:13 AM CDT Shravanab Fredrick EDWARDS LAB BLOOD ORDERABLES Final Resu lt Performing Organization Address City/[facility] [[email or web address]] Co de Phone Number [facility] [place] [address] * eGFR (05/30/2025 7:11 AM CDT) eGFR [...] reviewed 2021. Testing performed by: [facility], [address] [place] [address]., [address] Blood 05/30/2025 7:11 AM CDT 05/30/2025 7:13 AM CDT Mitch Alcala MD LAB BLOOD ORDERABLES Final Resu lt Performing Organization Address City/[facility]/ZIP Co de Phone Number [facility] [address] [facility] [place] [address] * Differential, auto (05/30/2025 7:11 AM CDT) Pathologist [facility] Neutrophil abs 6.22 1.50 - 6.50 K/cumm Comment:Testing performed by : [address] [address] Imm gran abs 0.03 0.00 - 0.10 K/cumm [facility] Comment:Testing performed by : [address] [address] Lymphocyte abs 2.26 0.80 - 3.30 K/cumm [facility] Comment:Testing performed by : [address] [address] Monocyte abs 0.73 0.20 - 0.80 K/cumm [facility] Comment:Testing performed by : [address] [address] Eosinophil abs 0.03 0.00 - 0.50 K/cumm [facility] Comment:Testing performed by : [address] [address] Basophil abs 0.04 0.00 - 0.10 K/cumm [facility] Comment:Testing performed by : [address] [address] Neutrophil pct 66.9 % [facility] Comment: Interpretive Data Percent cell count reference ranges are not reported, since discordance with absolute values may lead to misinterpretation of CBC data. Current Interpretive Data was last revised on 2018. Testing performed by: [address] [address] Imm gran pct 0.3 % [facility] Comment: Interpretive Data Percent cell count reference ranges are not reported, since discordance with absolute values may lead to misinterpretation of CBC data. Current Interpretive Data was last revised on 2018. Testing performed by: [address] [address] Lymphocyte pct 24.3 % [facility] Comment: Interpretive Data Percent cell count reference ranges are not reported, since discordance with absolute values may lead to misinterpretation of CBC data. Current Interpretive Data was last revised on 2018. Testing performed by: [address] [address] Monocyte pct 7.8 % [facility] Comment: Interpretive Data Percent cell count reference ranges are not reported, since discordance with absolute values may lead to misinterpretation of CBC data. Current Interpretive Data was last revised on 2018. Testing performed by: [address] [address] Eosinophil pct 0.3 % [facility] Comment: Interpretive Data Percent cell count reference ranges are not reported, since discordance with absolute values may lead to misinterpretation of CBC data. Current Interpretive Data was last revised on 2018. Testing performed by: [address] [address] Basophil pct 0.4 % [facility] Comment: Interpretive Data Percent cell count reference ranges are not reported, since discordance with absolute values may lead to misinterpretation of CBC data. Current Interpretive Data was last revised on 2018. Testing performed by: [address] [address] Blood 05/30/2025 7:11 AM CDT 05/30/2025 7:13 AM CDT us Rehab Fredrick [facility]WARDS LAB BLOOD ORDERABLES Final Resu lt [facility] [address] [facility] Department [place] [address] * (ABNORMAL) CBC with auto differential (05/30/2025 7:11 AM CDT) Pathologist [facility] WBC 9.31 3.80 - 9.90 K/cumm Comment:Testing performed by : [address] [address] Hgb 9.1(L) 13.0 - 17.5 g/dL [facility] Comment:Testing performed by : [address] [address] Hct 24.8(L) 38.9 - 50.3 % [facility] Comment:Testing performed by : [address] [address] Plt 233 150 - 400 K/cumm [facility] Comment:Testing performed by : [facility], [address] [place] [address]., [address] MPV 9.4 9.1 - 12.3 fL [facility] Comment:Testing performed by : [address] [address] RBC 2.34(L) 4.30 - 5.80 M/cumm [facility] Comment:Testing performed by : [address] [address] MCV 106.0(H) 81.3 - 96.4 fL [facility] Comment:Testing performed by : [address] [address] MCH 38.9(H) 27.1 - 33.3 pg [facility] Comment:Testing performed by : [address] [address] MCHC 36.7(H) 32.3 - 35.7 g/dL [facility] Comment:Testing performed by : [address] [address] RDW CV 17.4(H) 11.1 - 14.9 % [facility] Comment:Testing performed by : [address] [address] RDW SD 67.0(H) 35.7 - 48.1 fL [facility] Comment:Testing performed by : [address] [address] NRBC abs 0.29(H) 0.00 - 0.01 K/cumm [facility] Comment:Testing performed by : [address], [address] Blood 05/30/2025 7:11 AM CDT 05/30/2025 7:13 AM CDT [facility] Fredrick EDWARDS LAB BLOOD ORDERABLES Edited Res ult - Final [facility] [address] [facility] Department [place] [address] * (ABNORMAL) Reticulocyte Count (05/30/2025 7:11 AM CDT) Pathologist [facility] Retics, absolute 256(H) 20 - 87 K/cumm Comment:Testing performed by : [address] [address] Retics 11.0(H) 0.4 - 2.9 % [facility] Comment:Testing performed by : [address] [address] Reticulocyte Hgb 35.1 30.5 - 38.0 pg [facility] Comment:Testing performed by : [address] [address] Blood 05/30/2025 7:11 AM CDT 05/30/2025 7:13 AM CDT us Rehab Fredrick EDWARDS LAB BLOOD ORDERABLES Final Resu lt [facility] Department [place] [address] * (ABNORMAL) Comprehensive metabolic panel (05/30/2025 7:11 AM CDT) [facility] Sodium 138 135 - 145 mmol/L Comment:Testing performed by : [address] [address] Potassium, pl 4.0 3.3 - 4.9 mmol/L [facility] Comment:Testing performed by : [address] [address] Chloride 103 97 - 110 mmol/L [facility] Comment:Testing performed by : [address] [address] CO2 22 22 - 32 mmol/L [facility] Comment:Testing performed by : [address] [address] Anion gap 13 2 - 15 mmol/L [facility] Comment:Testing performed by : [address] [address] BUN 8 6 - 25 mg/dL [facility] Comment:Testing performed by : [address] [address] Creatinine 0.70(L) 0.80 - 1.30 mg/dL [facility] Comment:Testing performed by : [address] [address] Glucose 100 70 - 199 mg/dL [facility] Comment: Interpretive Data Fasting glucose >/= 126 [...] was last revised 2022. Testing performed by: [address] [address] Calcium 9.7 8.5 - 10.3 mg/dL [facility] Comment:Testing performed by : [address] [address] Bilirubin, total 2.4(H) 0.1 - 1.2 mg/dL [facility] Comment:Testing performed by : [address] [address] Protein, pl 8.2 6.5 - 8.5 g/dL [facility] Comment:Testing performed by : [address] [address] Albumin 4.8 3.5 - 5.0 g/dL [facility] Comment:Testing performed by : [address] [address] Alk phos 89 40 - 130 Units/L [facility] Comment:Testing performed by : [address] [address] ALT 22 7 - 55 Units/L [facility] Comment:Testing performed by : [address] [address] AST 55(H) 10 - 50 Units/L [facility] Comment:Testing performed by : [address] [address] Blood 05/30/2025 7:11 AM CDT 05/30/2025 7:13 AM CDT us Rehab Fredrick EDWARDS LAB BLOOD ORDERABLES Final Resu lt [facility] [address] [facility] Department [place] [address] * MRI MS Brain 3T Protocol W [...] FLAIR, and T2*-weighted gradient echo images. Scanner: [facility] Field Strength: 3T Contrast information: 12 [...] FLAIR, and T2*-weighted gradient echo images. Scanner: [facility] Field Strength: 3T Contrast information: 12 [...] (05/20/2020 4:13 AM CDT) HepBsAg NONREACT NONREACTIVE [facility] Comment: Siemens CentaurXP using CLAUDINE (chemiluminescent immunoassay) technology. NONREACTIVE: IgM antibodies to Hepatitis B Surface antigen not detected. REACTIVE: IgM antibodies to Hepatitis B Surface antigen detected. Reactive results will be confirmed by neutralization testing. HBsAb qn 6.37 mIU/mL [facility] Comment: Siemens CentaurXP using CLAUDINE (chemiluminescent immunoassay) technology. 9.99 IU/L or less.....NONREACTIVE: IgM antibodies to Hepatitis B Surface antibody are not detected. 10.00 IU/L or greater..REACTIVE: IgM antibodies to Hepatitis B Surface antibody are detected. Hep B core IgM NONREACT NONREACTIVE [facility] Comment: Siemens CentaurXP using CLAUDINE (chemiluminescent immunoassay) technology. NONREACTIVE: IgM antibodies to Hepatitis B Core antigen not detected. EQUIVOCAL: IgM antibodies to Hepatitis B Core antigen may or may not be present. Obtain a new specimen and retest. REACTIVE: IgM antibodies to Hepatitis B Core antigen detected. Hep A IgM NONREACT NONREACTIVE [facility] Comment: Siemens CentaurXP using CLAUDINE (chemiluminescent immunoassay) technology. NONREACTIVE: IgM antibodies to Hepatitis A not detected. This does not exclude possibility of exposure to Hepatitis A or early acute infection. EQUIVOCAL:IgM antibodies to Hepatitis A may or may not be present. Suggest recollection and retest. REACTIVE: Antibodies to Hepatitis A detected. Hep C Ab NONREACT NONREACTIVE [facility] Comment: Siemens CentaurXP using CLAUDINE (chemiluminescent immunoassay) [...] AM CDT 05/20/2020 4:43 AM CDT Narrative [facility] - 05/20/2020 9:50 AM CDT Comment add this test the blood drawn today Resulting Agency Comment IN Leonel Sexton MD LAB MICROBIOLOGY - NERAL ORDERABLES Final Result [facility] [address] [place], [place] [id number] [place] [address] from Last 3 Months or Most Recently Relevant to Health Maintenance Insurance [employer] [facility] MEDICARE MEDICARE [facility] MEDICARE Advance Directives For more information, please contact: [phone] * Full Code (Latest Code Status on [...] 11:50 AM 05/25/2023 2:50 PM Care Teams Application Assistant Relationship Specialty Start Date End Date Kwan Hennessy MD [address] [address] PCP - General 04/14/20 Bessie Butt MD [address] [place] [address] Medical Oncologist/Slasher Machine Operator Hematology 07/15/21
--- OUTSIDE RECORDS SUMMARY | 2025-08-10 06:53 | XMS_ITS | Encounter Summary ---
Author Organization [facility] Healthcare Address [address] [place] [address] Care Team Providers Care Principal Associate Name Role Phone La Nena Hansen MD Unavailable [phone] Kwan Hennessy MD Primary Care Provider Anjelica Villegas RN Unavailable [phone] Carolyn Nunze ADVERTISING STATISTICAL CLERK Unavailable Aleah Cherry RRT Unavailable Bessie Butt MD Unavailable Brandy Neely SPECIAL SERVICES SUPERVISOR Unavailable Encounter Details Date Type Department Care Team (Late st Contact Info) Description 09/18/2020 Telephone [facility] Radiology [address] [place] [address] La Nena Hansen MD [address] [facility] [address] [place], [place] [id number] Social History Tobacco Use Types Packs/Day Years [...] on file Legal Sex Male 7:27 AM [employer]OTTOM [employer]URNER Gender Identity Not on file Sexual Orientation [...] 01/05/2021 01/04/2021 01/04/2021 01/05/2021 3 :58 AM BOTTOM [employer]URNER COVID: Suspected 01/04/2021 01/04/2021 01/05/2021 1:28 AM BOTTOM [employer]URNER COVID: Suspected 03/09/2021 03/09/2021 03/09/2021 11:10 AM CDT COVID: Suspected 11/02/2021 11/02/2021 11/02/2021 1:37 PM BOTTOM [employer]URNER COVID19 11/02/2021 11/02/2021 11/18/2021 3:05 AM BOTTOM TURNER COVID: Recovered Comment:Added based on recent COVID infection. 11/18/2021 11/18/2021 03/18/2022 3:05 AM C DT COVID: Suspected 06/09/2022 06/09/2022 06/09/2022 6:05 PM CDT Rhino/Enterovirus 06/09/2022 06/09/2022 06/16/2022 3:05 AM CDT COVID: Suspected 10/10/2022 10/10/2022 10/10/2022 7:34 PM BOTTOM TURNER COVID: Suspected 05/22/2023 05/22/2023 05/22/2023 7:55 AM CDT COVID: Suspected 06/16/2024 06/16/2024 06/16/2024 2:19 AM CDT Parainfluenza, droplet 06/16/2024 06/16/202406/23 3:05 AM CDT documented as of this encounter Care Teams Principal Associate Relationship Specialty Start Date End Date La Nena Hansen MD PCP - Hematology/Oncology Pediatric Hematology and Oncology 09/11/19 07/15/21 Kwan Hennessy MD [address] [facility] [address] [place] [address] PCP - General 04/14/20 Anjelica Villegas, RN [address] [facility] [address] [place] [address] [employer] Outpatient Retail Assistant Store Manager 01/08/21 02/05/21 Carolyn Nunez, MARQUIS [address] [place] [address] Nurse Practitioner Nurse Practitioner 01/08/21 07/14/21 Aleah Cherry RRT [address] [facility] [address] [place] [address] [employer] Outpatient Retail Assistant Store ManagerAfter School Program Teacher Therapy 03/11/21 04/08/21 Bessie Butt MD [address] [place] [address] Medical Oncologist/Navigation Officer Hematology 07/15/21 Brandy Neely, KVNG [address] [facility] ([facility] Mailstop [phone] [place] [address] [employer]OP Outpatient Retail Assistant Store Manager 06/20/24 07/17/24 documented as of this encounter
== END 2025-08-10 06:50 | disposition left against medical advice (07) ==
LOC: ANHED 06:50
DX: D57.00 Hb-SS disease with crisis, unspecified (principal)
CPT/HCPCS: 99199